=== PATIENT | male | born 1940 | race Caucasian/White ===

== ENCOUNTER 2016-06-24 17:11 | Emergency (ER) | payer MEDICARE ==
[~2016-06-24] VITALS: Ht 180.3 cm; Wt 80.0 kg
[~2016-06-24 17:11] MED LIST: ASPI325T PO; ATOR40TA16 PO; CALC0.25 PO; FERR325T PO; HYDR-755 PO; HYDR25TA35 PO; MIRTA15 PO; MULT1TAB41 PO; NEOM1OIN TOP; PLAV75TA29 PO; PROT40TA PO; QUES4POW2 PO; TAMS5CAP PO; TOPR100T PO; UMEC1AER INH; VITA100018 PO; VITATAB11 PO; [UNRECOGNIZED DRUG - CODE] TOPICAL
[2016-06-24 17:14] VITALS: BP 153/65; PULSE 81; RESP 15; TEMP 97.8; O2SAT 98
[2016-06-24] MEDS ORDERED: ASPI1TAB91 PO (19:00)
[2016-06-24] MEDS ORDERED: ALLE25TA PO (19:00)
[2016-06-24] MEDS ORDERED: CILO100T PO (19:00)
[2016-06-24] MEDS ORDERED: CUREL TOPICAL (19:01)
[2016-06-24 19:24] VITALS: BP 178/75; PULSE 70; RESP 15; O2SAT 100
--- NOTE | 2016-06-24 19:27 | PD ---
HPI Chief Complaint: Cardiac Complaint Time Seen by Provider: 19:03 Travel History International Travel<30 days: No Contact w/Intl Traveler<30days: No Traveled to known affect area: No History of Present Illness HPI This 76-year-old man with a history of advanced chronic kidney disease, peripheral arterial disease, CAD, diabetes, presents to the emergency department brought in by his for lower extremity edema. She reports that he's had chronically dizzy for sometime. He is a left upper extremity AV fistula that he's had for years 30s never had dialysis. Lorcet edema waxes and wanes but is been worse over the past week or so. She was worried She has not been able to get in to see a kidney doctor. She is worried the kidney function may be getting worse. He also some swelling in the left upper extremity. He had a skin cancer removed there just couple days ago. He otherwise states he tripped feeling well. No shortness of breath or chest pain. No nausea vomiting diarrhea. No change in urination. No other complaints. History Past Medical History Narrative Medical Stage IV chronic kidney disease, left upper extremity AV fistula Hyperlipidemia Perform arterial disease with stents 2 Coronary artery disease with previous DE and stenting Diabetes Hypertension Syncope BPH Skin cancer Degenerative joint disease Peripheral neuropathy History of heavy tobacco use, continue his ongoing use Prior alcohol use in the remote past Social History Alcohol Use: No (DENIES) Tobacco Use: Yes (1/2 PACK PER DAY) Allergies-Medications (Allergen,Severity, Reaction): Coded Allergies: Bactrim (Verified Allergy, Severe, Rash, 06/24/16) RASH OF FACE AND ORAL MUCUS MEMBRANES Sulfa (Verified Allergy, Severe, RASH, 06/24/16) *MDRO Multi-Drug Resistant Organism (Verified Allergy, Unknown, 06/24/16) MRSA Wound 2006, 02/2004 MRSA PCR Screen #1 negative 01/20/15. Reported Meds & Prescriptions Reported Meds & Active Scripts Active Mirtazapine 15 Mg Tab 15 Mg PO HS Atorvastatin (Atorvastatin Calcium) 40 Mg Tab 40 Mg PO HS Reported [Curel Lotion] 1 Applic TOPICAL DAILY PRN Cilostazol 100 Mg Tab 100 Mg PO DAILY Allergy Relief (Diphenhydramine HCl) 25 Mg Tab 25 Mg PO Q4-6H PRN Aspirin Adult Low Strength (Aspirin) 81 Mg Tabdr 81 Mg PO DAILY Hydroxyzine HCl 10 Mg Tab 10-20 Mg PO HS Hydralazine (Hydralazine HCl) 25 Mg Tab 25 Mg PO BID Take with a meal Toprol XL (Metoprolol Succinate) 100 Mg Tab 100 Mg PO DAILY Flomax (Tamsulosin HCl) 0.4 Mg Cap 0.4 Mg PO HS Protonix (Pantoprazole Sodium) 40 Mg Tab 40 Mg PO DAILY Anoro Ellipta Inh (Umeclidinium/Vilanterol) 62.5-25 Mcg/Act Aero 1 Puff INH DAILY Plavix (Clopidogrel Bisulfate) 75 Mg Tab 75 Mg PO DAILY Calcitriol 0.25 Mcg Cap 0.25 Mcg PO DAILY Review of Systems Except as stated in HPI: all other systems reviewed are Neg Physical Exam Narrative GENERAL: Well-appearing 76-year-old man, no acute distress. SKIN: Focused skin assessment warm/dry. HEAD: Atraumatic. Normocephalic. EYES: Pupils equal and round. No scleral icterus. No injection or drainage. ENT: No nasal bleeding or discharge. Mucous membranes pink and moist. NECK: Trachea midline. No JVD. CARDIOVASCULAR: Regular rate and rhythm. No murmur appreciated. RESPIRATORY: No accessory muscle use. Clear to auscultation. Breath sounds equal bilaterally. GASTROINTESTINAL: Abdomen soft, non-tender, nondistended. Hepatic and splenic margins not palpable. MUSCULOSKELETAL: No obvious deformities. Mild to moderate pitting edema both lower extremities. Good pulses easily palpable in the right lower extremity. A little bit more difficult to find in the left lower extremity however it's warm and well perfused. NEUROLOGICAL: Awake and alert. No obvious cranial nerve deficits. Motor grossly within normal limits. Normal speech. Data Data Last Documented VS Vital Signs Date Time Temp Pulse Resp B/P Pulse Ox O2 Delivery O2 Flow Rate FiO2 06/24/16 20:26 73 17 166/72 99 06/24/16 19:25 Room Air 06/24/16 17:14 97.8 Orders Chest, Single Ap (06/24/16 ) Complete Blood Count With Diff (06/24/16 19:19) Comprehensive Metabolic Panel (06/24/16 19:19) Us Arm Venous Doppler (06/24/16 ) Electrocardiogram (06/24/16 19:09) Labs Laboratory Tests Test 06/24/16 19:30 White Blood Count 7.4 TH/MM3 Red Blood Count 4.06 MIL/MM3 Hemoglobin 12.2 GM/DL Hematocrit 37.1 % Mean Corpuscular Volume 91.4 FL Mean Corpuscular Hemoglobin 30.0 PG Mean Corpuscular Hemoglobin 32.8 % Concent Red Cell Distribution Width 15.2 % Platelet Count 179 TH/MM3 Mean Platelet Volume 9.2 FL Neutrophils (%) (Auto) 63.7 % Lymphocytes (%) (Auto) 25.6 % Monocytes (%) (Auto) 5.9 % Eosinophils (%) (Auto) 3.7 % Basophils (%) (Auto) 1.1 % Neutrophils # (Auto) 4.7 TH/MM3 Lymphocytes # (Auto) 1.9 TH/MM3 Monocytes # (Auto) 0.4 TH/MM3 Eosinophils # (Auto) 0.3 TH/MM3 Basophils # (Auto) 0.1 TH/MM3 CBC Comment DIFF FINAL Differential Comment Sodium Level 141 MEQ/L Potassium Level 4.4 MEQ/L Chloride Level 105 MEQ/L Carbon Dioxide Level 30.0 MEQ/L Anion Gap 6 MEQ/L Blood Urea Nitrogen 26 MG/DL Creatinine 2.01 MG/DL Estimat Glomerular Filtration 32 ML/MIN Rate Random Glucose 92 MG/DL Calcium Level 9.5 MG/DL Total Bilirubin 0.4 MG/DL Aspartate Amino Transf 23 U/L (AST/SGOT) Alanine Aminotransferase 23 U/L (ALT/SGPT) Alkaline Phosphatase 110 U/L Total Protein 7.8 GM/DL Albumin 3.7 GM/DL [facility] Medical Decision Making Medical Screen Exam Complete: Yes Emergency Medical Condition: Yes Interpretation(s) LABS: CBC remarkable for mild anemia CMP remarkable for renal disease Chest x-ray: Negative Left upper quadrant ultrasound: No DVT. Differential Diagnosis Liver disease, dependent edema, kidney disease, other Narrative Course Medical decision-making the Is a well 68-year-old male presents with worsening lower extremity edema. He has history of peripheral arterial disease, as well as chronic kidney disease. Apparently the edema waxes and wanes. There is mild to moderate edema in the legs now. He looks otherwise well. No other significant symptoms. We'll check labs, likely outpatient follow-up with his primary physician. FINAL: Patient with some lower extremity edema, improved now, waxes and wanes at baseline. Likely related to his chronic kidney disease. He also some swelling and warmth in his left upper extremity. He had a skin cancer removal there. I don't see any evidence of infection. I think this may be related to the AV fistula he has there. This appears patent. At this point we'll recommend outpatient follow-up with his primary physician for ongoing management. I don't think he needs any other intervention at this time. Diagnosis Primary Impression: CKD (chronic kidney disease) stage 4, GFR 15-29 ml/min Additional Impression: Edema Additional Instructions: Continue current medications. Follow-up with your primary doctor in the next one to 2 weeks. Continue evaluation by asp net programmer at the first available appointment. Return to the emergency department for any new or worsening symptoms. Disposition: 01 DISCHARGE HOME Condition: Stable Alejandro Camacho MD Jun 24, 2016 19:27
[2016-06-24 19:50] LABS: AUTOMATED NEUTROPHIL # 4.7 TH/MM3 (1.8-7.7); BASOPHIL # 0.1 TH/MM3 (0-0.2); BASOPHIL % 1.1 % (0.0-2.0); EOSINOPHIL # 0.3 TH/MM3 (0-0.4); EOSINOPHIL % 3.7 % (0.0-4.0); HEMATOCRIT 37.1 % (39.0-51.0); HEMO FLAGS DIFF FINAL; LYMPH % 25.6 % (9.0-44.0); LYMPHOCYTE # 1.9 TH/MM3 (1.0-4.8); MEAN CELL VOLUME 91.4 FL (80.0-100.0); MEAN CORPUSCULAR HGB CONC 32.8 % (32.0-36.0); MONO % 5.9 % (0.0-8.0); NEUT % 63.7 % (16.0-70.0); PLATELET COUNT 179 TH/MM3 (150-450); RED BLOOD COUNT 4.06 MIL/MM3 (4.50-5.90); RED CELL DISTRIBUTION WIDTH 15.2 % (11.6-17.2); WHITE BLOOD COUNT 7.4 TH/MM3 (4.0-11.0)
--- NOTE | 2016-06-24 20:08 | RADRPT ---
EXAM DATE/TIME: 06/24/2016 19:29 [facility] COMPARISON: CHEST SINGLE AP, March 08, 2016, 11:26. INDICATIONS : Shortness of breath. Swelling in arms and legs. MEDICAL HISTORY : None. SURGICAL HISTORY : None. ENCOUNTER: Initial ACUITY: 1 day PAIN SCORE: 0/10 LOCATION: Bilateral chest FINDINGS: The lungs are clear without infiltrate, nodule, or mass. There is no appreciable pleural effusion fo r technique. Heart and mediastinum are unremarkable. CONCLUSION: No acute cardiopulmonary disease. Sorin Montero MD on June 24, 2016 at 20:06 Board Certified Radiologist. This report was verified electronically.
[2016-06-24 20:10] LABS: ANION GAP 6 MEQ/L (5-15); AST (GOT) 23 U/L (15-37); BLOOD UREA NITROGEN 26 MG/DL (7-18); CHLORIDE 105 MEQ/L (98-107); GLOMERULAR FILTRATION RATE 32 ML/MIN (>89); POTASSIUM 4.4 MEQ/L (3.5-5.1); SODIUM (NA) 141 MEQ/L (136-145)
[2016-06-24 20:13] LABS: ALKALINE PHOSPHATASE 110 U/L (45-117); ALT (GPT) 23 U/L (12-78); TOTAL BILIRUBIN ADULT 0.4 MG/DL (0.2-1.0)
[2016-06-24 20:26] VITALS: BP 166/72; PULSE 73; RESP 17; O2SAT 99
--- NOTE | 2016-06-24 22:01 | RADRPT ---
EXAM DATE/TIME: 06/24/2016 21:18 [facility] COMPARISON: No previous studies available for comparison. INDICATIONS : Left arm swelling. MEDICAL HISTORY : Chronic obstructive pulmonary disease. Hypercholesterolemia. Myocardial infarction. Cerebrovascular a ccident. Coronary artery disease. Peripheral vascular disease. Hearing loss. Syncope. Neuropathy. Cor onary artery disease. Anticoagulant therapy. Hypertension. Ulcer. Renal failure. Benign prostatic hyp ertrophy. Diabetes. Skin cancer. MRSA. SURGICAL HISTORY : Coronary artery stent. Gastrointestinal surgery to fix gastro bleed. Polyp removal. Skin cancer re moval. Right arm surgery. Vein stripping. ENCOUNTER: Initial ACUITY: 1 day PAIN SCORE: 5/10 LOCATION: Left arm. FINDINGS: There is spontaneous flow documented in the brachial, basilic, cephalic, axillary, and subclavian vei ns. The vessels are compressible and augmentation response is documented. No filling defects are se en. The flow is phasic with respiration. Direction of flow in the jugular vein is caudal. AV fistu la in the brachial vein appears patent. CONCLUSION: No DVT. KRobert Montero MD on June 24, 2016 at 21:59 Board Certified Radiologist. This report was verified electronically.
--- NOTE | 2016-06-25 13:46 | EKG ---
Date Performed: 06/24/2016 Time Performed: 19:09:09 PTAGE: 76 years EKG: Sinus rhythm WITH FIRST DEGREE AV BLOCK LEFT VENTRICULAR HYPERTROPHY AND ST-T CHANGE ABNORMAL ECG Compared to marko or tracing no significant change PREVIOUS TRACING : 03/08/2016 11.43 DOCTOR: David Guevara Interpretating Date/Time 06/25/2016 13:40:57
[2016-07-21] MEDS ORDERED: VENTAER INH (16:07)
[2016-07-21] MEDS ORDERED: FURO1TAB62 PO (16:07)
[2016-07-28] MEDS ORDERED: FURO20TA PO (14:15)
[2016-08-19] MEDS ORDERED: VENTAER INH (12:36)
[2016-09-03] MEDS ORDERED: VENTAER INH (06:24)
[2016-09-16] MEDS ORDERED: VENTAER INH (07:44)
== END 2016-06-24 23:33 | disposition home or self-care (01) ==
LOC: NEPC 17:11
DX: N18.4 Chronic kidney disease, stage 4 (severe) (principal); I12.9 Hypertensive chronic kidney disease with stage 1 through stage 4 chronic kidney disease, or unspecified chronic kidney disease; E78.5 Hyperlipidemia, unspecified; E11.9 Type 2 diabetes mellitus without complications; I25.2 Old myocardial infarction; I25.10 Atherosclerotic heart disease of native coronary artery without angina pectoris; G62.9 Polyneuropathy, unspecified; Z79.01 Long term (current) use of anticoagulants; F17.210 Nicotine dependence, cigarettes, uncomplicated; Z79.82 Long term (current) use of aspirin
CPT/HCPCS: 71010; 80053; 85025; 93005; 93971

== ENCOUNTER 2016-11-28 14:29 | Inpatient (IN) | payer MEDICARE ==
[~2016-11-28] VITALS: Ht 182.9 cm; Wt 73.0 kg
[2016-11-28] VITALS (16 sets, daily range): BP systolic 101–216; BP diastolic 50–98; PULSE 81–139; RESP 19–38; TEMP 97.9–99.2; O2SAT 89–100
[~2016-11-28 14:29] MED LIST changes: +ALLE25TA PO; +ASPI1TAB91 PO; -ASPI325T PO; +CILO100T PO; +CUREL TOPICAL; -FERR325T PO; +FURO1TAB62 PO; +FURO20TA PO; -HYDR25TA35 PO; -MULT1TAB41 PO; -NEOM1OIN TOP; -QUES4POW2 PO; +VENTAER INH; -VITA100018 PO; -VITATAB11 PO; -[UNRECOGNIZED DRUG - CODE] TOPICAL
[2016-11-28] MEDS ORDERED: DILTIAZEM HCL 25 MG/5 ML VIAL ONE (14:39)
[2016-11-28] MEDS ORDERED: NITROGLYCERIN-D5W 50 MG/250 ML 250 ML IV ONE (14:45)
[2016-11-28] MEDS ORDERED: DILTIAZEM HCL 25 MG/5 ML VIAL IV ONE (14:45)
[2016-11-28] MEDS ORDERED: SODIUM CHLORIDE 0.9% FLUSH 10 ML FLUSH IVF PRN (14:45)
[2016-11-28] MEDS ORDERED: DILTIAZEM INJ 125 MG in SODIUM CHLORIDE 0.9% INJ 100 ML IV PRN ×2 (14:45→16:45)
--- NOTE | 2016-11-28 14:56 | PD ---
HPI Chief Complaint: Respiratory Distress Time Seen by Provider: 14:45 Travel History International Travel<30 days: No Contact w/Intl Traveler<30days: No Traveled to known affect area: No History of Present Illness HPI Patient is a 76-year-old male presenting to emergency evaluation of shortness of breath. Per EMS shortness of breath has been increasing over the last 2 days. Patient has a history of COPD, chronic kidney disease stage IV, diabetes mellitus, BPH, GERD, hyperlipidemia, coronary artery disease, peripheral artery disease, myocardial infarction. History of present illness is limited as patient is in acute distress. PFSH Past Medical History Hx Anticoagulant Therapy: Yes (aspirin and Plavix) Cancer: Yes (SKIN) Cardiac Catheterization: Yes Cardiomyopathy: Yes High Cholesterol: Yes Chest Pain: Yes COPD: Yes Cerebrovascular Accident: Yes (TIA) Coronary Artery Disease: Yes Diabetes: Yes (diet controlled) Gastrointestinal Disorders: Yes (history of GI bleed) Hypertension: Yes Immune Disorder: No Kidney Stones: No Musculoskeletal: Yes Neurologic: No Psychiatric: No Reproductive: No Integumentary: Yes (SKIN MRSA) Immunizations Current: Yes Myocardial Infarction: Yes Renal Failure: Yes (stage IV chronic kidney disease) Sleep Apnea: Yes Ulcer: Yes Past Surgical History Abdominal Surgery: No AICD: No Arteriovenous Shunt: Yes (left arm) Coronary Stent: Yes Ear Surgery: No Endocrine Surgery: No Eye Surgery: No Genitourinary Surgery: Yes (colonospy polyp/endoscopy ) Gynecologic Surgery: No Joint Replacement: No Neurologic Surgery: No Oral Surgery: No Pacemaker: No Thoracic Surgery: No Other Surgery: Yes (STRIPPED VEINS IN LEGS, LAVF) Social History Alcohol Use: No (DENIES) Tobacco Use: Yes (1/2 PACK PER DAY) Substance Use: No Allergies-Medications (Allergen,Severity, Reaction): Coded Allergies: Sulfa (Sulfonamide Antibiotics) (Unverified Allergy, Severe, RASH, 11/02/16 ) sulfamethoxazole (Unverified Allergy, Severe, Rash, 11/02/16) RASH OF FACE AND ORAL MUCUS MEMBRANES trimethoprim (Unverified Allergy, Severe, Rash, 11/02/16) RASH OF FACE AND ORAL MUCUS MEMBRANES *MDRO Multi-Drug Resistant Organism (Verified Allergy, Unknown, 07/28/16) MRSA Wound 2006, 02/2004 MRSA PCR Screen #1 negative 01/20/15. Reported Meds & Prescriptions Reported Meds & Active Scripts Active Ventolin Hfa 18 GM Inh (Albuterol Sulfate) 90 Mcg/Act Aer 2 Puff INH Q4-6H PRN Mirtazapine 15 Mg Tab 15 Mg PO HS Atorvastatin (Atorvastatin Calcium) 40 Mg Tab 40 Mg PO HS Reported Furosemide 20 Mg Tab 20 Mg PO DAILY Lasix (Furosemide) 20 Mg Tab 20 Mg PO DAILY [Curel Lotion] 1 Applic TOPICAL DAILY PRN Cilostazol 100 Mg Tab 100 Mg PO DAILY Allergy Relief (Diphenhydramine HCl) 25 Mg Tab 25 Mg PO Q4-6H PRN Aspirin Adult Low Strength (Aspirin) 81 Mg Tabdr 81 Mg PO DAILY Hydroxyzine HCl 10 Mg Tab 10-20 Mg PO HS Toprol XL (Metoprolol Succinate) 100 Mg Tab 100 Mg PO DAILY Flomax (Tamsulosin HCl) 0.4 Mg Cap 0.4 Mg PO HS Protonix (Pantoprazole Sodium) 40 Mg Tab 40 Mg PO DAILY Anoro Ellipta Inh (Umeclidinium/Vilanterol) 62.5-25 Mcg/Act Aero 1 Puff INH DAILY Plavix (Clopidogrel Bisulfate) 75 Mg Tab 75 Mg PO DAILY Calcitriol 0.25 Mcg Cap 0.25 Mcg PO DAILY Review of Systems Except as stated in HPI: all other systems reviewed are Neg Cardiovascular: Positive: Chest Pain or Discomfort, Tachycardia, Dyspnea on exertion, Edema Respiratory: Positive: Shortness of Breath, Wheezing, Orthopnea Neurologic: Positive: Weakness Physical Exam Narrative GENERAL: Thin, well-developed, alert elderly male. Appears in acute distress. SKIN: Warm and dry. HEAD: Atraumatic. Normocephalic. EYES: Pupils equal and round. No scleral icterus. No injection or drainage. ENT: No nasal bleeding or discharge. Mucous membranes pink and moist. NECK: Trachea midline. No JVD. CARDIOVASCULAR: Regular rate and rhythm. RESPIRATORY: Tachypneic, diaphragmatic breathing, nasal flaring. Expiratory wheezing or coarse breath sounds noted throughout. GASTROINTESTINAL: Abdomen soft, non-tender, nondistended. Hepatic and splenic margins not palpable. Positive bowel sounds. MUSCULOSKELETAL: Extremities without clubbing, cyanosis. Trace peripheral edema. No obvious deformities. NEUROLOGICAL: Awake and alert. No obvious cranial nerve deficits. Motor grossly within normal limits. Five out of 5 muscle strength in the arms and legs. Normal speech. PSYCHIATRIC: Appropriate mood and affect; insight and judgment normal. Data Data Last Documented VS Vital Signs Date Time Temp Pulse Resp B/P (MAP) Pulse Ox O2 Delivery O2 Flow Rate FiO2 11/28/16 16:30 104 21 151/67 (95) 100 BiPAP 11/28/16 14:40 60 11/28/16 14:32 99.2 Orders Orders Complete Blood Count With Diff (11/28/16 14:33) Comprehensive Metabolic Panel (11/28/16 14:33) B-Type Natriuretic Peptide (11/28/16 14:33) Magnesium (Mg) (11/28/16 14:33) Arterial Blood Gas (Abg) (11/28/16 14:33) Iv Access Insert/Monitor (11/28/16:33) Electrocardiogram (11/28/16:33) Ecg Monitoring (11/28/16:33) Oximetry (11/28/16 14:33) Oxygen Administration (11/28/16 14:33) Chest, Single Ap (11/28/16 14:33) Sodium Chloride 0.9% Flush (Ns Flush) (11/28/16 14:45) Albuterol-Ipratropium Neb (Duoneb Neb) (11/28/16 14:45) Resp Bipap / Cpap Non Invas Vt (11/28/16 14:33) Diltiazem Inj (Cardizem Inj) (11/28/16 14:39) Diltiazem Inj (Cardizem Inj) (11/28/16 14:45) Nitroglycerin-D5w 50 Mg/250 Ml (Nitrogly (11/28/16 14:45) Vital Signs (Adult) Q15MX4,Q4H (11/28/16 14:41) Cardiac Rhythm OLIVIA.Q8H (11/28/16 14:41) Notify Dr: Other (11/28/16 14:41) Diltiazem Inj (Cardizem Inj) (11/28/16 14:45) Ckmb (Isoenzyme) Profile (11/28/16 14:45) Troponin I (11/28/16 14:45) Furosemide Inj (Lasix Inj) (11/28/16 15:15) CKMB (11/28/16 14:40) CKMB% (11/28/16 14:40) Admit Order (Ed Use Only) (11/28/16 16:34) Labs Laboratory Tests Test 11/28/16 14:40 White Blood Count 13.7 TH/MM3 Red Blood Count 3.76 MIL/MM3 Hemoglobin 9.1 GM/DL Hematocrit 30.9 % Mean Corpuscular Volume 82.1 FL Mean Corpuscular Hemoglobin 24.3 PG Mean Corpuscular Hemoglobin Concent 29.6 % Red Cell Distribution Width 22.3 % Platelet Count 198 TH/MM3 Mean Platelet Volume 8.6 FL Neutrophils (%) (Auto) 78.8 % Lymphocytes (%) (Auto) 17.6 % Monocytes (%) (Auto) 3.2 % Eosinophils (%) (Auto) 0.0 % Basophils (%) (Auto) 0.4 % Neutrophils # (Auto) 10.8 TH/MM3 Lymphocytes # (Auto) 2.4 TH/MM3 Monocytes # (Auto) 0.4 TH/MM3 Eosinophils # (Auto) 0.0 TH/MM3 Basophils # (Auto) 0.1 TH/MM3 CBC Comment DIFF FINAL Differential Comment Blood Urea Nitrogen 39 MG/DL Creatinine 2.66 MG/DL Random Glucose 241 MG/DL Total Protein 7.8 GM/DL Albumin 3.6 GM/DL Calcium Level 8.9 MG/DL Magnesium Level 2.6 MG/DL Alkaline Phosphatase 92 U/L Aspartate Amino Transf (AST/SGOT) 22 U/L Alanine Aminotransferase (ALT/SGPT) 20 U/L Total Bilirubin 1.1 MG/DL Sodium Level 142 MEQ/L Potassium Level 4.4 MEQ/L Chloride Level 104 MEQ/L Carbon Dioxide Level 25.2 MEQ/L Anion Gap 13 MEQ/L Estimat Glomerular Filtration Rate 23 ML/MIN Total Creatine Kinase 147 U/L Creatine Kinase MB 6.7 NG/ML Troponin I 1.40 NG/ML B-Type Natriuretic Peptide GREATER THAN 5000 PG/ML MDM Medical Decision Making Medical Screen Exam Complete: Yes Emergency Medical Condition: Yes Medical Record Reviewed: Yes Interpretation(s) Vital Signs Date Time Temp Pulse Resp B/P (MAP) Pulse Ox O2 Delivery O2 Flow Rate FiO2 11/28/16 14:38 98 BiPAP 11/28/16 14:38 99 BiPAP 60 11/28/16 14:38 139 38 98 BiPAP 11/28/16 14:32 99.2 139 38 216/98 (137) 89 Differential Diagnosis CHF vs COPD exac. vs less likely PE vs metabolic abnormality vs acute on chronic kidney disease Narrative Course Patient is 76-year-old male presenting to emergency evaluation of shortness of breath. Initial report was obtained by EMS. Patient was tachypneic, tachycardic, and appeared to be in acute distress on arrival. Patient was placed on BiPAP. Labs and imaging ordered and pending. IV access was established by EMS, patient was given IV Solu-Medrol 125 mg en route. is at bedside states the patient has been feeling short of breath. Several days, today it got increasingly worse. Patient had not been eating and was very fatigued. Patient was given nitroglycerin by his this morning because she felt that it could've been his heart. She reports that he has not of his Lasix for several days. Patient was started on Lasix last month after a two-week stay in the hospital in [place]. Initial EKG shows atrial flutter with a heart rate of 140, patient was also hypertensive on arrival. Cardizem 20 mg IV was followed by Cardizem drip was ordered. Chest x-ray shows interstitial vascular prominence characteristic of pulmonary edema. 4 mg of IV Lasix ordered and given. CBC with a white count 13.7 with left shift Chemistry with elevated BUN and creatinine at 39/2.66, this is increased since his prior of 16/05.. Patient was reassessed, he is resting comfortably, he does not appear to be in acute distress and reports feeling better. is at bedside at this time. Discussed with both of them that patient will be admitted, they are agreeable. BNP greater than 5000. Heart rate is 95 on the Cardizem drip. He continues to be on BiPAP. Troponin 1.40 likely secondary to demand ischemia. Tachy arrhythmia likely causing the CHF. Due to the respiratory distress, congestive heart failure, Cardizem drip, elevated troponin and need for BiPAP patient was placed in the ICU. Dr. Kimbrough will consult intensivists. Spoke with doctor العراقي, who according to the call center was on for Dr. Hollis, he stated his group does not cover for Dr. Hollis. He was informed about patients status, he stated he would discuss this with Dr. Kimbrough and be of assistance if needed. Sepsis Criteria SIRS Criteria (2 or more): Heart rate over 90, RR > 20 or PaCO2 < 32, WBC > 75470, < 4000 or > 10% bands Diagnosis Primary Impression: CHF (congestive heart failure) Qualified Codes: I50.9 - Heart failure, unspecified Additional Impressions: Atrial flutter with rapid ventricular response Elevated troponin Acute kidney injury superimposed on chronic kidney disease Respiratory distress Admitting Information Admitting Physician Requests: Admit Condition: Stable Maribel Grijalva MOLD TOOLING TECHNICIAN Nov 28, 2016 14:56
--- NOTE | 2016-11-28 15:09 | RADRPT ---
EXAM DATE/TIME: 11/28/2016 14:54 [facility] COMPARISON: CHEST SINGLE AP, June 24, 2016, 19:29. INDICATIONS : Short of breath for two days. MEDICAL HISTORY : Cardiovascular disease. Hypertension. Diabetes mellitus type 1. SURGICAL HISTORY : None. ENCOUNTER: Initial ACUITY: 2 days PAIN SCORE: 0/10 LOCATION: Bilateral chest FINDINGS: Generalized interstitial vascular prominence has developed throughout both lungs. Heart is at the upp er limits of normal in size. Patchy airspace disease is noted. CONCLUSION: Interstitial vascular prominence characteristic of pulmonary edema. Dallin Rowan MD on November 28, 2016 at 15:06 Board Certified Radiologist. This report was verified electronically.
[2016-11-28] MEDS ORDERED: FUROSEMIDE 40 MG/4 ML VIAL IV PUSH ONE (15:15)
[2016-11-28 15:19] LABS: AUTOMATED NEUTROPHIL # 10.8 TH/MM3 (1.8-7.7); BASOPHIL # 0.1 TH/MM3 (0-0.2); BASOPHIL % 0.4 % (0.0-2.0); HEMATOCRIT 30.9 % (39.0-51.0); HEMO FLAGS DIFF FINAL; LYMPH % 17.6 % (9.0-44.0); LYMPHOCYTE # 2.4 TH/MM3 (1.0-4.8); MEAN CELL VOLUME 82.1 FL (80.0-100.0); MEAN CORPUSCULAR HEMOGLOBIN 24.3 PG (27.0-34.0); MONO % 3.2 % (0.0-8.0); NEUT % 78.8 % (16.0-70.0); PLATELET COUNT 198 TH/MM3 (150-450); RED BLOOD COUNT 3.76 MIL/MM3 (4.50-5.90); RED CELL DISTRIBUTION WIDTH 22.3 % (11.6-17.2); WHITE BLOOD COUNT 13.7 TH/MM3 (4.0-11.0)
[2016-11-28] MEDS: RESP: ALBUTEROL 2.5 MG/IPRATROPIUM 0.5 MG NEB (SCH) INH (15:21)
[2016-11-28 15:22] LABS: MEAN CORPUSCULAR HGB CONC 29.6 % (32.0-36.0)
[2016-11-28 15:45] LABS: ALT (GPT) 20 U/L (12-78); ANION GAP 13 MEQ/L (5-15); AST (GOT) 22 U/L (15-37); BICARBONATE 25.2 MEQ/L (21.0-32.0); BLOOD UREA NITROGEN 39 MG/DL (7-18); CHLORIDE 104 MEQ/L (98-107); GLOMERULAR FILTRATION RATE 23 ML/MIN (>89); MAGNESIUM 2.6 MG/DL (1.5-2.5); POTASSIUM 4.4 MEQ/L (3.5-5.1); SODIUM (NA) 142 MEQ/L (136-145)
[2016-11-28 15:46] LABS: ALKALINE PHOSPHATASE 92 U/L (45-117); TOTAL BILIRUBIN ADULT 1.1 MG/DL (0.2-1.0)
[2016-11-28 16:16] LABS: CREATINE KINASE 147 U/L (39-308)
[2016-11-28] MEDS ORDERED: oxyCODONE/ACETAMINOPHEN 10 MG/325 MG TAB PO PRN (16:45)
[2016-11-28] MEDS ORDERED: SENNOSIDES 8.6 MG TAB PO PRN (16:45)
[2016-11-28] MEDS ORDERED: ALBUTEROL SULFATE 90 MCG/ACT HFA 8 GM INHALER INH PRN (16:45)
[2016-11-28] MEDS ORDERED: oxyCODONE/ACETAMINOPHEN 5 MG/325 MG TAB PO PRN (16:45)
[2016-11-28] MEDS ORDERED: PROCHLORPERAZINE 25 MG SUPP RECTAL PRN (16:45)
[2016-11-28] MEDS ORDERED: BISACODYL 10 MG SUPP RECTAL PRN (16:45)
[2016-11-28] MEDS ORDERED: NALOXONE HCL 0.4 MG/ML AMP IV PRN (16:45)
[2016-11-28] MEDS ORDERED: CUREL TOPICAL PRN (16:45)
[2016-11-28] MEDS ORDERED: MAGNESIUM HYDROXIDE SUSP 30 ML CUP PO PRN (16:45)
[2016-11-28] MEDS ORDERED: SODIUM CHLORIDE 0.9% FLUSH 10 ML FLUSH IV FLUSH PRN ×3 (16:45)
[2016-11-28] MEDS ORDERED: MORPHINE SULFATE 4 MG/ML INJ IV PRN ×2 (16:45)
[2016-11-28] MEDS ORDERED: ONDANSETRON HCL 4 MG/2 ML VIAL IVP PRN (16:45)
[2016-11-28] MEDS ORDERED: ACETAMINOPHEN 325 MG TAB PO PRN ×2 (16:45)
[2016-11-28] MEDS ORDERED: LACTULOSE SYRUP 20 GM/30 ML CUP PO PRN (16:45)
[2016-11-28 16:48] LABS: CKMB 6.7 NG/ML (0.5-3.6)
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
[2016-11-28 17:47] LABS: BLOOD GAS BASE EXCESS -1.4 mmol/L (-2-2); BLOOD GAS CARBOXYHEMOGLOBIN 2.6 % (0-4); BLOOD GAS HCO3 23 mmol/L (22-26); BLOOD GAS METHEMOGLOBIN 0.5 % (0-2); BLOOD GAS O2 HGB SATURATION 96 % (90-100); BLOOD GAS OXYGEN CONTENT 14.2 Vol % (12.0-20.0); BLOOD GAS PCO2 36 mmHg (38-42); BLOOD GAS PO2 141 mmHG (61-120); BLOOD GAS TOTAL HGB 10.3 G/DL (12.0-16.0); CRITICAL VALUE NO; DRAW SITE RT RADIAL; FIO2 60 %; NUMBER OF ARTERIAL PUNCTURES 1; OXYGEN DEVICE BIPAP; STAT YES; TEMP CORR TO 98.6; ULNAR PULSE PRESENT; VENT SETTINGS IPAP10 EPAP5
--- NOTE | 2016-11-28 18:08 | HHI.HP ---
[facility] Unknown Admission Diagnosis CHF, A FLUTTER, ELEVATED TROPONIN Diagnoses: (1) CHF (congestive heart failure) Diagnosis: Principal (2) COPD (chronic obstructive pulmonary disease) Diagnosis: Secondary (3) Atrial flutter with rapid ventricular response Diagnosis: Principal (4) CKD (chronic kidney disease) stage 4, GFR 15-29 ml/min Diagnosis: Secondary (5) Respiratory distress Diagnosis: Principal (6) DM2 (diabetes mellitus, type 2) Diagnosis: Secondary Chief Complaint: Shortness of breath and difficulty breathing Travel History International Travel<30 Days: No Contact w/Intl Traveler <30 Da: No Traveled to Known Affected Are: No History of Present Illness Mr. Matsers is a 76-year-old male patient with a known medical history of COPD, long standing tobacco use history, CKD stage IV, atrial fibrillation, CHF and hypertension who presented to the ED with worsening shortness of breath x 1 day. Patient seen and examined in ED, at bedside. Per , patient has been more fatigued and lethargic, sleeping a lot. She states that yesterday he was increasingly short of breath, unable to lie flat at night due to dyspnea and has been unable to walk across the room without becoming short of breath. states that patient's health has been declining for over a year now and recently hospitalized 2 weeks ago for similar symptoms and at that time started on Lasix with which the patient has been noncompliant. Denies any recent illness including fever, chills, headache, dizziness, abdominal pain, nausea, vomiting, diarrhea or dysuria. Does admit to a chronic nonproductive cough. Poor appetite for several days. Patient awake and alert, following commands, currently requiring BIPAP assistance, shallow breathing noted, with apparent dyspnea. Patient presented with A fib RVR, currently on Cardizem drip and well- controlled. O2 sats 100% on 40% FiO2. BP stable. We'll admit to the ICU for close monitoring Review of Systems Constitutional: COMPLAINS OF: Fatigue, DENIES: Diaphoretic episodes, Fever, Weight gain, Weight loss, Chills, Dizziness, Change in appetite Endocrine: DENIES: Heat/cold intolerance, Polydipsia, Polyuria Eyes: DENIES: Blurred vision, Diplopia, Eye inflammation Ears, nose, mouth, throat: DENIES: Tinnitus, Hearing loss, Vertigo, Nasal discharge, Odynophagia Respiratory: COMPLAINS OF: Cough, Wheezing, Sputum production, Shortness of breath, DENIES: Apneas, Snoring, Hemoptysis Cardiovascular: COMPLAINS OF: Chest pain, Palpitations, Dyspnea on Exertion, DENIES: Syncope, PND, Lower Extremity Edema, Orthopnea Gastrointestinal: DENIES: Abdominal pain, Black stools, Bloody stools, Constipation, Diarrhea, Nausea, Vomiting, Difficulty Swallowing Genitourinary: DENIES: Sexual dysfunction, Urinary frequency, Urinary incontinence Musculoskeletal: DENIES: Joint pain, Muscle aches, Stiffness Integumentary: DENIES: Abnormal pigmentation, Nail changes Hematologic/lymphatic: DENIES: Bruising, Lymphadenopathy Immunologic/allergic: DENIES: Eczema, Urticaria Neurologic: DENIES: Abnormal gait, Headache, Localized weakness, Paresthesias, Seizures Psychiatric: COMPLAINS OF: Anxiety, Depression, Agitation, DENIES: Confusion, Mood changes, Hallucinations Except as stated in HPI: all other systems reviewed are Neg Past Family Social History Past Medical History Hyperlipidemia Cardiomyopathy COPD History of TIA Type 2 diabetes mellitus History of GI bleed History of WI Stage IV chronic kidney disease Sleep apnea Tobacco abuse Past Surgical History Left AV fistula CAD with stents LAVF stripping in lower extremities Reported Medications Active Ventolin Hfa 18 GM Inh (Albuterol Sulfate) 90 Mcg/Act Aer 2 Puff INH Q4-6H PRN Mirtazapine 15 Mg Tab 15 Mg PO HS Atorvastatin (Atorvastatin Calcium) 40 Mg Tab 40 Mg PO HS Reported Furosemide 20 Mg Tab 20 Mg PO DAILY Lasix (Furosemide) 20 Mg Tab 20 Mg PO DAILY [Curel Lotion] 1 Applic TOPICAL DAILY PRN Cilostazol 100 Mg Tab 100 Mg PO DAILY Allergy Relief (Diphenhydramine HCl) 25 Mg Tab 25 Mg PO Q4-6H PRN Aspirin Adult Low Strength (Aspirin) 81 Mg Tabdr 81 Mg PO DAILY Hydroxyzine HCl 10 Mg Tab 10-20 Mg PO HS Toprol XL (Metoprolol Succinate) 100 Mg Tab 100 Mg PO DAILY Flomax (Tamsulosin HCl) 0.4 Mg Cap 0.4 Mg PO HS Protonix (Pantoprazole Sodium) 40 Mg Tab 40 Mg PO DAILY Anoro Ellipta Inh (Umeclidinium/Vilanterol) 62.5-25 Mcg/Act Aero 1 Puff INH DAILY Plavix (Clopidogrel Bisulfate) 75 Mg Tab 75 Mg PO DAILY Calcitriol 0.25 Mcg Cap 0.25 Mcg PO DAILY Allergies: Coded Allergies: Sulfa (Sulfonamide Antibiotics) (Unverified Allergy, Severe, RASH, 11/02/16 ) sulfamethoxazole (Unverified Allergy, Severe, Rash, 11/02/16) RASH OF FACE AND ORAL MUCUS MEMBRANES trimethoprim (Unverified Allergy, Severe, Rash, 11/02/16) RASH OF FACE AND ORAL MUCUS MEMBRANES *MDRO Multi-Drug Resistant Organism (Verified Allergy, Unknown, 07/28/16) MRSA Wound 2006, 02/2004 MRSA PCR Screen #1 negative 01/20/15. Active Ordered Medications Current Medications Medications (Trade) Dose Ordered Sig/Surendra Route Start Time Stop Time Status Last Admin (NS Flush) 2 ml UNSCH PRN IVF 11/28/16 14:45 Diltiazem HCl 125 mg/Sodium Chloride 125 ml @ 5 mls/hr TITRATE PRN IV 11/28/16 14:45 11/28/16 14:59 (Proair Hfa Inh) 2 puff Q6HR PRN INH 11/28/16 16:45 UNV (Ecotrin Ec) 81 mg DAILY PO 11/29/16 09:00 UNV (Lipitor) 40 mg HS PO 11/28/16 21:00 UNV (Rocaltrol) 0.25 mcg DAILY PO 11/29/16 09:00 UNV (Pletal) 100 mg DAILY PO 11/29/16 09:00 UNV (Plavix) 75 mg DAILY PO 11/29/16 09:00 UNV (Atarax) 10 mg HS PO 11/28/16 21:00 UNV (Toprol Xl) 100 mg DAILY PO 11/28/16 16:45 UNV (Remeron) 15 mg HS PO 11/28/16 21:00 UNV (Protonix) 40 mg DAILY PO 11/28/16 16:45 UNV (Flomax) 0.4 mg HS PO 11/28/16 21:00 UNV Non-Formulary Medication 25 mg Q4-6H PRN PO 11/28/16 16:45 UNV Non-Formulary Medication 1 applic DAILY PRN TOPICAL 11/28/16 16:45 UNV (NS Flush) 2 ml UNSCH PRN IV FLUSH 11/28/16 16:45 UNV (NS Flush) 2 ml BID IV FLUSH 11/28/16 21:00 UNV (Tylenol) 650 mg Q4H PRN PO 11/28/16 16:45 UNV (Zofran Inj) 4 mg Q6H PRN IVP 11/28/16 16:45 UNV (Compazine Supp) 25 mg Q12H PRN ND 11/28/16 16:45 UNV (Heparin Inj) 5,000 units Q12H SQ 11/28/16 16:45 UNV (Tylenol) 650 mg Q6H PRN PO 11/28/16 16:45 UNV (Percocet 5-325 Mg) 1 tab Q6H PRN PO 11/28/16 16:45 UNV (Percocet 10-325 Mg) 1 tab Q6H PRN PO 11/28/16 16:45 UNV (Morphine Inj) 2 mg Q3H PRN IV 11/28/16 16:45 UNV (Morphine Inj) 4 mg Q3H PRN IV 11/28/16 16:45 UNV (Narcan Inj) 0.4 mg UNSCH PRN IV 11/28/16 16:45 UNV (Jodie-Colace) 1 tab BID PO 11/28/16 21:00 UNV (Milk Of Magnesia Liq) 30 ml Q12H PRN PO 11/28/16 16:45 UNV (Senokot) 17.2 mg Q12H PRN PO 11/28/16 16:45 UNV (Dulcolax Supp) 10 mg DAILY PRN RECTAL 11/28/16 16:45 UNV (Lactulose Liq) 30 ml DAILY PRN PO 11/28/16 16:45 UNV (NS Flush) 2 ml UNSCH PRN IV FLUSH 11/28/16 16:45 UNV (NS Flush) 2 ml BID IV FLUSH 11/28/16 21:00 UNV (Lasix Inj) 40 mg BID@,18 IVP 11/28/16 18:00 UNV (KCl) 20 meq BID PO 11/28/16 21:00 UNV (NS Flush) 2 ml UNSCH PRN IV FLUSH 11/28/16 16:45 UNV (NS Flush) 2 ml BID IV FLUSH 11/28/16 21:00 UNV (Aspirin) 325 mg DAILY PO 11/29/16 09:00 UNV Diltiazem HCl 125 mg/Sodium Chloride 125 ml @ 5 mls/hr TITRATE PRN IV 11/28/16 16:45 UNV Family History Paternal medical history significant for WI in his 70's. Maternal medical history significant for stroke in her 70's. Both . Social History Patient is over 50 years. Does admit to smoking 1/2 ppd cigarettes since he was a child. Has stopped smoking two weeks ago after being hospitalized. Denies any alcohol use. Denies any illicit drug use. Physical Exam Vital Signs Vital Signs Date Time Temp Pulse Resp B/P (MAP) Pulse Ox O2 Delivery O2 Flow Rate FiO2 11/28/16 17:30 90 20 139/63 (88) 100 BiPAP 11/28/16 17:00 96 19 148/67 (94) 100 BiPAP 11/28/16 16:30 104 21 151/67 (95) 100 BiPAP 11/28/16 15:45 110 27 148/65 (92) 100 BiPAP 11/28/16 15:15 114 23 153/67 (95) 100 BiPAP 11/28/16 14:59 120 177/74 11/28/16 14:45 120 38 177/74 (108) 99 BiPAP 11/28/16 14:40 100 60 11/28/16 14:38 98 BiPAP 11/28/16 14:38 99 BiPAP 60 11/28/16 14:38 139 38 98 BiPAP 11/28/16 14:32 99.2 139 38 216/98 (137) 89 Physical Exam GENERAL: This is a thin, well-developed patient, elderly male patient, lying in bed in apparent distress on BIPAP. Shallow breathing. SKIN: Multiple areas of ecchymosis on upper extremities. Clammy and cool. HEAD: Atraumatic. Normocephalic. EYES: Pupils equal round and reactive. Extraocular motions intact. No scleral icterus. No injection or drainage. ENT: Nose without bleeding. Airway patent, on BIPAP machine. Tongue is midline NECK: Trachea midline. JVD present. Supple. CARDIOVASCULAR: Presently in sinus tachycardia. Aortic murmur present 2/6. S1 and S2 no S3 or S4 no heave or thrill or rub or gallop RESPIRATORY: Crackles noted in anterior and posterior lower lobes. Breath sounds equal bilaterally. GASTROINTESTINAL: Abdomen soft, non-tender, nondistended. No guarding. MUSCULOSKELETAL: Extremities without clubbing, cyanosis, or edema. No joint tenderness, effusion, or edema noted. NEUROLOGICAL: Lethargic. Cranial nerves II through XII intact. Motor and sensory grossly within normal limits. Five out of 5 muscle strength in all muscle groups. Normal speech. EXTREMITIES: Bilateral lower extremity edema 2+ pitting. Bilateral DP and pedal pulses present 1+. Left upper extremity fistula noted, bruit and thrill present. Insight and judgment is okay And behavior is somewhat appropriate Laboratory Laboratory Tests Test 11/28/16 14:40 11/28/16 15:30 White Blood Count 13.7 Red Blood Count 3.76 Hemoglobin 9.1 Hematocrit 30.9 Mean Corpuscular Volume 82.1 Mean Corpuscular Hemoglobin 24.3 Mean Corpuscular Hemoglobin Concent 29.6 Red Cell Distribution Width 22.3 Platelet Count 198 Mean Platelet Volume 8.6 Neutrophils (%) (Auto) 78.8 Lymphocytes (%) (Auto) 17.6 Monocytes (%) (Auto) 3.2 Eosinophils (%) (Auto) 0.0 Basophils (%) (Auto) 0.4 Neutrophils # (Auto) 10.8 Lymphocytes # (Auto) 2.4 Monocytes # (Auto) 0.4 Eosinophils # (Auto) 0.0 Basophils # (Auto) 0.1 CBC Comment DIFF FINAL Differential Comment Blood Urea Nitrogen 39 Creatinine 2.66 Random Glucose 241 Total Protein 7.8 Albumin 3.6 Calcium Level 8.9 Magnesium Level 2.6 Alkaline Phosphatase 92 Aspartate Amino Transf (AST/SGOT) 22 Alanine Aminotransferase (ALT/SGPT) 20 Total Bilirubin 1.1 Sodium Level 142 Potassium Level 4.4 Chloride Level 104 Carbon Dioxide Level 25.2 Anion Gap 13 Estimat Glomerular Filtration Rate 23 Total Creatine Kinase 147 Creatine Kinase MB 6.7 Troponin I 1.40 B-Type Natriuretic Peptide GREATER THAN 5000 Blood Gas Puncture Site RT RADIAL Blood Gas Patient Temperature 98.6 Blood Gas HCO3 23 Blood Gas Base Excess -1.4 Blood Gas Oxygen Saturation 96 Arterial Blood pH 7.41 Arterial Blood Partial Pressure CO2 36 Arterial Blood Partial Pressure O2 141 Arterial Blood Oxygen Content 14.2 Arterial Blood Carboxyhemoglobin 2.6 Arterial Blood Methemoglobin 0.5 Blood Gas Hemoglobin 10.3 Oxygen Delivery Device BIPAP Blood Gas Ventilator Setting IPAP10 [id number] Blood Gas Inspired Oxygen 60 Result Diagram: 11/28/16 1440 11/28/16 1440 Imaging Last Impressions Chest X-Ray 11/28/16 1433 Signed Impressions: Service Date/Time: Monday, November 28, 2016 14:54 - CONCLUSION: Interstitial vascular prominence characteristic of pulmonary edema. Dallin Rowan MD Septic Shock Reassessment Heart: Irregular Lungs: Crackles Peripheral Pulses: Weak Right Dorsalis Pedis Weak Left Dorsalis Pedis Bounding Right Radial Bounding Left Radial Capillary Refill: Brisk Caprini VTE Risk Assessment Caprini VTE Risk Assessment: Mod/High Risk (score >= 2) Caprini Risk Assessment Model Point Value = 1 Point Value = 2 Point Value = 3 Point Value = 5 Age 41-60 Minor surgery BMI > 25 kg/m2 Swollen legs Varicose veins or History of unexplained or recurrent spontaneous Oral contraceptives or hormone replacement Sepsis (< 1 month) Serious lung disease, including pneumonia (< 1 month) Abnormal pulmonary function Acute myocardial infarction Congestive heart failure (< 1 month) History of inflammatory bowel disease Medical patient at bed rest Age 61-74 Arthroscopic surgery Major open surgery (> 45 min) Laparoscopic surgery (> 45 min) Malignancy Confined to bed (> 72 hours) Immobilizing plaster cast Central venous access Age >= 75 History of VTE Family history of VTE Factor V Leiden Prothrombin [id number] Lupus anticoagulant Anticardiolipin antibodies Elevated serum homocysteine Heparin-induced thrombocytopenia Other congenital or acquired thrombophilia Stroke (< 1 month) Elective arthroplasty Hip, pelvis, or leg fracture Acute spinal cord injury (< 1 month) Prophylaxis Regimen Total Risk Factor Score Risk Level Prophylaxis Regimen 0-1 Low Early ambulation 2 Moderate Order ONE of the following: *Sequential Compression Device (SCD) *Heparin 5000 units SQ BID 3-4 Higher Order ONE of the following medications: *Heparin 5000 units SQ TID *Enoxaparin/Lovenox 40 mg SQ daily (WT < 150 kg, CrCl > 30 mL/min) *Enoxaparin/Lovenox 30 mg SQ daily (WT < 150 kg, CrCl > 10-29 mL/min) *Enoxaparin/Lovenox 30 mg SQ BID (WT < 150 kg, CrCl > 30 mL/min) AND/OR *Sequential Compression Device (SCD) 5 or more Highest Order ONE of the following medications: *Heparin 5000 units SQ TID (Preferred with Epidurals) *Enoxaparin/Lovenox 40 mg SQ daily (WT < 150 kg, CrCl > 30 mL/min) *Enoxaparin/Lovenox 30 mg SQ daily (WT < 150 kg, CrCl > 10-29 mL/min) *Enoxaparin/Lovenox 30 mg SQ BID (WT < 150 kg, CrCl > 30 mL/min) AND *Sequential Compression Device (SCD) Assessment and Plan Assessment and Plan Mr. Masters is a 76-year-old male patient with a known medical history of COPD, long standing tobacco use history, CKD stage IV, atrial fibrillation, CHF and hypertension who presented to the ED with worsening shortness of breath x 1 day. Patient awake and alert, following commands, currently requiring BIPAP assistance, shallow breathing noted, with apparent dyspnea. Patient presented with A fib RVR, currently on Cardizem drip and well-controlled. O2 sats 100% on 40% FiO2. BP stable. Acute on chronic congestive heart failure, exacerbation: Unknown type - CXR reviewed showing interstitial vascular prominence characteristic of pulmonary edema. - BNP greater than 5,000. Will repeat in am. Follow. - Lasix 40 mg IV given in ED x 1. Schedule Lasix 20 mg IV BID. - Place on supplemental potassium, follow BMP. - Strict I's and O's please. Fluid restriction <1500 ml 24 hours. - 2-D ECHO ordered, no prior study retrieved from medical record. Follow. Chronic obstructive pulmonary disease, not in exacerbation - Continue at home inhalers. - Supplemental O2 to keep sats >88%. Requiring BIPAP 12/6 at this time. RT to manage. - Continuous pulse oximetry. - Duonebs scheduled and available PRN wheezing. Type 2 diabetes mellitus - Per DM is diet controlled. Random glucose 241. Will obtain a hemoglobin a1C, likely uncontrolled. - ACCU checks ACHS. Place on sliding scale insulin, cover as needed. Chronic kidney disease stage IV - Creatinine 2.66, appears that baseline is around 2. Monitor I & O closely and BMP in am to follow trend. Leukocytosis with mild bandemia suspect secondary to stress response vs infectious source vs steroid induced - WBC 13.7. Afebrile. UA ordered and pending. - CXR negative for any signs of pneumonia. Atrial fibrillation RVR, acute on chronic - Cardizem bolus given in ED. Continue on Cardizem gtt per protocol. - Continuous telemetry. Monitor. - Follow repeat EKG. Currently converted on bedside monitor, controlled. Elevated troponin suspect secondary to renal vs stress vs ACS Elevated CKMB % - Troponin 1.6, CKMB % 6.7. Will monitor serial trends. - Consult placed to cardiology, appreciate input. - EKG reviewed showing showing A fib with RVR and chronic left ventricular hypertrophy. Will repeat EKG. Follow. Normocytic, hypochromic anemia suspect secondary to chronic anemia of disease/ CKD - Hemoglobin 9.1/Hematocrit 30.9. No signs or symptoms of bleeding. Will repeat CBC in am. Follow. CAD with history of stent placement: Continue aspirin, Pletal and Plavix. Hyperlipidemia, chronic: Continue atorvastatin. BPH: Continue home Tamsulosin. GI Prophylaxis/GERD: Protonix. DVT prophylaxis: SCDs/Heparin. Will admit to the ICU for close monitoring Consult cardiology Consider consult of renal in the future if renal functions don't improve Discussed with patient and RN nurse practitioner The exam, history, and the medical decision-making described in the above note were completed with the assistance of the mid-level provider. I reviewed and agree with the findings presented. I attest that I had a [id number] encounter with the patient on the same day, and personally performed and documented my assessment and findings in the medical record. Code Status Full code Discussed Condition With Have discussed with patient, and RN, his and ER physician. Physician Certification 2 Midnight Certification Type: Admission for Inpatient Services Order for Inpatient Services The services are ordered in accordance with Medicare regulations or non- Medicare payer requirements, as applicable. In the case of services not specified as inpatient-only, they are appropriately provided as inpatient services in accordance with the 2-midnight benchmark. Estimated LOS (days): 3 3 days is the estimated time the patient will need to remain in the hospital, assuming treatment plan goals are met and no additional complications. Post-Hospital Plan: Not yet determined Problem Qualifiers (1) CHF (congestive heart failure): Qualified Codes: I50.9 - Heart failure, unspecified Lulu Rodriguez Nov 28, 2016 18:08 Mekhi Kimbrough DO Nov 28, 2016 19:01
[2016-11-28] MEDS ORDERED: GLUCAGON 1 MG/ML VIAL OTHER PRN (18:30)
[2016-11-28] MEDS ORDERED: RESP: ALBUTEROL 2.5 MG/IPRATROPIUM 0.5 MG NEB (PRN) NEB (18:30)
[2016-11-28] MEDS: METOPROLOL SUCCINATE 50 MG EXTENDED RELEASE TAB PO SCH (20:00)
[2016-11-28] MEDS ORDERED: diphenhydrAMINE HCL 25 MG CAP PO PRN (20:15)
[2016-11-28] MEDS ORDERED: DEXTROSE 50% IN WATER 50 ML SYRINGE IV PRN (20:30)
[2016-11-28] MEDS: HEPARIN SODIUM - SQ 10,000 UNITS/ML VIAL SQ SCH (20:51)
[2016-11-28] MEDS: POTASSIUM CHLORIDE 20 MEQ CONTROLLED RELEASE TAB PO SCH (20:52)
[2016-11-28] MEDS: ATORVASTATIN 40 MG TAB PO SCH (20:52)
[2016-11-28] MEDS: DOCUSATE SODIUM 50 MG/SENNA 8.6 MG TAB PO SCH (20:52)
[2016-11-28] MEDS: MIRTAZAPINE 15 MG TAB PO SCH ×2 (20:53→21:00)
[2016-11-28] MEDS ORDERED: SODIUM CHLORIDE 0.9% FLUSH 10 ML FLUSH IV FLUSH SCH ×2 (21:00)
[2016-11-28] MEDS ORDERED: TAMSULOSIN HCL 0.4 MG CAP PO SCH (21:00)
[2016-11-28] MEDS ORDERED: UMECLIDINIUM 62.5 MCG/VILANTEROL 25 MCG INHALER INH SCH (21:00)
[2016-11-28] MEDS: FUROSEMIDE 40 MG/4 ML VIAL IVP SCH (21:11)
[2016-11-28] MEDS: PANTOPRAZOLE SOD 40 MG DELAYED RELEASE TAB PO SCH (21:11)
[2016-11-28] MEDS: SODIUM CHLORIDE 0.9% FLUSH 10 ML FLUSH IV FLUSH SCH (21:12)
[2016-11-28] MEDS: INSULIN ASPART SUPPLEMENTAL SCALE SQ SCH (21:14)
[2016-11-28] MEDS: RESP: ALBUTEROL 2.5 MG/IPRATROPIUM 0.5 MG NEB (SCH) NEB (21:26)
[2016-11-28] MEDS: hydrOXYzine HCL 10 MG TAB PO SCH (23:49)
[2016-11-29] VITALS (24 sets, daily range): BP systolic 90–168; BP diastolic 52–74; PULSE 64–97; RESP 13–24; TEMP 97.3–98.9; O2SAT 94–100
[2016-11-29 00:11] LABS: CKMB 10.4 NG/ML (0.5-3.6)
[2016-11-29] MEDS: RESP: ALBUTEROL 2.5 MG/IPRATROPIUM 0.5 MG NEB (SCH) NEB ×7 (01:21→23:45)
[2016-11-29 03:29] LABS: MAGNESIUM 2.4 MG/DL (1.5-2.5)
[2016-11-29 03:50] LABS: CKMB 15.2 NG/ML (0.5-3.6)
[2016-11-29] MEDS: INSULIN ASPART SUPPLEMENTAL SCALE SQ SCH ×4 (07:00→20:54)
[2016-11-29] MEDS: HEPARIN SODIUM - SQ 10,000 UNITS/ML VIAL SQ SCH (08:19)
[2016-11-29] MEDS: CALCITRIOL 0.25 MCG CAP PO SCH (08:19)
[2016-11-29] MEDS: PANTOPRAZOLE SOD 40 MG DELAYED RELEASE TAB PO SCH (08:19)
[2016-11-29] MEDS: ASPIRIN 325 MG TAB PO SCH (08:20)
[2016-11-29] MEDS: METOPROLOL SUCCINATE 50 MG EXTENDED RELEASE TAB PO SCH (08:20)
[2016-11-29] MEDS: CILOSTAZOL 100 MG TAB PO SCH (08:20)
[2016-11-29] MEDS: CLOPIDOGREL 75 MG TAB PO SCH (08:20)
[2016-11-29] MEDS: DOCUSATE SODIUM 50 MG/SENNA 8.6 MG TAB PO SCH ×2 (08:20→20:52)
[2016-11-29] MEDS: POTASSIUM CHLORIDE 20 MEQ CONTROLLED RELEASE TAB PO SCH ×2 (08:20→20:52)
[2016-11-29] MEDS: FUROSEMIDE 40 MG/4 ML VIAL IVP SCH ×2 (08:21→23:27)
[2016-11-29] MEDS: SODIUM CHLORIDE 0.9% FLUSH 10 ML FLUSH IV FLUSH SCH ×2 (08:21→20:53)
[2016-11-29 08:45] LABS: AUTOMATED NEUTROPHIL # 9.4 TH/MM3 (1.8-7.7); BASOPHIL % 0.1 % (0.0-2.0); HEMATOCRIT 22.8 % (39.0-51.0); HEMO FLAGS DIFF FINAL; LYMPH % 3.6 % (9.0-44.0); LYMPHOCYTE # 0.4 TH/MM3 (1.0-4.8); MEAN CELL VOLUME 80.7 FL (80.0-100.0); MEAN CORPUSCULAR HEMOGLOBIN 25.1 PG (27.0-34.0); MEAN CORPUSCULAR HGB CONC 31.1 % (32.0-36.0); MONO % 1.5 % (0.0-8.0); NEUT % 94.8 % (16.0-70.0); PLATELET COUNT 118 TH/MM3 (150-450); RED BLOOD COUNT 2.82 MIL/MM3 (4.50-5.90); RED CELL DISTRIBUTION WIDTH 21.8 % (11.6-17.2); WHITE BLOOD COUNT 9.9 TH/MM3 (4.0-11.0)
[2016-11-29 08:48] LABS: BACTERIA, URINE MOD /hpf; BLOOD, URINE NEG (NEG); COMMENT (UR) CULTURE INDICATED; CULTURE IF INDICATED CULTURE INDICATED; GLUCOSE,URINE TRACE mg/dL (NEG); KETONE, URINE NEG (NEG); NITRITE,URINE NEG (NEG); URINE COLOR YELLOW (YELLW/STRAW)
[2016-11-29] MEDS ORDERED: ASPIRIN EC 81 MG TABEC PO SCH (09:00)
[2016-11-29] MEDS ORDERED: FUROSEMIDE 20 MG/2 ML VIAL IV ONE (09:15)
[2016-11-29] MEDS ORDERED: ACETAMINOPHEN 325 MG TAB PO PRN (09:15)
[2016-11-29] MEDS ORDERED: diphenhydrAMINE HCL 25 MG CAP PO PRN (09:15)
[2016-11-29] MEDS ORDERED: SODIUM CHLOR 0.9% 250 ML INJ 250 ML IV ONE (09:15)
--- NOTE | 2016-11-29 09:19 | HHI.PR ---
Subjective Remarks Mr. Masters is a 76-year-old male patient with a known medical history of COPD, long standing tobacco use history, CKD stage IV, atrial fibrillation, CHF and hypertension who presented to the ED with worsening shortness of breath x 1 day. Patient seen and examined in ED, at bedside. Per , patient has been more fatigued and lethargic, sleeping a lot. She states that yesterday he was increasingly short of breath, unable to lie flat at night due to dyspnea and has been unable to walk across the room without becoming short of breath. states that patient's health has been declining for over a year now and recently hospitalized 2 weeks ago for similar symptoms and at that time started on Lasix with which the patient has been noncompliant. Denies any recent illness including fever, chills, headache, dizziness, abdominal pain, nausea, vomiting, diarrhea or dysuria. Does admit to a chronic nonproductive cough. Poor appetite for several days. Patient awake and alert, following commands, currently requiring BIPAP assistance, shallow breathing noted, with apparent dyspnea. Patient presented with A fib RVR, currently on Cardizem drip and well- controlled. O2 sats 100% on 40% FiO2. BP stable. We'll admit to the ICU for close monitoring 11-29 DW RN AND PATIENT AND MUCH MORE ALERT OFF BIPAP' HEART RATE BETTER CONTROLLED ON METOPROLOL IS ANEMIC WILL TRANSFUSE 2 UNITS PRBC CHECK STOOLS CONSULT GI Objective Vitals Vital Signs Date Time Temp Pulse Resp B/P (MAP) Pulse Ox O2 Delivery O2 Flow Rate FiO2 11/29/16 07:30 95 11/29/16 07:00 94 Room Air 11/29/16 06:00 87 11/29/16 06:00 96 Room Air 11/29/16 04:00 81 11/29/16 04:00 98.8 81 24 126/57 (80) 96 11/29/16 03:11 86 116/55 11/29/16 02:00 90 11/29/16 00:00 84 11/29/16 00:00 98.0 84 22 106/53 (70) 94 11/28/16 22:00 96 Nasal Cannula 3.00 11/28/16 22:00 88 11/28/16 20:30 83 107/53 11/28/16 20:00 81 11/28/16 20:00 81 101/50 11/28/16 20:00 93 Nasal Cannula 4.00 11/28/16 20:00 97.9 81 24 101/50 (67) 93 11/28/16 19:10 97 Nasal Cannula 3.00 11/28/16 18:35 98 40 11/28/16 18:00 90 22 118/59 (78) 99 BiPAP 11/28/16 17:30 90 20 139/63 (88) 100 BiPAP 11/28/16 17:00 96 19 148/67 (94) 100 BiPAP 11/28/16 16:30 104 21 151/67 (95) 100 BiPAP 11/28/16 15:45 110 27 148/65 (92) 100 BiPAP 11/28/16 15:30 98 60 11/28/16 15:15 114 23 153/67 (95) 100 BiPAP 11/28/16 14:59 120 177/74 11/28/16 14:45 120 38 177/74 (108) 99 BiPAP 11/28/16 14:40 100 60 11/28/16 14:38 98 BiPAP 11/28/16 14:38 99 BiPAP 60 11/28/16 14:38 139 38 98 BiPAP 11/28/16 14:32 99.2 139 38 216/98 (137) 89 I/O 11/28/16 11/28/16 11/28/16 11/29/16 11/29/16 11/29/16 07:00 15:00 23:00 07:00 15:00 23:00 Intake Total 347 ml Output Total 850 ml Balance -503 ml Intake Oral 240 ml IV Total 107 ml Output Urine Total 850 ml # Bowel Movements 0 Result Diagram: 11/29/16 0655 11/28/16 1440 Other Results Laboratory Tests Test 11/28/16 14:40 11/28/16 15:30 11/28/16 20:00 11/28/16 22:35 White Blood Count 13.7 TH/MM3 Red Blood Count 3.76 MIL/MM3 Hemoglobin 9.1 GM/DL Hematocrit 30.9 % Mean Corpuscular Volume 82.1 FL Mean Corpuscular Hemoglobin 24.3 PG Mean Corpuscular Hemoglobin Concent 29.6 % Red Cell Distribution Width 22.3 % Platelet Count 198 TH/MM3 Mean Platelet Volume 8.6 FL Neutrophils (%) (Auto) 78.8 % Lymphocytes (%) (Auto) 17.6 % Monocytes (%) (Auto) 3.2 % Eosinophils (%) (Auto) 0.0 % Basophils (%) (Auto) 0.4 % Neutrophils # (Auto) 10.8 TH/MM3 Lymphocytes # (Auto) 2.4 TH/MM3 Monocytes # (Auto) 0.4 TH/MM3 Eosinophils # (Auto) 0.0 TH/MM3 Basophils # (Auto) 0.1 TH/MM3 CBC Comment DIFF FINAL Differential Comment Blood Urea Nitrogen 39 MG/DL Creatinine 2.66 MG/DL Random Glucose 241 MG/DL Total Protein 7.8 GM/DL Albumin 3.6 GM/DL Calcium Level 8.9 MG/DL Magnesium Level 2.6 MG/DL 2.4 MG/DL Alkaline Phosphatase 92 U/L Aspartate Amino Transf (AST/SGOT) 22 U/L Alanine Aminotransferase (ALT/SGPT) 20 U/L Total Bilirubin 1.1 MG/DL Sodium Level 142 MEQ/L Potassium Level 4.4 MEQ/L Chloride Level 104 MEQ/L Carbon Dioxide Level 25.2 MEQ/L Anion Gap 13 MEQ/L Estimat Glomerular Filtration Rate 23 ML/MIN Total Creatine Kinase 147 U/L 326 U/L Creatine Kinase MB 6.7 NG/ML 10.4 NG/ML Troponin I 1.40 NG/ML 2.19 NG/ML B-Type Natriuretic Peptide GREATER THAN 5000 PG/ML Blood Gas Puncture Site RT RADIAL Blood Gas Patient Temperature 98.6 Blood Gas HCO3 23 mmol/L Blood Gas Base Excess -1.4 mmol/L Blood Gas Oxygen Saturation 96 % Arterial Blood pH 7.41 Arterial Blood Partial Pressure CO2 36 mmHg Arterial Blood Partial Pressure O2 141 mmHG Arterial Blood Oxygen Content 14.2 Vol % Arterial Blood Carboxyhemoglobin 2.6 % Arterial Blood Methemoglobin 0.5 % Blood Gas Hemoglobin 10.3 G/DL Oxygen Delivery Device BIPAP Blood Gas Ventilator Setting [id number] Blood Gas Inspired Oxygen 60 % Nasal Screen MRSA (PCR) MRSA NOT DETECTED Creatine Kinase MB % 3.2 % Test 11/29/16 03:02 11/29/16 05:30 11/29/16 06:55 Magnesium Level 2.4 MG/DL Total Creatine Kinase 538 U/L Creatine Kinase MB 15.2 NG/ML Creatine Kinase MB % 2.8 % Troponin I 2.03 NG/ML Urine Color YELLOW Urine Turbidity HAZY Urine pH 5.0 Urine Specific [place] 1.011 Urine Protein 30 mg/dL Urine Glucose (UA) TRACE mg/dL Urine Ketones NEG mg/dL Urine Occult Blood NEG Urine Nitrite NEG Urine Bilirubin NEG Urine Urobilinogen LESS THAN 2.0 MG/DL Urine Leukocyte Esterase NEG Urine RBC 1 /hpf Urine WBC 3 /hpf Urine Amorphous Sediment FEW Urine Bacteria MOD /hpf Microscopic Urinalysis Comment CULTURE INDICATED White Blood Count 9.9 TH/MM3 Red Blood Count 2.82 MIL/MM3 Hemoglobin 7.1 GM/DL Hematocrit 22.8 % Mean Corpuscular Volume 80.7 FL Mean Corpuscular Hemoglobin 25.1 PG Mean Corpuscular Hemoglobin Concent 31.1 % Red Cell Distribution Width 21.8 % Platelet Count 118 TH/MM3 Mean Platelet Volume 9.1 FL Neutrophils (%) (Auto) 94.8 % Lymphocytes (%) (Auto) 3.6 % Monocytes (%) (Auto) 1.5 % Eosinophils (%) (Auto) 0.0 % Basophils (%) (Auto) 0.1 % Neutrophils # (Auto) 9.4 TH/MM3 Lymphocytes # (Auto) 0.4 TH/MM3 Monocytes # (Auto) 0.2 TH/MM3 Eosinophils # (Auto) 0.0 TH/MM3 Basophils # (Auto) 0.0 TH/MM3 CBC Comment DIFF FINAL Differential Comment Imaging Last Impressions Chest X-Ray 11/28/16 1433 Signed Impressions: Service Date/Time: Monday, November 28, 2016 14:54 - CONCLUSION: Interstitial vascular prominence characteristic of pulmonary edema. Dallin Rowan MD Objective Remarks GENERAL: This is a thin, well-developed patient, elderly male patient, lying in bed in NO ACUTE DISTRESS SKIN: Multiple areas of ecchymosis on upper extremities. Clammy and cool. HEAD: Atraumatic. Normocephalic. EYES: Pupils equal round and reactive. Extraocular motions intact. No scleral icterus. No injection or drainage. ENT: Nose without bleeding. Airway patent, . Tongue is midline NECK: Trachea midline. JVD present. Supple. CARDIOVASCULAR: HEART RATE CONTROLLED NOW. Aortic murmur present 2/6. S1 and S2 no S3 or S4 no heave or thrill or rub or gallop RESPIRATORY: NO Crackles noted in anterior and posterior lower lobes. Breath sounds equal bilaterally. GASTROINTESTINAL: Abdomen soft, non-tender, nondistended. No guarding. MUSCULOSKELETAL: Extremities without clubbing, cyanosis, or edema. No joint tenderness, effusion, or edema noted. NEUROLOGICAL: Lethargic. Cranial nerves II through XII intact. Motor and sensory grossly within normal limits. Five out of 5 muscle strength in all muscle groups. Normal speech. EXTREMITIES: Bilateral lower extremity TRACE TO +1 EDEMA. Bilateral DP and pedal pulses present 1+. Left upper extremity fistula noted, GOOD bruit and thrill present. Insight and judgment is okay And behavior is somewhat appropriate Procedures NONE Medications and IVs Current Medications Sodium Chloride (NS Flush) 2 ml UNSCH PRN IVF FLUSH AFTER USING IV ACCESS; Start 11/28/16 at 14:45; Stop 11/28/16 at 20:27; Status DC Albuterol/ Ipratropium (Duoneb Neb) 1 ampule Q15M INH Last administered on 11/28 15:21; Start 11/28/16 at 14:45; Stop 11/28/16 at 15:01; Status DC Diltiazem HCl (Cardizem Inj) 25 mg STK-MED ONCE .ROUTE ; Start 11/28/16 at 14:39 ; Stop 11/28/16 at 14:40; Status DC Diltiazem HCl (Cardizem Inj) 20 mg ONCE ONCE IV Last administered on 14:45; Start 11/28/16 at 14:45; Stop 11/28/16 at 14:46; Status DC Nitroglycerin/ Dextrose 250 ml @ 0 mls/hr TITRATE ONCE IV ; Start 11/28/16 at 14:45; Stop 11/28/16 at 14:54; Status DC Diltiazem HCl 125 mg/Sodium Chloride 125 ml @ 5 mls/hr TITRATE PRN IV Tachycardia Last administered on 11/28/16 14:59; Start 11/28/16 at 14:45; Stop 11/28/16 at 20:38; Status DC Furosemide (Lasix Inj) 40 mg ONCE ONCE IV PUSH Last administered on 11/28/16 15:36; Start 11/28/16 at 15:15; Stop 11/28/16 at 15:16; Status DC Albuterol Sulfate (Proair Hfa Inh) 2 puff Q6HR PRN INH SHORTNESS OF BREATH; Start 11/28/16 at 16:45 Aspirin (Ecotrin Ec) 81 mg DAILY PO ; Start 11/29/16 at 09:00; Status UNV Atorvastatin Calcium (Lipitor) 40 mg HS PO Last administered on 11/28/16 20:52 ; Start 11/28/16 at 21:00 Calcitriol (Rocaltrol) 0.25 mcg DAILY PO Last administered on 11/29/16 08:19; Start 11/29/16 at 09:00 Cilostazol (Pletal) 100 mg DAILYAC PO Last administered on 11/29/16 08:20; Start 11/29/16 at 08:00 Clopidogrel Bisulfate (Plavix) 75 mg DAILY PO Last administered on 11/29/16 08 :20; Start 11/29/16 at 09:00 Hydroxyzine HCl (Atarax) 10 mg HS PO Last administered on 11/28/16 23:49; Start 11/28/16 at 21:00 Metoprolol Succinate (Toprol Xl) 100 mg DAILY PO Last administered on 08:20; Start 11/28/16 at 20:00 Mirtazapine (Remeron) 15 mg HS PO ; Start 11/28/16 at 21:00 Pantoprazole Sodium (Protonix) 40 mg DAILY PO Last administered on 11/29/16 08 :19; Start 11/28/16 at 20:00 Tamsulosin HCl (Flomax) 0.4 mg HS PO Last administered on 11/28/16 20:53; Start 11/28/16 at 21:00 Diphenhydramine HCl (Benadryl) 25 mg Q4H PRN PO ITCHING; Start 11/28/16 at 20: 15 Non-Formulary Medication 1 applic DAILY PRN TOPICAL ITCHING; Start 11/28/16 at 16:45; Status UNV Sodium Chloride (NS Flush) 2 ml UNSCH PRN IV FLUSH FLUSH AFTER USING IV ACCESS ; Start 11/28/16 at 16:45 Sodium Chloride (NS Flush) 2 ml BID IV FLUSH Last administered on 11/29/16 08: 21; Start 11/28/16 at 21:00 Acetaminophen (Tylenol) 650 mg Q4H PRN PO TEMP > 100.4; Start 11/28/16 at 16:45 Ondansetron HCl (Zofran Inj) 4 mg Q6H PRN IVP NAUSEA OR VOMITING; Start at 16:45 Prochlorperazine (Compazine Supp) 25 mg Q12H PRN RECTAL NAUSEA OR VOMITING; Start 11/28/16 at 16:45 Heparin Sodium (Porcine) (Heparin Inj) 5,000 units Q12H SQ Last administered on 11/29/16t 08:19; Start 11/28/16 at 20:00 Acetaminophen (Tylenol) 650 mg Q6H PRN PO PAIN SCALE 1 TO 2; Start 11/28/16 at 16:45 Oxycodone/ Acetaminophen (Percocet 5-325 Mg) 1 tab Q6H PRN PO PAIN SCALE 3 TO 5; Start 11/28/16 at 16:45 Oxycodone/ Acetaminophen (Percocet 10-325 Mg) 1 tab Q6H PRN PO PAIN SCALE 6 TO 10; Start 11/28/16 at 16:45 Morphine Sulfate (Morphine Inj) 2 mg Q3H PRN IV Pain 3-5; if unable to take PO ; Start 11/28/16 at 16:45 Morphine Sulfate (Morphine Inj) 4 mg Q3H PRN IV Pain 6-10;if unable to take PO ; Start 11/28/16 at 16:45 Naloxone HCl (Narcan Inj) 0.4 mg UNSCH PRN IV SEE LABEL COMMENTS; Start at 16:45 Senna/Docusate Sodium (Jodie-Colace) 1 tab BID PO Last administered on t 08:20; Start 11/28/16 at 21:00 Magnesium Hydroxide (Milk Of Magnesia Liq) 30 ml Q12H PRN PO MILD - MODERATE CONSTIPATION; Start 11/28/16 at 16:45 Sennosides (Senokot) 17.2 mg Q12H PRN PO MODERATE - SEVERE CONSTIPATION; Start 11/28/16 at 16:45 Bisacodyl (Dulcolax Supp) 10 mg DAILY PRN RECTAL SEVERE CONSITIPATION; Start at 16:45 Lactulose (Lactulose Liq) 30 ml DAILY PRN PO SEVERE CONSITIPATION; Start at 16:45 Sodium Chloride (NS Flush) 2 ml UNSCH PRN IV FLUSH FLUSH AFTER USING IV ACCESS ; Start 11/28/16 at 16:45; Status UNV Sodium Chloride (NS Flush) 2 ml BID IV FLUSH ; Start 11/28/16 at 21:00; Status UNV Furosemide (Lasix Inj) 40 mg BID@09,18 IVP Last administered on 11/29/16 08:21 ; Start 11/28/16 at 20:00 Potassium Chloride (KCl) 20 meq BID PO Last administered on 11/29/16 08:20; Start 11/28/16 at 21:00 Sodium Chloride (NS Flush) 2 ml UNSCH PRN IV FLUSH FLUSH AFTER USING IV ACCESS ; Start 11/28/16 at 16:45; Status UNV Sodium Chloride (NS Flush) 2 ml BID IV FLUSH ; Start 11/28/16 at 21:00; Status UNV Aspirin (Aspirin) 325 mg DAILY PO Last administered on 11/29/16 08:20; Start 11/29/16 at 09:00 Diltiazem HCl 125 mg/Sodium Chloride 125 ml @ 5 mls/hr TITRATE PRN IV Tachycardia; Start 11/28/16 at 16:45; Stop 11/29/16 at 02:59; Status DC Albuterol/ Ipratropium (Duoneb Neb) 1 ampule Q4HR NEB NEB Last administered on 11/29/16 07:29; Start 11/28/16 at 20:00 Albuterol/ Ipratropium (Duoneb Neb) 1 ampule Q4HR NEB PRN NEB wheezing Last administered on 11/28/16 19:10; Start 11/28/16 at 18:30 Dextrose (D50w (Syr) Inj) 50 ml UNSCH PRN IV HYPOGLYCEMIA-SEE COMMENTS; Start 11/28/16 at 20:30 Glucagon (Glucagon Inj) 1 mg UNSCH PRN OTHER HYPOGLYCEMIA-SEE COMMENTS; Start 11/28/16 at 18:30 Insulin Aspart (NovoLOG SUPPLEMENTAL SCALE) 1 ACHS SLIDING SCALE SQ Last administered on 11/29/16 07:00; Start 11/28/16 at 21:00 Urinary Catheter: Yes Assessment to: Continue A/P Problem List: (1) CHF (congestive heart failure) ICD Code: I50.9 - Heart failure, unspecified Status: Acute (2) COPD (chronic obstructive pulmonary disease) ICD Code: J44.9 - Chronic obstructive pulmonary disease, unspecified Status: Acute (3) Atrial flutter with rapid ventricular response ICD Code: I48.92 - Unspecified atrial flutter; N18.9 - Chronic kidney disease, unspecified Status: Acute (4) CKD (chronic kidney disease) stage 4, GFR 15-29 ml/min ICD Code: N18.4 - Chronic kidney disease, stage 4 (severe) Status: Acute (5) Respiratory distress ICD Code: R06.00 - Dyspnea, unspecified Status: Acute (6) DM2 (diabetes mellitus, type 2) ICD Code: E11.9 - Type 2 diabetes mellitus without complications Status: Acute Assessment and Plan Mr. Masters is a 76-year-old male patient with a known medical history of COPD, long standing tobacco use history, CKD stage IV, atrial fibrillation, CHF and hypertension who presented to the ED with worsening shortness of breath x 1 day. Patient awake and alert, following commands, NOW OFF BIPAP--NO SOB. Patient presented with A fib RVR, currently on Cardizem drip and well- controlled. O2 sats 100% on 40% FiO2. BP stable. OFF CARDIZEM ON PO BETA ANDRES OFF BIPAP ANEMIA WILL NEED TRANSFUSIONS 2 UNITS TODAY WILL GIVE TYLENOL AND BENADRYL PRIOR TO THIS CONSULT GI REGARDING ANEMIA HX OF POSSIBLE ULCERS Acute on chronic congestive heart failure, exacerbation: Unknown type - CXR reviewed showing interstitial vascular prominence characteristic of pulmonary edema.- IMPROVED - BNP greater than 5,000. Will repeat in am. Follow. AWAIT REPEAT LABS - Lasix 40 mg IV given in ED x 1. Schedule Lasix 20 mg IV BID. - Place on supplemental potassium, follow BMP. - Strict I's and O's please. Fluid restriction <1500 ml 24 hours. - 2-D ECHO ordered, no prior study retrieved from medical record. Follow. Chronic obstructive pulmonary disease, not in exacerbation - Continue at home inhalers. - Supplemental O2 to keep sats >88%. Requiring BIPAP 12/6 at this time. RT to manage. --NOW OFF BIPAP - Continuous pulse oximetry. - Duonebs scheduled and available PRN wheezing. Type 2 diabetes mellitus - Per DM is diet controlled. Random glucose 241. Will obtain a hemoglobin a1C, likely uncontrolled. - ACCU checks ACHS. Place on sliding scale insulin, cover as needed. NEEDS DM EDUCATION Chronic kidney disease stage IV - Creatinine 2.66, appears that baseline is around 2. Monitor I & O closely and BMP in am to follow trend. Leukocytosis with mild bandemia suspect secondary to stress response vs infectious source vs steroid induced - WBC 13.7. Afebrile. UA ordered and pending. - CXR negative for any signs of pneumonia. Atrial fibrillation RVR, acute on chronic - Cardizem bolus given in ED. Continue on Cardizem gtt per protocol. - OFF CARDIZEM DRIP - Continuous telemetry. Monitor. - Follow repeat EKG. Currently converted on bedside monitor, controlled. OFF CARDIZEM DRIP Elevated troponin suspect secondary to renal vs stress vs ACS Elevated CKMB % - Troponin 1.6, CKMB % 6.7. Will monitor serial trends. - Consult placed to cardiology, appreciate input. - EKG reviewed showing showing A fib with RVR and chronic left ventricular hypertrophy. Will repeat EKG. Follow. CARDIOLOGY CONSULT Normocytic, hypochromic anemia suspect secondary to chronic anemia of disease/ CKD - Hemoglobin 9.1/Hematocrit 30.9. No signs or symptoms of bleeding. Will repeat CBC in am. Follow. SEVERE ANEMIA 7.1 WILL TRANSFUSE 2 UNIT PRBC CAD with history of stent placement: Continue aspirin, Pletal and Plavix. Hyperlipidemia, chronic: Continue atorvastatin. BPH: Continue home Tamsulosin. GI Prophylaxis/GERD: Protonix. DVT prophylaxis: SCDs/HOLD HEPARIN DUE TO ANEMIA AM LABS, TRANSFUSE MOVE OUT OF ICU Consult cardiology Consider consult of renal in the future if renal functions don't improve Discharge Planning NEEDS GI AND CARDIO EVALUATIONS AM LABS Problem Qualifiers (1) CHF (congestive heart failure): Qualified Codes: I50.9 - Heart failure, unspecified Mekhi Kimbrough DO Nov 29, 2016 09:19
[2016-11-29 11:11] LABS: ALT (GPT) 17 U/L (12-78); ANION GAP 11 MEQ/L (5-15); AST (GOT) 31 U/L (15-37); BICARBONATE 25.3 MEQ/L (21.0-32.0); BLOOD UREA NITROGEN 49 MG/DL (7-18); CHLORIDE 102 MEQ/L (98-107); GLOMERULAR FILTRATION RATE 26 ML/MIN (>89); MAGNESIUM 2.6 MG/DL (1.5-2.5); POTASSIUM 3.5 MEQ/L (3.5-5.1); SODIUM (NA) 138 MEQ/L (136-145)
--- NOTE | 2016-11-29 11:21 | ECHRPT ---
Indication: A-fib CONCLUSIONS The left ventricular systolic function is moderately reduced with an estimated ejection fraction in the range of 40. Normal left ventricular size. Moderate concentric left ventricular hypertrophy. No regional wall motion abnormalities are present. The left atrial size is [id number] dilated. Mild mitral valve regurgitation. Aortic valve sclerosis is present. Mild aortic valve regurgitation. There is trace tricuspid valve regurgitation. The estimated pulmonary arterial pressure is 64 mmHg. The inferior vena cava is dilated. BP: 126 / 57 HR: 80 Rhythm: Sinus MEASUREMENTS (Male / Female) Normal Values Technical Quality:Excellent 2D ECHO LV Diastolic Diameter PLAX 5.8 cm 4.2 - 5.9 / 3.9 - 5.3 cm LV Systolic Diameter PLAX 4.5 cm IVS Diastolic Thickness 1.6 cm 0.6 - 1.0 / 0.6 - 0.9 cm LVPW Diastolic Thickness 1.6 cm 0.6 - 1.0 / 0.6 - 0.9 cm LV Relative Wall Thickness 0.6 RV Internal Dim ED PLAX 3.0 cm LVOT Diameter 2.1 cm LA Systolic Diameter LX 4.5 cm 3.0 - 4.0 / 2.7 - 3.8 cm LV Ejection Fraction MOD 4C 40.5 % LV Cardiac Index MOD 4C 2176.5 cm/minm LV Ejection Fraction 4C AL 41.5 % LV Cardiac Index 4C AL 2315.0 cm/minm M-MODE Aortic Root Diameter MM 3.3 cm LA Systolic Diameter MM 3.8 cm LA Ao Ratio MM 1.2 AV Cusp Separation MM 1.6 cm DOPPLER AV Peak Velocity 191.0 cm/s AV Peak Gradient 14.6 mmHg AI Peak Velocity 295.0 cm/s AI Peak Gradient 34.8 mmHg AI Pressure Half Time 529.0 ms LVOT Peak Velocity 99.2 cm/s LVOT Peak Gradient 3.9 mmHg AV Area Cont Eq pk 1.8 cm MV Area PHT 4.2 cm Mitral E Point Velocity 92.3 cm/s Mitral A Point Velocity 126.0 cm/s Mitral E to A Ratio 0.7 LV E' Lateral Velocity 8.3 cm/s Mitral E to LV E' Lateral Ratio 11.1 LV E' Septal Velocity 4.0 cm/s Mitral E to LV E' Septal Ratio 23.1 TR Peak Velocity 367.0 cm/s TR Peak Gradient 53.9 mmHg PV Peak Velocity 134.0 cm/s PV Peak Gradient 7.2 mmHg FINDINGS LEFT VENTRICLE The left ventricular systolic function is moderately reduced with an estimated ejection fraction in the range of 40% Normal left ventricular size. Moderate concentric left ventricular hypertrophy. No regional wall motion abnormalities are present. RIGHT VENTRICLE Normal right ventricular size and systolic function. LEFT ATRIUM The left atrial size is [id number] dilated. RIGHT ATRIUM The right atrial size is normal. ATRIAL SEPTUM Normal atrial septal thickness without atrial level shunting by limited color doppler interrogation. AORTA The aortic root and proximal ascending aorta are normal in size on limited imaging. MITRAL VALVE Structurally normal mitral valve. Mild mitral valve regurgitation. AORTIC VALVE Aortic valve sclerosis is present. Trileaflet aortic valve. Mild aortic valve regurgitation. TRICUSPID VALVE There is trace tricuspid valve regurgitation. The estimated pulmonary arterial pressure is 64 mmHg. PULMONARY VALVE The pulmonary valve is not well visualized. VESSELS The inferior vena cava is dilated. PERICARDIUM No pericardial effusion. Ronak Farris MD, FACC, FRCP (Electronically Signed) Final Date:29 November 2016 11:20
[2016-11-29 11:44] LABS: ALKALINE PHOSPHATASE 68 U/L (45-117); FREE T4 0.83 NG/DL (0.76-1.46); TOTAL BILIRUBIN ADULT 0.8 MG/DL (0.2-1.0)
[2016-11-29] MEDS: TAMSULOSIN HCL 0.4 MG CAP PO SCH ×2 (14:00→20:52)
--- NOTE | 2016-11-29 14:22 | EKG ---
Date Performed: 11/28/2016 Time Performed: 14:37:26 PTAGE: 76 years EKG: ECTOPIC ATRIAL TACHYCARDIA, POSSIBLE ATRIAL FLUTTER LEFT VENTRICULAR HYPERTROPHY AND ST-T C HANGE Compared to previous tracing there is now evidence of tachycardia, most likely atrial flutter w ith 2:1 heart block, cannot exclude atrial tachycardia Clinical correlation is recommended ABNORMAL E CG PREVIOUS TRACING : 06/24/2016 19.09 DOCTOR: Ronka Farris Interpretating Date/Time 11/29/2016 14:20:44
--- NOTE | 2016-11-29 14:23 | EKG ---
Date Performed: 11/28/2016 Time Performed: 22:03:56 PTAGE: 76 years EKG: Sinus rhythm WITH FIRST DEGREE AV BLOCK WITH OCCASIONAL VENTRICULAR PREMATURE COMPLEXES LEFT VENTRICULAR HYPERTRO PHY AND ST-T CHANGE ABNORMAL ECG Compared to PREVIOUS TRACING previously noted tachycardia is no longer present. Patient has converte d to sinus rhythm with occasional PVCs. PREVIOUS TRACIN11/28/2016 14.37 DOCTOR: Ronak Farris Interpretating Date/Time 11/29/2016 14:21:23
--- NOTE | 2016-11-29 19:04 | MB ---
cc: MADELINE EMERSON M.D. DATE OF CONSULTATION: 11/29/[address] Kimbrough REASON FOR CONSULTATION Anemia, ? GI bleed. HISTORY OF PRESENTING ILLNESS Mr. Masters is a 76-year-old gentleman with multiple medical problems, known to us from previous visits to the hospital and the office. Came to the emergency room with complaints of weakness and shortness of breath for one day. He was found to have anemia. Also there is a history of increased fatigue and lethargy, increased sleepiness. The patient was admitted for further evaluation and treatment. He does have a history of anemia. He had extensive workup in the past for similar issues. He had an endoscopy, colonoscopy, capsule endoscopy and enteroscopy. Capsule endoscopy showed AVM in the third portion of the duodenum. He had some active bleed going on at that time- enteroscopy recommended . He had an enteroscopy. I do not have the results of the enteroscopy available at this time but once the communication with the office records ,when reestablished, will review that. At this time he denies any nausea, vomiting, abdominal pain, constipation or diarrhea. PAST MEDICAL HISTORY He has: 1. COPD. 2. Chronic kidney disease. 3. Atrial fibrillation. 4. Congestive heart failure. 5. Anemia. 6. Duodenal AVM. 7. History of transient ischemic attack. 8. Diabetes. 9. History of myocardial infarction. 10. Sleep apnea. 11. Tobacco abuse. PAST SURGICAL HISTORY 1. Left AV fistula. 2. Coronary artery disease. 3. Left AVF stripping in lower extremity. MEDICATIONS 1. Ventolin. 2. Mirtazapine. 3. Lovastatin. 4. Lasix. 5. Cilostazol. 6. Aspirin. 7. Hydroxyzine. 8. Toprol. 9. Flomax. 10. Protonix. 11. Alimta. 12. Plavix. 13. Calcitrol. ALLERGIES SULFA. TRIMETHOPRIM. REVIEW OF SYSTEMS GENERAL: He denies any fever or chills. He does have increased weakness. EARS, NOSE, AND THROAT: No alteration in baseline hearing or visual acuity. PULMONARY: Denies any chest pain, shortness of breath. GASTROINTESTINAL: As above. GENITOURINARY: Denies dysuria or hematuria. HEMATOLOGICAL: He does have a history of anemia; no bleeding disorders. SKIN: No alteration in his baseline skin lesion. NEUROLOGICAL: No history of transient ischemic attack or cerebrovascular accident kind of symptoms. PHYSICAL EXAMINATION On clinical exam GENERAL: He is sitting comfortable in bed in no acute distress. SIGNS: His temperature is 98.8, pulse is __, respirations 13, blood pressure 18/70. HEAD, EYES, EARS, NOSE, AND THROAT: Pupils equal, round, reactive to light and accommodation. NECK: No JVD. No lymphadenopathy. CHEST: Clear to auscultation and palpation. CARDIOVASCULAR: S1, S2, no murmur. ABDOMEN: Soft, nontender. Bowel sounds are present. CENTRAL NERVOUS SYSTEM: Awake, alert, oriented x3. No focal signs identified. LABORATORY FINDINGS His hemoglobin is 9.8; dropped to 7.1, white count is 13.7, platelets 118 today. His chemistry suggestive of BUN 49, creatinine 2.46, glucose 210. He just had a chest x-ray which was essentially negative. The patient had small bowel the x-ray and a CT abdomen and pelvis back in 2012 that was suggestive of gallstones, otherwise negative. IMPRESSION Mr. Masters is a pleasant 76-year-old gentleman known to us from previous visit to the hospital and office, found to have recurrent anemia. The patient has a history of chronic anemia. Workup in the past suggestive of small AVM in the third portion of the duodenum. RECOMMENDATION Transfuse to keep hemoglobin more than one. Consider enteroscopy in the morning, once cleared by cardiology If active bleeding, consider endoscopy on emergency basis; clear liquid diet. Further recommendation will depend on the patient's clinical status and the above results. Thank you again, we will continue to follow the patient along with you. Madeline Emerson MD BSB/DT /12:27 PM /6:26 PM FRANCISCO
[2016-11-29] MEDS: hydrOXYzine HCL 10 MG TAB PO SCH (20:51)
[2016-11-29] MEDS: ATORVASTATIN 40 MG TAB PO SCH (20:52)
[2016-11-29] MEDS: MIRTAZAPINE 15 MG TAB PO SCH (20:52)
[2016-11-30] VITALS (31 sets, daily range): BP systolic 114–149; BP diastolic 58–77; PULSE 72–98; RESP 16–20; TEMP 97.5–98.5; O2SAT 92–99
[2016-11-30] MEDS: RESP: ALBUTEROL 2.5 MG/IPRATROPIUM 0.5 MG NEB (SCH) NEB ×5 (04:40→20:20)
[2016-11-30] MEDS: INSULIN ASPART SUPPLEMENTAL SCALE SQ SCH ×4 (06:44→21:00)
[2016-11-30 07:12] LABS: AUTOMATED NEUTROPHIL # 10.5 TH/MM3 (1.8-7.7); BASOPHIL # 0.1 TH/MM3 (0-0.2); BASOPHIL % 0.5 % (0.0-2.0); EOSINOPHIL % 0.1 % (0.0-4.0); HEMATOCRIT 27.9 % (39.0-51.0); HEMO FLAGS DIFF FINAL; LYMPH % 10.5 % (9.0-44.0); LYMPHOCYTE # 1.3 TH/MM3 (1.0-4.8); MEAN CELL VOLUME 79.4 FL (80.0-100.0); MEAN CORPUSCULAR HEMOGLOBIN 25.3 PG (27.0-34.0); MEAN CORPUSCULAR HGB CONC 31.9 % (32.0-36.0); MONO % 3.9 % (0.0-8.0); PLATELET COUNT 146 TH/MM3 (150-450); RED BLOOD COUNT 3.52 MIL/MM3 (4.50-5.90); RED CELL DISTRIBUTION WIDTH 20.8 % (11.6-17.2); WHITE BLOOD COUNT 12.4 TH/MM3 (4.0-11.0)
[2016-11-30 07:37] LABS: ANION GAP 8 MEQ/L (5-15); AST (GOT) 28 U/L (15-37); BICARBONATE 29.8 MEQ/L (21.0-32.0); BLOOD UREA NITROGEN 59 MG/DL (7-18); CHLORIDE 102 MEQ/L (98-107); GLOMERULAR FILTRATION RATE 26 ML/MIN (>89); MAGNESIUM 2.4 MG/DL (1.5-2.5); POTASSIUM 3.9 MEQ/L (3.5-5.1); SODIUM (NA) 140 MEQ/L (136-145)
[2016-11-30 07:38] LABS: ALT (GPT) 21 U/L (12-78)
[2016-11-30 07:41] LABS: ALKALINE PHOSPHATASE 72 U/L (45-117); TOTAL BILIRUBIN ADULT 1.3 MG/DL (0.2-1.0)
[2016-11-30] MEDS: CILOSTAZOL 100 MG TAB PO SCH (08:00)
[2016-11-30] MEDS: DOCUSATE SODIUM 50 MG/SENNA 8.6 MG TAB PO SCH ×2 (09:00→21:50)
[2016-11-30] MEDS: SODIUM CHLORIDE 0.9% FLUSH 10 ML FLUSH IV FLUSH SCH ×2 (09:00→21:49)
[2016-11-30] MEDS ORDERED: PROPOFOL 200 MG/20 ML AMP IV ONE (10:17)
--- NOTE | 2016-11-30 10:24 | MB ---
cc: MARTÍNEZ CHANCE MD DATE OF CONSULTATION: 11/29/2016 REASON FOR CONSULTATION 1. Urinary retention. 2. History of BPH. HISTORY OF PRESENT ILLNESS The patient is a 76-year-old male with history of BPH status post TURP with atrial fibrillation, stage IV chronic kidney disease with CHF who presented to the ED with worsening shortness of breath, fatigue times one day. On evaluation he was found to have difficulty emptying his bladder. A Rdz catheter was placed for ____ significant relief. Urology was consulted for urinary retension. The patient states he had a TURP about 4-5 years ago but he is not sure what urologist operated on him. He states he has a relatively decent stream but gets up two to three times a night. Denies history of hematuria, dysuria or difficulty completely emptying his bladder. However, upon admission the other day he did feel some lower abdominal discomfort and did not feel like his bladder was completely empty. He denies history of kidney stones or urinary tract infections. Denies family history of genitourinary malignancies including prostate cancer. He does take Plavix for his atrial fibrillation, is currently on a Cardizem drip for rate control. His hemoglobin this morning was found to be 7.1. He is getting 2 units of packed red blood cells. REVIEW OF SYSTEMS See HPI, otherwise all systems reviewed otherwise are negative. PAST HISTORY 1. Hyperlipidemia. 2. Cardiomyopathy. 3. COPD. 4. History of TIA on Plavix. 5. Type 2 diabetes. 6. History of GI bleed. 7. History of myocardial infarction. 8. Chronic kidney disease. 9. History BPH. 10. Sleep apnea. PAST SURGICAL HISTORY 1. History of coronary artery disease with coronary angioplasty. 2. He has a left AV fistula. 3. History of TURP. MEDICATIONS Home medications include: 1. Plavix 75 mg p.o. daily. 2. Protonix 40 mg p.o. daily. 3. Flomax 0.4 mg p.o. q.h.s. 4. Toprol 100 mg p.o. daily. 5. Aspirin 81 mg p.o. daily. 6. Lasix 20 mg p.o. daily. 7. Albuterol sulfate. 8. Atorvastatin 40 mg q.h.s. ALLERGIES SULFA. FAMILY HISTORY Denies urolithiasis or genitourinary malignancies. SOCIAL HISTORY The patient is for 50 years. He smoked half-pack of cigarettes per day since he was a child, stopped two weeks ago. Denies alcohol use or illicit drugs. PHYSICAL EXAMINATION VITAL SIGNS: Temperature 98.3, pulse 85, respiratory rate 16, BP 126/74, sating 96% on room air. GENERAL: He is alert and oriented x3, in no apparent distress, Pleasant, cooperative gentleman, appears his stated age. HEAD: Normocephalic, atraumatic. EYES: No scleral icterus. Extraocular muscles intact. SKIN: No ulcers or rashes. [place] and moist. LUNGS: Clear to auscultation. HEART: Irregularly, irregular. No murmurs, gallops or rubs. ABDOMEN: Soft, nontender, nondistended. Positive bowel sounds. GENITOURINARY: Penis is circumcised. Testes are descended bilaterally, normal size and consistency without mass. RECTAL: Not indicated at this time. EXTREMITIES: Nontender. No clubbing, cyanosis or edema. PSYCHE: Normal affect. NEUROLOGIC: Cranial nerves II-XII intact. Strength 5/5 in all four extremities. LABORATORY DATA Sodium 138, potassium 3.5, chloride 102, bicarb 25.3, BUN 49, creatinine 2.46, glucose 210. White count 9.9, hemoglobin 7.1, hematocrit 22.8, platelet count 118. IMAGING STUDIES None. MICROBIOLOGY Urine culture currently pending. ASSESSMENT The patient is a 76-year-old with history of BPH status post TURP Approximately 4-5 years ago, presented with shortness of breath and fatigue, found to be anemic with urinary retention. PLAN Will increase Tamsulosin to twice a day. Continue Rdz catheter for now. He can be void trial as an outpatient. Thank you for this consultation, call with any questions. Martínez Chance MD EMDaiana/NICHOLAS /1:00 PM /9:47 AM
--- NOTE | 2016-11-30 10:33 | GIPROC ---
[facility] [address] [facility]. [facility], [address] ENTEROSCOPY PROCEDURE REPORT EXAM DATE: 11/30/2016 PATIENT NAME: Peter Masters MR#: [id number] BIRTHDATE: 1940 ATTENDING: Madeline Bruce MD ORDER #: [id number] [place] APPLICATOR: Morales Luz and Saadia Aburto STATUS: inpatient INDICATIONS: The patient is a 76 yr old male here for an enteroscopy procedure due to anemia gi bleeding PROCEDURE PERFORMED: Small bowel enteroscopy with ablation therapy MEDICATIONS: None and Per Anesthesia. CONSENT: The patient understands the risks and benefits of the procedure and understands that these risks include, but are not limited to: sedation, allergic reaction, infection, perforation and/or bleeding. Alternative means of evaluation and treatment include, among others: physical exam, x-rays, and/or surgical intervention. The patient elects to proceed with this endoscopic procedure. medical equipment was checked for proper function. Hand hygiene and appropriate measures for infection prevention was taken. After the risks, benefits and alternatives of the procedure were thoroughly explained, Informed consent was verified, confirmed and timeout was successfully executed by the treatment team. The Pentax [id number] endoscope was introduced through the mouth and advanced to the proximal jejunum. The prep was good. The instrument was then slowly withdrawn while examining the mucosa circumferentially. The scope was then completely withdrawn from the patient and the procedure terminated. The pulse, BP, and O2 saturation were monitored and documented by the physician and the nursing staff throughout the entire procedure. The patient was cared for as planned according to standard protocol, then discharged to recovery in stable condition and with appropriate post procedure care. 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
[2016-11-30 10:50] LABS: HEMOGLOBIN A1a 1.2 %; HEMOGLOBIN A1b 2.1 %; HEMOGLOBIN LA1C 3.2 %
[2016-11-30 10:51] LABS: HEMOGLOBIN Ao 81.1 %; HEMOGLOBIN P3 6.7 %
[2016-11-30] MEDS ORDERED: DO NOT ADM ANY ANTICOAGULANT DRUGS PRN (11:00)
--- NOTE | 2016-11-30 11:11 | PD.CARD.PN ---
Subjective Subjective Remarks feeling better no complaints just came back from GI Objective Vital Signs / I&O Vital Signs Date Time Temp Pulse Resp B/P (MAP) Pulse Ox O2 Delivery O2 Flow Rate FiO2 11/30/16 10:45 92 20 135/60 (85) 100 Nasal Cannula 2 11/30/16 10:30 97.9 89 16 106/52 (70) 95 Nasal Cannula 2 11/30/16 07:28 92 11/30/16 06:08 95 11/30/16 05:20 94 11/30/16 04:25 92 11/30/16 03:20 96 11/30/16 03:20 98.3 96 16 114/72 (86) 95 11/30/16 02:45 92 11/30/16 01:20 95 11/30/16 00:10 93 11/29/16 23:06 98.0 94 18 119/73 (88) 96 11/29/16 23:00 92 11/29/16 22:35 93 11/29/16 21:00 90 11/29/16 20:08 97.8 92 20 128/73 11/29/16 19:50 100 11/29/16 19:20 98 Room Air 11/29/16 19:20 85 11/29/16 19:00 97.8 91 18 128/73 (91) 98 11/29/16 17:05 97.3 64 18 100/53 96 11/29/16 16:54 98.9 72 18 101/70 96 11/29/16 16:21 99 11/29/16 16:04 98.3 83 18 93/56 97 11/29/16 16:00 98.3 70 18 90/64 (73) 96 11/29/16 16:00 97 11/29/16 14:00 68 11/29/16 13:02 97.3 85 18 140/52 96 11/29/16 12:49 98.3 85 16 126/74 96 11/29/16 12:00 80 11/29/16 12:00 97.3 84 18 132/74 (93) 96 I/O 11/29/16 11/29/16 11/29/16 11/30/16 11/30/16 11/30/16 07:00 15:00 23:00 07:00 15:00 23:00 Intake Total 347 ml 1500 ml 240 ml 150 ml Output Total 850 ml 800 ml 2350 ml 150 ml Balance -503 ml 700 ml -2110 ml 0 ml Intake Oral 240 ml 650 ml 240 ml IV Total 107 ml Packed Cells 800 ml Blood Product IV Normal Saline Flush 50 ml Other 150 ml Output Urine Total 850 ml 800 ml 2350 ml 150 ml # Bowel Movements 0 Physical Exam heart s1s2 lung clear abdomen free ext no edema Laboratory Laboratory Tests Test 11/30/16 06:55 White Blood Count 12.4 TH/MM3 Red Blood Count 3.52 MIL/MM3 Hemoglobin 8.9 GM/DL Hematocrit 27.9 % Mean Corpuscular Volume 79.4 FL Mean Corpuscular Hemoglobin 25.3 PG Mean Corpuscular Hemoglobin Concent 31.9 % Red Cell Distribution Width 20.8 % Platelet Count 146 TH/MM3 Mean Platelet Volume 8.5 FL Neutrophils (%) (Auto) 85.0 % Lymphocytes (%) (Auto) 10.5 % Monocytes (%) (Auto) 3.9 % Eosinophils (%) (Auto) 0.1 % Basophils (%) (Auto) 0.5 % Neutrophils # (Auto) 10.5 TH/MM3 Lymphocytes # (Auto) 1.3 TH/MM3 Monocytes # (Auto) 0.5 TH/MM3 Eosinophils # (Auto) 0.0 TH/MM3 Basophils # (Auto) 0.1 TH/MM3 CBC Comment DIFF FINAL Differential Comment Blood Urea Nitrogen 59 MG/DL Creatinine 2.41 MG/DL Random Glucose 116 MG/DL Total Protein 6.8 GM/DL Albumin 3.2 GM/DL Calcium Level 9.2 MG/DL Phosphorus Level 2.7 MG/DL Magnesium Level 2.4 MG/DL Alkaline Phosphatase 72 U/L Aspartate Amino Transf (AST/SGOT) 28 U/L Alanine Aminotransferase (ALT/SGPT) 21 U/L Total Bilirubin 1.3 MG/DL Sodium Level 140 MEQ/L Potassium Level 3.9 MEQ/L Chloride Level 102 MEQ/L Carbon Dioxide Level 29.8 MEQ/L Anion Gap 8 MEQ/L Estimat Glomerular Filtration Rate 26 ML/MIN Assessment and Plan Problem List: (1) Respiratory distress ICD Codes: R06.00 - Dyspnea, unspecified Status: Acute Plan: meds now po if hgb stable could be discharged and follow up as outpatient full instructions for fluid intake and meds given to patient and his they verbalized understanding (2) CHF (congestive heart failure) ICD Codes: I50.9 - Heart failure, unspecified Status: Acute (3) Elevated troponin ICD Codes: R74.8 - Abnormal levels of other serum enzymes Status: Acute (4) Atrial flutter with rapid ventricular response ICD Codes: I48.92 - Unspecified atrial flutter; N18.9 - Chronic kidney disease , unspecified Status: Acute (5) Acute kidney injury superimposed on chronic kidney disease ICD Codes: N17.9 - Acute kidney failure, unspecified; N18.9 - Chronic kidney disease, unspecified Status: Acute (6) CAD (coronary artery disease) ICD Codes: I25.10 - Atherosclerotic heart disease of [place] coronary artery without angina pectoris Status: Acute Permanent Comment: Dr. Hollis - Atherosclerosis of [place] coronary artery. Last Edited By: José Miguel Black on May 29, 2015 16:02 (7) HTN (hypertension) ICD Codes: I10 - Essential (primary) hypertension Status: Acute (8) CKD (chronic kidney disease) stage 4, GFR 15-29 ml/min ICD Codes: N18.4 - Chronic kidney disease, stage 4 (severe) Status: Acute (9) Diabetes ICD Codes: E11.9 - Diabetes mellitus Status: Acute (10) GI bleed ICD Codes: K92.2 - Gastrointestinal hemorrhage, unspecified Status: Acute (11) Anemia ICD Codes: D64.9 - Anemia, unspecified Status: Acute (12) DJD (degenerative joint disease) ICD Codes: M19.90 - Unspecified osteoarthritis, unspecified site Status: Acute (13) PAD (peripheral artery disease) ICD Codes: I73.9 - Peripheral vascular disease, unspecified Status: Acute Permanent Comment: Dr. Hollis - status post stent placement, right iliac. DOCK COORDINATOR atherectomy and stent, left SFA planned. Last Edited By: Janice Mcneil on Jan 07, 2016 14:56 (14) Weakness ICD Codes: R53.1 - Weakness Status: Acute (15) Dyslipidemia ICD Codes: E78.5 - Hyperlipidemia, unspecified Status: Acute (16) Lumbar stenosis ICD Codes: M48.06 - Spinal stenosis, lumbar region Status: Acute (17) BPH (benign prostatic hyperplasia) ICD Codes: N40.0 - Enlarged prostate without lower urinary tract symptoms Status: Acute Problem Qualifiers (1) CHF (congestive heart failure): Qualified Codes: I50.9 - Heart failure, unspecified John Hollis MD Nov 30, 2016 11:11
[2016-11-30] MEDS: METOPROLOL SUCCINATE 50 MG EXTENDED RELEASE TAB PO SCH (11:50)
[2016-11-30] MEDS: PANTOPRAZOLE SOD 40 MG DELAYED RELEASE TAB PO SCH (11:50)
[2016-11-30] MEDS: POTASSIUM CHLORIDE 20 MEQ CONTROLLED RELEASE TAB PO SCH ×2 (11:50→21:48)
[2016-11-30] MEDS: CALCITRIOL 0.25 MCG CAP PO SCH (11:50)
[2016-11-30] MEDS: TAMSULOSIN HCL 0.4 MG CAP PO SCH ×2 (11:51→21:49)
[2016-11-30] MEDS: CLOPIDOGREL 75 MG TAB PO SCH (11:51)
[2016-11-30] MEDS: ASPIRIN 325 MG TAB PO SCH (11:54)
--- NOTE | 2016-11-30 11:54 | MB ---
cc: FRANNIE ORDONEZ M.D. DATE OF CONSULTATION: 11/29/2016 HISTORY OF PRESENT ILLNESS The patient is a 76-year-old male with complex past medical history including coronary artery disease, multiple stents in the past, cardiomyopathy, range of 35-45% ejection fraction, significant peripheral vascular disease, noncompliance, tobacco abuse, continues to smoke in spite off all instructions, noncompliance with medications, element of dementia, hypertension, hyperlipidemia, anemia, renal insufficiency, creatinine in the range between 2.5/to 3 is normal range. History of congestive heart failure, hyperlipidemia, had episodes of shortness of breath, marked, and element of chest pains but not as bad and could not breathe, called EMS and came to the hospital and found to be in atrial fibrillation and also in congestive heart failure. The hemoglobin was 7. Troponin was 2.0 range, creatinine 3.8 range also. No nausea, no vomiting. He had a very similar episode about a month ago in [place] and admitted there for a few days for treatment. Activity is limited. He lives with his . No alcohol, no drugs. PAST MEDICAL HISTORY As above. SOCIAL HISTORY As above. No alcohol or drugs. Tobacco abuse as mentioned before. FAMILY HISTORY Noncontributory. ALLERGIES See chart for details, including: SULFA, TRIMETHOPRIM. REVIEW OF SYSTEMS As above. MEDICATION See chart for details. PHYSICAL EXAMINATION GENERAL: Alert, oriented, at the time of examination, he feels much better after receiving IV Lasix and blood transfusion is running. Comfortable, sitting up in bed. Not in any acute distress. HEENT: JVP 4 cm <<2:40>> no carotid bruit. HEART: S1, S2. Slight murmur, grade 2/6. LUNGS: Dullness at the bases. Could not appreciate any crackles. ABDOMEN: No organomegaly, no masses. EXTREMITIES: Pulses very difficult to palpate in dorsalis pedis, posterior tibial. The leg is warm and no edema. He said before coming to the hospital he had some edema. LABORATORY DATA Lab work reviewed as mentioned before and most pertinent information. Echo noted with ejection fraction of 40% as mentioned. IMAGING STUDIES Chest x-ray noted. EKG EKG noted. ASSESSMENT Agree with the plan. He is already on Lasix and beta-lele. Not a good candidate for NEGAR inhibitor. Blood transfusion is running. Might not be a good candidate for any aggressive management at this time. Though the troponin is elevated, but could be related to multiple factors at the same time also. Thank you for the consultation. MD TERESO Hunt/NICHOLAS /2:45 PM /10:40 AM
--- NOTE | 2016-11-30 13:54 | HHI.PR ---
Subjective Remarks Mr. Masters is a 76-year-old male patient with a known medical history of COPD, long standing tobacco use history, CKD stage IV, atrial fibrillation, CHF and hypertension who presented to the ED with worsening shortness of breath x 1 day. Patient seen and examined in ED, at bedside. Per , patient has been more fatigued and lethargic, sleeping a lot. She states that yesterday he was increasingly short of breath, unable to lie flat at night due to dyspnea and has been unable to walk across the room without becoming short of breath. states that patient's health has been declining for over a year now and recently hospitalized 2 weeks ago for similar symptoms and at that time started on Lasix with which the patient has been noncompliant. Denies any recent illness including fever, chills, headache, dizziness, abdominal pain, nausea, vomiting, diarrhea or dysuria. Does admit to a chronic nonproductive cough. Poor appetite for several days. Patient awake and alert, following commands, currently requiring BIPAP assistance, shallow breathing noted, with apparent dyspnea. Patient presented with A fib RVR, currently on Cardizem drip and well- controlled. O2 sats 100% on 40% FiO2. BP stable. We'll admit to the ICU for close monitoring 11-29 DW RN AND PATIENT AND MUCH MORE ALERT OFF BIPAP' HEART RATE BETTER CONTROLLED ON METOPROLOL IS ANEMIC WILL TRANSFUSE 2 UNITS PRBC CHECK STOOLS CONSULT GI 11-30 seen by UROLOGY HAD LUZ PLACED AND FLOMAX INCREASED SEEN BY CARDIOLOGY RECOMMENDED FLUID RESTRICTION AND MEDS ADJUSTED SEEN BY GI- HAD EGD AND AVM ABLATION/CAUTERY AM LABS IF STABLE POSSIBLE DC TO HOME TOMORROW WILL NEED HHC AND RN FOR LUZ PT AND OT TO MOVE TODAY DW RN AND PT AND MANY QUESTIONS ANSWERED Objective Vitals Vital Signs Date Time Temp Pulse Resp B/P (MAP) Pulse Ox O2 Delivery O2 Flow Rate FiO2 11/30/16 11:47 97 Nasal Cannula 1.00 11/30/16 11:15 97.5 95 16 143/65 (91) 98 11/30/16 10:45 92 20 135/60 (85) 100 Nasal Cannula 2 11/30/16 10:30 97.9 89 16 106/52 (70) 95 Nasal Cannula 2 11/30/16 07:28 92 11/30/16 07:15 97 Room Air 11/30/16 07:00 98.5 98 16 119/77 (91) 97 11/30/16 06:08 95 11/30/16 05:20 94 11/30/16 04:25 92 11/30/16 03:20 96 11/30/16 03:20 98.3 96 16 114/72 (86) 95 11/30/16 02:45 92 11/30/16 01:20 95 11/30/16 00:10 93 11/29/16 23:06 98.0 94 18 119/73 (88) 96 11/29/16 23:00 92 11/29/16 22:35 93 11/29/16 21:00 90 11/29/16 20:08 97.8 92 20 128/73 11/29/16 19:50 100 11/29/16 19:20 98 Room Air 11/29/16 19:20 85 11/29/16 19:00 97.8 91 18 128/73 (91) 98 11/29/16 17:05 97.3 64 18 100/53 96 11/29/16 16:54 98.9 72 18 101/70 96 11/29/16 16:21 99 11/29/16 16:04 98.3 83 18 93/56 97 11/29/16 16:00 98.3 70 18 90/64 (73) 96 11/29/16 16:00 97 11/29/16 14:00 68 I/O 11/29/16 11/29/16 11/29/16 11/30/16 11/30/16 11/30/16 07:00 15:00 23:00 07:00 15:00 23:00 Intake Total 347 ml 1500 ml 240 ml 150 ml Output Total 850 ml 800 ml 2350 ml 150 ml Balance -503 ml 700 ml -2110 ml 0 ml Intake Oral 240 ml 650 ml 240 ml IV Total 107 ml 0 ml Packed Cells 800 ml Blood Product IV Normal Saline Flush 50 ml Other 150 ml Output Urine Total 850 ml 800 ml 2350 ml 150 ml # Bowel Movements 0 Result Diagram: 11/30/16 0655 11/30/16 0655 Other Results Laboratory Tests Test 11/28/16 14:40 11/28/16 15:30 11/28/16 20:00 11/28/16 22:35 White Blood Count 13.7 TH/MM3 Red Blood Count 3.76 MIL/MM3 Hemoglobin 9.1 GM/DL Hematocrit 30.9 % Mean Corpuscular Volume 82.1 FL Mean Corpuscular Hemoglobin 24.3 PG Mean Corpuscular Hemoglobin Concent 29.6 % Red Cell Distribution Width 22.3 % Platelet Count 198 TH/MM3 Mean Platelet Volume 8.6 FL Neutrophils (%) (Auto) 78.8 % Lymphocytes (%) (Auto) 17.6 % Monocytes (%) (Auto) 3.2 % Eosinophils (%) (Auto) 0.0 % Basophils (%) (Auto) 0.4 % Neutrophils # (Auto) 10.8 TH/MM3 Lymphocytes # (Auto) 2.4 TH/MM3 Monocytes # (Auto) 0.4 TH/MM3 Eosinophils # (Auto) 0.0 TH/MM3 Basophils # (Auto) 0.1 TH/MM3 CBC Comment DIFF FINAL Differential Comment Blood Urea Nitrogen 39 MG/DL Creatinine 2.66 MG/DL Random Glucose 241 MG/DL Total Protein 7.8 GM/DL Albumin 3.6 GM/DL Calcium Level 8.9 MG/DL Magnesium Level 2.6 MG/DL 2.4 MG/DL Alkaline Phosphatase 92 U/L Aspartate Amino Transf (AST/SGOT) 22 U/L Alanine Aminotransferase (ALT/SGPT) 20 U/L Total Bilirubin 1.1 MG/DL Sodium Level 142 MEQ/L Potassium Level 4.4 MEQ/L Chloride Level 104 MEQ/L Carbon Dioxide Level 25.2 MEQ/L Anion Gap 13 MEQ/L Estimat Glomerular Filtration Rate 23 ML/MIN Total Creatine Kinase 147 U/L 326 U/L Creatine Kinase MB 6.7 NG/ML 10.4 NG/ML Troponin I 1.40 NG/ML 2.19 NG/ML B-Type Natriuretic Peptide GREATER THAN 5000 PG/ML Blood Gas Puncture Site RT RADIAL Blood Gas Patient Temperature 98.6 Blood Gas HCO3 23 mmol/L Blood Gas Base Excess -1.4 mmol/L Blood Gas Oxygen Saturation 96 % Arterial Blood pH 7.41 Arterial Blood Partial Pressure CO2 36 mmHg Arterial Blood Partial Pressure O2 141 mmHG Arterial Blood Oxygen Content 14.2 Vol % Arterial Blood Carboxyhemoglobin 2.6 % Arterial Blood Methemoglobin 0.5 % Blood Gas Hemoglobin 10.3 G/DL Oxygen Delivery Device BIPAP Blood Gas Ventilator Setting [id number] Blood Gas Inspired Oxygen 60 % Nasal Screen MRSA (PCR) MRSA NOT DETECTED Creatine Kinase MB % 3.2 % Test 11/29/16 03:02 11/29/16 05:30 11/29/16 06:55 11/29/16 10:10 Magnesium Level 2.4 MG/DL 2.6 MG/DL Total Creatine Kinase 538 U/L Creatine Kinase MB 15.2 NG/ML Creatine Kinase MB % 2.8 % Troponin I 2.03 NG/ML Urine Color YELLOW Urine Turbidity HAZY Urine pH 5.0 Urine Specific [place] 1.011 Urine Protein 30 mg/dL Urine Glucose (UA) TRACE mg/dL Urine Ketones NEG mg/dL Urine Occult Blood NEG Urine Nitrite NEG Urine Bilirubin NEG Urine Urobilinogen LESS THAN 2.0 MG/DL Urine Leukocyte Esterase NEG Urine RBC 1 /hpf Urine WBC 3 /hpf Urine Amorphous Sediment FEW Urine Bacteria MOD /hpf Microscopic Urinalysis Comment CULTURE INDICATED White Blood Count 9.9 TH/MM3 Red Blood Count 2.82 MIL/MM3 Hemoglobin 7.1 GM/DL Hematocrit 22.8 % Mean Corpuscular Volume 80.7 FL Mean Corpuscular Hemoglobin 25.1 PG Mean Corpuscular Hemoglobin Concent 31.1 % Red Cell Distribution Width 21.8 % Platelet Count 118 TH/MM3 Mean Platelet Volume 9.1 FL Neutrophils (%) (Auto) 94.8 % Lymphocytes (%) (Auto) 3.6 % Monocytes (%) (Auto) 1.5 % Eosinophils (%) (Auto) 0.0 % Basophils (%) (Auto) 0.1 % Neutrophils # (Auto) 9.4 TH/MM3 Lymphocytes # (Auto) 0.4 TH/MM3 Monocytes # (Auto) 0.2 TH/MM3 Eosinophils # (Auto) 0.0 TH/MM3 Basophils # (Auto) 0.0 TH/MM3 CBC Comment DIFF FINAL Differential Comment B-Type Natriuretic Peptide GREATER THAN 5000 PG/ML Blood Urea Nitrogen 49 MG/DL Creatinine 2.46 MG/DL Random Glucose 210 MG/DL Total Protein 6.4 GM/DL Albumin 2.9 GM/DL Calcium Level 8.8 MG/DL Phosphorus Level 2.8 MG/DL Alkaline Phosphatase 68 U/L Aspartate Amino Transf (AST/SGOT) 31 U/L Alanine Aminotransferase (ALT/SGPT) 17 U/L Total Bilirubin 0.8 MG/DL Sodium Level 138 MEQ/L Potassium Level 3.5 MEQ/L Chloride Level 102 MEQ/L Carbon Dioxide Level 25.3 MEQ/L Anion Gap 11 MEQ/L Estimat Glomerular Filtration Rate 26 ML/MIN Hemoglobin A1c 6.5 % Free Thyroxine 0.83 NG/DL Thyroid Stimulating Hormone 3rd Gen 0.147 uIU/ML Test 11/30/16 06:55 White Blood Count 12.4 TH/MM3 Red Blood Count 3.52 MIL/MM3 Hemoglobin 8.9 GM/DL Hematocrit 27.9 % Mean Corpuscular Volume 79.4 FL Mean Corpuscular Hemoglobin 25.3 PG Mean Corpuscular Hemoglobin Concent 31.9 % Red Cell Distribution Width 20.8 % Platelet Count 146 TH/MM3 Mean Platelet Volume 8.5 FL Neutrophils (%) (Auto) 85.0 % Lymphocytes (%) (Auto) 10.5 % Monocytes (%) (Auto) 3.9 % Eosinophils (%) (Auto) 0.1 % Basophils (%) (Auto) 0.5 % Neutrophils # (Auto) 10.5 TH/MM3 Lymphocytes # (Auto) 1.3 TH/MM3 Monocytes # (Auto) 0.5 TH/MM3 Eosinophils # (Auto) 0.0 TH/MM3 Basophils # (Auto) 0.1 TH/MM3 CBC Comment DIFF FINAL Differential Comment Blood Urea Nitrogen 59 MG/DL Creatinine 2.41 MG/DL Random Glucose 116 MG/DL Total Protein 6.8 GM/DL Albumin 3.2 GM/DL Calcium Level 9.2 MG/DL Phosphorus Level 2.7 MG/DL Magnesium Level 2.4 MG/DL Alkaline Phosphatase 72 U/L Aspartate Amino Transf (AST/SGOT) 28 U/L Alanine Aminotransferase (ALT/SGPT) 21 U/L Total Bilirubin 1.3 MG/DL Sodium Level 140 MEQ/L Potassium Level 3.9 MEQ/L Chloride Level 102 MEQ/L Carbon Dioxide Level 29.8 MEQ/L Anion Gap 8 MEQ/L Estimat Glomerular Filtration Rate 26 ML/MIN Imaging Last Impressions Chest X-Ray 11/28/16 1433 Signed Impressions: Service Date/Time: Monday, November 28, 2016 14:54 - CONCLUSION: Interstitial vascular prominence characteristic of pulmonary edema. Dallin Rowan MD Objective Remarks GENERAL: This is a thin, well-developed patient, elderly male patient, lying in bed in NO ACUTE DISTRESS SKIN: Multiple areas of ecchymosis on upper extremities. Clammy and cool. HEAD: Atraumatic. Normocephalic. EYES: Pupils equal round and reactive. Extraocular motions intact. No scleral icterus. No injection or drainage. ENT: Nose without bleeding. Airway patent, . Tongue is midline NECK: Trachea midline. JVD present. Supple. CARDIOVASCULAR: HEART RATE CONTROLLED NOW. Aortic murmur present /. S1 and S2 no S3 or S4 no heave or thrill or rub or gallop RESPIRATORY: NO Crackles noted in anterior and posterior lower lobes. Breath sounds equal bilaterally. GASTROINTESTINAL: Abdomen soft, non-tender, nondistended. No guarding. MUSCULOSKELETAL: Extremities without clubbing, cyanosis, or edema. No joint tenderness, effusion, or edema noted. NEUROLOGICAL: Lethargic. Cranial nerves II through XII intact. Motor and sensory grossly within normal limits. Five out of 5 muscle strength in all muscle groups. Normal speech. EXTREMITIES: Bilateral lower extremity TRACE TO +1 EDEMA. Bilateral DP and pedal pulses present 1+. Left upper extremity fistula noted, GOOD bruit and thrill present. Insight and judgment is okay And behavior is somewhat appropriate Procedures EGD WITH ABLATION OF AVM 9-12 LUZ CATHETER PLACED Medications and IVs Current Medications Sodium Chloride (NS Flush) 2 ml UNSCH PRN IVF FLUSH AFTER USING IV ACCESS; Start 11/28/16 at 14:45; Stop 11/28/16 at 20:27; Status DC Albuterol/ Ipratropium (Duoneb Neb) 1 ampule Q15M INH Last administered on 11/28t 15:21; Start 11/28/16 at 14:45; Stop 11/28/16 at 15:01; Status DC Diltiazem HCl (Cardizem Inj) 25 mg STK-MED ONCE .ROUTE ; Start 11/28/16 at 14:39 ; Stop 11/28/16 at 14:40; Status DC Diltiazem HCl (Cardizem Inj) 20 mg ONCE ONCE IV Last administered on t 14:45; Start 11/28/16 at 14:45; Stop 11/28/16 at 14:46; Status DC Nitroglycerin/ Dextrose 250 ml @ 0 mls/hr TITRATE ONCE IV ; Start 11/28/16 at 14:45; Stop 11/28/16 at 14:54; Status DC Diltiazem HCl 125 mg/Sodium Chloride 125 ml @ 5 mls/hr TITRATE PRN IV Tachycardia Last administered on 11/28/16 14:59; Start 11/28/16 at 14:45; Stop 11/28/16 at 20:38; Status DC Furosemide (Lasix Inj) 40 mg ONCE ONCE IV PUSH Last administered on 11/28/16 15:36; Start 11/28/16 at 15:15; Stop 11/28/16 at 15:16; Status DC Albuterol Sulfate (Proair Hfa Inh) 2 puff Q6HR PRN INH SHORTNESS OF BREATH; Start 11/28/16 at 16:45 Aspirin (Ecotrin Ec) 81 mg DAILY PO ; Start 11/29/16 at 09:00; Status UNV Atorvastatin Calcium (Lipitor) 40 mg HS PO Last administered on 11/29/16 20:52 ; Start 11/28/16 at 21:00 Calcitriol (Rocaltrol) 0.25 mcg DAILY PO Last administered on 11/30/16 11:50; Start 11/29/16 at 09:00 Cilostazol (Pletal) 100 mg DAILYAC PO Last administered on 11/30/16 08:00; Start 11/29/16 at 08:00 Clopidogrel Bisulfate (Plavix) 75 mg DAILY PO Last administered on 11/30/16 11 :51; Start 11/29/16 at 09:00 Hydroxyzine HCl (Atarax) 10 mg HS PO Last administered on 11/29/16 20:51; Start 11/28/16 at 21:00 Metoprolol Succinate (Toprol Xl) 100 mg DAILY PO Last administered on 11:50; Start 11/28/16 at 20:00 Mirtazapine (Remeron) 15 mg HS PO Last administered on 11/29/16 20:52; Start 11/28/16 at 21:00 Pantoprazole Sodium (Protonix) 40 mg DAILY PO Last administered on 11/30/16 11 :50; Start 11/28/16 at 20:00 Tamsulosin HCl (Flomax) 0.4 mg HS PO Last administered on 11/28/16 20:53; Start 11/28/16 at 21:00; Stop 11/29/16 at 13:06; Status DC Diphenhydramine HCl (Benadryl) 25 mg Q4H PRN PO ITCHING; Start 11/28/16 at 20: 15 Non-Formulary Medication 1 applic DAILY PRN TOPICAL ITCHING; Start 11/28/16 at 16:45; Status UNV Sodium Chloride (NS Flush) 2 ml UNSCH PRN IV FLUSH FLUSH AFTER USING IV ACCESS ; Start 11/28/16 at 16:45 Sodium Chloride (NS Flush) 2 ml BID IV FLUSH Last administered on 11/30/16 09: 00; Start 11/28/16 at 21:00 Acetaminophen (Tylenol) 650 mg Q4H PRN PO TEMP > 100.4; Start 11/28/16 at 16:45 Ondansetron HCl (Zofran Inj) 4 mg Q6H PRN IVP NAUSEA OR VOMITING; Start at 16:45 Prochlorperazine (Compazine Supp) 25 mg Q12H PRN RECTAL NAUSEA OR VOMITING; Start 11/28/16 at 16:45 Heparin Sodium (Porcine) (Heparin Inj) 5,000 units Q12H SQ Last administered on 11/29/16 08:19; Start 11/28/16 at 20:00; Stop 11/29/16 at 09:19; Status DC Acetaminophen (Tylenol) 650 mg Q6H PRN PO PAIN SCALE 1 TO 2; Start 11/28/16 at 16:45 Oxycodone/ Acetaminophen (Percocet 5-325 Mg) 1 tab Q6H PRN PO PAIN SCALE 3 TO 5; Start 11/28/16 at 16:45 Oxycodone/ Acetaminophen (Percocet 10-325 Mg) 1 tab Q6H PRN PO PAIN SCALE 6 TO 10; Start 11/28/16 at 16:45 Morphine Sulfate (Morphine Inj) 2 mg Q3H PRN IV Pain 3-5; if unable to take PO ; Start 11/28/16 at 16:45 Morphine Sulfate (Morphine Inj) 4 mg Q3H PRN IV Pain 6-10;if unable to take PO ; Start 11/28/16 at 16:45 Naloxone HCl (Narcan Inj) 0.4 mg UNSCH PRN IV SEE LABEL COMMENTS; Start at 16:45 Senna/Docusate Sodium (Jodie-Colace) 1 tab BID PO Last administered on 20:52; Start 11/28/16 at 21:00 Magnesium Hydroxide (Milk Of Magnesia Liq) 30 ml Q12H PRN PO MILD - MODERATE CONSTIPATION; Start 11/28/16 at 16:45 Sennosides (Senokot) 17.2 mg Q12H PRN PO MODERATE - SEVERE CONSTIPATION; Start 11/28/16 at 16:45 Bisacodyl (Dulcolax Supp) 10 mg DAILY PRN RECTAL SEVERE CONSITIPATION; Start at 16:45 Lactulose (Lactulose Liq) 30 ml DAILY PRN PO SEVERE CONSITIPATION; Start at 16:45 Sodium Chloride (NS Flush) 2 ml UNSCH PRN IV FLUSH FLUSH AFTER USING IV ACCESS ; Start 11/28/16 at 16:45; Status UNV Sodium Chloride (NS Flush) 2 ml BID IV FLUSH ; Start 11/28/16 at 21:00; Status UNV Furosemide (Lasix Inj) 40 mg BID@09,18 IVP Last administered on 11/29/16 23:27 ; Start 11/28/16 at 20:00; Stop 11/30/16 at 08:00; Status DC Potassium Chloride (KCl) 20 meq BID PO Last administered on 11/30/16 11:50; Start 11/28/16 at 21:00 Sodium Chloride (NS Flush) 2 ml UNSCH PRN IV FLUSH FLUSH AFTER USING IV ACCESS ; Start 11/28/16 at 16:45; Status UNV Sodium Chloride (NS Flush) 2 ml BID IV FLUSH ; Start 11/28/16 at 21:00; Status UNV Aspirin (Aspirin) 325 mg DAILY PO Last administered on 11/30/16 11:54; Start 11/29/16 at 09:00 Diltiazem HCl 125 mg/Sodium Chloride 125 ml @ 5 mls/hr TITRATE PRN IV Tachycardia; Start 11/28/16 at 16:45; Stop 11/29/16 at 02:59; Status DC Albuterol/ Ipratropium (Duoneb Neb) 1 ampule Q4HR NEB NEB Last administered on 11/30/16 11:43; Start 11/28/16 at 20:00 Albuterol/ Ipratropium (Duoneb Neb) 1 ampule Q4HR NEB PRN NEB wheezing Last administered on 11/28/16 19:10; Start 11/28/16 at 18:30 Dextrose (D50w (Syr) Inj) 50 ml UNSCH PRN IV HYPOGLYCEMIA-SEE COMMENTS; Start 11/28/16 at 20:30 Glucagon (Glucagon Inj) 1 mg UNSCH PRN OTHER HYPOGLYCEMIA-SEE COMMENTS; Start 11/28/16 at 18:30 Insulin Aspart (NovoLOG SUPPLEMENTAL SCALE) 1 ACHS SLIDING SCALE SQ Last administered on 11/29/16 20:54; Start 11/28/16 at 21:00 Sodium Chloride 250 ml @ 15 mls/hr ONCE ONCE IV Last administered on 13:11; Start 11/29/16 at 09:15; Stop 11/30/16 at 01:54; Status DC Acetaminophen (Tylenol) 650 mg Q4H PRN PO SEE LABEL COMMENTS; Start 11/29/16 at 09:15 Diphenhydramine HCl (Benadryl) 25 mg Q4H PRN PO SEE LABEL COMMENTS; Start 11/29 at 09:15 Furosemide (Lasix Inj) 20 mg ONCE ONCE IV ; Start 11/29/16 at 09:15; Stop 11/29 at 09:37; Status DC Tamsulosin HCl (Flomax) 0.4 mg Q12HR PO Last administered on 11/30/16 11:51; Start 11/29/16 at 14:00 Furosemide (Lasix) 40 mg BID@09,18 PO ; Start 11/30/16 at 18:00 Miscellaneous Information ALL NURSING DEPARTME... UNSCH PRN .XX SEE LABEL COMMENTS; Start 11/30/16 at 11:00; Stop 12/01/16 at 10:59 Propofol (Diprivan 200 Mg/20 ml Inj) 200 mg STK-MED ONCE IV ; Start 11/30/16 at 10:17; Stop 11/30/16 at 10:59; Status DC Urinary Catheter: Yes Assessment to: Continue Luz insert reason: Obstruction/Retention Vascular Central Line Catheter: No A/P Problem List: (1) CHF (congestive heart failure) ICD Code: I50.9 - Heart failure, unspecified Status: Acute (2) COPD (chronic obstructive pulmonary disease) ICD Code: J44.9 - Chronic obstructive pulmonary disease, unspecified Status: Acute (3) Atrial flutter with rapid ventricular response ICD Code: I48.92 - Unspecified atrial flutter; N18.9 - Chronic kidney disease, unspecified Status: Acute (4) CKD (chronic kidney disease) stage 4, GFR 15-29 ml/min ICD Code: N18.4 - Chronic kidney disease, stage 4 (severe) Status: Acute (5) Respiratory distress ICD Code: R06.00 - Dyspnea, unspecified Status: Acute (6) DM2 (diabetes mellitus, type 2) ICD Code: E11.9 - Type 2 diabetes mellitus without complications Status: Acute Assessment and Plan Mr. Masters is a 76-year-old male patient with a known medical history of COPD, long standing tobacco use history, CKD stage IV, atrial fibrillation, CHF and hypertension who presented to the ED with worsening shortness of breath x 1 day. Patient awake and alert, following commands, NOW OFF BIPAP--NO SOB. Patient presented with A fib RVR, currently on Cardizem drip and well- controlled. O2 sats 100% on 40% FiO2. BP stable. OFF CARDIZEM ON PO BETA ANDRES OFF BIPAP ANEMIA WILL NEED TRANSFUSIONS 2 UNITS TODAY WILL GIVE TYLENOL AND BENADRYL PRIOR TO THIS CONSULT GI REGARDING ANEMIA HX OF POSSIBLE ULCERS Acute on chronic congestive heart failure, exacerbation: Unknown type - CXR reviewed showing interstitial vascular prominence characteristic of pulmonary edema.- IMPROVED - BNP greater than 5,000. Will repeat in am. Follow. AWAIT REPEAT LABS - Lasix 40 mg IV given in ED x 1. Schedule Lasix 20 mg IV BID. - Place on supplemental potassium, follow BMP. - Strict I's and O's please. Fluid restriction <1500 ml 24 hours. - 2-D ECHO ordered, no prior study retrieved from medical record. Follow. Chronic obstructive pulmonary disease, not in exacerbation - Continue at home inhalers. - Supplemental O2 to keep sats >88%. Requiring BIPAP 12/6 at this time. RT to manage. --NOW OFF BIPAP - Continuous pulse oximetry. - Duonebs scheduled and available PRN wheezing. Type 2 diabetes mellitus - Per DM is diet controlled. Random glucose 241. Will obtain a hemoglobin a1C, likely uncontrolled. - ACCU checks ACHS. Place on sliding scale insulin, cover as needed. NEEDS DM EDUCATION Chronic kidney disease stage IV - Creatinine 2.66, appears that baseline is around 2. Monitor I & O closely and BMP in am to follow trend. Leukocytosis with mild bandemia suspect secondary to stress response vs infectious source vs steroid induced - WBC 13.7. Afebrile. UA ordered and pending. - CXR negative for any signs of pneumonia. Atrial fibrillation RVR, acute on chronic - Cardizem bolus given in ED. Continue on Cardizem gtt per protocol. - OFF CARDIZEM DRIP - Continuous telemetry. Monitor. - Follow repeat EKG. Currently converted on bedside monitor, controlled. OFF CARDIZEM DRIP Elevated troponin suspect secondary to renal vs stress vs ACS Elevated CKMB % - Troponin 1.6, CKMB % 6.7. Will monitor serial trends. - Consult placed to cardiology, appreciate input. - EKG reviewed showing showing A fib with RVR and chronic left ventricular hypertrophy. Will repeat EKG. Follow. CARDIOLOGY CONSULT Normocytic, hypochromic anemia suspect secondary to chronic anemia of disease/ CKD - Hemoglobin 9.1/Hematocrit 30.9. No signs or symptoms of bleeding. Will repeat CBC in am. Follow. SEVERE ANEMIA 7.1 WILL TRANSFUSE 2 UNIT PRBC CAD with history of stent placement: Continue aspirin, Pletal and Plavix. Hyperlipidemia, chronic: Continue atorvastatin. BPH: Continue home Tamsulosin. GI Prophylaxis/GERD: Protonix. DVT prophylaxis: SCDs/HOLD HEPARIN DUE TO ANEMIA AM LABS, TRANSFUSE MOVE OUT OF ICU Consult cardiology Consider consult of renal in the future if renal functions don't improve HAD EGD AND ABLATION OF AVM BY DR EMERSON TODAY 9-[address] ORDONEZ SEEN BY UROLOGY DR CHANCE- LUZ PLACED WILL NEED HHC AT DC AND CONTINUE LUZ PT AND OT Discharge Planning NEEDS GI AND CARDIO EVALUATIONS AM LABS Problem Qualifiers (1) CHF (congestive heart failure): Qualified Codes: I50.9 - Heart failure, unspecified Mekhi Kimbrough DO Nov 30, 2016 13:54
[2016-11-30] MEDS: FUROSEMIDE 40 MG TAB PO SCH (17:00)
[2016-11-30] MEDS: ATORVASTATIN 40 MG TAB PO SCH (21:49)
[2016-11-30] MEDS: hydrOXYzine HCL 10 MG TAB PO SCH (21:49)
[2016-11-30] MEDS: MIRTAZAPINE 15 MG TAB PO SCH (21:49)
[2016-12-01] VITALS (21 sets, daily range): BP systolic 105–153; BP diastolic 58–74; PULSE 78–94; RESP 16–18; TEMP 97.6–98.1; O2SAT 91–98
[2016-12-01] MEDS: RESP: ALBUTEROL 2.5 MG/IPRATROPIUM 0.5 MG NEB (SCH) NEB ×5 (03:46→15:23)
[2016-12-01 07:11] LABS: AUTOMATED NEUTROPHIL # 6.2 TH/MM3 (1.8-7.7); BASOPHIL % 0.4 % (0.0-2.0); EOSINOPHIL # 0.1 TH/MM3 (0-0.4); EOSINOPHIL % 1.4 % (0.0-4.0); HEMATOCRIT 29.9 % (39.0-51.0); HEMO FLAGS DIFF FINAL; LYMPHOCYTE # 1.3 TH/MM3 (1.0-4.8); MEAN CELL VOLUME 79.5 FL (80.0-100.0); MEAN CORPUSCULAR HGB CONC 31.5 % (32.0-36.0); MONO % 4.5 % (0.0-8.0); NEUT % 77.7 % (16.0-70.0); PLATELET COUNT 171 TH/MM3 (150-450); RED BLOOD COUNT 3.77 MIL/MM3 (4.50-5.90); RED CELL DISTRIBUTION WIDTH 20.5 % (11.6-17.2); WHITE BLOOD COUNT 7.9 TH/MM3 (4.0-11.0)
[2016-12-01 07:44] LABS: ANION GAP 8 MEQ/L (5-15); AST (GOT) 24 U/L (15-37); BICARBONATE 29.5 MEQ/L (21.0-32.0); BLOOD UREA NITROGEN 54 MG/DL (7-18); CHLORIDE 102 MEQ/L (98-107); GLOMERULAR FILTRATION RATE 26 ML/MIN (>89); MAGNESIUM 2.4 MG/DL (1.5-2.5); POTASSIUM 3.8 MEQ/L (3.5-5.1); SODIUM (NA) 139 MEQ/L (136-145)
[2016-12-01 07:45] LABS: ALT (GPT) 20 U/L (12-78)
[2016-12-01 07:47] LABS: ALKALINE PHOSPHATASE 74 U/L (45-117); TOTAL BILIRUBIN ADULT 1.2 MG/DL (0.2-1.0)
[2016-12-01] MEDS: INSULIN ASPART SUPPLEMENTAL SCALE SQ SCH ×3 (08:00→17:00)
[2016-12-01] MEDS: CILOSTAZOL 100 MG TAB PO SCH (08:00)
[2016-12-01] MEDS: PANTOPRAZOLE SOD 40 MG DELAYED RELEASE TAB PO SCH (08:59)
[2016-12-01] MEDS: CALCITRIOL 0.25 MCG CAP PO SCH (08:59)
[2016-12-01] MEDS: ASPIRIN 325 MG TAB PO SCH (08:59)
[2016-12-01] MEDS: DOCUSATE SODIUM 50 MG/SENNA 8.6 MG TAB PO SCH (09:00)
[2016-12-01] MEDS: POTASSIUM CHLORIDE 20 MEQ CONTROLLED RELEASE TAB PO SCH (09:00)
[2016-12-01] MEDS: FUROSEMIDE 40 MG TAB PO SCH (09:00)
[2016-12-01] MEDS: METOPROLOL SUCCINATE 50 MG EXTENDED RELEASE TAB PO SCH (09:00)
[2016-12-01] MEDS: CLOPIDOGREL 75 MG TAB PO SCH (09:00)
[2016-12-01] MEDS: TAMSULOSIN HCL 0.4 MG CAP PO SCH (09:00)
[2016-12-01] MEDS: SODIUM CHLORIDE 0.9% FLUSH 10 ML FLUSH IV FLUSH SCH (09:03)
[2016-12-01] MEDS ORDERED: VENTAER INH (09:31)
--- NOTE | 2016-12-01 10:52 | HHI.PR ---
Subjective Remarks Written by Lulu Rodriguez, acting as scribe for Dr. Schneider on 12/01/16 at 10:51. Follow up CHF, COPD, DM and atrial fibrillation. Patient seen and examined. Lying in bed on room air comfortably. Denies any new acute complaints overnight. Tolerating PO intake well. Denies any recent fever, chills, cough, headache, dizziness, shortness of breath, ab pain, n/v/d, dysuria. Eager to get home. Objective Vitals Vital Signs Date Time Temp Pulse Resp B/P (MAP) Pulse Ox O2 Delivery O2 Flow Rate FiO2 12/01/16 10:00 88 12/01/16 09:00 88 12/01/16 08:30 Room Air 12/01/16 08:23 97.9 92 17 153/66 (95) 96 12/01/16 08:00 88 12/01/16 07:34 98 12/01/16 07:00 89 12/01/16 06:00 90 12/01/16 05:00 90 12/01/16 04:00 90 12/01/16 03:00 84 12/01/16 03:00 98.1 93 16 139/74 (95) 96 12/01/16 02:00 90 12/01/16 01:00 88 12/01/16 00:00 90 11/30/16 23:00 89 11/30/16 23:00 98.1 88 18 149/67 (94) 92 11/30/16 22:00 92 11/30/16 21:00 92 11/30/16 20:22 96 11/30/16 20:00 94 11/30/16 20:00 98.3 90 20 126/58 (80) 96 11/30/16 19:00 96 Room Air 11/30/16 19:00 90 11/30/16 18:00 90 11/30/16 17:00 93 11/30/16 16:00 72 11/30/16 15:51 98 11/30/16 15:32 99 11/30/16 15:30 97.7 91 16 126/58 (80) 96 11/30/16 15:00 91 11/30/16 14:00 90 11/30/16 13:00 92 11/30/16 12:00 96 11/30/16 11:47 97 Nasal Cannula 1.00 11/30/16 11:15 97.5 95 16 143/65 (91) 98 11/30/16 11:00 92 I/O 11/30/16 11/30/16 11/30/16 12/01/16 12/01/16 12/01/16 07:00 15:00 23:00 07:00 15:00 23:00 Intake Total 240 ml 150 ml 480 ml 240 ml Output Total 2350 ml 150 ml 700 ml 2050 ml Balance -2110 ml 0 ml -220 ml -1810 ml Intake Oral 240 ml 480 ml 240 ml IV Total 0 ml Other 150 ml Output Urine Total 2350 ml 150 ml 700 ml 2050 ml # Bowel Movements 1 Result Diagram: 12/01/16 0605 12/01/16 0605 Imaging Last Impressions Chest X-Ray 11/28/16 1433 Signed Impressions: Service Date/Time: Monday, November 28, 2016 14:54 - CONCLUSION: Interstitial vascular prominence characteristic of pulmonary edema. Dallin Rowan MD Objective Remarks GENERAL: This is a thin, well-developed patient, elderly male patient, lying in bed in nad SKIN: Multiple areas of ecchymosis on upper extremities. Warm and cool. HEAD: Atraumatic. Normocephalic. EYES: Pupils equal round and reactive. Extraocular motions intact. No scleral icterus. No injection or drainage. ENT: Nose without bleeding. Airway patent. Tongue is midline NECK: Trachea midline. JVD present. Supple. CARDIOVASCULAR: Controlled regular rate. Aortic murmur present 2/6. S1 and S2 no S3 or S4 no heave or thrill or rub or gallop RESPIRATORY: No Crackles noted in anterior and posterior lower lobes. Breath sounds equal bilaterally. GASTROINTESTINAL: Abdomen soft, non-tender, nondistended. No guarding. MUSCULOSKELETAL: Extremities without clubbing, cyanosis, or edema. No joint tenderness, effusion, or edema noted. NEUROLOGICAL: Lethargic. Cranial nerves II through XII intact. Motor and sensory grossly within normal limits. Five out of 5 muscle strength in all muscle groups. Normal speech. EXTREMITIES: Bilateral DP and pedal pulses present 1+. Left upper extremity fistula noted, good bruit and thrill present. Procedures EGD WITH ABLATION OF AVM 9-12 LUZ CATHETER PLACED A/P Problem List: (1) CHF (congestive heart failure) ICD Code: I50.9 - Heart failure, unspecified Status: Acute (2) COPD (chronic obstructive pulmonary disease) ICD Code: J44.9 - Chronic obstructive pulmonary disease, unspecified Status: Acute (3) Atrial flutter with rapid ventricular response ICD Code: I48.92 - Unspecified atrial flutter; N18.9 - Chronic kidney disease, unspecified Status: Acute (4) CKD (chronic kidney disease) stage 4, GFR 15-29 ml/min ICD Code: N18.4 - Chronic kidney disease, stage 4 (severe) Status: Acute (5) Respiratory distress ICD Code: R06.00 - Dyspnea, unspecified Status: Acute (6) DM2 (diabetes mellitus, type 2) ICD Code: E11.9 - Type 2 diabetes mellitus without complications Status: Acute Assessment and Plan Mr. Masters is a 76-year-old male patient with a known medical history of COPD, long standing tobacco use history, CKD stage IV, atrial fibrillation, CHF and hypertension who presented to the ED with worsening shortness of breath x 1 day. Patient awake and alert, following commands, NOW OFF BIPAP--NO SOB. Patient presented with A fib RVR, currently on Cardizem drip and well- controlled. O2 sats 100% on 40% FiO2. BP stable. 12/01: Patient seen and examined today. Status post 2 unit PRBC transfusion for severe anemia, hemoglobin 7.1. GI consulted and seen patient, status post small bowel enteroscopy with ablation therapy. Recommendations are to continue PPI, monitor HH, enteroscopy in one month if still anemic. Cardiology note, Dr. Lebron, reviewed with continuing Lasix and beta-lele. ECHO reviewed, EF 40% with left ventricular systolic function moderately reduced. Patient breathing has improved, on RA, off BIPAP. Patient seen by Dr. Cobb, urologist, with placement of FC for urinary retention, increased Tamsulosin and will be void trial as an outpatient. Plan for DC today. Creatinine at baseline. Clinically patient doing well. Encouraged to follow up with PCP, outpatient nephrology, and GI for enteroscopy in one month if anemia still present. Also to follow up with Dr. Cobb in the outpatient setting for void trials related to his urinary retention, continue FC on discharge. Continue Tamsulocin. Acute on chronic congestive heart failure, exacerbation: Systolic. Improved. - CXR reviewed showing interstitial vascular prominence characteristic of pulmonary edema. - BNP greater than 5,000--->2400. Trending down. - Lasix 40 mg IV given in ED x 1. Schedule Lasix 20 mg IV BID. - Place on supplemental potassium, stable. - Strict I's and O's please. Fluid restriction <1500 ml 24 hours. - 2-D ECHO ordered, no prior study retrieved from medical record. Follow. Chronic obstructive pulmonary disease, not in exacerbation - Continue at home inhalers. - Currently on RA, VSS. - Duonebs scheduled and available PRN wheezing. Urinary retention - Patient seen by Dr. Cobb, urologist, with placement of FC for urinary retention, increased Tamsulosin and will be void trial as an outpatient. Type 2 diabetes mellitus - Per DM is diet controlled. Random glucose 241. Hbg 6.5. - ACCU checks ACHS. Place on sliding scale insulin, cover as needed. Chronic kidney disease stage IV - Creatinine 2.66, appears that baseline is around 2. Monitor I & O closely. Leukocytosis with mild bandemia suspect secondary to stress response vs infectious source vs steroid induced - WBC 13.7-->7.9. Afebrile. - CXR negative for any signs of pneumonia. Atrial fibrillation RVR, acute on chronic, improved. - Cardizem bolus given in ED. Off Cardizem gtt. Elevated troponin suspect secondary to renal vs stress vs ACS Elevated CKMB % - Troponin 1.6-->2.19,2.03, CKMB % 6.7, 10.4, 15.2. - Cardiology followed patient. Input appreciated. - EKG reviewed showing showing A fib with RVR and chronic left ventricular hypertrophy. Second EKG reviewed showing SR with first degree AVB. Normocytic, hypochromic anemia suspect secondary to chronic anemia of disease/ CKD - Hemoglobin 9.1/Hematocrit 30.9. No signs or symptoms of bleeding. - Was severely anemia, hemoglobin 7.1, status post 2 unit PRBC transfusion. Hbg 9.4. Stable. CAD with history of stent placement: Continue aspirin, Pletal and Plavix. Hyperlipidemia, chronic: Continue atorvastatin. BPH: Continue home Tamsulosin. GI Prophylaxis/GERD: Protonix. DVT prophylaxis: SCDs Attending Statement This note was transcribed by ligia Tomas]. I, Dr. Bunny Schneider personally performed the history, physical exam, and medical decision making; and confirmed the accuracy of the information in the transcribed note. Authenticated by Dr. Bunny Schneider on 12/01/16 at 10:54. Problem Qualifiers (1) CHF (congestive heart failure): Qualified Codes: I50.9 - Heart failure, unspecified Lulu Rodriguez Dec 01, 2016 10:52 Bunny Schneider MD Dec 01, 2016 11:04
--- NOTE | 2016-12-01 12:25 | HHI.GIFU ---
Subjective Remarks Resting in bed. No n/v. No GI bleeding. No abdominal pain. Tolerating diet. (Alyssa Ramírez) Objective Vitals I&O Vital Signs Date Time Temp Pulse Resp B/P (MAP) Pulse Ox O2 Delivery O2 Flow Rate FiO2 12/01/16 10:00 88 12/01/16 09:00 88 12/01/16 08:30 Room Air 12/01/16 08:23 97.9 92 17 153/66 (95) 96 12/01/16 08:00 88 12/01/16 07:34 98 12/01/16 07:00 89 12/01/16 06:00 90 12/01/16 05:00 90 12/01/16 04:00 90 12/01/16 03:00 84 12/01/16 03:00 98.1 93 16 139/74 (95) 96 12/01/16 02:00 90 12/01/16 01:00 88 12/01/16 00:00 90 11/30/16 23:00 89 11/30/16 23:00 98.1 88 18 149/67 (94) 92 11/30/16 22:00 92 11/30/16 21:00 92 11/30/16 20:22 96 11/30/16 20:00 94 11/30/16 20:00 98.3 90 20 126/58 (80) 96 11/30/16 19:00 96 Room Air 11/30/16 19:00 90 11/30/16 18:00 90 11/30/16 17:00 93 11/30/16 16:00 72 11/30/16 15:51 98 11/30/16 15:32 99 11/30/16 15:30 97.7 91 16 126/58 (80) 96 11/30/16 15:00 91 11/30/16 14:00 90 11/30/16 13:00 92 I/O 11/30/16 11/30/16 11/30/16 12/01/16 12/01/16 12/01/16 07:00 15:00 23:00 07:00 15:00 23:00 Intake Total 240 ml 150 ml 480 ml 240 ml Output Total 2350 ml 150 ml 700 ml 2050 ml Balance -2110 ml 0 ml -220 ml -1810 ml Intake Oral 240 ml 480 ml 240 ml IV Total 0 ml Other 150 ml Output Urine Total 2350 ml 150 ml 700 ml 2050 ml # Bowel Movements 1 Laboratory Laboratory Tests Test 11/30/16 21:43 12/01/16 06:05 Nasal Screen MRSA (PCR) MRSA NOT DETECTED White Blood Count 7.9 Red Blood Count 3.77 Hemoglobin 9.4 Hematocrit 29.9 Mean Corpuscular Volume 79.5 Mean Corpuscular Hemoglobin 25.0 Mean Corpuscular Hemoglobin Concent 31.5 Red Cell Distribution Width 20.5 Platelet Count 171 Mean Platelet Volume 8.3 Neutrophils (%) (Auto) 77.7 Lymphocytes (%) (Auto) 16.0 Monocytes (%) (Auto) 4.5 Eosinophils (%) (Auto) 1.4 Basophils (%) (Auto) 0.4 Neutrophils # (Auto) 6.2 Lymphocytes # (Auto) 1.3 Monocytes # (Auto) 0.4 Eosinophils # (Auto) 0.1 Basophils # (Auto) 0.0 CBC Comment DIFF FINAL Differential Comment Blood Urea Nitrogen 54 Creatinine 2.41 Random Glucose 116 Total Protein 6.7 Albumin 3.2 Calcium Level 8.7 Phosphorus Level 3.1 Magnesium Level 2.4 Alkaline Phosphatase 74 Aspartate Amino Transf (AST/SGOT) 24 Alanine Aminotransferase (ALT/SGPT) 20 Total Bilirubin 1.2 Sodium Level 139 Potassium Level 3.8 Chloride Level 102 Carbon Dioxide Level 29.5 Anion Gap 8 Estimat Glomerular Filtration Rate 26 B-Type Natriuretic Peptide 2454 Date/Time Source Procedure Growth Status 11/29/16 05:30 Urine Clean Catch Urine Culture - Final NO GROWTH IN 48 HOURS. Complete Imaging Last Impressions Chest X-Ray 11/28/16 1433 Signed Impressions: Service Date/Time: Monday, November 28, 2016 14:54 - CONCLUSION: Interstitial vascular prominence characteristic of pulmonary edema. Dallin Rowan MD Physical Exam HEENT: Normocephalic; atraumatic; no jaundice. CHEST: CTA CARDIAC: Irregular ABDOMEN: Soft, nondistended, nontender; no hepatosplenomegaly; bowel sounds are present in all four quadrants. EXTREMITIES: No clubbing, cyanosis, or edema. SKIN: Normal; no rash; no jaundice. INFORMATION SYSTEMS DIRECTOR: No focal deficits; alert and oriented times three. (Alyssa Ramírez) Assessment and Plan Plan ASSESSMENT: - Anemia. 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 No active bleeding. HH 9.4/29.9. PPI - GAVE, s/p ablation, gastric avms, s/p ablation. Will need enteroscopy in one month if still anemic at that time. - CHF, COPD, Aflutter, CKD, DM per attending. PLAN: - JAMI - PPI - Monitor HH - Transfuse as necessary - Enteroscopy in one month if still anemic at that time - Supportive care - Further recommendations to follow based on results of above - Pt seen and examined by Dr. Bruce and myself and this note is written on her behalf (Alyssa Ramírez) Alyssa Ramírez Dec 01, 2016 12:25 Madeline Bruce MD Dec 02, 2016 05:39
--- NOTE | 2016-12-01 12:55 | HHI.FF ---
Face to Face Verification Diagnosis: (1) Urinary retention (2) Acute kidney injury superimposed on chronic kidney disease (3) CHF (congestive heart failure) (4) CAD (coronary artery disease) (5) HTN (hypertension) (6) Diabetes (7) Dyslipidemia (8) COPD (chronic obstructive pulmonary disease) Physical Therapy Order: Evaluate and Treat, Improve ambulation, Strength and gait training Occupational Therapy Order: Evaluate and Treat Home Health Nursing Order: Medical education Medication education-adverse effect Rdz catheter maintenance I have seen patient Peter Masters on 12/01/16. My clinical findings support the need for the requested home health care services because: Ltd mobility - disease progression Patient has SOB Limited ability to care for self I certify that my clinical findings support that this patient is homebound because: Poor cardiac reserve Lulu Rodriguez Dec 01, 2016 12:55 Bunny Schneider MD Dec 01, 2016 16:32
[2016-12-01] MEDS ORDERED: FURO40TA PO (12:57)
[2016-12-01] MEDS ORDERED: TAMS5CAP PO (12:57)
--- NOTE | 2016-12-01 13:07 | HHI.DS ---
Discharge Summary Admission Date Nov 28, 2016 at 16:36 Discharge Date: Dec 01, 2016 Admitting Diagnosis CHF, A FLUTTER, ELEVATED TROPONIN (1) CHF (congestive heart failure) ICD Code: I50.9 - Heart failure, unspecified Status: Acute (2) COPD (chronic obstructive pulmonary disease) ICD Code: J44.9 - Chronic obstructive pulmonary disease, unspecified Status: Acute (3) Atrial flutter with rapid ventricular response ICD Code: I48.92 - Unspecified atrial flutter; N18.9 - Chronic kidney disease, unspecified Status: Acute (4) CKD (chronic kidney disease) stage 4, GFR 15-29 ml/min ICD Code: N18.4 - Chronic kidney disease, stage 4 (severe) Status: Acute (5) Respiratory distress ICD Code: R06.00 - Dyspnea, unspecified Status: Acute (6) DM2 (diabetes mellitus, type 2) ICD Code: E11.9 - Type 2 diabetes mellitus without complications Status: Acute Procedures EGD WITH ABLATION OF AVM 9-12 LUZ CATHETER PLACED Brief History - From Admission Mr. Masters is a 76-year-old male patient with a known medical history of COPD, long standing tobacco use history, CKD stage IV, atrial fibrillation, CHF and hypertension who presented to the ED with worsening shortness of breath x 1 day. Patient seen and examined in ED, at bedside. Per , patient has been more fatigued and lethargic, sleeping a lot. She states that yesterday he was increasingly short of breath, unable to lie flat at night due to dyspnea and has been unable to walk across the room without becoming short of breath. states that patient's health has been declining for over a year now and recently hospitalized 2 weeks ago for similar symptoms and at that time started on Lasix with which the patient has been noncompliant. Denies any recent illness including fever, chills, headache, dizziness, abdominal pain, nausea, vomiting, diarrhea or dysuria. Does admit to a chronic nonproductive cough. Poor appetite for several days. Patient awake and alert, following commands, currently requiring BIPAP assistance, shallow breathing noted, with apparent dyspnea. Patient presented with A fib RVR, currently on Cardizem drip and well- controlled. O2 sats 100% on 40% FiO2. BP stable. We'll admit to the ICU for close monitoring CBC/BMP: 12/01/16 0605 12/01/16 0605 Significant Findings Laboratory Tests Test 11/28/16 14:40 11/28/16 15:30 11/28/16 20:00 11/28/16 22:35 White Blood Count 13.7 TH/MM3 (4.0-11.0) Red Blood Count 3.76 MIL/MM3 (4.50-5.90) Hemoglobin 9.1 GM/DL (13.0-17.0) Hematocrit 30.9 % (39.0-51.0) Mean Corpuscular Hemoglobin 24.3 PG (27.0-34.0) Mean Corpuscular Hemoglobin Concent 29.6 % (32.0-36.0) Red Cell Distribution Width 22.3 % (11.6-17.2) Neutrophils (%) (Auto) 78.8 % (16.0-70.0) Neutrophils # (Auto) 10.8 TH/MM3 (1.8-7.7) Blood Urea Nitrogen 39 MG/DL (7-18) Creatinine 2.66 MG/DL (0.60-1.30) Random Glucose 241 MG/DL (74-106) Magnesium Level 2.6 MG/DL (1.5-2.5) Total Bilirubin 1.1 MG/DL (0.2-1.0) Estimat Glomerular Filtration Rate 23 ML/MIN (>89) Creatine Kinase MB 6.7 NG/ML (0.5-3.6) 10.4 NG/ML (0.5-3.6) Troponin I 1.40 NG/ML (0.02-0.05) 2.19 NG/ML (0.02-0.05) B-Type Natriuretic Peptide GREATER THAN 5000 PG/ML Arterial Blood Partial Pressure CO2 36 mmHg (38-42) Arterial Blood Partial Pressure O2 141 mmHG (61-120) Blood Gas Hemoglobin 10.3 G/DL (12.0-16.0) Total Creatine Kinase 326 U/L (39-308) Test 11/29/16 03:02 11/29/16 05:30 11/29/16 06:55 11/29/16 10:10 Total Creatine Kinase 538 U/L (39-308) Creatine Kinase MB 15.2 NG/ML (0.5-3.6) Troponin I 2.03 NG/ML (0.02-0.05) Urine Turbidity HAZY (CLEAR) Urine Protein 30 mg/dL (NEG-TRACE) Urine Bacteria MOD /hpf (NONE) Red Blood Count 2.82 MIL/MM3 (4.50-5.90) Hemoglobin 7.1 GM/DL (13.0-17.0) Hematocrit 22.8 % (39.0-51.0) Mean Corpuscular Hemoglobin 25.1 PG (27.0-34.0) Mean Corpuscular Hemoglobin Concent 31.1 % (32.0-36.0) Red Cell Distribution Width 21.8 % (11.6-17.2) Platelet Count 118 TH/MM3 (150-450) Neutrophils (%) (Auto) 94.8 % (16.0-70.0) Lymphocytes (%) (Auto) 3.6 % (9.0-44.0) Neutrophils # (Auto) 9.4 TH/MM3 (1.8-7.7) Lymphocytes # (Auto) 0.4 TH/MM3 (1.0-4.8) B-Type Natriuretic Peptide GREATER THAN 5000 PG/ML Blood Urea Nitrogen 49 MG/DL (7-18) Creatinine 2.46 MG/DL (0.60-1.30) Random Glucose 210 MG/DL (74-106) Albumin 2.9 GM/DL (3.4-5.0) Magnesium Level 2.6 MG/DL (1.5-2.5) Estimat Glomerular Filtration Rate 26 ML/MIN (>89) Hemoglobin A1c 6.5 % (4.3-6.0) Thyroid Stimulating Hormone 3rd Gen 0.147 uIU/ML (0.358-3.740) Test 11/30/16 06:55 11/30/16 21:43 12/01/16 06:05 White Blood Count 12.4 TH/MM3 (4.0-11.0) Red Blood Count 3.52 MIL/MM3 (4.50-5.90) 3.77 MIL/MM3 (4.50-5.90) Hemoglobin 8.9 GM/DL (13.0-17.0) 9.4 GM/DL (13.0-17.0) Hematocrit 27.9 % (39.0-51.0) 29.9 % (39.0-51.0) Mean Corpuscular Volume 79.4 FL (80.0-100.0) 79.5 FL (80.0-100.0) Mean Corpuscular Hemoglobin 25.3 PG (27.0-34.0) 25.0 PG (27.0-34.0) Mean Corpuscular Hemoglobin Concent 31.9 % (32.0-36.0) 31.5 % (32.0-36.0) Red Cell Distribution Width 20.8 % (11.6-17.2) 20.5 % (11.6-17.2) Platelet Count 146 TH/MM3 (150-450) Neutrophils (%) (Auto) 85.0 % (16.0-70.0) 77.7 % (16.0-70.0) Neutrophils # (Auto) 10.5 TH/MM3 (1.8-7.7) Blood Urea Nitrogen 59 MG/DL (7-18) 54 MG/DL (7-18) Creatinine 2.41 MG/DL (0.60-1.30) 2.41 MG/DL (0.60-1.30) Random Glucose 116 MG/DL (74-106) 116 MG/DL (74-106) Albumin 3.2 GM/DL (3.4-5.0) 3.2 GM/DL (3.4-5.0) Total Bilirubin 1.3 MG/DL (0.2-1.0) 1.2 MG/DL (0.2-1.0) Estimat Glomerular Filtration Rate 26 ML/MIN (>89) 26 ML/MIN (>89) B-Type Natriuretic Peptide 2454 PG/ML (0-100) Imaging Last Impressions Chest X-Ray 11/28/16 1433 Signed Impressions: Service Date/Time: Monday, November 28, 2016 14:54 - CONCLUSION: Interstitial vascular prominence characteristic of pulmonary edema. Dallin Rowan MD PE at Discharge GENERAL: This is a thin, well-developed patient, elderly male patient, lying in bed in [facility] SKIN: Multiple areas of ecchymosis on upper extremities. Warm and cool. HEAD: Atraumatic. Normocephalic. EYES: Pupils equal round and reactive. Extraocular motions intact. No scleral icterus. No injection or drainage. ENT: Nose without bleeding. Airway patent. Tongue is midline NECK: Trachea midline. JVD present. Supple. CARDIOVASCULAR: Controlled regular rate. Aortic murmur present 04/26. S1 and S2 no S3 or S4 no heave or thrill or rub or gallop RESPIRATORY: No Crackles noted in anterior and posterior lower lobes. Breath sounds equal bilaterally. GASTROINTESTINAL: Abdomen soft, non-tender, nondistended. No guarding. MUSCULOSKELETAL: Extremities without clubbing, cyanosis, or edema. No joint tenderness, effusion, or edema noted. NEUROLOGICAL: Lethargic. Cranial nerves II through XII intact. Motor and sensory grossly within normal limits. Five out of 5 muscle strength in all muscle groups. Normal speech. EXTREMITIES: Bilateral DP and pedal pulses present 1+. Left upper extremity fistula noted, good bruit and thrill present. Pt update on day of discharge Follow up CHF, COPD, DM and atrial fibrillation. Patient seen and examined. Lying in bed on room air comfortably. Denies any new acute complaints overnight. Tolerating PO intake well. Denies any recent fever, chills, cough, headache, dizziness, shortness of breath, ab pain, n/v/d, dysuria. Eager to get home. 12/01: Patient seen and examined today. Status post 2 unit PRBC transfusion for severe anemia, hemoglobin 7.1. GI consulted and seen patient, status post small bowel enteroscopy with ablation therapy. Recommendations are to continue PPI, monitor HH, enteroscopy in one month if still anemic. Cardiology note, Dr. Lebron, reviewed with continuing Lasix and beta-lele. ECHO reviewed, EF 40% with left ventricular systolic function moderately reduced. Patient breathing has improved, on RA, off BIPAP. Patient seen by Dr. Cobb, urologist, with placement of FC for urinary retention, increased Tamsulosin and will be void trial as an outpatient. Plan for DC today. Creatinine at baseline. Clinically patient doing well. Encouraged to follow up with PCP, outpatient nephrology, and GI for enteroscopy in one month if anemia still present. Also to follow up with Dr. Cobb in the outpatient setting for void trials related to his urinary retention, continue FC on discharge. Continue Tamsulosin. Hospital Course Presented with acute on chronic systolic congestive heart failure in exacerbation. CXR reviewed showed interstitial vascular prominence characteristic of pulmonary edema. BNP greater than 5,000--->2400. Trending down at discharge. Lasix 40 mg IV was given in ED x 1. Lasix on discharge 40 mg PO BID. Hypokalemia present and replaced. Was placed on a fluid restriction < 1500 ml 24 hours. 2-D ECHO ordered and in EMR, showing EF 40%. Patient required BIPAP < 24 hours, on discharge now RA. Patient had urinary retention during stay , was seen by Dr. Cobb, urologist, with placement of FC for urinary retention, increased Tamsulosin and will be void trial as an outpatient. Was severely anemia, hemoglobin 7.1, status post 2 unit PRBC transfusion. Hbg 9.4. Stable at discharge. Mild leukocystsis during stay no infectious source noted, now WNL. Also went in to atrial fibrillation RVR, with elevated troponins and CKMB, was given Cardizem IV bolus along with Cardizem IV continuos. Patient converted and now controlled. Was seen by insurance account executive, Dr. Lebron. Patient's chronic conditions including COPD, DM, CKD stage IV, CAD hyperlipidemia and BPH were all managed and stable. Pt Condition on Discharge: Stable Discharge Disposition: Disch w/ Home Health Serv Discharge Time: > 30 minutes Discharge Instructions DIET: Follow Instructions for: Heart Healthy Diet, Diabetic Diet Activities you can perform: Regular-No Restrictions Follow up Referrals: Cardiology - 1 Week Gastroenterology - 1 Month PCP Follow-up - 1 Week Urology - 1 Week with Martínez Cobb MD New Medications: Furosemide (Furosemide) 40 Mg Tab 40 MG PO BID@09,18 for CHF for 30 Days, #60 TAB Tamsulosin (Flomax) 0.4 Mg Cap 0.4 MG PO Q12HR for retention for 30 Days, #60 CAP Continued Medications: Albuterol 18 GM Inh (Ventolin Hfa 18 GM Inh) 90 Mcg/Act Aer 2 PUFF INH Q4-6H PRN for SHORTNESS OF BREATH, #1 INHALER [address] (Aspirin Adult Low Strength) 81 Mg Tabdr 81 MG PO DAILY, TAB Atorvastatin (Atorvastatin) 40 Mg Tab 40 MG PO HS for Cholesterol Management, #30 TAB 3 Refills Calcitriol (Calcitriol) 0.25 Mcg Cap 0.25 MCG PO DAILY for Calcium Supplement, #30 CAP 0 Refills Cilostazol (Cilostazol) 100 Mg Tab 100 MG PO DAILY for INTERMITTENT CLAUDICATION, TAB 0 Refills Clopidogrel (Plavix) 75 Mg Tab 75 MG PO DAILY for Blood Clot Prevention, #30 TAB 0 Refills Hydroxyzine HCl (Hydroxyzine HCl) 10 Mg Tab 10-20 MG PO HS for Itching, TAB 0 Refills Metoprolol Succinate ER 24 HR (Toprol XL) 100 Mg Tab 100 MG PO DAILY, #30 TAB 0 Refills Mirtazapine (Mirtazapine) 15 Mg Tab 15 MG PO HS for Depression Control, #30 TAB 0 Refills Pantoprazole (Protonix) 40 Mg Tab 40 MG PO DAILY for Reflux, #30 TAB 0 Refills Umeclidinium-Vilanterol Inh (Anoro Ellipta Inh) 62.5-25 Mcg/Act Aero 1 PUFF INH DAILY for COPD, #1 INHALER 0 Refills [Curel Lotion] () 1 APPLIC TOPICAL DAILY PRN for ITCHING Discontinued Medications: Furosemide (Lasix) 20 Mg Tab 20 MG PO DAILY, #30 TAB 0 Refills Furosemide (Furosemide) 20 Mg Tab 20 MG PO DAILY, #30 TAB 0 Refills Tamsulosin (Flomax) 0.4 Mg Cap 0.4 MG PO HS for Manage Prostate Problems, #30 CAP 0 Refills Lulu Rodriguez Dec 01, 2016 13:06 Bunny Schneider MD Dec 02, 2016 08:26
--- NOTE | 2016-12-06 13:09 | PQ ---
Physician Query Response Document PATIENT: TANYA BE : 1940 ADMIT DATE: 11/28/2016 4:36 PM DISCH DATE: 12/01/2016 5:59 PM RESPONDING PROVIDER #: BLANCA QUERY TEXT: CHF Acuity and Type ACUTE ON CHRONIC CONGESTIVE HEART is documented in the Medical Record. Please document the ACUITY (in cludes probable or suspected) Such as: Type: -- Systolic -- Diastolic -- Combined -- Other, please specify PLEASE CALL CD[facility] @ EXT [id number] FOR ASSISTANCE The patient's Clinical Indicators include: PER H Acute on chronic congestive heart failure, exacerbation: Unknown type - BNP greater than 5,000. Will repeat in am. Follow. - Lasix 40 mg IV given in ED x 1. Schedule Lasix 20 mg IV BID. 11/29/16 ECHO: The left ventricular systolic function is moderately reduced with an estimated ejection fraction in the range of 40% Query created by: Urszula Renteria on 11/30/2016 1:44 PM RESPONSE TEXT: ACUTE ON CHRONIC CONGESTIVE HEART is documented in the Medical Record. Please document the ACUITY (in cludes probable or suspected) Such as: Type: -- Systolic -- Diastolic -- Combined -- Other, please specify PLEASE CALL CDI @ EXT [id number] FOR ASSISTANCE The patient's Clinical Indicators include: PER H Acute on chronic congestive heart failure, exacerbation: Unknown type - BNP greater than 5,000. Will repeat in am. Follow. - Lasix 40 mg IV given in ED x 1. Schedule Lasix 20 mg IV BID. 11/29/16 ECHO: The left ventricular systolic function is moderately reduced with an estimated ejection fraction in the range of 40% COMBINED AT THIS TIME Electronically signed by: Mekhi Kimbrough 12/06/2016 1:05 PM
== END 2016-12-01 17:59 | disposition home health service (06) | DRG 291 ==
LOC: NEPC 14:29 → NEDA 16:36 → HIME 19:35 → HCIS 11-29 11:32
PROVIDERS: ADMIT Hospitalist; ATTEND Hospitalist
PROC: 0D568ZZ Destruction of Stomach, Via Natural or Artificial Opening Endoscopic (ICD-10-PCS; principal; 2016-11-30 09:58)
DX: I13.0 Hypertensive heart and chronic kidney disease with heart failure and stage 1 through stage 4 chronic kidney disease, or unspecified chronic kidney disease (principal); I50.23 Acute on chronic systolic (congestive) heart failure; N18.4 Chronic kidney disease, stage 4 (severe); N17.9 Acute kidney failure, unspecified; E11.22 Type 2 diabetes mellitus with diabetic chronic kidney disease; I48.92 Unspecified atrial flutter; I42.9 Cardiomyopathy, unspecified; J44.9 Chronic obstructive pulmonary disease, unspecified; F03.90 Unspecified dementia, unspecified severity, without behavioral disturbance, psychotic disturbance, mood disturbance, and anxiety; E78.5 Hyperlipidemia, unspecified; Z86.73 Personal history of transient ischemic attack (TIA), and cerebral infarction without residual deficits; I25.2 Old myocardial infarction; G47.30 Sleep apnea, unspecified; I25.10 Atherosclerotic heart disease of native coronary artery without angina pectoris; Z95.5 Presence of coronary angioplasty implant and graft; Z87.891 Personal history of nicotine dependence; I48.91 Unspecified atrial fibrillation; E87.6 Hypokalemia; R33.9 Retention of urine, unspecified; D50.9 Iron deficiency anemia, unspecified; N40.1 Benign prostatic hyperplasia with lower urinary tract symptoms; I44.0 Atrioventricular block, first degree; I73.9 Peripheral vascular disease, unspecified; K21.9 Gastro-esophageal reflux disease without esophagitis; M19.90 Unspecified osteoarthritis, unspecified site; M48.06 Spinal stenosis, lumbar region; Z91.14 Patient's other noncompliance with medication regimen; Z91.19 Patient's noncompliance with other medical treatment and regimen; K31.819 Angiodysplasia of stomach and duodenum without bleeding
CPT/HCPCS: 36430; 36600; 71010; 80053; 81001; 82550; 82552; 82805; 82948; 83036; 83735; 83880; 84100; 84439; 84443; 84484; 85025; 86850; 86900; 86901; 86920; 87086; 87641; 93005; 93306; 94002; 94640; 94664; 96365; 96375; J1644; J1815; J1940; J7050; P9016; P9040

== ENCOUNTER 2016-12-02 13:48 | Emergency (ER) | payer MEDICARE ==
[~2016-12-02] VITALS: Ht 182.9 cm; Wt 73.0 kg
[~2016-12-02 13:48] MED LIST changes: -FURO1TAB62 PO; -FURO20TA PO; +FURO40TA PO
[2016-12-02 14:00] VITALS: BP 125/57; PULSE 78; RESP 25; TEMP 97.6; O2SAT 95
[2016-12-02 14:09] VITALS: BP 125/57; PULSE 96; RESP 21; O2SAT 100
[2016-12-02] MEDS ORDERED: SODIUM CHLORIDE 0.9% FLUSH 10 ML FLUSH IVF PRN (14:15)
[2016-12-02 14:36] LABS: AUTOMATED NEUTROPHIL # 5.4 TH/MM3 (1.8-7.7); BASOPHIL # 0.1 TH/MM3 (0-0.2); BASOPHIL % 0.7 % (0.0-2.0); EOSINOPHIL # 0.2 TH/MM3 (0-0.4); HEMATOCRIT 31.5 % (39.0-51.0); HEMO FLAGS DIFF FINAL; LYMPH % 16.9 % (9.0-44.0); LYMPHOCYTE # 1.3 TH/MM3 (1.0-4.8); MEAN CELL VOLUME 80.8 FL (80.0-100.0); MEAN CORPUSCULAR HEMOGLOBIN 25.5 PG (27.0-34.0); MEAN CORPUSCULAR HGB CONC 31.5 % (32.0-36.0); MONO % 6.1 % (0.0-8.0); NEUT % 73.3 % (16.0-70.0); PLATELET COUNT 169 TH/MM3 (150-450); RED CELL DISTRIBUTION WIDTH 20.3 % (11.6-17.2); WHITE BLOOD COUNT 7.4 TH/MM3 (4.0-11.0)
[2016-12-02 15:12] LABS: BICARBONATE 27.1 MEQ/L (21.0-32.0); POTASSIUM 4.5 MEQ/L (3.5-5.1)
--- NOTE | 2016-12-02 15:34 | PD ---
HPI Chief Complaint: Syncope/Near-Syncope Time Seen by Provider: 14:03 Travel History International Travel<30 days: No Contact w/Intl Traveler<30days: No Traveled to known affect area: No History of Present Illness HPI 76-year-old male arrives to the ER by EMS. He was seated at home and became dizzy. He nearly lost consciousness. No fall. No diaphoresis observed. His called EMS. EMS reports on scene his blood pressure was 90. The had just given nitroglycerin. Blood sugar was normal. Heart rate was about 80. In the ER the patient has no complaints. He states he feels better. He was recently admitted for a CHF exacerbation and for acute anemia. He was discharged last night. PFSH Past Medical History Hx Anticoagulant Therapy: Yes (aspirin and Plavix) Anemia: Yes Arthritis: No Asthma: No Atrial Fibrillation: Yes Anxiety: No Cancer: Yes (Skin cancer) Cardiac Catheterization: Yes Cardiomyopathy: Yes Cardiovascular Problems: Yes (A-FLUTTER W/ RVR ) High Cholesterol: Yes Chemotherapy: No Chest Pain: Yes Congestive Heart Failure: Yes COPD: Yes Cerebrovascular Accident: Yes (MULTIPLE TIA'S) Coronary Artery Disease: Yes Diabetes: Yes Patient Takes Glucophage: No Diminished Hearing: No Endocrine: Yes Gastrointestinal Disorders: Yes (history of GI bleed) GERD: No Genitourinary: Yes (BPH / URINARY RETENTION) Hypertension: Yes Immune Disorder: No Implanted Vascular Access Dvce: Yes Kidney Stones: No Medical other: Yes (CHRONIC KIDNEY DISEASE) Musculoskeletal: No Neurologic: No Psychiatric: No Reproductive: No Respiratory: Yes Integumentary: Yes (SKIN MRSA) Immunizations Current: Yes Myocardial Infarction: Yes Radiation Therapy: No Renal Failure: Yes (stage IV chronic kidney disease) Sleep Apnea: Yes Ulcer: Yes Influenza Vaccination: Yes Past Surgical History Abdominal Surgery: No AICD: No Arteriovenous Shunt: Yes (left arm) Body Medical Devices: stents in heart Cardiac Surgery: Yes (Stents) Coronary Stent: Yes Ear Surgery: No Endocrine Surgery: No Eye Surgery: No Genitourinary Surgery: No Gynecologic Surgery: No Joint Replacement: No Neurologic Surgery: No Oral Surgery: No Pacemaker: No Thoracic Surgery: No Other Surgery: Yes (STRIPPED VEINS IN LEGS, LAVF) Social History Alcohol Use: No (DENIES) Tobacco Use: Yes (1/2 PACK PER DAY) Substance Use: No Allergies-Medications (Allergen,Severity, Reaction): Coded Allergies: Sulfa (Sulfonamide Antibiotics) (Unverified Allergy, Severe, RASH, 12/02/16 ) sulfamethoxazole (Unverified Allergy, Severe, Rash, 12/02/16) RASH OF FACE AND ORAL MUCUS MEMBRANES trimethoprim (Unverified Allergy, Severe, Rash, 12/02/16) RASH OF FACE AND ORAL MUCUS MEMBRANES *MDRO Multi-Drug Resistant Organism (Verified Allergy, Unknown, 12/02/16) MRSA Wound 2006, 02/2004 MRSA PCR Screen #1 negative 01/20/15. Reported Meds & Prescriptions Reported Meds & Active Scripts Active Furosemide 40 Mg Tab 40 Mg PO BID@09,18 30 Days Flomax (Tamsulosin HCl) 0.4 Mg Cap 0.4 Mg PO Q12HR 30 Days Ventolin Hfa 18 GM Inh (Albuterol Sulfate) 90 Mcg/Act Aer 2 Puff INH Q4-6H PRN Atorvastatin (Atorvastatin Calcium) 40 Mg Tab 40 Mg PO HS Reported [Curel Lotion] 1 Applic TOPICAL DAILY PRN Cilostazol 100 Mg Tab 100 Mg PO DAILY Allergy Relief (Diphenhydramine HCl) 25 Mg Tab 25 Mg PO Q4-6H PRN Aspirin Adult Low Strength (Aspirin) 81 Mg Tabdr 81 Mg PO DAILY Hydroxyzine HCl 10 Mg Tab 10-20 Mg PO HS Toprol XL (Metoprolol Succinate) 100 Mg Tab 100 Mg PO DAILY Protonix (Pantoprazole Sodium) 40 Mg Tab 40 Mg PO DAILY Anoro Ellipta Inh (Umeclidinium/Vilanterol) 62.5-25 Mcg/Act Aero 1 Puff INH DAILY Plavix (Clopidogrel Bisulfate) 75 Mg Tab 75 Mg PO DAILY Calcitriol 0.25 Mcg Cap 0.25 Mcg PO DAILY Review of Systems Except as stated in HPI: all other systems reviewed are Neg Physical Exam Narrative GENERAL: Well-nourished well-developed 76-year-old male speaking full sentences SKIN: Warm and dry. HEAD: Atraumatic. Normocephalic. EYES: Pupils equal and round. No scleral icterus. No injection or drainage. ENT: No nasal bleeding or discharge. Mucous membranes pink and moist. NECK: Trachea midline. No JVD. CARDIOVASCULAR: Regular rate and rhythm. RESPIRATORY: No accessory muscle use. Clear to auscultation. Breath sounds equal bilaterally. GASTROINTESTINAL: Abdomen soft, non-tender, nondistended. Hepatic and splenic margins not palpable. MUSCULOSKELETAL: Extremities without clubbing, cyanosis, or edema. No obvious deformities. NEUROLOGICAL: Awake and alert 3. No focal cranial nerve deficit. Moving all extremities normally. Ambulatory without difficulty. PSYCHIATRIC: Appropriate mood and affect; insight and judgment normal. Data Data Last Documented VS Vital Signs Date Time Temp Pulse Resp B/P (MAP) Pulse Ox O2 Delivery O2 Flow Rate FiO2 12/02/16 14:09 96 21 125/57 (79) 100 Room Air 12/02/16 14:00 97.6 Orders Orders Electrocardiogram (12/02/16 14:03) Basic Metabolic Panel (Bmp) (12/02/16 14:03) Complete Blood Count With Diff (12/02/16 14:03) Ecg Monitoring (12/02/16 14:) Iv Access Insert/Monitor (12/02/16 14:03) Oximetry (12/02/16 14:03) Sodium Chloride 0.9% Flush (Ns Flush) (12/02/16 14:15) Labs Laboratory Tests Test 12/02/16:17 White Blood Count 7.4 TH/MM3 Red Blood Count 3.90 MIL/MM3 Hemoglobin 9.9 GM/DL Hematocrit 31.5 % Mean Corpuscular Volume 80.8 FL Mean Corpuscular Hemoglobin 25.5 PG Mean Corpuscular Hemoglobin Concent 31.5 % Red Cell Distribution Width 20.3 % Platelet Count 169 TH/MM3 Mean Platelet Volume 8.1 FL Neutrophils (%) (Auto) 73.3 % Lymphocytes (%) (Auto) 16.9 % Monocytes (%) (Auto) 6.1 % Eosinophils (%) (Auto) 3.0 % Basophils (%) (Auto) 0.7 % Neutrophils # (Auto) 5.4 TH/MM3 Lymphocytes # (Auto) 1.3 TH/MM3 Monocytes # (Auto) 0.5 TH/MM3 Eosinophils # (Auto) 0.2 TH/MM3 Basophils # (Auto) 0.1 TH/MM3 CBC Comment DIFF FINAL Differential Comment Blood Urea Nitrogen 68 MG/DL Creatinine 3.11 MG/DL Random Glucose 178 MG/DL Calcium Level 8.7 MG/DL Sodium Level 140 MEQ/L Potassium Level 4.5 MEQ/L Chloride Level 103 MEQ/L Carbon Dioxide Level 27.1 MEQ/L Anion Gap 10 MEQ/L Estimat Glomerular Filtration Rate 20 ML/MIN MDM Medical Decision Making Medical Screen Exam Complete: Yes Emergency Medical Condition: Yes Medical Record Reviewed: Yes Differential Diagnosis Arrhythmia, anemia, dehydration, electrolyte imbalance, hypertension, medication side effect, vasovagal episode Narrative Course EKG reveals a sinus rhythm at a rate of 76, ST changes in multiple leads are noted and appear stable in comparison to prior CBC & BMP Diagram 12/02/16 14:17 Calcium Level 8.7 Patient has acute on chronic renal insufficiency. He ambulated in the ER all the way around the pod without difficulty. His hemoglobin is stable. His EKG shows T-wave inversions in V5 and V6 which have been seen before. It's a sinus rhythm. Overall the patient appears well enough to go home and I doubt that admission here would confer much benefit and the patient and are in agreement. The patient has good outside follow-up with Dr. Guevara. Diagnosis Primary Impression: CKD (chronic kidney disease) stage 4, GFR 15-29 ml/min Additional Impression: Near syncope Referrals: Monisha Guevara MD 2 days Additional Instructions: You have a choice when it comes to health care, and we are glad that you chose [facility]. Hopefully, we have met your expectations on today's visit. You are welcome to return to [facility] at any time, as we are committed to meeting the health care needs of our community. Med/Other Pt SpecificInfo: No Change to Meds Disposition: 01 DISCHARGE HOME Condition: Stable Kev Davila MD Dec 02, 2016 15:34
--- NOTE | 2016-12-03 11:41 | EKG ---
Date Performed: 12/02/2016 Time Performed: 14:01:01 PTAGE: 76 years EKG: Sinus rhythm WITH FIRST DEGREE AV BLOCK POSSIBLE LEFT ATRIAL ENLARGEMENT LEFT VENTRICULAR HYPERTROPHY AND ST-T CH SALINAS ABNORMAL ECG Compared to prior tracing no significant change PREVIOUS TRACING : 11/28/2016 22.03 DOCTOR: Keshawn Figueredo Interpretating Date/Time 12/03/2016 11:39:29
== END 2016-12-02 16:36 | disposition home or self-care (01) ==
LOC: NEPC 13:48
DX: E11.22 Type 2 diabetes mellitus with diabetic chronic kidney disease (principal); I13.0 Hypertensive heart and chronic kidney disease with heart failure and stage 1 through stage 4 chronic kidney disease, or unspecified chronic kidney disease; N18.4 Chronic kidney disease, stage 4 (severe); I50.9 Heart failure, unspecified; I44.0 Atrioventricular block, first degree; D64.9 Anemia, unspecified; I48.91 Unspecified atrial fibrillation; I48.92 Unspecified atrial flutter; E78.00 Pure hypercholesterolemia, unspecified; J44.9 Chronic obstructive pulmonary disease, unspecified; I25.10 Atherosclerotic heart disease of native coronary artery without angina pectoris; Z79.01 Long term (current) use of anticoagulants; I25.2 Old myocardial infarction; F17.210 Nicotine dependence, cigarettes, uncomplicated; Z79.899 Other long term (current) drug therapy; Z86.73 Personal history of transient ischemic attack (TIA), and cerebral infarction without residual deficits
CPT/HCPCS: 80048; 85025; 93005; 99284

== ENCOUNTER 2016-12-05 04:19 | Inpatient (IN) | payer MEDICARE ==
[2016-12-05] VITALS (30 sets, daily range): BP systolic 126–178; BP diastolic 60–74; PULSE 63–109; RESP 12–24; TEMP 97.3–98.6; O2SAT 86–100
[~2016-12-05] VITALS: Ht 172.7 cm; Wt 73.8 kg
[2016-12-05] MEDS ORDERED: PANTOPRAZOLE INJ 80 MG in SODIUM CHLORIDE 0.9% INJ 35 ML IV ONE (04:40)
[2016-12-05] MEDS ORDERED: SODIUM CHLOR 0.9% 1000 ML INJ 1,000 ML IV SCH (04:40)
[2016-12-05] MEDS ORDERED: ONDANSETRON HCL 4 MG/2 ML VIAL IVP ONE (04:45)
[2016-12-05] MEDS ORDERED: SODIUM CHLORIDE 0.9% FLUSH 10 ML FLUSH IVF PRN (04:45)
--- NOTE | 2016-12-05 05:01 | PD ---
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 Bruce. Seen again in the emergency department with dizziness and near syncope. Labs are unremarkable. He was discharged home. reports that for the past 2 days he's had copious dark black stools and bloody stools. He is on aspirin and Plavix. He is brought into the emergency department today after he had a syncopal episode while on the commode. Patient denies any complaints at this time other than feeling weak. Denies any headache, neck pain, or other symptoms. History Past Medical History Narrative Medical Hyperlipidemia Cardiomyopathy, CHF CAD, history of stents COPD, history of tobacco use History of TIA Type 2 diabetes mellitus History of GI bleed History of [place] Stage IV chronic kidney disease, left AV fistula Sleep apnea Tobacco abuse A. fib Hypertension Social History Alcohol Use: No (DENIES) Tobacco Use: Yes (1/2 PACK PER DAY) Allergies-Medications (Allergen,Severity, Reaction): Coded Allergies: Sulfa (Sulfonamide Antibiotics) (Unverified Allergy, Severe, RASH, 12/05/16 ) sulfamethoxazole (Unverified Allergy, Severe, Rash, 12/05/16) RASH OF FACE AND ORAL MUCUS MEMBRANES trimethoprim (Unverified Allergy, Severe, Rash, 12/05/16) RASH OF FACE AND ORAL MUCUS MEMBRANES *MDRO Multi-Drug Resistant Organism (Verified Allergy, Unknown, 12/05/16) MRSA Wound 02/2004 MRSA PCR Screen #1 negative 01/20/15. Reported Meds & Prescriptions Reported Meds & Active Scripts Active Furosemide 40 Mg Tab 40 Mg PO BID@,18 30 Days Flomax (Tamsulosin HCl) 0.4 Mg Cap 0.4 Mg PO Q12HR 30 Days Ventolin Hfa 18 GM Inh (Albuterol Sulfate) 90 Mcg/Act Aer 2 Puff INH Q4-6H PRN Atorvastatin (Atorvastatin Calcium) 40 Mg Tab 40 Mg PO HS Reported [Curel Lotion] 1 Applic TOPICAL DAILY PRN Cilostazol 100 Mg Tab 100 Mg PO DAILY Allergy Relief (Diphenhydramine HCl) 25 Mg Tab 25 Mg PO Q4-6H PRN Aspirin Adult Low Strength (Aspirin) 81 Mg Tabdr 81 Mg PO DAILY Hydroxyzine HCl 10 Mg Tab 10-20 Mg PO HS Toprol XL (Metoprolol Succinate) 100 Mg Tab 100 Mg PO DAILY Protonix (Pantoprazole Sodium) 40 Mg Tab 40 Mg PO DAILY Anoro Ellipta Inh (Umeclidinium/Vilanterol) 62.5-25 Mcg/Act Aero 1 Puff INH DAILY Plavix (Clopidogrel Bisulfate) 75 Mg Tab 75 Mg PO DAILY Calcitriol 0.25 Mcg Cap 0.25 Mcg PO DAILY Review of Systems ROS Limitations: Clinical Condition Physical Exam Narrative GENERAL: This is an ill-appearing 76-year-old man with pallor and cyanosis. SKIN: Focused skin assessment warm/dry. HEAD: Normocephalic. Small abrasion to the right forehead. EYES: Pupils equal and round. No scleral icterus. No injection or drainage. ENT: No nasal bleeding or discharge. Mucous membranes pink and moist. NECK: Trachea midline. No step-offs or deformities. Full painless range of motion. CARDIOVASCULAR: Mottled and pale. Regular rate and rhythm. No murmurs. RESPIRATORY: No accessory muscle use. Clear to auscultation. Breath sounds equal bilaterally. GASTROINTESTINAL: Abdomen soft, non-tender, nondistended. Hepatic and splenic margins not palpable. MUSCULOSKELETAL: No obvious deformities. No edema. NEUROLOGICAL: Sluggishly alert. No obvious cranial nerve deficits. Motor grossly within normal limits. Normal speech. PSYCHIATRIC: Appropriate mood and affect; insight and judgment normal. Data Data Last Documented VS Vital Signs Date Time Temp Pulse Resp B/P (MAP) Pulse Ox O2 Delivery O2 Flow Rate FiO2 12/05/16 06:30 97.7 98 20 156/66 100 Orders Orders Complete Blood Count With Diff (12/05/16 04:40) Comprehensive Metabolic Panel (12/05/16 04:40) Prothrombin Time / Inr (Pt) (12/05/16 04:40) Act Partial Throm Time (Ptt) (12/05/16 04:40) Urinalysis - C+S If Indicated (12/05/16 04:40) Red Blood Cells (Rbc) (12/05/16 04:40) Ecg Monitoring (12/05/16 04:40) Iv Access Insert/Monitor (12/05/16 04:40) Ng Gastric Tube Insert/Monitor (12/05/16 04:40) Oximetry (12/05/16 04:40) Urinary Catheter Insert/Apply (12/05/16 04:40) Ondansetron Inj (Zofran Inj) (12/05/16 04:45) Sodium Chlor 0.9% 1000 Ml Inj (Ns 1000 M (12/05/16 04:40) Sodium Chloride 0.9% Flush (Ns Flush) (12/05/16 04:45) Sodium Chloride 0.9... W/Pantoprazole In (12/05/16 04:40) Sodium Chloride 0.9... W/Pantoprazole In (12/05/16 04:40) Type And Screen (12/05/16 04:41) Ct Brain W/O Iv Contrast(Rout) (12/05/16 ) Lactic Acid (12/05/16 05:00) Admit Order (Ed Use Only) (12/05/16 ) Labs Laboratory Tests Test 12/05/16 04:40 12/05/16 04:45 12/05/16 05:40 White Blood Count 11.7 TH/MM3 Red Blood Count 2.11 MIL/MM3 Hemoglobin 5.4 GM/DL Hematocrit 17.4 % Mean Corpuscular Volume 82.7 FL Mean Corpuscular Hemoglobin 25.6 PG Mean Corpuscular Hemoglobin Concent 31.0 % Red Cell Distribution Width 21.1 % Platelet Count 193 TH/MM3 Mean Platelet Volume 8.5 FL Neutrophils (%) (Auto) 65.2 % Lymphocytes (%) (Auto) 28.7 % Monocytes (%) (Auto) 5.3 % Eosinophils (%) (Auto) 0.2 % Basophils (%) (Auto) 0.6 % Neutrophils # (Auto) 7.6 TH/MM3 Lymphocytes # (Auto) 3.3 TH/MM3 Monocytes # (Auto) 0.6 TH/MM3 Eosinophils # (Auto) 0.0 TH/MM3 Basophils # (Auto) 0.1 TH/MM3 CBC Comment DIFF FINAL Differential Comment Prothrombin Time 12.0 SEC Prothromb Time International Ratio 1.1 RATIO Activated Partial Thromboplast Time 24.3 SEC Blood Urea Nitrogen 120 MG/DL Creatinine 3.27 MG/DL Random Glucose 245 MG/DL Total Protein 5.5 GM/DL Albumin 2.6 GM/DL Calcium Level 8.6 MG/DL Alkaline Phosphatase 56 U/L Aspartate Amino Transf (AST/SGOT) 8 U/L Alanine Aminotransferase (ALT/SGPT) 15 U/L Total Bilirubin 0.4 MG/DL Sodium Level 142 MEQ/L Potassium Level 5.0 MEQ/L Chloride Level 108 MEQ/L Carbon Dioxide Level 19.4 MEQ/L Anion Gap 15 MEQ/L Estimat Glomerular Filtration Rate 18 ML/MIN Lactic Acid Level 5.5 mmol/L Urine Color LIGHT-YELLOW Urine Turbidity CLEAR Urine pH 5.0 Urine Specific [place] 1.016 Urine Protein TRACE mg/dL Urine Glucose (UA) NEG mg/dL Urine Ketones NEG mg/dL Urine Occult Blood TRACE Urine Nitrite NEG Urine Bilirubin NEG Urine Urobilinogen LESS THAN 2.0 MG/DL Urine Leukocyte Esterase NEG Urine RBC 9 /hpf Urine WBC 2 /hpf Urine Bacteria RARE /hpf Urine Hyaline Casts 1 /lpf Urine Mucus FEW /lpf Microscopic Urinalysis Comment CULT NOT INDICATED MDM Medical Decision Making Medical Screen Exam Complete: Yes Emergency Medical Condition: Yes Interpretation(s) My review of EKG: Sinus tachycardia rate of 111, normal axis, lateral ST depressions with T-wave inversions. LABS: CBC with profound anemia, hemoglobin 5.4 CMP with creatinine, elevated from baseline, BUN 120, glucose 245 Lactate 5.5 coags unremarkable UA unremarkable. Differential Diagnosis Anemia, GI bleed, myocardial ischemia, coagulopathy, other Narrative Course Medical decision making Is a 76 year-old woman who presents emergency Department ill-appearing with syncope and evidence of severe anemia on exam. He has dark liquid guaiac positive stools. Appears to be profoundly anemic. We'll begin emergency release blood, type and cross, IV fluid resuscitation, will check CT head. FINAL: 76-year-old man with GI bleed anemia. Creatinine increased from baseline. Spoke with Dr. Pizano, will admit to the ICU. Phone call pending to GI. Critical Care Narrative Aggregate critical care time was 30 minutes. Time to perform other separately billable procedures was not included in the critical care time. My time did not include minutes spent treating any other patients simultaneously or on activities that did not directly contribute to the patient's treatment. The services I provided to this patient were to treat and/or prevent clinically significant deterioration that could result in: , disability, recommend she have bleeding, worsening shock. I provided critical care services requiring my management, as noted below: Chart data review, documentation time, medication orders and management, vital sign assessments/reviewing monitor data, ordering and reviewing lab tests, ordering and interpreting/reviewing x-rays and diagnostic studies, care of the patient and discussion of the patient with the admitting physicians. Diagnosis Primary Impression: GI bleed Additional Impression: Anemia Admitting Information Admitting Physician Requests: Alejandro Mullins MD Dec 05, 2016 05:01
[2016-12-05 05:10] LABS: AUTOMATED NEUTROPHIL # 7.6 TH/MM3 (1.8-7.7); BASOPHIL # 0.1 TH/MM3 (0-0.2); BASOPHIL % 0.6 % (0.0-2.0); EOSINOPHIL % 0.2 % (0.0-4.0); LYMPH % 28.7 % (9.0-44.0); LYMPHOCYTE # 3.3 TH/MM3 (1.0-4.8); MEAN CELL VOLUME 82.7 FL (80.0-100.0); MEAN CORPUSCULAR HEMOGLOBIN 25.6 PG (27.0-34.0); MONO % 5.3 % (0.0-8.0); NEUT % 65.2 % (16.0-70.0); PLATELET COUNT 193 TH/MM3 (150-450); RED BLOOD COUNT 2.11 MIL/MM3 (4.50-5.90); RED CELL DISTRIBUTION WIDTH 21.1 % (11.6-17.2); WHITE BLOOD COUNT 11.7 TH/MM3 (4.0-11.0)
[2016-12-05] MEDS: PANTOPRAZOLE INJ 80 MG in SODIUM CHLORIDE 0.9% INJ 100 ML IV SCH ×3 (05:18→23:49)
[2016-12-05 05:22] LABS: HEMO FLAGS DIFF FINAL
[2016-12-05 05:24] LABS: HEMATOCRIT 17.4 % (39.0-51.0)
[2016-12-05 05:35] LABS: APTT (PATIENT) 24.3 SEC (24.3-30.1); INTERNATIONAL NORMALIZED RATIO 1.1 RATIO
[2016-12-05 05:36] LABS: ALKALINE PHOSPHATASE 56 U/L (45-117); ALT (GPT) 15 U/L (12-78); ANION GAP 15 MEQ/L (5-15); AST (GOT) 8 U/L (15-37); BICARBONATE 19.4 MEQ/L (21.0-32.0); BLOOD UREA NITROGEN 120 MG/DL (7-18); CHLORIDE 108 MEQ/L (98-107); GLOMERULAR FILTRATION RATE 18 ML/MIN (>89); SODIUM (NA) 142 MEQ/L (136-145); TOTAL BILIRUBIN ADULT 0.4 MG/DL (0.2-1.0)
[2016-12-05 06:27] LABS: BACTERIA, URINE RARE /hpf; BLOOD, URINE TRACE (NEG); COMMENT (UR) CULT NOT INDICATED; CULTURE IF INDICATED CULT NOT INDICATED; GLUCOSE,URINE NEG (NEG); HYALINE CAST, URINE 1 /lpf (RARE); KETONE, URINE NEG (NEG); MUCUS URINE FEW /lpf (OCC); NITRITE,URINE NEG (NEG); URINE COLOR LIGHT-YELLOW (YELLW/STRAW)
--- NOTE | 2016-12-05 07:53 | RADRPT ---
EXAM DATE/TIME: 12/05/2016 07:27 [facility] COMPARISON: CT BRAIN W/O CONTRAST, March 08, 2016, 12:02. INDICATIONS : Syncopal episode. RADIATION DOSE: 35.08 CTDIvol (mGy) MEDICAL HISTORY : Cardiovascular disease. Chronic obstructive pulmonary disease. Myocardial infarction.Congestive heart failure. Coronary artery disease. Hypertension. Renal failure. Diabetes. Skin cancer. SURGICAL HISTORY : None. ENCOUNTER: Initial ACUITY: 1 day PAIN SCALE: 2/10 LOCATION: cranial TECHNIQUE: Multiple contiguous axial images were obtained of the head. Using automated exposure control and adj ustment of the mA and/or kV according to patient size, radiation dose was kept as low as reasonably a chievable to obtain optimal diagnostic quality images. DICOM format image data is available electro nically for review and comparison. FINDINGS: CEREBRUM: The ventricles and cortical sulci are widened. There some expansion of the extra-axial space over fro ntal regions. There is evidence of old infarct at the right caudate head and surrounding periventricu lar white matter in the right frontal lobe.. There is mild decreased density in the periventricular w chica matter overall. No evidence of midline shift, mass lesion, hemorrhage or acute infarction. No e xtra-axial hemorrhage is seen. POSTERIOR FOSSA: The cerebellum and brainstem are intact. The 4th ventricle is midline. The cerebellopontine angle i s unremarkable. EXTRACRANIAL: The visualized portion of the orbits is intact. SKULL: The calvaria is intact. No evidence of skull fracture. CONCLUSION: 1. No acute abnormality seen. 2. Atrophy. 3. 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 4. Suspected small vessel ischemic change in the periventricular white matter. Jn Carrillo MD on December 05, 2016 at 7:49 Board Certified Radiologist. This report was verified electronically.
[2016-12-05] MEDS ORDERED: GLUCAGON 1 MG/ML VIAL OTHER PRN (08:00)
[2016-12-05] MEDS ORDERED: CHLORHEXIDINE GLUCONATE 2 % 1 PACK (2 CLOTHS) TOP PRN (08:00)
[2016-12-05] MEDS: INSULIN NovoLIN REGULAR SUPPLEMENTAL SCALE SQ SCH ×5 (08:00→23:38)
[2016-12-05] MEDS ORDERED: MAGNESIUM HYDROXIDE SUSP 30 ML CUP PO PRN (08:00)
[2016-12-05] MEDS ORDERED: BISACODYL 10 MG SUPP RECTAL PRN (08:00)
[2016-12-05] MEDS ORDERED: LACTULOSE SYRUP 20 GM/30 ML CUP PO PRN (08:00)
[2016-12-05] MEDS ORDERED: RESP: IPRATROPIUM 0.5 MG/2.5 ML NEB INH PRN (08:00)
[2016-12-05] MEDS ORDERED: MISCELLANEOUS NURSING INFORMATION XX SCH (08:00)
[2016-12-05] MEDS ORDERED: DEXTROSE 50% IN WATER 50 ML VIAL(D50) IV PRN (08:00)
[2016-12-05] MEDS ORDERED: SENNOSIDES 8.6 MG TAB PO PRN (08:00)
--- NOTE | 2016-12-05 08:22 | RADRPT ---
EXAM DATE/TIME: 12/05/2016 07:59 [facility] COMPARISON: CHEST SINGLE AP, November 28, 2016, 14:54. INDICATIONS : Short of Breath MEDICAL HISTORY : Cardiovascular disease. Chronic obstructive pulmonary disease. Myocardial infarction.Congestive heart failure. Coronary artery disease. Hypertension. Renal failure.Diabetes. Skin cancer SURGICAL HISTORY : None. ENCOUNTER: Initial ACUITY: 1 day PAIN SCORE: 0/10 LOCATION: Bilateral chest FINDINGS: The heart size is upper limits of normal. There is increased density in the upper chest bilaterally l ikely related to the first costochondral junction regions. This appears fairly symmetric. Lungs appea r otherwise clear. The previously seen increased interstitial markings on the prior chest x-ray have resolved. No effusion is seen. CONCLUSION: 1. Resolution of previously seen edema. 2. Persistent increased density in the upper lungs bilaterally likely related to the first costochond ral junction regions. This could be further evaluated with an apical lordotic chest x-ray or noncontr ast CT examination. Jn Carrillo MD on December 05, 2016 at 8:18 Board Certified Radiologist. This report was verified electronically.
[2016-12-05] MEDS: DOCUSATE SODIUM 50 MG/SENNA 8.6 MG TAB PO SCH ×2 (08:37→20:44)
[2016-12-05] MEDS: SODIUM CHLOR 0.9% 1000 ML INJ 1,000 ML IV SCH ×2 (08:37→17:10)
--- NOTE | 2016-12-05 08:56 | PD.CONS ---
HPI History of Present Illness This is a 76 year old male who presented to the hospital with c/o dizziness and near syncope while using the toilet. Patient reports large amount of dark black stools and bright red bloody stools x 2 days. Had episode of nausea and vomiting today as well, but unsure if any blood was present in emesis. Decreased appetite. Denies abdominal pain. Reports increased weakness and fatigue. HH noted to be 5.4/17.4 on arrival. Patient recently seen in hospital and had EGD on 11/[address] Bruce due to anemia. 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 Recommendation was followup EGD in 1 month if patient was still anemic. (Marlene Crouch) PFSH Past Medical History Hyperlipidemia Cardiomyopathy, CHF CAD, history of stents COPD, history of tobacco use History of TIA Type 2 diabetes mellitus History of GI bleed History of [place] Stage IV chronic kidney disease, left AV fistula Sleep apnea Tobacco abuse A. fib Hypertension Past Surgical History Left AV fistula CAD with stents LAVF stripping LE (Marlene Crouch) Coded Allergies: Sulfa (Sulfonamide Antibiotics) (Unverified Allergy, Severe, RASH, 12/05/16 ) sulfamethoxazole (Unverified Allergy, Severe, Rash, 12/05/16) RASH OF FACE AND ORAL MUCUS MEMBRANES trimethoprim (Unverified Allergy, Severe, Rash, 12/05/16) RASH OF FACE AND ORAL MUCUS MEMBRANES *MDRO Multi-Drug Resistant Organism (Verified Allergy, Unknown, 12/05/16) MRSA Wound 2006, 02/2004 MRSA PCR Screen #1 negative 01/20/15. Medications Current Medications Medications (Trade) Dose Ordered Sig/Surendra Route PRN Reason Start Time Stop Time Status Last Admin Dose Admin Sodium Chloride (NS Flush) 2 ml UNSCH PRN IVF FLUSH AFTER USING IV ACCESS 12/05/16 04:45 Pantoprazole Sodium 80 mg/ Sodium Chloride 100 ml @ 10 mls/hr Q10H IV 12/05/16 04:40 12/05/16 05:18 Albuterol/ Ipratropium (Duoneb Neb) 1 ampule Q6HR NEB INH 12/05/16 10:00 Ipratropium [place] (Atrovent Neb) 0.5 mg Q2HR NEB PRN INH WHEEZING 12/05/16 08:00 Miscellaneous Information 1 Q361D XX 12/05/16 08:00 Chlorhexidine Gluconate (Chlorhexidine 2% Cloth) 3 pack Taper DAILY@04 TOP 12/06/16 04:00 12/02/17 03:59 Chlorhexidine Gluconate (Chlorhexidine 2% Cloth) 3 pack UNSCH PRN [facility] 12/05/16 08:00 Senna/Docusate Sodium (Jodie-Colace) 1 tab BID PO 12/05/16 09:00 Magnesium Hydroxide (Milk Of Magnesia Liq) 30 ml Q12H PRN PO MILD - MODERATE CONSTIPATION 12/05/16 08:00 Sennosides (Senokot) 17.2 mg Q12H PRN PO MODERATE - SEVERE CONSTIPATION 12/05/16 08:00 Bisacodyl (Dulcolax Supp) 10 mg DAILY PRN RECTAL SEVERE CONSITIPATION 12/05/16 08:00 Lactulose (Lactulose Liq) 30 ml DAILY PRN PO SEVERE CONSITIPATION 12/05/16 08:00 Sodium Chloride 1,000 ml @ 125 mls/hr Q8H IV 12/05/16 08:00 Dextrose (D50w (Vial) Inj) 50 ml UNSCH PRN IV HYPOGLYCEMIA-SEE COMMENTS 12/05/16 08:00 Glucagon (Glucagon Inj) 1 mg UNSCH PRN OTHER HYPOGLYCEMIA-SEE COMMENTS 12/05/16 08:00 Insulin Human Regular (NovoLIN R SUPPLEMENTAL SCALE) 1 Q4H SQ 12/05/16 08:00 Family History Father: [place] (70s) Mother: Stroke (70s) Social History ETOH: Denies Tobacco: 1/2 PPD Illicit Drugs: Denies (Marlene Crouch) Review of Systems Constitutional: COMPLAINS OF: Fatigue, DENIES: Diaphoretic episodes, Fever, Weight gain, Weight loss, Chills, Dizziness, Change in appetite, Night Sweats Endocrine: DENIES: Polydipsia, Polyuria Eyes: DENIES: Blurred vision, Photosensitivity, Double Vision Ears, nose, mouth, throat: DENIES: Hearing loss, Vertigo, Oral lesions, Throat pain, Hoarseness Respiratory: DENIES: Cough, Wheezing, Hemoptysis, Sputum production, Shortness of breath Cardiovascular: COMPLAINS OF: Syncope Gastrointestinal: COMPLAINS OF: Black stools, Bloody stools, Nausea, Vomiting, DENIES: Abdominal pain, Constipation, Diarrhea, Difficulty Swallowing, Anorexia , Odynophagia, Swelling of Abdomen, Heartburn, Hematemesis Genitourinary: DENIES: Urinary frequency, Urinary incontinence, Urgency, Hematuria, Dysuria, Nocturia Musculoskeletal: DENIES: Joint pain, Muscle aches, Stiffness, Joint Swelling, Back pain, Neck pain Integumentary: DENIES: Abnormal pigmentation, Nail changes, Pruritus, Rash, Jaundice Hematologic/lymphatic: DENIES: Bruising, Lymphadenopathy Immunologic/allergic: DENIES: Eczema, Urticaria Neurologic: DENIES: Abnormal gait, Headache, Localized weakness, Paresthesias Psychiatric: DENIES: Anxiety, Confusion, Mood changes, Depression, Agitation, Suicidal Ideation (Marlene Crouch) GI Exam Vitals I&O Vital Signs Date Time Temp Pulse Resp B/P (MAP) Pulse Ox O2 Delivery O2 Flow Rate FiO2 12/05/16 08:08 97.8 101 17 155/66 (95) 100 Room Air 12/05/16 07:50 97.9 102 20 168/70 100 12/05/16 07:15 102 20 169/70 (103) 100 Room Air 12/05/16 06:30 97.7 98 20 156/66 100 12/05/16 06:15 97.7 99 19 134/63 100 12/05/16 05:54 97.7 103 24 126/61 100 12/05/16 05:30 105 18 100 12/05/16 05:26 97.8 108 21 141/ 100 12/05/16 05:15 106 21 151/63 (92) 99 12/05/16 05:11 97.7 108 23 133/70 100 12/05/16 04:25 109 18 98 I/O 12/04/16 12/04/16 12/04/16 12/05/16 12/05/16 12/05/16 07:00 15:00 23:00 07:00 15:00 23:00 Intake Total 430 ml 404 ml Balance 430 ml 404 ml Intake Packed Cells 400 ml 400 ml Blood Product IV Normal Saline Flush 30 ml 4 ml Imaging Last Impressions Head CT 12/05/16 0000 Signed Impressions: Service Date/Time: Monday, December 05, 2016 07:27 - CONCLUSION: 1. No acute abnormality seen. 2. Atrophy. 3. 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 4. Suspected small vessel ischemic change in the periventricular white matter. Jn Carrillo MD Laboratory Test 12/05/16 04:40 12/05/16 04:45 12/05/16 05:40 White Blood Count 11.7 TH/MM3 Red Blood Count 2.11 MIL/MM3 Hemoglobin 5.4 GM/DL Hematocrit 17.4 % Mean Corpuscular Volume 82.7 FL Mean Corpuscular Hemoglobin 25.6 PG Mean Corpuscular Hemoglobin Concent 31.0 % Red Cell Distribution Width 21.1 % Platelet Count 193 TH/MM3 Mean Platelet Volume 8.5 FL Neutrophils (%) (Auto) 65.2 % Lymphocytes (%) (Auto) 28.7 % Monocytes (%) (Auto) 5.3 % Eosinophils (%) (Auto) 0.2 % Basophils (%) (Auto) 0.6 % Neutrophils # (Auto) 7.6 TH/MM3 Lymphocytes # (Auto) 3.3 TH/MM3 Monocytes # (Auto) 0.6 TH/MM3 Eosinophils # (Auto) 0.0 TH/MM3 Basophils # (Auto) 0.1 TH/MM3 CBC Comment DIFF FINAL Differential Comment Prothrombin Time 12.0 SEC Prothromb Time International Ratio 1.1 RATIO Activated Partial Thromboplast Time 24.3 SEC Blood Urea Nitrogen 120 MG/DL Creatinine 3.27 MG/DL Random Glucose 245 MG/DL Total Protein 5.5 GM/DL Albumin 2.6 GM/DL Calcium Level 8.6 MG/DL Alkaline Phosphatase 56 U/L Aspartate Amino Transf (AST/SGOT) 8 U/L Alanine Aminotransferase (ALT/SGPT) 15 U/L Total Bilirubin 0.4 MG/DL Sodium Level 142 MEQ/L Potassium Level 5.0 MEQ/L Chloride Level 108 MEQ/L Carbon Dioxide Level 19.4 MEQ/L Anion Gap 15 MEQ/L Estimat Glomerular Filtration Rate 18 ML/MIN Lactic Acid Level 5.5 mmol/L Urine Color LIGHT-YELLOW Urine Turbidity CLEAR Urine pH 5.0 Urine Specific [place] 1.016 Urine Protein TRACE mg/dL Urine Glucose (UA) NEG mg/dL Urine Ketones NEG mg/dL Urine Occult Blood TRACE Urine Nitrite NEG Urine Bilirubin NEG Urine Urobilinogen LESS THAN 2.0 MG/DL Urine Leukocyte Esterase NEG Urine RBC 9 /hpf Urine WBC 2 /hpf Urine Bacteria RARE /hpf Urine Hyaline Casts 1 /lpf Urine Mucus FEW /lpf Microscopic Urinalysis Comment CULT NOT INDICATED Physical Examination HEENT: PERRLA; normocephalic; no jaundice. Small abrasion at forehead. NECK: Neck is supple. CHEST: CTA CARDIAC: RRR, with no murmur gallop or rubs. ABDOMEN: Soft, nondistended, nontender; no hepatosplenomegaly; bowel sounds are present. EXTREMITIES: No clubbing, cyanosis, or edema. SKIN: Pale [employer] SYSTEM SPECIALIST: No focal deficits; alert and oriented x 3. (Marlene Crouch) Assessment and Plan Plan ASSESSMENT: Anemia, GIB. HH 5.4/17.4. + black tarry stools and red bloody stools. Currently getting blood transfusion. Patient had EGD on 11/[address] 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 Patient was discharged home with stable HH. Recommendation at that time was followup EGD in 1 month if patient was still anemic. PLAN: - EGD today - NPO - Obtain consents - Monitor HH and continue to transfuse as necessary - Further recommendations to follow based on results of above. Patient seen and examined by Dr. Sharp and myself and this note is written on his behalf. (Marlene Crouch) Physician Comments Seen and examined with RICHIE, egd planned today. If -ve colonoscopy tomorrow. Transfuse to keep hb> 8.0. IV protonix. Will follow. Thank you (Laura Sharp MD) Marlene Crouch Dec 05, 2016 08:56 Laura Sharp MD Dec 05, 2016 11:44
[2016-12-05] MEDS ORDERED: PANTOPRAZOLE SODIUM 40 MG VIAL IV PUSH SCH (09:00)
--- NOTE | 2016-12-05 09:43 | PD.CONS ---
[facility] Service Nephrology Consult Requested By Reason for Consult Acute on chronic kidney disease Primary Care Physician Janice Mcneil MD History of Present Illness Mr Masters is a 76 year old male with history of CKD stage IV, baseline GFR of about 25-26. He was recently admitted to the hospital with multiple medical issues. 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 Plan I believe called for capsule enteroscopy as an outpatient. Patient also developed atrial fibrillation with RVR for which he was treated with Cardizem. He has history of tobacco use, and COPD. He has been readmitted with history of syncope. Creatinine has increased to 3.2 from 2.4 on the when he was discharged. Patient's hemoglobin is 5.4, BUN is 120, potassium is 5. Review of Systems Constitutional: COMPLAINS OF: Fatigue, DENIES: Fever Ears, nose, mouth, throat: DENIES: Vertigo Cardiovascular: DENIES: Chest pain Gastrointestinal: COMPLAINS OF: Black stools, Bloody stools, DENIES: Abdominal pain Hematologic/lymphatic: DENIES: Bruising Immunologic/allergic: DENIES: Eczema Past Family Social History Allergies: Coded Allergies: Sulfa (Sulfonamide Antibiotics) (Unverified Allergy, Severe, RASH, 12/05/16 ) sulfamethoxazole (Unverified Allergy, Severe, Rash, 12/05/16) RASH OF FACE AND ORAL MUCUS MEMBRANES trimethoprim (Unverified Allergy, Severe, Rash, 12/05/16) RASH OF FACE AND ORAL MUCUS MEMBRANES *MDRO Multi-Drug Resistant Organism (Verified Allergy, Unknown, 12/05/16) MRSA Wound 02/2004 MRSA PCR Screen #1 negative 01/20/15. Past Medical History Hyperlipidemia Cardiomyopathy, CHF CAD, history of stents COPD, history of tobacco use History of TIA Type 2 diabetes mellitus History of GI bleed History of [place] Stage IV chronic kidney disease, left AV fistula Sleep apnea Tobacco abuse A. fib Hypertension Past Surgical History Left AV fistula CAD with stents LAVF stripping LE Reported Medications Furosemide 40 Mg Tab 40 Mg PO BID@09,18 30 Days Flomax (Tamsulosin HCl) 0.4 Mg Cap 0.4 Mg PO Q12HR 30 Days Ventolin Hfa 18 GM Inh (Albuterol Sulfate) 90 Mcg/Act Aer 2 Puff INH Q4-6H PRN Atorvastatin (Atorvastatin Calcium) 40 Mg Tab 40 Mg PO HS Reported [Curel Lotion] 1 Applic TOPICAL DAILY PRN Cilostazol 100 Mg Tab 100 Mg PO DAILY Allergy Relief (Diphenhydramine HCl) 25 Mg Tab 25 Mg PO Q4-6H PRN Aspirin Adult Low Strength (Aspirin) 81 Mg Tabdr 81 Mg PO DAILY Hydroxyzine HCl 10 Mg Tab 10-20 Mg PO HS Toprol XL (Metoprolol Succinate) 100 Mg Tab 100 Mg PO DAILY Protonix (Pantoprazole Sodium) 40 Mg Tab 40 Mg PO DAILY Anoro Ellipta Inh (Umeclidinium/Vilanterol) 62.5-25 Mcg/Act Aero 1 Puff INH DAILY Plavix (Clopidogrel Bisulfate) 75 Mg Tab 75 Mg PO DAILY Calcitriol 0.25 Mcg Cap 0.25 Mcg PO DAILY Active Ordered Medications Current Medications Medications (Trade) Dose Ordered Sig/Surendra Route Start Time Stop Time Status Last Admin (NS Flush) 2 ml UNSCH PRN IVF 12/05/16 04:45 Pantoprazole Sodium 80 mg/ Sodium Chloride 100 ml @ 10 mls/hr Q10H IV 12/05/16 04:40 12/05/16 05:18 (Duoneb Neb) 1 ampule Q6HR NEB INH 12/05/16 10:00 (Atrovent Neb) 0.5 mg Q2HR NEB PRN INH 12/05/16 08:00 Miscellaneous Information 1 Q361D XX 12/05/16 08:00 (Chlorhexidine 2% Cloth) 3 pack Taper DAILY@04 TOP 12/06/16 04:00 12/02/17 03:59 (Chlorhexidine 2% Cloth) 3 pack UNSCH PRN TOP 12/05/16 08:00 (Jodie-Colace) 1 tab BID PO 12/05/16 09:00 (Milk Of Magnesia Liq) 30 ml Q12H PRN PO 12/05/16 08:00 (Senokot) 17.2 mg Q12H PRN PO 12/05/16 08:00 (Dulcolax Supp) 10 mg DAILY PRN RECTAL 12/05/16 08:00 (Lactulose Liq) 30 ml DAILY PRN PO 12/05/16 08:00 Sodium Chloride 1,000 ml @ 125 mls/hr Q8H IV 12/05/16 08:00 12/05/16 08:37 (D50w (Vial) Inj) 50 ml UNSCH PRN IV 12/05/16 08:00 (Glucagon Inj) 1 mg UNSCH PRN OTHER 12/05/16 08:00 (NovoLIN R SUPPLEMENTAL SCALE) 1 Q4H SQ 12/05/16 08:00 Family History Father had heart disease Mother had CVA Social History Continues to smoke 1/2 ppd No ETOH Physical Exam Vital Signs Vital Signs Date Time Temp Pulse Resp B/P (MAP) Pulse Ox O2 Delivery O2 Flow Rate FiO2 12/05/16 08:08 97.8 101 17 155/66 (95) 100 Room Air 12/05/16 08:08 97.4 102 20 155/66 100 12/05/16 07:50 97.9 102 20 168/70 100 12/05/16 07:15 102 20 169/70 (103) 100 Room Air 12/05/16 06:30 97.7 98 20 156/66 100 12/05/16 06:15 97.7 99 19 134/63 100 12/05/16 05:54 97.7 103 24 126/61 100 12/05/16 05:30 105 18 100 12/05/16 05:26 97.8 108 21 141/ 100 12/05/16 05:15 106 21 151/63 (92) 99 12/05/16 05:11 97.7 108 23 133/70 100 12/05/16 04:25 109 18 98 Physical Exam GENERAL: patient is frail, elderly, he is awake, alert. SKIN: Warm and dry. HEAD: Normocephalic. EYES: No scleral icterus. No injection or drainage. NECK: Supple, trachea midline. No JVD or lymphadenopathy. CARDIOVASCULAR: Regular rate and rhythm without murmurs, gallops, or rubs. RESPIRATORY: Breath sounds equal bilaterally. No accessory muscle use. GASTROINTESTINAL: Abdomen soft, non-tender, nondistended. MUSCULOSKELETAL: No cyanosis, or edema. AVF in the left arm is patent. BACK: Nontender without obvious deformity. No CVA tenderness. Laboratory Laboratory Tests Test 12/05/16 04:40 12/05/16 04:45 12/05/16 05:40 White Blood Count 11.7 Red Blood Count 2.11 Hemoglobin 5.4 Hematocrit 17.4 Mean Corpuscular Volume 82.7 Mean Corpuscular Hemoglobin 25.6 Mean Corpuscular Hemoglobin Concent 31.0 Red Cell Distribution Width 21.1 Platelet Count 193 Mean Platelet Volume 8.5 Neutrophils (%) (Auto) 65.2 Lymphocytes (%) (Auto) 28.7 Monocytes (%) (Auto) 5.3 Eosinophils (%) (Auto) 0.2 Basophils (%) (Auto) 0.6 Neutrophils # (Auto) 7.6 Lymphocytes # (Auto) 3.3 Monocytes # (Auto) 0.6 Eosinophils # (Auto) 0.0 Basophils # (Auto) 0.1 CBC Comment DIFF FINAL Differential Comment Prothrombin Time 12.0 Prothromb Time International Ratio 1.1 Activated Partial Thromboplast Time 24.3 Blood Urea Nitrogen 120 Creatinine 3.27 Random Glucose 245 Total Protein 5.5 Albumin 2.6 Calcium Level 8.6 Alkaline Phosphatase 56 Aspartate Amino Transf (AST/SGOT) 8 Alanine Aminotransferase (ALT/SGPT) 15 Total Bilirubin 0.4 Sodium Level 142 Potassium Level 5.0 Chloride Level 108 Carbon Dioxide Level 19.4 Anion Gap 15 Estimat Glomerular Filtration Rate 18 Lactic Acid Level 5.5 Urine Color LIGHT-YELLOW Urine Turbidity CLEAR Urine pH 5.0 Urine Specific [place] 1.016 Urine Protein TRACE Urine Glucose (UA) NEG Urine Ketones NEG Urine Occult Blood TRACE Urine Nitrite NEG Urine Bilirubin NEG Urine Urobilinogen LESS THAN 2.0 Urine Leukocyte Esterase NEG Urine RBC 9 Urine WBC 2 Urine Bacteria RARE Urine Hyaline Casts 1 Urine Mucus FEW Microscopic Urinalysis Comment CULT NOT INDICATED Result Diagram: 12/05/1643912/05/16439 Assessment and Plan Problem List: (1) Acute renal failure superimposed on stage 4 chronic kidney disease ICD Codes: N17.9 - Acute kidney failure, unspecified; N18.4 - Chronic kidney disease, stage 4 (severe) Plan: UA did not reveal significant proteinuria, may have underlying CKD due to nephrosclerosis. LOS due to renal hypoperfusion due to blood loss, anemia, and possibly intravascular volume depletion. Monitor. Disproportionate increase in BUN suggests upper GI bleeding. No immediate need for dialysis, but will continue to monitor. (2) Anemia ICD Codes: D64.9 - Anemia, unspecified Status: Acute Plan: Blood loss anemia, GI has been consulted. On Protonix. Recent EGD had revealed AV malformation. Transfusion of PRBC ordered. (3) GI bleed ICD Codes: K92.2 - Gastrointestinal hemorrhage, unspecified Status: Acute Plan: See above. (4) Cardiomyopathy ICD Codes: I42.9 - Cardiomyopathy, unspecified Status: Acute Plan: Recent Echo revealed: The left ventricular systolic function is moderately reduced with an estimated ejection fraction in the range of 40. Normal left ventricular size. Moderate concentric left ventricular hypertrophy. No regional wall motion abnormalities are present. The left atrial size is [id number] dilated. Mild mitral valve regurgitation. Aortic valve sclerosis is present. Mild aortic valve regurgitation. There is trace tricuspid valve regurgitation. The estimated pulmonary arterial pressure is 64 mmHg. The inferior vena cava is dilated. Monitor fluid and electrolytes. Permanent Comment: Dr. Hollis - Atherosclerosis of [place] coronary artery. Last Edited By: José Miguel Black on May 29, 2015 16:04 (5) BPH (benign prostatic hyperplasia) ICD Codes: N40.0 - Enlarged prostate without lower urinary tract symptoms Status: Acute Plan: Continue Flomax. Has history of urinary retention, follows with urology. (6) DM2 (diabetes mellitus, type 2) ICD Codes: E11.9 - Type 2 diabetes mellitus without complications Status: Acute Plan: Continue insulin coverage, maintain blood glucose between 140 and 180. Assessment and Plan Thanks for the consult. Lamont Ramachandran MD Dec 05, 2016 09:43
[2016-12-05] MEDS: RESP: ALBUTEROL 2.5 MG/IPRATROPIUM 0.5 MG NEB (SCH) INH ×2 (10:00→20:35)
[2016-12-05] MEDS ORDERED: PHENYLEPH/NS 1000 MCG/10 ML SYR IV ONE (12:00)
--- NOTE | 2016-12-05 12:08 | MH ---
cc: LEONARD SHARMA M.D. DATE OF ADMISSION: 12/05/2016 HISTORY OF PRESENT ILLNESS: The patient is a 76-year-old male with a past medical history of previous GI bleed, hyperlipidemia, cardiomyopathy with an ejection fraction of 48%, congestive heart failure, coronary artery disease, COPD, diabetes mellitus, chronic kidney disease, hypertension and sleep apnea. He presented to the [facility] Emergency Department with complaints of dizziness and near syncope while using the toilet. He reports a large amount of melena and bright red blood for the past two days. He also felt nauseous and had one episode of emesis today. The patient denies any abdominal pain. He had a recent endoscopy on November [address] 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 On arrival to the emergency room, the patient was tachycardic as well. His laboratory data showed a hemoglobin of 5.4 with hematocrit of 17.4. His comprehensive metabolic panel showed lactic acidosis with lactic acid level of 5.5 and acute on chronic renal failure with a BUN of 120, creatinine of 3.27. In the emergency room, the patient was given a one liter bolus of normal saline and placed on a Protonix drip. He is currently receiving a third unit of packed red blood cells out of four units that have been ordered. The patient was seen by Dr. Sharp from the GI service who plans to proceed with upper endoscopy today. PAST MEDICAL HISTORY: Her past medical history is significant for: 1. Hyperlipidemia. 2. Cardiomyopathy / congestive heart failure. 3. Coronary artery disease. 4. COPD. 5. Diabetes mellitus. 6. History of TIA. 7. Hypertension. 8. History of GI bleed. 9. Stage IV chronic kidney disease. 10. Sleep apnea. 11. Tobacco use. 12. Atrial fibrillation. PAST SURGICAL HISTORY: 1. Previous left AV fistula. 2. Coronary artery disease with stent placements. REPORTED MEDICATIONS: 1. Aspirin. 2. Plavix. 3. Calciferol. 4. Protonix. 5. Toprol XL. 6. Flomax. 7. Lasix. 8. Ventolin. 9. Atorvastatin. SOCIAL HISTORY: The patient used to smoke cigars and he has a remote history of alcohol use. FAMILY HISTORY: Coronary artery disease runs in the family. ALLERGIES: 1. SULFA. 2. SULFAMETHOXAZOLE. 3. TRIMETHOPRIM. REVIEW OF SYSTEMS: The review of systems is as per the history of present illness, and the rest of the review of systems is unremarkable. PHYSICAL EXAMINATION: GENERAL: A 76-year-old male lying in bed in no acute respiratory distress. VITAL SIGNS: Temperature 97.4, pulse of 98 to 101, blood pressure 142/67, respiratory rate of 21, saturation 100% on room air. HEAD, EYES, EARS, NOSE, THROAT: Normocephalic and atraumatic. Pupils equal, round and reactive to light and accommodation. Extraocular muscles intact. Conjunctivae are pink. Nonicteric sclerae. Oral mucosa within normal limits. NECK: The neck is supple. No jugular venous distention, adenopathy or thyromegaly. Trachea in the midline. CARDIOVASCULAR: Tachycardic. Normal S1-S2. No murmurs, rubs or gallops noted. PULMONARY: Bilateral equal air entry. No rales or wheezing. ABDOMEN: The abdomen is soft, nontender and no distention. Positive bowel sounds. EXTREMITIES: No cyanosis, clubbing or edema. NEUROLOGICAL EXAMINATION: No focal sensory deficit. LABORATORY DATA: Sodium 142, potassium 5, chloride 108, carbon dioxide 19.4, BUN 120, creatinine 3.27, glucose 245, lactic acid 5.5, AST 8, ALT 15, total bilirubin 0.4. WBCs 11.7, hemoglobin 5.4, hematocrit 17.4, platelet count of 193,000. INR 1.1. PT 12. PTT 24. IMAGING STUDIES: Chest x-ray showed resolution of the previously seen edema. CT scan of the brain showed no acute abnormalities identified. IMPRESSION: 1. Upper GI bleed. 2. Severe anemia with hemoglobin of 5.4 secondary to acute blood loss. 3. Acute on Chronic kidney disease. 4. Lactic acidemia. 5. Cardiomyopathy with ejection fraction of 40%. 6. History of congestive heart failure. 7. History of COPD. 8. Diabetes mellitus. 9. Hyperlipidemia. 10. History of hypertension. 11. History of TIA. RECOMMENDATIONS: 1. Monitor neuro status and avoid any sedatives. CT scan of the brain in the emergency department was negative for acute intracranial process. 2. Oxygen PRN to maintain saturations above 92%. 3. Bronchodilators in the form of DuoNeb q. 6 plus q. 2 PRN for shortness of breath. 4. Monitor heart rate and blood pressure closely and maintain map greater than 65 mmHg. 5. Serial lactic acid monitoring. 6. Place on normal saline at 100 mL/hour. 7. Echocardiogram from November 29 showed an ejection fraction of 40%. 8. The patient received one liter bolus of normal saline in the emergency department. 9. Hold antihypertensive medications for now. 10. Monitor renal function, intakes and outputs and avoid nephrotoxins. The patient was seen by Dr. Ramachandran from the nephrology service. 11. Continue with IV fluids as stated above. 12. His acute kidney injury is likely secondary to blood loss, possible intravascular volume depletion and GI bleed. 13. Will check ultrasound of the kidneys to rule out hydronephrosis. 14. Keep NPO for now. The patient was seen by the GI service and they plan to proceed with upper endoscopy today. 15. The patient had EGD on November [address] 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 16. Continue with Protonix drip for now. 17. The patient is currently receiving a third unit of packed red blood cells out of four units that was ordered by the emergency department. Will check hemoglobin and hematocrit q. 6 hours. 18. Monitor for signs of infection, which include fevers and WBCs. A angel culture if spikes a fever. Chest x-ray showed no obvious infiltrates or effusions and the urinalysis is negative for leukocyte esterase and nitrites and only [address] on sliding scale insulin with Accu-Chek q. 4 hours for glycemic control. 20. GI prophylaxis on Protonix drip and DVT prophylaxis with SCDs. 21. Will hold off on chemical anticoagulation prophylaxis given the underlying GI bleed and severe anemia on arrival. Further recommendations will be based on the hospital course. The case was discussed with Dr. Sharp from the GI service and nursing staff. CRITICAL CARE TIME: Thirty-five (35) minutes excluding procedures. MD GLADYS Guzman/JOSE /11:03 AM /11:41 AM
--- NOTE | 2016-12-05 12:45 | EKG ---
Date Performed: 12/05/2016 Time Performed: 05:02:31 PTAGE: 76 years EKG: SINUS TACHYCARDIA WITH OCCASIONAL VENTRICULAR PREMATURE COMPLEXES LEFT VENTRICULAR HYPERTRO PHY AND ST-T CHANGE ABNORMAL ECG PREVIOUS TRACING : 12/02/2016 14.01 Compared to previous tracing, PVCs are now present. DOCTOR: Serjio Earl Interpretating Date/Time 12/05/2016 12:45:20
[2016-12-05] MEDS ORDERED: METOCLOPRAMIDE HCL 10 MG/2 ML VIAL IV PUSH ONE (15:15)
[2016-12-05] MEDS ORDERED: DO NOT ADM ANY ANTICOAGULANT DRUGS PRN (15:15)
--- NOTE | 2016-12-05 15:18 | GIPROC ---
[facility] [address] [facility]. [facility], [address] EGD PROCEDURE REPORT EXAM DATE: 12/05/2016 PATIENT NAME: Peter Masters MR #: [id number] BIRTHDATE: 1940 ATTENDING: Laura Sharp MD ORDER #: [id number] HOME HEALTH BILLING SPECIALIST: Deedee Ga and Saadia Aburto STATUS: inpatient INDICATIONS: The patient is a 76 yr old male here for an EGD due to acute post hemorrhagic anemia and melena PROCEDURE PERFORMED: EGD, diagnostic MEDICATIONS: None and Per Anesthesia. TOPICAL ANESTHETIC: CONSENT: The patient understands the risks and benefits of the procedure and understands that these risks include, but are not limited to: sedation, allergic reaction, infection, perforation and/or bleeding. Alternative means of evaluation and treatment include, among others: physical exam, x-rays, and/or surgical intervention. The patient elects to proceed with this endoscopic procedure. medical equipment was checked for proper function. Hand hygiene and appropriate measures for infection prevention was taken. After the risks, benefits and alternatives of the procedure were thoroughly explained, Informed consent was verified, confirmed and timeout was successfully executed by the treatment team. The patient was anesthetized with topical anesthesia and the Pentax [id number] endoscope was introduced through the mouth and advanced to the stomach antrum. Retroflexed views revealed no abnormalities The gastroscope was then slowly withdrawn and removed. ESOPHAGUS: The mucosa of the esophagus appeared normal. STOMACH: There was a moderate amount of residual food. Due to the residual food, complete mucosal examination could not be performed. ADVERSE EVENTS: There were no complications. IMPRESSIONS: 1. The esophagus appeared normal 2. Food residue 3. Retroflexed views revealed no abnormalities RECOMMENDATIONS: Anti-reflux regimen PATIENT CONDITION: stable DISPOSITION: Inpatient REPEAT EXAM: Return 1 day EGD Laura Sharp MD eSigned: Laura Sharp MD 12/05/2016 3:17 PM cc:
[2016-12-05] MEDS ORDERED: PROPOFOL 200 MG/20 ML AMP IV ONE (15:37)
[2016-12-05 17:56] LABS: HEMATOCRIT 29.9 % (39.0-51.0); REVIEW FLAG FINAL
--- NOTE | 2016-12-05 17:57 | RADRPT ---
EXAM DATE/TIME: 12/05/2016 16:10 [place] COMPARISON: No previous studies available for comparison. INDICATIONS : Acute renal failure. MEDICAL HISTORY : Chronic obstructive pulmonary disease. Hypercholesterolemia. Myocardial infarction. Cerebrovascular a ccident. Coronary artery disease. Peripheral vascular disease. Hearing loss. Syncope. Neuropathy. Cor onary artery disease. Anticoagulant therapy. Hypertension. Ulcer. Renal failure. Benign prostatic hyp ertrophy. Diabetes. Skin cancer. MRSA. SURGICAL HISTORY : Coronary artery stent. Gastrointestinal surgery to fix gastro bleed. Skin cancer removal. Right a rm surgery. Vein stripping. Polyp removal. ENCOUNTER: Initial ACUITY: 1 day PAIN SCORE: Nonresponsive. LOCATION: Bilateral flank MEASUREMENTS: RIGHT KIDNEY: 8.3 x 4.1 x 4.1 cm LEFT KIDNEY: 11.4 x 4.7 x 5.3 cm FINDINGS: Both kidneys are echogenic typical of chronic parenchymal disease. Lobulated contours are noted bilat erally. There is a suspected solid mass of the right upper pole measuring 15 x 14 x 17 mm. A 24 x 18 mm nonobstructing stone is seen of the left mid zone. There is no hydronephrosis on either side. Urinary bladder decompressed with a Rdz catheter. Spleen measures 14 cm craniocaudal. CONCLUSION: 1. Chronic parenchymal disease of the kidneys. 2. Suspected mass of the right upper pole. A abdomen MRI with and without contrast is recommended whe n clinically feasible. 3. No acute obstructive uropathy. There is a fairly large but nonobstructing stone of the left kidney . 4. Apparent splenomegaly, nonspecific. Jn Mock MD on December 05, 2016 at 17:52 Board Certified Radiologist. This report was verified electronically.
[2016-12-06] VITALS (16 sets, daily range): BP systolic 163–191; BP diastolic 68–79; PULSE 73–87; RESP 12–20; TEMP 97.7–98.4; O2SAT 97–100
[2016-12-06 00:10] LABS: HEMATOCRIT 29.2 % (39.0-51.0); REVIEW FLAG FINAL
[2016-12-06] MEDS: RESP: ALBUTEROL 2.5 MG/IPRATROPIUM 0.5 MG NEB (SCH) INH ×4 (02:54→20:06)
[2016-12-06] MEDS: CHLORHEXIDINE GLUCONATE 2 % 1 PACK (2 CLOTHS) TOP SCH (04:00)
[2016-12-06] MEDS: INSULIN NovoLIN REGULAR SUPPLEMENTAL SCALE SQ SCH ×5 (04:00→20:00)
[2016-12-06 04:17] LABS: BASOPHIL % 0.6 % (0.0-2.0); EOSINOPHIL # 0.1 TH/MM3 (0-0.4); EOSINOPHIL % 1.3 % (0.0-4.0); HEMATOCRIT 31.7 % (39.0-51.0); HEMO FLAGS DIFF FINAL; LYMPH % 14.9 % (9.0-44.0); MEAN CELL VOLUME 93.1 FL (80.0-100.0); MEAN CORPUSCULAR HEMOGLOBIN 28.1 PG (27.0-34.0); MEAN CORPUSCULAR HGB CONC 30.2 % (32.0-36.0); MONO % 7.8 % (0.0-8.0); NEUT % 75.4 % (16.0-70.0); PLATELET COUNT 119 TH/MM3 (150-450); RED CELL DISTRIBUTION WIDTH 18.4 % (11.6-17.2); WHITE BLOOD COUNT 6.6 TH/MM3 (4.0-11.0)
[2016-12-06] MEDS: SODIUM CHLOR 0.9% 1000 ML INJ 1,000 ML IV SCH (04:33)
[2016-12-06 04:42] LABS: ALKALINE PHOSPHATASE 46 U/L (45-117); ALT (GPT) 12 U/L (12-78); ANION GAP 10 MEQ/L (5-15); AST (GOT) 9 U/L (15-37); BICARBONATE 18.3 MEQ/L (21.0-32.0); BLOOD UREA NITROGEN 89 MG/DL (7-18); CHLORIDE 120 MEQ/L (98-107); GLOMERULAR FILTRATION RATE 25 ML/MIN (>89); POTASSIUM 4.1 MEQ/L (3.5-5.1); SODIUM (NA) 148 MEQ/L (136-145); TOTAL BILIRUBIN ADULT 0.7 MG/DL (0.2-1.0)
--- NOTE | 2016-12-06 07:57 | HHI.CCPN ---
Subjective Remarks/Hospital Course The patient is a 76-year-old male with a past medical history of previous GI bleed, hyperlipidemia, cardiomyopathy with an ejection fraction of 40%, congestive heart failure, coronary artery disease, COPD, diabetes mellitus, chronic kidney disease, hypertension and sleep apnea. He presented to the [facility] Emergency Department with complaints of dizziness and near syncope while using the toilet. He reports a large amount of melena and bright red blood for the past two days. He also felt nauseous and had one episode of emesis today. The patient denies any abdominal pain. He had a recent endoscopy on November [address] 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 On arrival to the emergency room, the patient was tachycardic as well. His laboratory data showed a hemoglobin of 5.4 with hematocrit of 17.4. His comprehensive metabolic panel showed lactic acidosis with lactic acid level of 5.5 and acute on chronic renal failure with a BUN of 120, creatinine of 3.27. In the emergency room, the patient was given a one liter bolus of normal saline and placed on a Protonix drip. He is currently receiving a third unit of packed red blood cells out of four units that have been ordered. 12/06 Patient s/p transfusion 4unirs PRBC yesterday Hgb 9.6 this morning. No signs of active bleeding overnight. s/p EGD showed normal esophagus, food residual in stomach for repeat EGD today. Remains on Protonix drip. Awake, alert on room air oxygen. Hypertensive. Objective Vital Signs Date Time Temp Pulse Resp B/P (MAP) Pulse Ox O2 Delivery O2 Flow Rate FiO2 12/06/16 06:00 77 12 175/76 (109) 99 12/06/16 04:00 98.4 12/05/16 20:35 21 12/05/16 15:45 Room Air 12/05/16 15:26 2 Intake and Output 12/06/16 12/06/16 12/07/16 08:00 16:00 00:00 Output Total 1200 ml Balance -1200 ml Result Diagram: 12/06/16 0337 12/06/16 0337 Other Results Laboratory Tests Test 12/05/16 11:08 12/05/16 11:27 12/05/16 17:19 12/05/16 23:15 Nasal Screen MRSA (PCR) MRSA NOT DETECTED Lactic Acid Level 1.0 mmol/L Hemoglobin 10.1 GM/DL 9.9 GM/DL Hematocrit 29.9 % 29.2 % Test 12/06/16 03:37 White Blood Count 6.6 TH/MM3 Red Blood Count 3.40 MIL/MM3 Hemoglobin 9.6 GM/DL Hematocrit 31.7 % Mean Corpuscular Volume 93.1 FL Mean Corpuscular Hemoglobin 28.1 PG Mean Corpuscular Hemoglobin Concent 30.2 % Red Cell Distribution Width 18.4 % Platelet Count 119 TH/MM3 Mean Platelet Volume 8.5 FL Neutrophils (%) (Auto) 75.4 % Lymphocytes (%) (Auto) 14.9 % Monocytes (%) (Auto) 7.8 % Eosinophils (%) (Auto) 1.3 % Basophils (%) (Auto) 0.6 % Neutrophils # (Auto) 5.0 TH/MM3 Lymphocytes # (Auto) 1.0 TH/MM3 Monocytes # (Auto) 0.5 TH/MM3 Eosinophils # (Auto) 0.1 TH/MM3 Basophils # (Auto) 0.0 TH/MM3 CBC Comment DIFF FINAL Differential Comment Blood Urea Nitrogen 89 MG/DL Creatinine 2.48 MG/DL Random Glucose 135 MG/DL Total Protein 5.1 GM/DL Albumin 2.1 GM/DL Calcium Level 7.5 MG/DL Alkaline Phosphatase 46 U/L Aspartate Amino Transf (AST/SGOT) 9 U/L Alanine Aminotransferase (ALT/SGPT) 12 U/L Total Bilirubin 0.7 MG/DL Sodium Level 148 MEQ/L Potassium Level 4.1 MEQ/L Chloride Level 120 MEQ/L Carbon Dioxide Level 18.3 MEQ/L Anion Gap 10 MEQ/L Estimat Glomerular Filtration Rate 25 ML/MIN Imaging Last Impressions Renal Ultrasound 12/05/16 0000 Signed Impressions: Service Date/Time: Monday, December 05, 2016 16:10 - CONCLUSION: 1. Chronic parenchymal disease of the kidneys. 2. Suspected mass of the right upper pole. A abdomen MRI with and without contrast is recommended when clinically feasible. 3. No acute obstructive uropathy. There is a fairly large but nonobstructing stone of the left kidney. 4. Apparent splenomegaly, nonspecific. Jn Mock MD Head CT 12/05/16 0000 Signed Impressions: Service Date/Time: Monday, December 05, 2016 07:27 - CONCLUSION: 1. No acute abnormality seen. 2. Atrophy. 3. 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 4. Suspected small vessel ischemic change in the periventricular white matter. Jn Carrillo MD Chest X-Ray 12/05/16 0000 Signed Impressions: Service Date/Time: Monday, December 05, 2016 07:59 - CONCLUSION: 1. Resolution of previously seen edema. 2. Persistent increased density in the upper lungs bilaterally likely related to the first costochondral junction regions. This could be further evaluated with an apical lordotic chest x-ray or noncontrast CT examination. Jn Carrillo MD Objective Remarks GENERAL: Patient is 76 yo lying in bed in NAD SKIN: Warm and dry. HEAD: Normocephalic. EYES: No scleral icterus. No injection or drainage. NECK: Supple, trachea midline. No JVD or lymphadenopathy. CARDIOVASCULAR: Regular rate and rhythm without murmurs, gallops, or rubs. RESPIRATORY: Breath sounds equal bilaterally. No accessory muscle use. GASTROINTESTINAL: Abdomen soft, non-tender, nondistended. MUSCULOSKELETAL: No cyanosis, or edema. Neuro: Awake and alert.. A/P Assessment and Plan 1. Upper GI bleed. 2.Anemia 3. Acute on Chronic kidney disease. 4. Lactic acidemia... resolved 5. Cardiomyopathy with ejection fraction of 40%. 6. History of congestive heart failure. 7. History of COPD. 8. Diabetes mellitus. 9. Hyperlipidemia. 10. Hypertension. 11. History of TIA. Plan neuro: Monitor neuro status and avoid any sedatives. CT brain: negative for acute intracranial process. Pulm: Oxygen PRN to maintain sats>92%. Bronchodilators CV: Start Lopressor 25mg Q12 for BP control- Monitor HR and BP and maintain MAP > 65 mmHg. Lactic acid cleared 1.0 Echo from 11/29 showed EF 40%. : Monitor renal function, intakes and outputs and avoid nephrotoxins Renal function is improving with Cr: 2.48 from 3.27 Renal is following- Dr. Ramachandran. Change IVF 1/2NS@50ml/hr Renal US: Chronic parenchymal disease of the kidneys. Suspected mass of the right upper pole. No acute obstructive uropathy. Nonobstructing stone of the left kidney. Will need MRI abdomen w contrast once renal function is better for further eval of ? right renal mass GI: On Protonix drip. EGD today: Esophagus unremarkable and within normal limits, several small superficial ulcerations in the antrum coinciding with areas of fulguration of AVMs in the past with 2 fairly large antral ulcers both were clean based with no visible vessel no blood or bleeding was noted in the stomach. Normal Duodenum. s/p EGD 12/05: Normal esophagus, food residual in stomach . s/p EGD 11/[address] 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 Heme: Monitor CBC. s/p transfusion 4units PRBC Hgb 9.6 this morning H/H stable. No signs of recurrent bleeding. ID: Monitor for signs of infections( fevers and WBC Endo: SSI with Accu-Chek q. 4 hours for glycemic control. GI prophylaxis on Protonix drip and DVT prophylaxis with SCDs. Not on chemical anticoagulation prophylaxis given the underlying GI bleed and severe anemia on arrival. Will sign off and transfer care to [facility] Level 3 Keith Pizano MD Dec 06, 2016 07:57
[2016-12-06] MEDS ORDERED: SODIUM CHLOR 0.45% 1000 ML INJ 1,000 ML IV SCH (08:00)
[2016-12-06] MEDS: METOPROLOL TARTRATE 25 MG TAB PO SCH ×2 (08:57→20:28)
[2016-12-06] MEDS: DOCUSATE SODIUM 50 MG/SENNA 8.6 MG TAB PO SCH ×2 (08:57→20:28)
[2016-12-06] MEDS: hydrALAZINE HCL 20 MG/ML VIAL IV PUSH PRN ×2 (09:42→14:50)
[2016-12-06] MEDS: PANTOPRAZOLE INJ 80 MG in SODIUM CHLORIDE 0.9% INJ 100 ML IV SCH ×2 (10:44→20:46)
--- NOTE | 2016-12-06 11:11 | HHI.NPPN ---
Subjective Interval History patient had EGD yesterday, to have it again today. Review of Systems General Constitutional: Fatigue Gastrointestinal Gastrointestinal: Blood/Tarry Stools Objective Data Data 12/06/16 12/07/16 19:00 07:00 Intake Total 600 ml Balance 600 ml Intake IV Total 600 ml Vital Signs Date Time Temp Pulse Resp B/P (MAP) Pulse Ox O2 Delivery O2 Flow Rate FiO2 12/06/16 08:41 98 12/06/16 08:00 77 12/06/16 08:00 97.9 77 13 179/74 (109) 98 12/06/16 07:00 97.9 77 12 179/74 (109) 97 12/06/16 06:00 77 12 175/76 (109) 99 12/06/16 06:00 78 12/06/16 05:00 75 14 169/73 (105) 98 12/06/16 04:00 79 12/06/16 04:00 98.4 79 14 163/71 (101) 97 12/06/16 03:00 80 16 166/68 (100) 98 12/06/16 02:00 79 18 170/72 (104) 98 12/06/16 02:00 79 12/06/16 01:00 87 14 169/73 (105) 98 12/06/16 00:00 86 12/06/16 00:00 98.4 86 16 168/70 (102) 98 12/05/16 23:00 98.5 86 12 157/70 (99) 90 12/05/16 22:00 87 12/05/16 22:00 87 12/05/16 22:00 87 18 155/65 (95) 98 12/05/16 21:00 86 18 162/69 (100) 96 12/05/16 20:35 98 21 12/05/16 20:00 96 12/05/16 20:00 96 12/05/16 20:00 98.1 96 20 178/74 (108) 96 12/05/16 19:00 98.1 88 14 131/64 (86) 89 12/05/16 18:00 69 12/05/16 18:00 98.0 89 16 142/68 (92) 97 12/05/16 18:00 95 12/05/16 17:00 98.6 89 16 142/68 (92) 97 12/05/16 16:43 98 12/05/16 16:28 98.6 91 16 140/63 98 12/05/16 16:00 92 12/05/16 16:00 69 12/05/16 16:00 98.0 89 16 142/68 (92) 97 12/05/16 16:00 98.0 89 16 158/72 (100) 97 12/05/16 15:45 91 20 108/53 (71) 100 Room Air 12/05/16 15:30 92 20 106/55 (72) 100 Room Air 12/05/16 15:26 97.8 93 20 101/47 (65) 99 Nasal Cannula 2 12/05/16 15:00 98 12/05/16 15:00 98.0 89 16 158/72 (100) 97 12/05/16 14:00 69 12/05/16 14:00 98.0 89 16 158/72 (100) 97 12/05/16 14:00 69 12/05/16 13:00 69 12/05/16 13:00 69 12/05/16 13:00 98.0 99 16 176/67 (103) 97 12/05/16 12:29 98.0 95 16 137/61 94 12/05/16 12:00 98 12/05/16 12:00 98.0 63 16 137/67 (90) 97 12/05/16 12:00 69 12/05/16 11:05 -: 12/06/16 0337 12/06/16 0337 Physical Exam General Appearance: Comfortable, Malnourished Neck Neck Exam: Neck Supple Pulmonary Resp Exam: Clear Bilaterally, Breath Sounds Equal Cardiology CV Exam: Regular, Normal Sinus Rhythm Gastrointestinal/Abdomen GI Exam: Soft Integumentary Skin Exam: Intact Extremeties Extremities Exam: No Edema Neurologic Neuro Exam: Alert, Moving All Extremities Assessment/Plan Problem List: (1) Acute renal failure superimposed on stage 4 chronic kidney disease ICD Codes: N17.9 - Acute kidney failure, unspecified; N18.4 - Chronic kidney disease, stage 4 (severe) Plan: UA did not reveal significant proteinuria, may have underlying CKD due to nephrosclerosis. LOS due to renal hypoperfusion due to blood loss, anemia, and possibly intravascular volume depletion. Renal function has improved, GFR at baseline. Disproportionate increase in BUN suggests upper GI bleeding. No immediate need for dialysis, but will continue to monitor. (2) Anemia ICD Codes: D64.9 - Anemia, unspecified Status: Acute Plan: Blood loss anemia, GI has been consulted. On Protonix. Recent EGD had revealed AV malformation. Anemia improved after blood transfusion. GI on the case. (3) GI bleed ICD Codes: K92.2 - Gastrointestinal hemorrhage, unspecified Status: Acute Plan: See above. (4) Cardiomyopathy ICD Codes: I42.9 - Cardiomyopathy, unspecified Status: Acute Plan: Recent Echo revealed: The left ventricular systolic function is moderately reduced with an estimated ejection fraction in the range of 40. Normal left ventricular size. Moderate concentric left ventricular hypertrophy. No regional wall motion abnormalities are present. The left atrial size is [id number] dilated. Mild mitral valve regurgitation. Aortic valve sclerosis is present. Mild aortic valve regurgitation. There is trace tricuspid valve regurgitation. The estimated pulmonary arterial pressure is 64 mmHg. The inferior vena cava is dilated. Monitor fluid and electrolytes. Permanent Comment: Dr. Hollis - Atherosclerosis of [place] coronary artery. Last Edited By: José Miguel Black on May 29, 2015 16:04 (5) BPH (benign prostatic hyperplasia) ICD Codes: N40.0 - Enlarged prostate without lower urinary tract symptoms Status: Acute Plan: Continue Flomax. Has history of urinary retention, follows with urology. (6) DM2 (diabetes mellitus, type 2) ICD Codes: E11.9 - Type 2 diabetes mellitus without complications Status: Acute Plan: Continue insulin coverage, maintain blood glucose between 140 and 180. Lamont Ramachandran MD Dec 06, 2016 11:10
[2016-12-06] MEDS ORDERED: PROPOFOL 200 MG/20 ML AMP IV ONE (12:55)
--- NOTE | 2016-12-06 13:11 | PD.PROCEDR ---
GI Procedure REFERRING PHYSICIAN Dr. vann PROCEDURE PERFORMED EGD INDICATION FOR PROCEDURE Anemia, GI bleed, history of AVMs PROCEDURE: The procedure, risks and benefits were discussed with Mr. Masters and informed consent was obtained. Anesthesia sedated him with Diprivan. He was placed in the left lateral decubitus position. EGD: The Pentax videoscope was introduced through the oropharynx and advanced to the second portion of the duodenum under direct visualization. Retroflexion was performed in the stomach. FINDINGS: Esophagus this appeared to be unremarkable and within normal limits Stomach there was a small hiatal hernia, there were several small superficial ulcerations in the antrum coinciding with areas of fulguration of AVMs in the past with 2 fairly large antral ulcers both were clean based with no visible vessel no blood or bleeding was noted in the stomach the rest of the stomach was also unremarkable Duodenum this appeared to be unremarkable with normal limits ESTIMATED BLOOD LOSS: None SPECIMENS REMOVED: None COMPLICATIONS: None IMPRESSION: Hiatal hernia Antral ulcers PLAN: Continue with current supportive care Continue PPI Monitor labs and avoid NSAIDs and aspirin Avoid anticoagulation at this point Advance diet as tolerated EGD in 2 months transfuse if needed Carlos Ng MD Dec 06, 2016 13:11
[2016-12-06] MEDS ORDERED: DO NOT ADM ANY ANTICOAGULANT DRUGS PRN (13:12)
[2016-12-06 15:12] LABS: HEMATOCRIT 30.3 % (39.0-51.0); REVIEW FLAG FINAL
[2016-12-06] MEDS ORDERED: METOPROLOL TARTRATE 5 MG/5 ML VIAL IV PUSH ONE (16:00)
[2016-12-06] MEDS: SODIUM CHLORIDE 23.4% INJ 38.5 MEQ in WATER STERILE FOR INJ 1,000 ML IV SCH (19:00)
[2016-12-06] MEDS: ACETAMINOPHEN 325 MG TAB PO PRN (23:34)
[2016-12-07] VITALS (13 sets, daily range): BP systolic 156–188; BP diastolic 68–75; PULSE 80–95; RESP 18–20; TEMP 97.5–98.5; O2SAT 97–98
[2016-12-07] MEDS: hydrALAZINE HCL 20 MG/ML VIAL IV PUSH PRN ×2 (00:09→06:09)
[2016-12-07] MEDS: INSULIN NovoLIN REGULAR SUPPLEMENTAL SCALE SQ SCH ×2 (00:11→04:16)
[2016-12-07] MEDS: CHLORHEXIDINE GLUCONATE 2 % 1 PACK (2 CLOTHS) TOP SCH (04:00)
[2016-12-07] MEDS: RESP: ALBUTEROL 2.5 MG/IPRATROPIUM 0.5 MG NEB (SCH) INH ×4 (04:05→21:11)
[2016-12-07 06:37] LABS: AUTOMATED NEUTROPHIL # 5.1 TH/MM3 (1.8-7.7); BASOPHIL % 0.3 % (0.0-2.0); EOSINOPHIL # 0.1 TH/MM3 (0-0.4); EOSINOPHIL % 1.7 % (0.0-4.0); HEMATOCRIT 30.6 % (39.0-51.0); HEMO FLAGS DIFF FINAL; LYMPH % 16.2 % (9.0-44.0); LYMPHOCYTE # 1.1 TH/MM3 (1.0-4.8); MEAN CELL VOLUME 87.5 FL (80.0-100.0); MEAN CORPUSCULAR HEMOGLOBIN 29.1 PG (27.0-34.0); MEAN CORPUSCULAR HGB CONC 33.3 % (32.0-36.0); NEUT % 75.8 % (16.0-70.0); PLATELET COUNT 127 TH/MM3 (150-450); RED CELL DISTRIBUTION WIDTH 17.9 % (11.6-17.2); WHITE BLOOD COUNT 6.8 TH/MM3 (4.0-11.0)
[2016-12-07 06:53] LABS: BICARBONATE 23.5 MEQ/L (21.0-32.0); POTASSIUM 3.2 MEQ/L (3.5-5.1)
[2016-12-07] MEDS ORDERED: LABETALOL HCL 100 MG/20 ML VIAL IV PUSH PRN (08:15)
[2016-12-07] MEDS: DOCUSATE SODIUM 50 MG/SENNA 8.6 MG TAB PO SCH ×2 (08:22→21:08)
[2016-12-07] MEDS ORDERED: GLUCAGON 1 MG/ML VIAL OTHER PRN (08:30)
[2016-12-07] MEDS ORDERED: DEXTROSE 50% IN WATER 50 ML VIAL(D50) IV PRN (08:30)
[2016-12-07] MEDS ORDERED: LABETALOL HCL 100 MG/20 ML VIAL IV PUSH ONE (08:45)
[2016-12-07] MEDS: PANTOPRAZOLE SOD 40 MG DELAYED RELEASE TAB PO SCH ×2 (08:53→21:08)
[2016-12-07] MEDS: NIFEdipine 60 MG SUSTAINED RELEASE TAB PO SCH (08:53)
--- NOTE | 2016-12-07 08:58 | HHI.PR ---
Subjective Remarks Follow-up for anemia likely due to GI blood loss, hypertension, acute kidney injury. Patient is resting in bed, denies any acute concerns. Denies any chest pain, shortness of breath, fever or chills. His blood pressure has been high this morning - with systolic in the 200 range. Objective Vitals Vital Signs Date Time Temp Pulse Resp B/P (MAP) Pulse Ox O2 Delivery O2 Flow Rate FiO2 12/07/16 06:00 87 12/07/16 04:00 81 12/07/16 04:00 98.1 81 18 188/73 (111) 97 12/07/16 02:00 83 12/07/16 00:34 18 12/07/16 00:00 98.5 80 18 175/75 (108) 98 12/07/16 00:00 80 12/06/16 22:00 83 12/06/16 20:06 100 21 12/06/16 20:00 80 12/06/16 20:00 98.1 80 20 167/74 (105) 99 12/06/16 18:00 80 12/06/16 16:00 97.7 82 20 191/79 (116) 100 12/06/16 16:00 81 12/06/16 13:45 97.7 79 14 154/70 (98) 98 Nasal Cannula 2 12/06/16 13:30 74 14 157/69 (98) 98 Nasal Cannula 2 12/06/16 13:15 71 14 145/64 (91) 98 Nasal Cannula 2 12/06/16 13:12 97.7 72 14 141/63 (89) 98 Nasal Cannula 2 12/06/16 10:00 73 I/O 12/06/16 12/06/16 12/06/16 12/07/16 12/07/16 12/07/16 07:00 15:00 23:00 07:00 15:00 23:00 Intake Total 800 ml 1060 ml 480 ml Output Total 1200 ml 1050 ml 500 ml Balance -1200 ml 800 ml 10 ml -20 ml Intake Oral 960 ml 480 ml IV Total 600 ml 100 ml Other 200 ml Output Urine Total 1200 ml 1050 ml 500 ml Stool Total 0 ml # Voids 1 2 # Bowel Movements 0 0 Result Diagram: 12/07/16 0536 12/07/16 0536 Imaging Last Impressions Renal Ultrasound 12/05/16 0000 Signed Impressions: Service Date/Time: Monday, December 05, 2016 16:10 - CONCLUSION: 1. Chronic parenchymal disease of the kidneys. 2. Suspected mass of the right upper pole. A abdomen MRI with and without contrast is recommended when clinically feasible. 3. No acute obstructive uropathy. There is a fairly large but nonobstructing stone of the left kidney. 4. Apparent splenomegaly, nonspecific. Jn Mock MD Head CT 12/05/16 0000 Signed Impressions: Service Date/Time: Monday, December 05, 2016 07:27 - CONCLUSION: 1. No acute abnormality seen. 2. Atrophy. 3. 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 4. Suspected small vessel ischemic change in the periventricular white matter. Jn Carrillo MD Chest X-Ray 12/05/16 0000 Signed Impressions: Service Date/Time: Monday, December 05, 2016 07:59 - CONCLUSION: 1. Resolution of previously seen edema. 2. Persistent increased density in the upper lungs bilaterally likely related to the first costochondral junction regions. This could be further evaluated with an apical lordotic chest x-ray or noncontrast CT examination. Jn Carrillo MD Objective Remarks GENERAL: Alert, NAD. SKIN: Warm and dry. HEAD: Normocephalic. EYES: No scleral icterus. No injection or drainage. NECK: Supple, trachea midline. No JVD or lymphadenopathy. CARDIOVASCULAR: Regular rate and rhythm without murmurs, gallops, or rubs. RESPIRATORY: Breath sounds equal bilaterally. No accessory muscle use. GASTROINTESTINAL: Abdomen soft, non-tender, nondistended. MUSCULOSKELETAL: No cyanosis, or edema. BACK: Nontender without obvious deformity. No CVA tenderness. Procedures EGD on 12/05/2016 and on 12/06/2016. A/P Problem List: (1) Accelerated hypertension ICD Code: I10 - Essential (primary) hypertension (2) Anemia due to GI blood loss ICD Code: D50.0 - Iron deficiency anemia secondary to blood loss (chronic) (3) CKD (chronic kidney disease) stage 4, GFR 15-29 ml/min ICD Code: N18.4 - Chronic kidney disease, stage 4 (severe) Status: Acute Assessment and Plan Mr. Masters is a 76-year-old male with a history of GI bleed, GI AVM, hyperlipidemia, COPD, diabetes mellitus who presented to the emergency department due to dizziness and near syncope while using toilet on 12/05/2016. He reported large amount of melena and bright red blood for 2 days prior to this admission. On arrival patient was tachycardiac with hemoglobin 5.4. He received 4 units of PRBCs. He underwent to EGD studies which did not indicate any active bleeding site. - Acute symptomatic anemia due to GI blood loss - History of gastrointestinal AVM - Discontinue Protonix drip and start Protonix 40 mg by mouth twice a day. - Hemoglobin 10.2, hematocrit 30.6 on 12/07/2016. - Accelerated hypertension - Discontinue hydralazine and metoprolol. - We'll provide labetalol 20 mg IV once and then labetalol 10 mg every 6 hours when necessary. - Start patient on nifedipine 60 mg daily. - Acute kidney injury - Chronic kidney disease stage III - Mild hypernatremia - Baseline creatinine is about 2.0. On admission patient's creatinine was 3.27 likely due to volume reduction. - Nephrology is following. Creatinine is 1.94 on 12/07/2016. - Patient is currently on 1/ normal saline at 42 cc per hour per nephrology. - Consider D5W to correct hypernatremia. - If blood pressure is improved, patient can be transferred to the med-surg floor. Full code. Venus. Catalino Carr DO Dec 07, 2016 8:58 am
--- NOTE | 2016-12-07 09:39 | HHI.GIFU ---
Subjective Remarks Resting in bed. Tolerating diet. No active bleeding. No n/v. No abdominal pain. (Alyssa Ramírez) Objective Vitals I&O Vital Signs Date Time Temp Pulse Resp B/P (MAP) Pulse Ox O2 Delivery O2 Flow Rate FiO2 12/07/16 06:00 87 12/07/16 04:00 81 12/07/16 04:00 98.1 81 18 188/73 (111) 97 12/07/16 02:00 83 12/07/16 00:34 18 12/07/16 00:00 98.5 80 18 175/75 (108) 98 12/07/16 00:00 80 12/06/16 22:00 83 12/06/16 20:06 100 21 12/06/16 20:00 80 12/06/16 20:00 98.1 80 20 167/74 (105) 99 12/06/16 18:00 80 12/06/16 16:00 97.7 82 20 191/79 (116) 100 12/06/16 16:00 81 12/06/16 13:45 97.7 79 14 154/70 (98) 98 Nasal Cannula 2 12/06/16 13:30 74 14 157/69 (98) 98 Nasal Cannula 2 12/06/16 13:15 71 14 145/64 (91) 98 Nasal Cannula 2 12/06/16 13:12 97.7 72 14 141/63 (89) 98 Nasal Cannula 2 12/06/16 10:00 73 I/O 12/06/16 12/06/16 12/06/16 12/07/16 12/07/16 12/07/16 07:00 15:00 23:00 07:00 15:00 23:00 Intake Total 800 ml 1060 ml 480 ml Output Total 1200 ml 1050 ml 500 ml Balance -1200 ml 800 ml 10 ml -20 ml Intake Oral 960 ml 480 ml IV Total 600 ml 100 ml Other 200 ml Output Urine Total 1200 ml 1050 ml 500 ml Stool Total 0 ml # Voids 1 2 # Bowel Movements 0 0 Laboratory Laboratory Tests Test 12/06/16 14:39 12/07/16 05:36 Hemoglobin 9.8 10.2 Hematocrit 30.3 30.6 White Blood Count 6.8 Red Blood Count 3.50 Mean Corpuscular Volume 87.5 Mean Corpuscular Hemoglobin 29.1 Mean Corpuscular Hemoglobin Concent 33.3 Red Cell Distribution Width 17.9 Platelet Count 127 Mean Platelet Volume 8.9 Neutrophils (%) (Auto) 75.8 Lymphocytes (%) (Auto) 16.2 Monocytes (%) (Auto) 6.0 Eosinophils (%) (Auto) 1.7 Basophils (%) (Auto) 0.3 Neutrophils # (Auto) 5.1 Lymphocytes # (Auto) 1.1 Monocytes # (Auto) 0.4 Eosinophils # (Auto) 0.1 Basophils # (Auto) 0.0 CBC Comment DIFF FINAL Differential Comment Blood Urea Nitrogen 52 Creatinine 1.94 Random Glucose 137 Calcium Level 7.9 Sodium Level 149 Potassium Level 3.2 Chloride Level 118 Carbon Dioxide Level 23.5 Anion Gap 8 Estimat Glomerular Filtration Rate 34 Imaging Last Impressions Renal Ultrasound 12/05/16 0000 Signed Impressions: Service Date/Time: Monday, December 05, 2016 16:10 - CONCLUSION: 1. Chronic parenchymal disease of the kidneys. 2. Suspected mass of the right upper pole. A abdomen MRI with and without contrast is recommended when clinically feasible. 3. No acute obstructive uropathy. There is a fairly large but nonobstructing stone of the left kidney. 4. Apparent splenomegaly, nonspecific. Jn Mock MD Head CT 12/05/16 0000 Signed Impressions: Service Date/Time: Monday, December 05, 2016 07:27 - CONCLUSION: 1. No acute abnormality seen. 2. Atrophy. 3. 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 4. Suspected small vessel ischemic change in the periventricular white matter. Jn Carrillo MD Chest X-Ray 12/05/16 0000 Signed Impressions: Service Date/Time: Monday, December 05, 2016 07:59 - CONCLUSION: 1. Resolution of previously seen edema. 2. Persistent increased density in the upper lungs bilaterally likely related to the first costochondral junction regions. This could be further evaluated with an apical lordotic chest x-ray or noncontrast CT examination. Jn Carrillo MD Physical Exam HEENT: Normocephalic; atraumatic; no jaundice. CHEST: Resp even/unlabored, bases diminished CARDIAC: RRR ABDOMEN: Soft, nondistended, nontender; no hepatosplenomegaly; bowel sounds are present in all four quadrants. EXTREMITIES: No clubbing, cyanosis, or edema. SKIN: Normal; no rash; no jaundice. TURRET LATHE OPERATOR: No focal deficits; alert and oriented times three. (Alyssa Ramírez) Assessment and Plan Plan ASSESSMENT: - Upper GIB with black tarry stool and red bloody stools. HH 5.4/17.4 on admission. EGD on (11/30) by Dr. 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 Patient was discharged home with stable HH and then returned with black tarry stools/bloody stools with severe anemia. EGD ( 12/05)---> The esophagus appeared normal, food residue, retroflexed views revealed no abnoramlities. Rpt. EGD (12/06/16)---> Hiatal hernia, Antral Ulcers. PPI. HH 10.2/30.6. No active bleeding at this time. - Antral ulcers. PPI - Recent hx of AVMs, s/p ablation. PPI - Anemia, acute blood loss. S/P 5 units PRBC. HH 10.2/30.6. - Acute on chronic kidney disease, HTN per attending. PLAN: - JAMI - Cont. PPI - Monitor HH - Transfuse as necessary - Supportive care - Avoid NSAIDS, ASA - Avoid Anticoagulation at this point - EGD in 2 months - Further recommendations to follow based on results of above. - Patient seen and examined by Dr. Ng and myself and this note is written on his behalf. (Alyssa Ramírez) Physician Comments Patient seen and examined Agree with above Continue with current supportive care Monitor labs Not much to add from a GI perspective We will sign off Patient follow-up with GI post discharge (Carlos Ng MD) Alyssa Ramírez Dec 07, 2016 09:39 Carlos Ng MD Dec 07, 2016 23:23
[2016-12-07] MEDS: INSULIN ASPART SUPPLEMENTAL SCALE SQ SCH ×3 (12:00→21:00)
[2016-12-07] MEDS ORDERED: CHLOROTHIAZIDE SOD 500 MG VIAL IV ONE (12:00)
[2016-12-07] MEDS: SODIUM CHLORIDE 23.4% INJ 38.5 MEQ in WATER STERILE FOR INJ 1,000 ML IV SCH (14:49)
--- NOTE | 2016-12-07 16:14 | HHI.NPPN ---
Subjective Interval History appears weak, no complaints. Renal function has improved. is at the bedside. Review of Systems General Constitutional: Fatigue Gastrointestinal Gastrointestinal: Blood/Tarry Stools Objective Data Data 12/07/16 12/08/16 19:00 07:00 Intake Total 1100 ml Balance 1100 ml IV Total 1100 ml Vital Signs Date Time Temp Pulse Resp B/P (MAP) Pulse Ox O2 Delivery O2 Flow Rate FiO2 12/07/16 08:00 97.5 12/07/16 06:00 87 12/07/16 04:00 81 12/07/16 04:00 98.1 81 18 188/73 (111) 97 12/07/16 02:00 83 12/07/16 00:34 18 12/07/16 00:00 98.5 80 18 175/75 (108) 98 12/07/16 00:00 80 12/06/16 22:00 83 12/06/16 20:06 100 21 12/06/16 20:00 80 12/06/16 20:00 98.1 80 20 167/74 (105) 99 12/06/16 18:00 80 -: 12/07/16 0536 12/07/16 0536 Physical Exam General Appearance: Comfortable, Malnourished Neck Neck Exam: Neck Supple Pulmonary Resp Exam: Clear Bilaterally, Breath Sounds Equal Cardiology CV Exam: Regular, Normal Sinus Rhythm Gastrointestinal/Abdomen GI Exam: Soft Integumentary Skin Exam: Intact Extremeties Extremities Exam: No Edema Neurologic Neuro Exam: Alert, Moving All Extremities Assessment/Plan Problem List: (1) Acute renal failure superimposed on stage 4 chronic kidney disease ICD Codes: N17.9 - Acute kidney failure, unspecified; N18.4 - Chronic kidney disease, stage 4 (severe) Plan: UA did not reveal significant proteinuria, may have underlying CKD due to nephrosclerosis. LOS due to renal hypoperfusion due to blood loss, anemia, and possibly intravascular volume depletion. Renal function has improved, GFR at baseline. . (2) Anemia ICD Codes: D64.9 - Anemia, unspecified Status: Acute Plan: Blood loss anemia, GI has been consulted. On Protonix. Recent EGD had revealed AV malformation. Anemia improved after blood transfusion. GI on the case. s/p repeat EGD, no active bleeding found. (3) GI bleed ICD Codes: K92.2 - Gastrointestinal hemorrhage, unspecified Status: Acute Plan: See above. (4) Cardiomyopathy ICD Codes: I42.9 - Cardiomyopathy, unspecified Status: Acute Plan: Recent Echo revealed: The left ventricular systolic function is moderately reduced with an estimated ejection fraction in the range of 40. Normal left ventricular size. Moderate concentric left ventricular hypertrophy. No regional wall motion abnormalities are present. The left atrial size is dhit-hf-swfcuqfgap dilated. Mild mitral valve regurgitation. Aortic valve sclerosis is present. Mild aortic valve regurgitation. There is trace tricuspid valve regurgitation. The estimated pulmonary arterial pressure is 64 mmHg. The inferior vena cava is dilated. Monitor fluid and electrolytes. Permanent Comment: Dr. Hollis - Atherosclerosis of [place] coronary artery. Last Edited By: José Miguel Black on May 29, 2015 16:04 (5) BPH (benign prostatic hyperplasia) ICD Codes: N40.0 - Enlarged prostate without lower urinary tract symptoms Status: Acute Plan: Continue Flomax. Has history of urinary retention, follows with urology. (6) DM2 (diabetes mellitus, type 2) ICD Codes: E11.9 - Type 2 diabetes mellitus without complications Status: Acute Plan: Continue insulin coverage, maintain blood glucose between 140 and 180. (7) Hypernatremia ICD Codes: E87.0 - Hyperosmolality and hypernatremia Plan: I have started 1/4NS. Patient was advised to drink plenty of water. One dose of Diuril today. Lamont Ramachandran MD Dec 07, 2016 16:14
[2016-12-08] VITALS (14 sets, daily range): BP systolic 125–186; BP diastolic 68–87; PULSE 83–93; RESP 16–18; TEMP 96.9–98.4; O2SAT 96–100
[2016-12-08] MEDS: CHLORHEXIDINE GLUCONATE 2 % 1 PACK (2 CLOTHS) TOP SCH (03:56)
[2016-12-08] MEDS: RESP: ALBUTEROL 2.5 MG/IPRATROPIUM 0.5 MG NEB (SCH) INH ×4 (04:00→21:00)
[2016-12-08 06:13] LABS: AUTOMATED NEUTROPHIL # 5.7 TH/MM3 (1.8-7.7); BASOPHIL % 0.2 % (0.0-2.0); EOSINOPHIL # 0.2 TH/MM3 (0-0.4); HEMATOCRIT 30.3 % (39.0-51.0); HEMO FLAGS DIFF FINAL; LYMPH % 17.9 % (9.0-44.0); LYMPHOCYTE # 1.4 TH/MM3 (1.0-4.8); MEAN CELL VOLUME 87.6 FL (80.0-100.0); MEAN CORPUSCULAR HEMOGLOBIN 29.2 PG (27.0-34.0); MEAN CORPUSCULAR HGB CONC 33.3 % (32.0-36.0); MONO % 4.8 % (0.0-8.0); NEUT % 75.1 % (16.0-70.0); PLATELET COUNT 146 TH/MM3 (150-450); RED BLOOD COUNT 3.46 MIL/MM3 (4.50-5.90); RED CELL DISTRIBUTION WIDTH 17.8 % (11.6-17.2); WHITE BLOOD COUNT 7.6 TH/MM3 (4.0-11.0)
[2016-12-08 06:34] LABS: BICARBONATE 25.4 MEQ/L (21.0-32.0); POTASSIUM 3.1 MEQ/L (3.5-5.1)
[2016-12-08] MEDS: DOCUSATE SODIUM 50 MG/SENNA 8.6 MG TAB PO SCH ×2 (07:54→21:51)
[2016-12-08] MEDS: INSULIN ASPART SUPPLEMENTAL SCALE SQ SCH ×4 (07:55→21:00)
[2016-12-08] MEDS: NIFEdipine 60 MG SUSTAINED RELEASE TAB PO SCH (07:55)
[2016-12-08] MEDS: PANTOPRAZOLE SOD 40 MG DELAYED RELEASE TAB PO SCH ×2 (07:55→21:51)
--- NOTE | 2016-12-08 08:44 | HHI.PR ---
Subjective Remarks Follow-up for anemia likely due to GI blood loss, hypertension, acute kidney injury. Patient is resting in bed, no chest pain, shortness of breath, fever, chills. Objective Vitals Vital Signs Date Time Temp Pulse Resp B/P (MAP) Pulse Ox O2 Delivery O2 Flow Rate FiO2 12/08/16 06:00 87 12/08/16 04:19 100 12/08/16 04:00 97.5 85 16 175/75 (108) 99 12/08/16 04:00 85 12/08/16 02:00 87 12/08/16 00:37 98 12/08/16 00:00 92 12/08/16 00:00 98.2 92 18 162/68 (99) 97 12/07/16 22:00 95 12/07/16 21:10 98 12/07/16 20:00 98.2 84 18 156/68 (97) 97 12/07/16 20:00 84 12/07/16 18:00 85 12/07/16 16:00 84 12/07/16 16:00 97.9 84 20 169/72 (104) 98 12/07/16 14:00 81 12/07/16 12:00 97.9 87 18 174/74 (107) 97 12/07/16 12:00 87 12/07/16 10:00 84 I/O 12/07/16 12/07/16 12/07/16 12/08/16 12/08/16 12/08/16 07:00 15:00 23:00 07:00 15:00 23:00 Intake Total 480 ml 1100 ml 1200 ml 720 ml Output Total 500 ml 1600 ml 775 ml Balance -20 ml 1100 ml -400 ml -55 ml Intake Oral 480 ml 1200 ml 720 ml IV Total 1100 ml Output Urine Total 500 ml 1600 ml 775 ml # Voids 2 # Bowel Movements 0 0 Result Diagram: 12/08/16 0500 12/08/16 0500 Imaging Last Impressions Renal Ultrasound 12/05/16 0000 Signed Impressions: Service Date/Time: Monday, December 05, 2016 16:10 - CONCLUSION: 1. Chronic parenchymal disease of the kidneys. 2. Suspected mass of the right upper pole. A abdomen MRI with and without contrast is recommended when clinically feasible. 3. No acute obstructive uropathy. There is a fairly large but nonobstructing stone of the left kidney. 4. Apparent splenomegaly, nonspecific. Jn Mock MD Head CT 12/05/16 0000 Signed Impressions: Service Date/Time: Monday, December 05, 2016 07:27 - CONCLUSION: 1. No acute abnormality seen. 2. Atrophy. 3. 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 4. Suspected small vessel ischemic change in the periventricular white matter. Jn Carrillo MD Chest X-Ray 12/05/16 0000 Signed Impressions: Service Date/Time: Monday, December 05, 2016 07:59 - CONCLUSION: 1. Resolution of previously seen edema. 2. Persistent increased density in the upper lungs bilaterally likely related to the first costochondral junction regions. This could be further evaluated with an apical lordotic chest x-ray or noncontrast CT examination. Jn Carrillo MD Objective Remarks GENERAL: Alert, NAD. SKIN: Warm and dry. HEAD: Normocephalic. EYES: No scleral icterus. No injection or drainage. NECK: Supple, trachea midline. No JVD or lymphadenopathy. CARDIOVASCULAR: Regular rate and rhythm without murmurs, gallops, or rubs. RESPIRATORY: Breath sounds equal bilaterally. No accessory muscle use. GASTROINTESTINAL: Abdomen soft, non-tender, nondistended. MUSCULOSKELETAL: No cyanosis, or edema. BACK: Nontender without obvious deformity. No CVA tenderness. Procedures EGD on 12/05/2016 and on 12/06/2016. A/P Problem List: (1) Accelerated hypertension ICD Code: I10 - Essential (primary) hypertension (2) Anemia due to GI blood loss ICD Code: D50.0 - Iron deficiency anemia secondary to blood loss (chronic) (3) CKD (chronic kidney disease) stage 4, GFR 15-29 ml/min ICD Code: N18.4 - Chronic kidney disease, stage 4 (severe) Status: Acute Assessment and Plan Mr. Masters is a 76-year-old male with a history of GI bleed, GI AVM, hyperlipidemia, COPD, diabetes mellitus who presented to the emergency department due to dizziness and near syncope while using toilet on 12/05/2016. He reported large amount of melena and bright red blood for 2 days prior to this admission. On arrival patient was tachycardiac with hemoglobin 5.4. He received 4 units of PRBCs. He underwent to EGD studies which did not indicate any active bleeding site. - Acute symptomatic anemia due to GI blood loss - History of gastrointestinal AVM - Discontinue Protonix drip and start Protonix 40 mg by mouth twice a day. - Hemoglobin 10.1, hematocrit 30.3 on 12/08/2016. - Accelerated hypertension - Continue nifedipine 60 mg daily, Labetalol IV PRN. - Acute kidney injury - Probable right renal mass - Chronic kidney disease stage III - Mild hypernatremia - Improved. Na 149 --> 145. - Mild hypokalemia - K+ 3.1. Mg was 2.2. Will replace potassium. - On admission patient's creatinine was 3.27 likely due to volume reduction. - Nephrology is following. Creatinine is 1.70 on 12/08/2016. - Nephrology recommends outpatient follow up with Dr. Mcmullen with regards to renal mass. - Patient can be transferred to the med-surg floor. - Will obtain a PT consult. Full code. Venus. Catalino Carr DO Dec 08, 2016 8:44 am
[2016-12-08] MEDS: POTASSIUM CHLOR 20 MEQ PREMIX 100 ML IV SCH ×2 (08:48→15:13)
--- NOTE | 2016-12-08 10:40 | HHI.NPPN ---
Subjective Renal Failure: Acute Interval History Renal function improving. He is reporting some itching. at bedside. (Sridevi Moss) Review of Systems General Constitutional: Fatigue (Sridevi Moss) Eyes Eyes: Itching (Sridevi Moss) Gastrointestinal Gastrointestinal: Blood/Tarry Stools (Sridevi Moss) Objective Data Data Vital Signs Date Time Temp Pulse Resp B/P (MAP) Pulse Ox O2 Delivery O2 Flow Rate FiO2 12/08/16 10:04 97 12/08/16 08:00 96.9 88 17 186/77 (113) 98 12/08/16 08:00 88 12/08/16 06:00 87 12/08/16 04:19 100 12/08/16 04:00 97.5 85 16 175/75 (108) 99 12/08/16 04:00 85 12/08/16 02:00 87 12/08/16 00:37 98 12/08/16 00:00 92 12/08/16 00:00 98.2 92 18 162/68 (99) 97 12/07/16 22:00 95 12/07/16 21:10 98 12/07/16 20:00 98.2 84 18 156/68 (97) 97 12/07/16 20:00 84 12/07/16 18:00 85 12/07/16 16:00 84 12/07/16 16:00 97.9 84 20 169/72 (104) 98 12/07/16 14:00 81 12/07/16 12:00 97.9 87 18 174/74 (107) 97 12/07/16 12:00 87 (Sridevi Moss) -: 12/08/16 0500 12/08/16 0500 Imaging Last Impressions Renal Ultrasound 12/05/16 0000 Signed Impressions: Service Date/Time: Monday, December 05, 2016 16:10 - CONCLUSION: 1. Chronic parenchymal disease of the kidneys. 2. Suspected mass of the right upper pole. A abdomen MRI with and without contrast is recommended when clinically feasible. 3. No acute obstructive uropathy. There is a fairly large but nonobstructing stone of the left kidney. 4. Apparent splenomegaly, nonspecific. Jn Mock MD Head CT 12/05/16 0000 Signed Impressions: Service Date/Time: Monday, December 05, 2016 07:27 - CONCLUSION: 1. No acute abnormality seen. 2. Atrophy. 3. 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 4. Suspected small vessel ischemic change in the periventricular white matter. Jn Carrillo MD Chest X-Ray 12/05/16 0000 Signed Impressions: Service Date/Time: Monday, December 05, 2016 07:59 - CONCLUSION: 1. Resolution of previously seen edema. 2. Persistent increased density in the upper lungs bilaterally likely related to the first costochondral junction regions. This could be further evaluated with an apical lordotic chest x-ray or noncontrast CT examination. Jn Carrillo MD (Sridevi Moss B. WAREHOUSE TECHNICIAN) Physical Exam General Appearance: Well Developed, No Acute Distress, Comfortable, Malnourished (Sridevi Moss B. WAREHOUSE TECHNICIAN) Neck Neck Exam: Neck Supple (Sridevi Moss B. WAREHOUSE TECHNICIAN) Pulmonary Resp Exam: Clear Bilaterally, Breath Sounds Equal (Sridevi Moss B. WAREHOUSE TECHNICIAN) Cardiology CV Exam: Regular, Normal Sinus Rhythm, Good Perfusion (Sridevi Moss B. WAREHOUSE TECHNICIAN) Gastrointestinal/Abdomen GI Exam: Soft, Non-Tender, Bowel Sounds Present (Sridevi Moss B. WAREHOUSE TECHNICIAN) Musculoskeletal MS Exam: Normal Tone, Good Strength (Sridevi Moss B. WAREHOUSE TECHNICIAN) Integumentary Skin Exam: Clear, Warm, Dry, Intact (Sridevi Moss B. WAREHOUSE TECHNICIAN) Extremeties Extremities Exam: No Edema, Pedal Pulses Palpable (Sridevi Moss B. WAREHOUSE TECHNICIAN) Neurologic Neuro Exam: Alert, Awake, Oriented, Speech Clear, Moving All Extremities (Sridevi Moss B. WAREHOUSE TECHNICIAN) Psychiatric Psych Exam: Appropriate Responses (Sridevi Moss BRobert BUCHANANP) Assessment/Plan Discussed Condition With: Patient, Spouse Electrolyte Assessment: Hypernatremia Problem List: (1) Acute renal failure superimposed on stage 4 chronic kidney disease ICD Codes: N17.9 - Acute kidney failure, unspecified; N18.4 - Chronic kidney disease, stage 4 (severe) Plan: Renal function improved. He likely has underlying CKD due to nephrosclerosis. Follows with Dr. Mcmullen outpatient. LOS due to renal hypoperfusion due to blood loss, anemia, and possibly intravascular volume depletion. Renal function has improved, GFR is at baseline. Stop IVF Renal US revealed a stone on the left and a mass on the right. The is concerned about the mass in his kidney. He may need MRI with and without contrast to evaluate. Advised to discuss with Dr. Mcmullen after discharge due to risk of LOS with contrast administration. (2) Hypernatremia ICD Codes: E87.0 - Hyperosmolality and hypernatremia Plan: Improved, he is able to drink water Stop 1/4 NS. Monitor (3) Anemia ICD Codes: D64.9 - Anemia, unspecified Status: Acute Plan: Blood loss anemia, Anemia improved after blood transfusion. GI has evaluated. 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 s/p repeat EGD, no active bleeding found. On Protonix. (4) GI bleed ICD Codes: K92.2 - Gastrointestinal hemorrhage, unspecified Status: Acute Plan: See above. (5) Cardiomyopathy ICD Codes: I42.9 - Cardiomyopathy, unspecified Status: Acute Plan: Recent Echo revealed: The left ventricular systolic function is moderately reduced with an estimated ejection fraction in the range of 40. Normal left ventricular size. Moderate concentric left ventricular hypertrophy. No regional wall motion abnormalities are present. The left atrial size is zomo-ha-ghrewypoks dilated. Mild mitral valve regurgitation. Aortic valve sclerosis is present. Mild aortic valve regurgitation. There is trace tricuspid valve regurgitation. The estimated pulmonary arterial pressure is 64 mmHg. The inferior vena cava is dilated. Monitor fluid volume status He was given a dose of Diuril yesterday. Permanent Comment: Dr. Hollis - Atherosclerosis of [place] coronary artery. Last Edited By: José Miguel Black on May 29, 2015 16:04 (6) BPH (benign prostatic hyperplasia) ICD Codes: N40.0 - Enlarged prostate without lower urinary tract symptoms Status: Acute Plan: Continue Flomax. Has history of urinary retention, follows with urology. (7) DM2 (diabetes mellitus, type 2) ICD Codes: E11.9 - Type 2 diabetes mellitus without complications Status: Acute Plan: Continue insulin coverage, maintain blood glucose between 140 and 180. (Sridevi Moss) Problem List: (1) Acute renal failure superimposed on stage 4 chronic kidney disease ICD Codes: N17.9 - Acute kidney failure, unspecified; N18.4 - Chronic kidney disease, stage 4 (severe) Plan: Renal function improved. He likely has underlying CKD due to nephrosclerosis. Follows with Dr. Mcmullen outpatient. LOS due to renal hypoperfusion due to blood loss, anemia, and possibly intravascular volume depletion. Renal function has improved, GFR is at baseline. Stop IVF Renal US revealed a stone on the left and a mass on the right. The is concerned about the mass in his kidney. He may need MRI with and without contrast to evaluate. Advised to discuss with Dr. Mcmullen after discharge due to risk of LOS with contrast administration. (2) Hypernatremia ICD Codes: E87.0 - Hyperosmolality and hypernatremia Plan: Improved, he is able to drink water Stop 1/4 NS. Monitor (3) Anemia ICD Codes: D64.9 - Anemia, unspecified Status: Acute Plan: Blood loss anemia, Anemia improved after blood transfusion. GI has evaluated. 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 s/p repeat EGD, no active bleeding found. On Protonix. (4) GI bleed ICD Codes: K92.2 - Gastrointestinal hemorrhage, unspecified Status: Acute Plan: See above. (5) Cardiomyopathy ICD Codes: I42.9 - Cardiomyopathy, unspecified Status: Acute Plan: Recent Echo revealed: The left ventricular systolic function is moderately reduced with an estimated ejection fraction in the range of 40. Normal left ventricular size. Moderate concentric left ventricular hypertrophy. No regional wall motion abnormalities are present. The left atrial size is slah-oz-hypfgcuyzq dilated. Mild mitral valve regurgitation. Aortic valve sclerosis is present. Mild aortic valve regurgitation. There is trace tricuspid valve regurgitation. The estimated pulmonary arterial pressure is 64 mmHg. The inferior vena cava is dilated. Monitor fluid volume status He was given a dose of Diuril yesterday. Permanent Comment: Dr. Hollis - Atherosclerosis of [place] coronary artery. Last Edited By: José Miguel Black on May 29, 2015 16:04 (6) BPH (benign prostatic hyperplasia) ICD Codes: N40.0 - Enlarged prostate without lower urinary tract symptoms Status: Acute Plan: Continue Flomax. Has history of urinary retention, follows with urology. (7) DM2 (diabetes mellitus, type 2) ICD Codes: E11.9 - Type 2 diabetes mellitus without complications Status: Acute Plan: Continue insulin coverage, maintain blood glucose between 140 and 180. Plan patient was seen and examined. Renal function has improved. is concerned about the right renal mass. MRI with contrast is recommended. Gadolinium does not cause LOS. It is contraindicated if GFR is less than 30 because of possibility of NSF. Consider Urology evaluation. Patient has been advised to followup with his PCP and business intelligence reporting analyst after discharge for additional evaluation. He verbalized his understanding. Patient's was present during the conversation and she verbalized her understanding as well. (Lamont Ramachandran MD) Sridevi Moss [facility] Dec 08, 2016 10:40 Lamont Ramachandran MD Dec 09, 2016 08:41
[2016-12-08] MEDS: POTASSIUM CHLORIDE 10 MEQ CONTROLLED RELEASE TAB PO SCH ×2 (14:26→21:50)
[2016-12-08] MEDS: ACETAMINOPHEN 325 MG TAB PO PRN (18:14)
--- NOTE | 2016-12-08 18:27 | RADRPT ---
EXAM DATE/TIME: 12/08/2016 17:26 [facility] COMPARISON: No previous studies available for comparison. INDICATIONS : Neck pain. RADIATION DOSE: 26.46 CTDIvol (mGy) MEDICAL HISTORY : Cardiovascular disease. Hypertension. Renal insufficiency. SURGICAL HISTORY : None. ENCOUNTER: Initial ACUITY: 1 day PAIN SCORE: 10/10 LOCATION: neck TECHNIQUE: Volumetric scanning of the neck was performed. Using automated exposure control and adjustment of th e mA and/or kV according to patient size, radiation dose was kept as low as reasonably achievable to obtain optimal diagnostic quality images. DICOM format image data is available electronically for re view and comparison. FINDINGS: NASOPHARYNX: The nasopharyngeal airway has a normal configuration. No mucosal thickening or mass is seen. OROPHARYNX: The intrinsic muscles of the tongue are symmetric. The tonsillar pillars are intact. The prevertebr al soft tissues are not thickened. LARYNX: The supraglottic, glottic, and infraglottic structures are intact. PARAPHARYNGEAL: The parapharyngeal space is intact. SALIVARY GLANDS: The parotid and submandibular glands are intact. LYMPH NODES: No enlarged or necrotic-appearing nodes. THYROID: Homogeneous enhancement without evidence of nodule. BONES: Extensive cervical spondylosis is again noted. Multilevel severe foraminal narrowing is also again no lali. Grade I anterolisthesis of C7 in relation to T1 is noted. CONCLUSION: 1. No soft tissue abnormality within the neck. 2. Chronic cervical spondylosis and multilevel foraminal narrowing as well as grade I anterolisthesis of C7 in relation to T1. 3. Mild chronic right sphenoid sinusitis. Eh Valderrama MD on December 08, 2016 at 18:23 Board Certified Radiologist. This report was verified electronically.
[2016-12-09] VITALS (7 sets, daily range): BP systolic 127–168; BP diastolic 62–80; PULSE 85–94; RESP 16–21; TEMP 98.1–98.6; O2SAT 94–98
[2016-12-09] MEDS ORDERED: cloNIDine HCL 0.1 MG TAB PO ONE (00:15)
[2016-12-09] MEDS: RESP: ALBUTEROL 2.5 MG/IPRATROPIUM 0.5 MG NEB (SCH) INH (02:56)
[2016-12-09] MEDS: CHLORHEXIDINE GLUCONATE 2 % 1 PACK (2 CLOTHS) TOP SCH (04:00)
[2016-12-09] MEDS: POTASSIUM CHLORIDE 10 MEQ CONTROLLED RELEASE TAB PO SCH ×3 (05:20→22:09)
[2016-12-09] MEDS: INSULIN ASPART SUPPLEMENTAL SCALE SQ SCH ×4 (08:00→20:18)
[2016-12-09] MEDS: DOCUSATE SODIUM 50 MG/SENNA 8.6 MG TAB PO SCH ×2 (08:09→20:07)
[2016-12-09] MEDS: NIFEdipine 90 MG SUSTAINED RELEASE TAB PO SCH (08:09)
[2016-12-09] MEDS: PANTOPRAZOLE SOD 40 MG DELAYED RELEASE TAB PO SCH ×2 (08:09→20:07)
--- NOTE | 2016-12-09 13:59 | HHI.PR ---
Subjective Remarks Follow-up for anemia likely due to GI blood loss, hypertension, acute kidney injury. Patient is currently doing well. However is concerned about his neck. He is not able to move his neck much. No chest pain, shortness of breath , fever or chills. Objective Vitals Vital Signs Date Time Temp Pulse Resp B/P (MAP) Pulse Ox O2 Delivery O2 Flow Rate FiO2 12/09/16 12:00 98.1 86 18 145/64 (91) 98 12/09/16 08:00 85 12/09/16 08:00 98.5 93 16 127/80 (96) 98 Automatic Cuff 12/09/16 04:00 98.2 88 21 162/70 (100) 94 12/09/16 02:59 95 12/09/16 00:00 98.6 94 17 168/70 (102) 96 12/08/16 21:00 98 21 12/08/16 20:00 90 12/08/16 20:00 98.0 90 18 125/87 (100) 96 12/08/16 17:18 98.1 92 18 176/73 (107) 98 12/08/16 14:00 93 I/O 12/08/16 12/08/16 12/08/16 12/09/16 12/09/16 12/09/16 07:00 15:00 23:00 07:00 15:00 23:00 Intake Total 720 ml 500 ml 200 ml 120 ml Output Total 775 ml 350 ml 550 ml Balance -55 ml 500 ml -150 ml -430 ml Intake Oral 720 ml 120 ml IV Total 500 ml 200 ml Output Urine Total 775 ml 350 ml 550 ml # Bowel Movements 0 0 Result Diagram: 12/08/16 0500 12/08/16 0500 Imaging Last Impressions Neck CT 12/08/16 0000 Signed Impressions: Service Date/Time: Thursday, December 08, 2016 17:26 - CONCLUSION: 1. No soft tissue abnormality within the neck. 2. Chronic cervical spondylosis and multilevel foraminal narrowing as well as grade I anterolisthesis of C7 in relation to T1. 3. Mild chronic right sphenoid sinusitis. Eh Valderrama MD Renal Ultrasound 12/05/16 0000 Signed Impressions: Service Date/Time: Monday, December 05, 2016 16:10 - CONCLUSION: 1. Chronic parenchymal disease of the kidneys. 2. Suspected mass of the right upper pole. A abdomen MRI with and without contrast is recommended when clinically feasible. 3. No acute obstructive uropathy. There is a fairly large but nonobstructing stone of the left kidney. 4. Apparent splenomegaly, nonspecific. Jn Mock MD Head CT 12/05/16 0000 Signed Impressions: Service Date/Time: Monday, December 05, 2016 07:27 - CONCLUSION: 1. No acute abnormality seen. 2. Atrophy. 3. 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 4. Suspected small vessel ischemic change in the periventricular white matter. Jn Carrillo MD Chest X-Ray 12/05/16 0000 Signed Impressions: Service Date/Time: Monday, December 05, 2016 07:59 - CONCLUSION: 1. Resolution of previously seen edema. 2. Persistent increased density in the upper lungs bilaterally likely related to the first costochondral junction regions. This could be further evaluated with an apical lordotic chest x-ray or noncontrast CT examination. Jn Carrillo MD Objective Remarks GENERAL: Alert, NAD. SKIN: Warm and dry. HEAD: Normocephalic. EYES: No scleral icterus. No injection or drainage. NECK: Supple, trachea midline. No JVD or lymphadenopathy. CARDIOVASCULAR: Regular rate and rhythm without murmurs, gallops, or rubs. RESPIRATORY: Breath sounds equal bilaterally. No accessory muscle use. GASTROINTESTINAL: Abdomen soft, non-tender, nondistended. MUSCULOSKELETAL: No cyanosis, or edema. BACK: Nontender without obvious deformity. No CVA tenderness. Procedures EGD on 12/05/2016 and on 12/06/2016. A/P Problem List: (1) Accelerated hypertension ICD Code: I10 - Essential (primary) hypertension (2) Anemia due to GI blood loss ICD Code: D50.0 - Iron deficiency anemia secondary to blood loss (chronic) (3) CKD (chronic kidney disease) stage 4, GFR 15-29 ml/min ICD Code: N18.4 - Chronic kidney disease, stage 4 (severe) Status: Acute Assessment and Plan Mr. Masters is a 76-year-old male with a history of GI bleed, GI AVM, hyperlipidemia, COPD, diabetes mellitus who presented to the emergency department due to dizziness and near syncope while using toilet on 12/05/2016. He reported large amount of melena and bright red blood for 2 days prior to this admission. On arrival patient was tachycardiac with hemoglobin 5.4. He received 4 units of PRBCs. He underwent to EGD studies which did not indicate any active bleeding site. - Acute symptomatic anemia due to GI blood loss - History of gastrointestinal AVM - Discontinue Protonix drip and start Protonix 40 mg by mouth twice a day. - Hemoglobin 10.1, hematocrit 30.3 on 12/08/2016. - Neck pain - CT neck shows significant foraminal narrowing. - Will consult Neurosurgery for an input. If non-surgical management is recommended, we will consider muscle relaxers. - Accelerated hypertension - Continue nifedipine 60 mg daily - Acute kidney injury - Probable right renal mass - Chronic kidney disease stage III - Mild hypernatremia - Improved. Na 149 --> 145. - Mild hypokalemia - K+ 3.1. Mg was 2.2. Will replace potassium. - On admission patient's creatinine was 3.27 likely due to volume reduction. - Nephrology is following. Creatinine is 1.70 on 12/08/2016. - Nephrology recommends outpatient follow up with Dr. Mcmullen with regards to renal mass. - PT consulted - recommended SNF vs. home with home health PT. Full code. Venus. Catalino Carr DO Dec 09, 2016 1:59 pm
--- NOTE | 2016-12-09 14:02 | HHI.NPPN ---
Subjective Renal Failure: Acute Interval History Sleeping, at bedside. Labs from today are not available. Review of Systems General Constitutional: Fatigue Eyes Eyes: Itching Gastrointestinal Gastrointestinal: Blood/Tarry Stools Objective Data Data Vital Signs Date Time Temp Pulse Resp B/P (MAP) Pulse Ox O2 Delivery O2 Flow Rate FiO2 12/09/16 12:00 98.1 86 18 145/64 (91) 98 12/09/16 08:00 85 12/09/16 08:00 98.5 93 16 127/80 (96) 98 Automatic Cuff 12/09/16 04:00 98.2 88 21 162/70 (100) 94 12/09/16 02:59 95 12/09/16 00:00 98.6 94 17 168/70 (102) 96 12/08/16 21:00 98 21 12/08/16 20:00 90 12/08/16 20:00 98.0 90 18 125/87 (100) 96 12/08/16 17:18 98.1 92 18 176/73 (107) 98 12/08/16 14:00 93 -: 12/08/16 0500 12/08/16 0500 Physical Exam General Appearance: Well Developed, No Acute Distress, Comfortable, Sleeping, Malnourished Neck Neck Exam: Neck Supple Pulmonary Resp Exam: Clear Bilaterally, Breath Sounds Equal Cardiology CV Exam: Regular, Normal Sinus Rhythm, Good Perfusion Gastrointestinal/Abdomen GI Exam: Soft, Non-Tender, Bowel Sounds Present Musculoskeletal MS Exam: Normal Tone, Good Strength Integumentary Skin Exam: Clear, Warm, Dry, Intact Extremeties Extremities Exam: No Edema, Pedal Pulses Palpable Neurologic Neuro Exam: Alert, Awake, Oriented, Speech Clear, Moving All Extremities Psychiatric Psych Exam: Appropriate Responses Assessment/Plan Discussed Condition With: Patient, Spouse Electrolyte Assessment: Hypernatremia Problem List: (1) Acute renal failure superimposed on stage 4 chronic kidney disease ICD Codes: N17.9 - Acute kidney failure, unspecified; N18.4 - Chronic kidney disease, stage 4 (severe) Plan: Today's labs are not available. He likely has underlying CKD due to nephrosclerosis. Follows with Dr. Mcmullen outpatient. LOS due to renal hypoperfusion due to blood loss, anemia, and possibly intravascular volume depletion. Renal function was at baseline. Repeat labs Avoid nephrotoxins. Renal US revealed a stone on the left and a mass on the right. The is concerned about the mass in his kidney. MRI with contrast is recommended. Gadolinium does not cause LOS. It is contraindicated if GFR is less than 30 because of possibility of NSF. Advised to discuss with Dr. Mcmullen after discharge. (2) Hypernatremia ICD Codes: E87.0 - Hyperosmolality and hypernatremia Plan: Improved, he is able to drink water Off IVF Repeat labs. (3) Anemia ICD Codes: D64.9 - Anemia, unspecified Status: Acute Plan: Blood loss anemia, Anemia improved after blood transfusion. GI has evaluated. 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 s/p repeat EGD, no active bleeding found. On Protonix. (4) GI bleed ICD Codes: K92.2 - Gastrointestinal hemorrhage, unspecified Status: Acute Plan: See above. (5) Cardiomyopathy ICD Codes: I42.9 - Cardiomyopathy, unspecified Status: Acute Plan: Recent Echo revealed: The left ventricular systolic function is moderately reduced with an estimated ejection fraction in the range of 40. Normal left ventricular size. Moderate concentric left ventricular hypertrophy. No regional wall motion abnormalities are present. The left atrial size is [id number] dilated. Mild mitral valve regurgitation. Aortic valve sclerosis is present. Mild aortic valve regurgitation. There is trace tricuspid valve regurgitation. The estimated pulmonary arterial pressure is 64 mmHg. The inferior vena cava is dilated. Monitor fluid volume status He was given a dose of Diuril yesterday. Permanent Comment: Dr. Hollis - Atherosclerosis of [place] coronary artery. Last Edited By: José Miguel Black on May 29, 2015 16:04 (6) BPH (benign prostatic hyperplasia) ICD Codes: N40.0 - Enlarged prostate without lower urinary tract symptoms Status: Acute Plan: Continue Flomax. Has history of urinary retention, follows with urology. (7) DM2 (diabetes mellitus, type 2) ICD Codes: E11.9 - Type 2 diabetes mellitus without complications Status: Acute Plan: Continue insulin coverage, maintain blood glucose between 140 and 180. Sridevi Moss Dec 09, 2016 14:02
[2016-12-09] MEDS: ACETAMINOPHEN 325 MG TAB PO PRN (16:32)
--- NOTE | 2016-12-09 20:29 | PD.CONS ---
History of Present Illness Service Neurosurgery Consult Requested By Medicine service Reason for Consult Neck pain Primary Care Physician Janice Mcneil MD Diagnoses: History of Present Illness This 76-year-old male presented to the emergency room 12/05/16 with initial primary complaint of dizziness with a near syncopal episode while in the bathroom. Patient has a history of GI bleed. He has been evaluated by gastroenterology with a recent endoscopy. During his hospitalization he has complained of rather severe neck pain. The patient states that the pain started with his recent fall at home. He states that he did not have any significant neck pain prior to that incident, although he does have a history of moderate chronic low back pain. No complain of significant pain, weakness or numbness in the upper extremities, except for some chronic numbness in the left hand. No lower extremity symptoms reported. He states that he was ambulating relatively well until he started having problems with GI bleeding and has been somewhat dizzy and weak as a result. No difficulty with upper extremity coordination. Review of Systems Constitutional: COMPLAINS OF: Fatigue, Dizziness Eyes: DENIES: Blurred vision, Diplopia Ears, nose, mouth, throat: DENIES: Vertigo Respiratory: DENIES: Sputum production, Shortness of breath Cardiovascular: COMPLAINS OF: Syncope, DENIES: Chest pain, Palpitations Gastrointestinal: COMPLAINS OF: Abdominal pain, Bloody stools Musculoskeletal: COMPLAINS OF: Joint pain, Back pain, Neck pain Hematologic/lymphatic: COMPLAINS OF: Bruising Neurologic: COMPLAINS OF: Abnormal gait, Poor Balance, DENIES: Headache Psychiatric: DENIES: Anxiety, Confusion Past Family Social History Allergies: Coded Allergies: Sulfa (Sulfonamide Antibiotics) (Unverified Allergy, Severe, RASH, 12/05/16 ) sulfamethoxazole (Unverified Allergy, Severe, Rash, 12/05/16) RASH OF FACE AND ORAL MUCUS MEMBRANES trimethoprim (Unverified Allergy, Severe, Rash, 12/05/16) RASH OF FACE AND ORAL MUCUS MEMBRANES Past Medical History History of CHF Coronary artery disease Cardiomyopathy Hypertension Atrial fibrillation Hyperlipidemia COPD Chronic kidney disease Previous TIA Past Surgical History Endoscopy with ablation gastric AVM . Recent upper endoscopy Coronary stent placement Reported Medications Reported Meds & Active Scripts Active Furosemide 40 Mg Tab 40 Mg PO BID@09,18 30 Days Flomax (Tamsulosin HCl) 0.4 Mg Cap 0.4 Mg PO Q12HR 30 Days Ventolin Hfa 18 GM Inh (Albuterol Sulfate) 90 Mcg/Act Aer 2 Puff INH Q4-6H PRN Atorvastatin (Atorvastatin Calcium) 40 Mg Tab 40 Mg PO HS Reported [Curel Lotion] 1 Applic TOPICAL DAILY PRN Cilostazol 100 Mg Tab 100 Mg PO DAILY Allergy Relief (Diphenhydramine HCl) 25 Mg Tab 25 Mg PO Q4-6H PRN Aspirin Adult Low Strength (Aspirin) 81 Mg Tabdr 81 Mg PO DAILY Hydroxyzine HCl 10 Mg Tab 10-20 Mg PO HS Toprol XL (Metoprolol Succinate) 100 Mg Tab 100 Mg PO DAILY Protonix (Pantoprazole Sodium) 40 Mg Tab 40 Mg PO DAILY Anoro Ellipta Inh (Umeclidinium/Vilanterol) 62.5-25 Mcg/Act Aero 1 Puff INH DAILY Plavix (Clopidogrel Bisulfate) 75 Mg Tab 75 Mg PO DAILY Calcitriol 0.25 Mcg Cap 0.25 Mcg PO DAILY Social History Previous cigarette and alcohol use. None recently. Physical Exam Vital Signs Vital Signs Date Time Temp Pulse Resp B/P (MAP) Pulse Ox O2 Delivery O2 Flow Rate FiO2 12/09/16 16:00 98.6 91 18 164/62 (96) 98 12/09/16 12:00 98.1 86 18 145/64 (91) 98 12/09/16 08:00 85 12/09/16 08:00 98.5 93 16 127/80 (96) 98 Automatic Cuff 12/09/16 04:00 98.2 88 21 162/70 (100) 94 12/09/16 02:59 95 12/09/16 00:00 98.6 94 17 168/70 (102) 96 12/08/16 21:00 98 21 Physical Exam GENERAL: This is a well-nourished, well-developed patient, no apparent distress. SKIN: No abrasions, contusion, rash noted. Skin warm and dry. HEAD: Atraumatic. Normocephalic. No temporal or scalp tenderness. EYES: Sclerae are clear and nonicteric ENT: No facial edema or ecchymosis. No periorbital edema. No CSF otorrhea or rhinorrhea. No palpable facial fracture or deformity. NECK: Cervical range of motion is approximately 30-45 right, 60 left. He complains of discomfort along the right cervical paraspinous musculature with right rotation. Positive tenderness right lateral neck musculature. CARDIOVASCULAR: Regular rate and rhythm with 2/6 systolic murmur. No carotid bruit. RESPIRATORY: Clear to auscultation. Breath sounds equal bilaterally. No wheezes , rales, or rhonchi. GASTROINTESTINAL: Abdomen soft, non-tender, nondistended. No hepato-splenomegaly , or palpable masses. No guarding. MUSCULOSKELETAL: Extremities without cyanosis, or edema. No joint tenderness, or edema noted. No calf tenderness. Dorsalis pedis pulses 2+ bilateral NEUROLOGICAL: Awake and alert Oriented X 3 Speech is mildly dysarthric, questionable normal baseline for the patient. Conversant and appropriate Follow simple commands well Answers questions appropriately Reasonable judgment and insight Recent and remote memory are intact No evidence of anxiety or depression Pupils are equal and reactive to accommodation. Extra-ocular movements, visual tovar to confrontation, facial sensorimotor, tongue, palate, sternocleidomastoid testing, hearing to finger rub testing, and bilateral shoulder shrug are all intact. Sensation is intact to light touch in all extremities except for complaint of chronic numbness and paresthesias in the left hand. Strength normal major flexion and extension groups all extremities Ros's absent bilaterally No ankle clonus Plantar responses absent bilateral Fine motor movements intact upper extremities Result Diagram: 12/08/16 0500 12/08/16 0500 Imaging 12/08/2016 CT scan neck images are reviewed. A coronal and sagittal reconstruction was requested by the undersigned after the study was completed, and these images have also been reviewed. The study reveals loss of the cervical lordosis. There is severe chronic appearing C5 6 degenerative disc disease with some endplate construction, suggestive of previous osteomyelitis-discitis. Relatively mild posterior osseous disc complex at the C5 6 and C6 7 levels which is before meals anterior thecal sac without definite significant cord compression. There is significant multilevel foraminal stenosis most severe at the right C3 4 , C4 5, C6 7 levels and the left C3 4 C5 6 and C7-T1 greater than C45 and C6 7 levels. On coronal view, there is a convex left curvature which seems to be centered primarily at the C23 and C3 4 levels. No significant facet subluxation or vertebral body subluxation noted at this level. Neck CT 12/08/16 0000 Signed Impressions: Service Date/Time: Thursday, December 08, 2016 17:26 - CONCLUSION: 1. No soft tissue abnormality within the neck. 2. Chronic cervical spondylosis and multilevel foraminal narrowing as well as grade I anterolisthesis of C7 in relation to T1. 3. Mild chronic right sphenoid sinusitis. Eh Valderrama MD Renal Ultrasound 12/05/16 0000 Signed Impressions: Service Date/Time: Monday, December 05, 2016 16:10 - CONCLUSION: 1. Chronic parenchymal disease of the kidneys. 2. Suspected mass of the right upper pole. A abdomen MRI with and without contrast is recommended when clinically feasible. 3. No acute obstructive uropathy. There is a fairly large but nonobstructing stone of the left kidney. 4. Apparent splenomegaly, nonspecific. Jn Mock MD Head CT 12/05/16 0000 Signed Impressions: Service Date/Time: Monday, December 05, 2016 07:27 - CONCLUSION: 1. No acute abnormality seen. 2. Atrophy. 3. 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 4. Suspected small vessel ischemic change in the periventricular white matter. Jn Carrillo MD Chest X-Ray 12/05/16 0000 Signed Impressions: Service Date/Time: Monday, December 05, 2016 07:59 - CONCLUSION: 1. Resolution of previously seen edema. 2. Persistent increased density in the upper lungs bilaterally likely related to the first costochondral junction regions. This could be further evaluated with an apical lordotic chest x-ray or noncontrast CT examination. Jn Carrillo MD Assessment and Plan Assessment and Plan Impression: 1. Cervical degenerative disc disease and spondylosis. 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 No significant spinal canal compromise. Multilevel foraminal stenosis without definite focal radicular symptoms or deficit. No definite evidence of cervical myelopathy. 2. Right cervical myofascial strain related to recent fall. Plan: No surgical intervention recommended at this time. Patient will need to continue conservative treatment options including physical therapy, medications including muscle relaxants, pain medications, possible mild intermittent narcotic medications.. If pain persists despite more conservative measures, consider management consultation as an outpatient to be considered with possible cervical epidural steroid injections and/or facet injections. Physical therapy requested to assist with ambulation and cervical range of motion and upper extremity exercises. Moses Mckeon MD Dec 09, 2016 20:29
[2016-12-09] MEDS: METHOCARBAMOL 500 MG TAB PO SCH (22:10)
[2016-12-10] VITALS (8 sets, daily range): BP systolic 127–160; BP diastolic 58–70; PULSE 88–98; RESP 18–20; TEMP 97.6–98.8; O2SAT 96–100
[2016-12-10] MEDS: CHLORHEXIDINE GLUCONATE 2 % 1 PACK (2 CLOTHS) TOP SCH (03:18)
[2016-12-10] MEDS: METHOCARBAMOL 500 MG TAB PO SCH ×3 (05:20→22:46)
[2016-12-10] MEDS: POTASSIUM CHLORIDE 10 MEQ CONTROLLED RELEASE TAB PO SCH (05:20)
[2016-12-10] MEDS: INSULIN ASPART SUPPLEMENTAL SCALE SQ SCH ×4 (08:00→21:00)
[2016-12-10 08:20] LABS: BICARBONATE 21.1 MEQ/L (21.0-32.0); POTASSIUM 4.6 MEQ/L (3.5-5.1)
[2016-12-10] MEDS: NIFEdipine 90 MG SUSTAINED RELEASE TAB PO SCH (08:25)
[2016-12-10] MEDS: DOCUSATE SODIUM 50 MG/SENNA 8.6 MG TAB PO SCH ×2 (08:25→21:00)
[2016-12-10] MEDS: PANTOPRAZOLE SOD 40 MG DELAYED RELEASE TAB PO SCH ×2 (08:25→22:46)
--- NOTE | 2016-12-10 11:25 | HHI.PR ---
Subjective Remarks Follow-up for anemia likely due to GI blood loss, hypertension, acute kidney injury. Patient is sitting in his chair, able to move his neck little bit better today. However he complains of right knee pain and swelling. No fever or chills. Objective Vitals Vital Signs Date Time Temp Pulse Resp B/P (MAP) Pulse Ox O2 Delivery O2 Flow Rate FiO2 12/10/16 08:00 98.5 93 18 153/65 (94) 97 12/10/16 04:00 98.8 89 20 127/58 (81) 96 12/10/16 00:00 98.3 93 20 147/63 (91) 97 12/09/16 20:00 90 12/09/16 20:00 98.5 92 20 140/65 (90) 94 12/09/16 16:00 98.6 91 18 164/62 (96) 98 12/09/16 12:00 98.1 86 18 145/64 (91) 98 I/O 12/09/16 12/09/16 12/09/16 12/10/16 12/10/16 12/10/16 07:00 15:00 23:00 07:00 15:00 23:00 Intake Total 120 ml 740 ml 480 ml Output Total 550 ml 775 ml 350 ml Balance -430 ml -35 ml 130 ml Intake Oral 120 ml 740 ml 480 ml Output Urine Total 550 ml 775 ml 350 ml # Bowel Movements 0 0 Result Diagram: 12/08/16 0500 12/10/16 0720 Imaging Last Impressions Neck CT 12/08/16 0000 Signed Impressions: Service Date/Time: Thursday, December 08, 2016 17:26 - CONCLUSION: 1. No soft tissue abnormality within the neck. 2. Chronic cervical spondylosis and multilevel foraminal narrowing as well as grade I anterolisthesis of C7 in relation to T1. 3. Mild chronic right sphenoid sinusitis. Eh Valderrama MD Renal Ultrasound 12/05/16 0000 Signed Impressions: Service Date/Time: Monday, December 05, 2016 16:10 - CONCLUSION: 1. Chronic parenchymal disease of the kidneys. 2. Suspected mass of the right upper pole. A abdomen MRI with and without contrast is recommended when clinically feasible. 3. No acute obstructive uropathy. There is a fairly large but nonobstructing stone of the left kidney. 4. Apparent splenomegaly, nonspecific. Jn Mock MD Head CT 12/05/16 0000 Signed Impressions: Service Date/Time: Monday, December 05, 2016 07:27 - CONCLUSION: 1. No acute abnormality seen. 2. Atrophy. 3. 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 4. Suspected small vessel ischemic change in the periventricular white matter. Jn Carrillo MD Chest X-Ray 12/05/16 0000 Signed Impressions: Service Date/Time: Monday, December 05, 2016 07:59 - CONCLUSION: 1. Resolution of previously seen edema. 2. Persistent increased density in the upper lungs bilaterally likely related to the first costochondral junction regions. This could be further evaluated with an apical lordotic chest x-ray or noncontrast CT examination. Jn Carrillo MD Objective Remarks GENERAL: Alert, NAD. SKIN: Warm and dry. HEAD: Normocephalic. EYES: No scleral icterus. No injection or drainage. NECK: Supple, trachea midline. No JVD or lymphadenopathy. CARDIOVASCULAR: Regular rate and rhythm without murmurs, gallops, or rubs. RESPIRATORY: Breath sounds equal bilaterally. No accessory muscle use. GASTROINTESTINAL: Abdomen soft, non-tender, nondistended. MUSCULOSKELETAL: No cyanosis, or edema. Right knee feels warmer than left, there is fluid around the knee as well. Pain on active and passive range of motion. BACK: Nontender without obvious deformity. No CVA tenderness. Procedures EGD on 12/05/2016 and on 12/06/2016. A/P Problem List: (1) Accelerated hypertension ICD Code: I10 - Essential (primary) hypertension (2) Anemia due to GI blood loss ICD Code: D50.0 - Iron deficiency anemia secondary to blood loss (chronic) (3) CKD (chronic kidney disease) stage 4, GFR 15-29 ml/min ICD Code: N18.4 - Chronic kidney disease, stage 4 (severe) Status: Acute Assessment and Plan Mr. Masters is a 76-year-old male with a history of GI bleed, GI AVM, hyperlipidemia, COPD, diabetes mellitus who presented to the emergency department due to dizziness and near syncope while using toilet on 12/05/2016. He reported large amount of melena and bright red blood for 2 days prior to this admission. On arrival patient was tachycardiac with hemoglobin 5.4. He received 4 units of PRBCs. He underwent to EGD studies which did not indicate any active bleeding site. - Acute symptomatic anemia due to GI blood loss - History of gastrointestinal AVM - Continue Protonix 40 mg by mouth twice a day. - Hemoglobin 10.1, hematocrit 30.3 on 12/08/2016. - Neck pain - CT neck shows significant foraminal narrowing. - Neurosurgery consulted, recommended conservative management. No surgical need. - Will continue patient on Muscle relaxers and narcotics PRN. - Right knee pain - Concerning for gout. - Will start cold compression and request an arthrocentesis by IR today. Also , We checked Uric acid level which is elevated 8.6. - Cannot use NSAIDs due to GI bleed. - After arthrocentesis, we will start patient on IV solu-medrol about 20mg Q12hrs. - Accelerated hypertension - Continue nifedipine 60 mg daily - Acute kidney injury - Probable right renal mass - Chronic kidney disease stage III - Mild hypernatremia - Improved. Na 149 --> 145. - Mild hypokalemia - K+ 3.1. Mg was 2.2. Potassium replaced. K+ 4.6 on 12/10/2016 - On admission patient's creatinine was 3.27 likely due to volume reduction. - Nephrology is following. Creatinine is 1.74 on 12/10/2016. - Nephrology recommends outpatient follow up with Dr. Mcmullen with regards to renal mass. - PT consulted - recommended SNF vs. home with home health PT. Patient/ prefer to go home with home health. Full code. SCDs. Discharge plan delayed due to onset of right knee gout. Probable discharge in 1- 2 days. Catalino Carr DO Dec 10, 2016 11:25 am
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
[2016-12-10] MEDS ORDERED: POTASSIUM PHOSPHATE MONOBASIC 500 MG TAB PO ONE (13:30)
--- NOTE | 2016-12-10 15:47 | HHI.NPPN ---
Subjective Renal Failure: Acute Interval History Renal function is stable. D/W patient and . (Sridevi Moss) Review of Systems General Constitutional: Fatigue (Sridevi Moss) Eyes Eyes: Itching (Sridevi Moss) Gastrointestinal Gastrointestinal: Blood/Tarry Stools (Sridevi Moss) Objective Data Data Vital Signs Date Time Temp Pulse Resp B/P (MAP) Pulse Ox O2 Delivery O2 Flow Rate FiO2 12/10/16 12:00 97.6 89 18 136/63 (87) 97 12/10/16 08:00 98.5 93 18 153/65 (94) 97 12/10/16 04:00 98.8 89 20 127/58 (81) 96 12/10/16 00:00 98.3 93 20 147/63 (91) 97 12/09/16 20:00 90 12/09/16 20:00 98.5 92 20 140/65 (90) 94 12/09/16 16:00 98.6 91 18 164/62 (96) 98 (Sridevi Moss) -: 12/08/16 0500 12/10/16 0720 Physical Exam General Appearance: Well Developed, No Acute Distress, Comfortable, Sleeping, Malnourished (Sridevi Moss) Neck Neck Exam: Neck Supple (Sridvei Moss) Pulmonary Resp Exam: Clear Bilaterally, Breath Sounds Equal (Sridevi Moss) Cardiology CV Exam: Regular, Normal Sinus Rhythm, Good Perfusion (Sridevi Moss) Gastrointestinal/Abdomen GI Exam: Soft, Non-Tender, Bowel Sounds Present (Sridevi Moss) Musculoskeletal MS Exam: Normal Tone, Good Strength (Sridevi Moss) Integumentary Skin Exam: Clear, Warm, Dry, Intact (Sridevi Moss) Extremeties Extremities Exam: No Edema, Pedal Pulses Palpable (Sridevi Moss) Neurologic Neuro Exam: Alert, Awake, Oriented, Speech Clear, Moving All Extremities (Sridevi Moss) Psychiatric Psych Exam: Appropriate Responses (Sridevi Moss) Assessment/Plan Discussed Condition With: Patient, Spouse Electrolyte Assessment: Hypernatremia Problem List: (1) Acute renal failure superimposed on stage 4 chronic kidney disease ICD Codes: N17.9 - Acute kidney failure, unspecified; N18.4 - Chronic kidney disease, stage 4 (severe) Plan: Renal function is stable.. He likely has underlying CKD due to nephrosclerosis. Follows with Dr. Mcmullen outpatient. LOS due to renal hypoperfusion due to blood loss, anemia, and possibly intravascular volume depletion. Avoid nephrotoxins. Renal US revealed a stone on the left and a mass on the right. The is concerned about the mass in his kidney. MRI with contrast is recommended. Gadolinium does not cause LOS. It is contraindicated if GFR is less than 30 because of possibility of NSF. Advised to discuss with Dr. Mcmullen after discharge. (2) Hypernatremia ICD Codes: E87.0 - Hyperosmolality and hypernatremia Plan: Improved, he is able to drink water Off IVF (3) Anemia ICD Codes: D64.9 - Anemia, unspecified Status: Acute Plan: Blood loss anemia, Anemia improved after blood transfusion. GI has evaluated. 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 s/p repeat EGD, no active bleeding found. On Protonix. (4) GI bleed ICD Codes: K92.2 - Gastrointestinal hemorrhage, unspecified Status: Acute Plan: See above. (5) Cardiomyopathy ICD Codes: I42.9 - Cardiomyopathy, unspecified Status: Acute Plan: Recent Echo revealed: The left ventricular systolic function is moderately reduced with an estimated ejection fraction in the range of 40. Normal left ventricular size. Moderate concentric left ventricular hypertrophy. No regional wall motion abnormalities are present. The left atrial size is atsu-go-iskrcocosf dilated. Mild mitral valve regurgitation. Aortic valve sclerosis is present. Mild aortic valve regurgitation. There is trace tricuspid valve regurgitation. The estimated pulmonary arterial pressure is 64 mmHg. The inferior vena cava is dilated. Monitor fluid volume status He was given a dose of Diuril yesterday. Permanent Comment: Dr. Hollis - Atherosclerosis of ewiiaapaayp coronary artery. Last Edited By: José Miguel Black on May 29, 2015 16:04 (6) BPH (benign prostatic hyperplasia) ICD Codes: N40.0 - Enlarged prostate without lower urinary tract symptoms Status: Acute Plan: Continue Flomax. Has history of urinary retention, follows with urology. (7) DM2 (diabetes mellitus, type 2) ICD Codes: E11.9 - Type 2 diabetes mellitus without complications Status: Acute Plan: Continue insulin coverage, maintain blood glucose between 140 and 180. (Sridevi Moss) Plan patient was seen and examined. Agree with above assessment and plan. (Lamont Ramachandran MD) Sridevi Moss Dec 10, 2016 15:47 Lamont Ramachandran MD Dec 12, 2016 15:34
--- NOTE | 2016-12-10 16:50 | PD.RAD ---
Post Procedure Progress Note Pre Procedure Diagnosis: (1) Fluid in right knee joint Post Procedure Diagnosis: (1) Fluid in right knee joint Procedure Date: Dec 10, 2016 Supervising Radiologist: Xiang Nathan Proceduralist/Assist: Ruma Fisher RT(R), RT Isadora(R)() Anesthesia: Local Plan of Activity Patient to Unit: Nursing Unit Patient Condition: Good See PACS Report for procedural detail/treatment Drainage Procedure Procedure 1 Imaging Guidance: Ultrasound Procedure Type: Aspiration (anterior right knee) Fluid Removal (CCs): 40 Fluid Description: Mega Ruvalcaba Scott D. MD Dec 10, 2016 16:50
--- NOTE | 2016-12-10 17:24 | RADRPT ---
EXAM DATE/TIME: 12/10/2016 16:23 [facility] COMPARISON: No previous studies available for comparison. INDICATIONS : Patient with right knee effusion in need of aspiration. MEDICAL HISTORY : 1. Hyperlipidemia. 2. Cardiomyopathy / congestive heart failure. 3. Coronary artery disease. 4. COPD. 5. Diabetes mellitus. 6. History of TIA. 7. Hypertension. 8. History of GI bleed. 9. Stage IV chronic kidney disease. 10. Sleep apnea. 11. Tobacco use. 12. Atrial fibrillation. SURGICAL HISTORY : 1. Previous left AV fistula. 2. Coronary artery disease with stent placements ENCOUNTER: Initial ACUITY: 4 - 6 days PAIN SCORE: 0/10 FLUORO TIME: IMAGE SERIES: DEVICE(S): 21 gauge needle was placed into the right knee joint. FLUID: Total volume of 40 cc of cloudy yellow fluid was removed. PROCEDURE : 1. ultrasound guided right knee aspiration. The risks, benefits and alternatives to the procedure were explained and verbal and written consent w as obtained. The site was prepped in sterile fashion. Full sterile technique was used, including ca p, mask, sterile gloves and gown and a large sterile sheet. Hand hygiene and 2% chlorhexidine and/or betadine/alcohol prep was utilized per protocol for cutaneous antisepsis. The skin and subcutaneous tissues were infiltrated with local anesthetic solution. Ultrasound evaluation demonstrated suprapatellar effusion. 21 gauge micropuncture needle was advanced into the collection. 018 wire was advanced and the needle over which the flexible 34 dilator was lupillo anahy. Aspiration through the outer 4 [place]er dilator of 40 cc of semi-transplant yellow fluid. Sample w as sent to laboratory for analysis. The patient tolerated the procedure well and there were no complications. CONCLUSION: Uncomplicated aspiration as above. Xiang Nathan MD on December 10, 2016 at 17:20 Board Certified Radiologist. This report was verified electronically.
[2016-12-10 18:09] LABS: WBC, SYNOVIAL FLUID 20000 /MM3 (0-200)
[2016-12-11] VITALS (8 sets, daily range): BP systolic 132–153; BP diastolic 64–81; PULSE 83–105; RESP 20; TEMP 97.2–99.4; O2SAT 93–100
--- NOTE | 2016-12-11 02:51 | HHI.PR ---
Addendum to Inpatient Note Addendum Reason: Additional Documentation Additional Information Patient with 8 beat run of vtach. His oxygen saturation was around 90 and only increased to 93% once placed on nasal cannula at 3 liters of supplemental oxygen. The patient was otherwise asymptomatic, no cp or sob and vitals were otherwise unremarkable. Will check chest x-ray, CBC, BMP, Mag level, troponin I , and will follow results. Dary Hardwick Dec 11, 2016 02:51
--- NOTE | 2016-12-11 03:12 | RADRPT ---
EXAM DATE/TIME: 12/11/2016 02:49 [facility] COMPARISON: CHEST SINGLE AP, December 05, 2016, 7:59. INDICATIONS : Shortness of breath MEDICAL HISTORY : Cardiovascular disease. Hypertension Renal insufficiency. SURGICAL HISTORY : None. ENCOUNTER: Subsequent ACUITY: 4 - 6 days PAIN SCORE: 7/10 LOCATION: Bilateral chest FINDINGS: There are bilateral patchy airspace infiltrates without consolidation located in the central lungs bi laterally sparing the peripheral one 3rd of both lungs. There is also some partial consolidation in the left lower lung causing loss of delineation of portions of the left hemidiaphragm. The heart is upper limits normal size for AP technique. CONCLUSION: Bilateral central partial airspace opacities without consolidation, and partial consolidative infiltr ates in the left lower lung. Rogerio Garber MD on December 11, 2016 at 3:09 Board Certified Radiologist. This report was verified electronically.
[2016-12-11] MEDS: CHLORHEXIDINE GLUCONATE 2 % 1 PACK (2 CLOTHS) TOP SCH (04:00)
[2016-12-11 04:05] LABS: AUTOMATED NEUTROPHIL # 6.8 TH/MM3 (1.8-7.7); BASOPHIL % 0.5 % (0.0-2.0); EOSINOPHIL # 0.1 TH/MM3 (0-0.4); EOSINOPHIL % 1.5 % (0.0-4.0); HEMATOCRIT 28.3 % (39.0-51.0); HEMO FLAGS DIFF FINAL; LYMPH % 13.7 % (9.0-44.0); LYMPHOCYTE # 1.2 TH/MM3 (1.0-4.8); MEAN CELL VOLUME 88.6 FL (80.0-100.0); MEAN CORPUSCULAR HEMOGLOBIN 29.1 PG (27.0-34.0); MEAN CORPUSCULAR HGB CONC 32.9 % (32.0-36.0); MONO % 6.7 % (0.0-8.0); NEUT % 77.6 % (16.0-70.0); PLATELET COUNT 145 TH/MM3 (150-450); RED CELL DISTRIBUTION WIDTH 17.7 % (11.6-17.2); WHITE BLOOD COUNT 8.7 TH/MM3 (4.0-11.0)
[2016-12-11 04:24] LABS: BICARBONATE 22.3 MEQ/L (21.0-32.0); MAGNESIUM 2.4 MG/DL (1.5-2.5); POTASSIUM 4.1 MEQ/L (3.5-5.1)
[2016-12-11] MEDS ORDERED: FUROSEMIDE 40 MG/4 ML VIAL IV PUSH ONE (04:45)
[2016-12-11] MEDS ORDERED: CEFEPIME INJ 2,000 MG in SODIUM CHLORIDE 0.9% INJ 100 ML IV SCH (05:00)
[2016-12-11] MEDS: METHOCARBAMOL 500 MG TAB PO SCH ×3 (05:31→20:42)
[2016-12-11] MEDS: INSULIN ASPART SUPPLEMENTAL SCALE SQ SCH ×4 (08:00→20:41)
[2016-12-11] MEDS: NIFEdipine 90 MG SUSTAINED RELEASE TAB PO SCH (08:29)
[2016-12-11] MEDS: PANTOPRAZOLE SOD 40 MG DELAYED RELEASE TAB PO SCH ×2 (08:29→20:41)
[2016-12-11] MEDS: DOCUSATE SODIUM 50 MG/SENNA 8.6 MG TAB PO SCH ×2 (08:29→20:42)
--- NOTE | 2016-12-11 11:20 | HHI.PR ---
Subjective Remarks Follow-up for anemia likely due to GI blood loss, hypertension, acute kidney injury and right knee swelling, pain. Patient is doing well. He reports much improvement of his right knee pain and swelling. He was able to transfer from bed to chair. No fever, chills. Objective Vitals Vital Signs Date Time Temp Pulse Resp B/P (MAP) Pulse Ox O2 Delivery O2 Flow Rate FiO2 12/11/16 09:32 Nasal Cannula 3.00 12/11/16 08:00 97.6 92 20 149/68 (95) 98 12/11/16 05:00 93 Nasal Cannula 3.00 12/11/16 04:00 97.9 105 20 153/65 (94) 95 12/11/16 00:00 99.4 98 20 141/64 (89) 93 12/10/16 22:00 98 12/10/16 20:00 98.5 94 20 160/70 (100) 100 12/10/16 16:00 97.9 88 18 141/65 (90) 98 12/10/16 12:00 97.6 89 18 136/63 (87) 97 I/O 12/10/16 12/10/16 12/10/16 12/11/16 12/11/16 12/11/16 07:00 15:00 23:00 07:00 15:00 23:00 Intake Total 480 ml 1180 ml 460 ml Output Total 350 ml 600 ml 600 ml Balance 130 ml 580 ml -140 ml Intake Oral 480 ml 1180 ml 360 ml IV Total 100 ml Output Urine Total 350 ml 600 ml 600 ml # Bowel Movements 1 Result Diagram: 12/11/16 0352 12/11/16 0352 Imaging Last Impressions Chest X-Ray 12/11/16 0000 Signed Impressions: Service Date/Time: Sunday, December 11, 2016 02:49 - CONCLUSION: Bilateral central partial airspace opacities without consolidation, and partial consolidative infiltrates in the left lower lung. Rogerio Garber MD Aspiration 12/10/16 0000 Signed Impressions: Service Date/Time: Saturday, December 10, 2016 16:23 - CONCLUSION: Uncomplicated aspiration as above. Xiang Nathan MD Neck CT 12/08/16 0000 Signed Impressions: Service Date/Time: Thursday, December 08, 2016 17:26 - CONCLUSION: 1. No soft tissue abnormality within the neck. 2. Chronic cervical spondylosis and multilevel foraminal narrowing as well as grade I anterolisthesis of C7 in relation to T1. 3. Mild chronic right sphenoid sinusitis. Eh Valderrama MD Renal Ultrasound 12/05/16 0000 Signed Impressions: Service Date/Time: Monday, December 05, 2016 16:10 - CONCLUSION: 1. Chronic parenchymal disease of the kidneys. 2. Suspected mass of the right upper pole. A abdomen MRI with and without contrast is recommended when clinically feasible. 3. No acute obstructive uropathy. There is a fairly large but nonobstructing stone of the left kidney. 4. Apparent splenomegaly, nonspecific. Jn Mock MD Head CT 12/05/16 0000 Signed Impressions: Service Date/Time: Monday, December 05, 2016 07:27 - CONCLUSION: 1. No acute abnormality seen. 2. Atrophy. 3. 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 4. Suspected small vessel ischemic change in the periventricular white matter. Jn Carrillo MD Objective Remarks GENERAL: Alert, NAD. SKIN: Warm and dry. HEAD: Normocephalic. EYES: No scleral icterus. No injection or drainage. NECK: Supple, trachea midline. No JVD or lymphadenopathy. CARDIOVASCULAR: Regular rate and rhythm without murmurs, gallops, or rubs. RESPIRATORY: Breath sounds equal bilaterally. No accessory muscle use. GASTROINTESTINAL: Abdomen soft, non-tender, nondistended. MUSCULOSKELETAL: No cyanosis, or edema. right knee swelling is down, not as tender as it was yesterday. BACK: Nontender without obvious deformity. No CVA tenderness. Procedures EGD on 12/05/2016 and on 12/06/2016. A/P Problem List: (1) Accelerated hypertension ICD Code: I10 - Essential (primary) hypertension (2) Anemia due to GI blood loss ICD Code: D50.0 - Iron deficiency anemia secondary to blood loss (chronic) (3) CKD (chronic kidney disease) stage 4, GFR 15-29 ml/min ICD Code: N18.4 - Chronic kidney disease, stage 4 (severe) Status: Acute Assessment and Plan Mr. Masters is a 76-year-old male with a history of GI bleed, GI AVM, hyperlipidemia, COPD, diabetes mellitus who presented to the emergency department due to dizziness and near syncope while using toilet on 12/05/2016. He reported large amount of melena and bright red blood for 2 days prior to this admission. On arrival patient was tachycardiac with hemoglobin 5.4. He received 4 units of PRBCs. He underwent to EGD studies which did not indicate any active bleeding site. - Acute symptomatic anemia due to GI blood loss - History of gastrointestinal AVM - Continue Protonix 40 mg by mouth twice a day. - Hemoglobin 10.1, hematocrit 30.3 on 12/08/2016. - Neck pain - CT neck shows significant foraminal narrowing. - Neurosurgery consulted, recommended conservative management. No surgical need. - Will continue patient on Muscle relaxers and narcotics PRN. - Right knee pain - Uric acid was 8.6. No crystal on synovial fluid analysis. - Continue cold compression. - WBC count 14828. However, gram stain so far unremarkable. - Will start patient on IV solu-medrol about 20mg Q12hrs with a one time dose of 40mg IV now. - Acute systolic congestive heart failure - EF around 40% with pulmonary arterial pressure around 64 mmHg. - BNP is elevated to 2748. - Lasix 40mg IV Q12hrs. - Accelerated hypertension - Continue nifedipine 60 mg daily - Acute kidney injury - Probable right renal mass - Chronic kidney disease stage III - Mild hypernatremia - Improved. Na 149 --> 145. - Mild hypokalemia - K+ 3.1. Mg was 2.2. Potassium replaced. K+ 4.6 on 12/10/2016 - On admission patient's creatinine was 3.27 likely due to volume reduction. - Nephrology is following. Creatinine is 1.74 on 12/10/2016. - Nephrology recommends outpatient follow up with Dr. Mcmullen with regards to renal mass. - PT consulted - recommended SNF vs. home with home health PT. Patient/ agrees to consider SNF. Full code. Venus. Catalino Carr DO Dec 11, 2016 11:20 am
[2016-12-11] MEDS ORDERED: methylPREDNISolone SOD SUCC 40 MG/1 ML VIAL IV PUSH ONE (11:30)
[2016-12-11] MEDS: ACETAMINOPHEN 325 MG TAB PO PRN (15:15)
--- NOTE | 2016-12-11 16:37 | HHI.NPPN ---
Subjective Renal Failure: Acute Additional Remarks Patient is alert, started eating, no SOB, not in distress. Review of Systems General Constitutional: Fatigue Eyes Eyes: Itching Gastrointestinal Gastrointestinal: Blood/Tarry Stools Objective Data Data Vital Signs Date Time Temp Pulse Resp B/P (MAP) Pulse Ox O2 Delivery O2 Flow Rate FiO2 12/11/16 12:00 97.3 93 20 132/81 (98) 100 12/11/16 09:32 Nasal Cannula 3.00 12/11/16 08:00 97.6 92 20 149/68 (95) 98 12/11/16 05:00 93 Nasal Cannula 3.00 12/11/16 04:00 97.9 105 20 153/65 (94) 95 12/11/16 00:00 99.4 98 20 141/64 (89) 93 12/10/16 22:00 98 12/10/16 20:00 98.5 94 20 160/70 (100) 100 -: 12/11/16 0352 12/11/16 0352 Microbiology 12/10/16 Fungal Smear - Final, Resulted NO FUNGAL ELEMENTS SEEN. 12/10/16 Fungal Culture, Resulted Pending 12/10/16 Acid Fast Stain, Received Pending 12/10/16 Mycobacterial Culture, Received Pending 12/10/16 Gram Stain - Final, Resulted 12/10/16 Body Fluid Culture - Preliminary, Resulted NO GROWTH IN 24 HOURS. Physical Exam General Appearance: No Acute Distress, Comfortable, Malnourished Neck Neck Exam: Neck Supple Pulmonary Resp Exam: Clear Bilaterally, Breath Sounds Equal Cardiology CV Exam: Regular, Normal Sinus Rhythm, Good Perfusion Gastrointestinal/Abdomen GI Exam: Soft, Non-Tender, Bowel Sounds Present Musculoskeletal MS Exam: Normal Tone, Good Strength Extremeties Extremities Exam: Trace Edema Neurologic Neuro Exam: Alert, Awake, Oriented Psychiatric Psych Exam: Appropriate Responses Assessment/Plan Discussed Condition With: Patient, Spouse Electrolyte Assessment: Hypernatremia Problem List: (1) Acute renal failure superimposed on stage 4 chronic kidney disease ICD Codes: N17.9 - Acute kidney failure, unspecified; N18.4 - Chronic kidney disease, stage 4 (severe) Plan: Renal function is stable.. He likely has underlying CKD due to nephrosclerosis. Follows with Dr. Mcmullen outpatient. LOS due to renal hypoperfusion due to blood loss, anemia, and possibly intravascular volume depletion. Avoid nephrotoxins. Renal US revealed a stone on the left and a mass on the right. The is concerned about the mass in his kidney. MRI with contrast is recommended. Gadolinium does not cause LOS. It is contraindicated if GFR is less than 30 because of possibility of NSF. Creatinine is 1.9 and has been non oliguric. On Lasix 40 mg IV BID. If Creatinine continue to increase, will consider decreasing Lasix. (2) Hypernatremia ICD Codes: E87.0 - Hyperosmolality and hypernatremia Plan: Improved, he is able to drink water Off IVF (3) Anemia ICD Codes: D64.9 - Anemia, unspecified Status: Acute Plan: Blood loss anemia, Anemia improved after blood transfusion. GI has evaluated. 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 s/p repeat EGD, no active bleeding found. On Protonix. (4) GI bleed ICD Codes: K92.2 - Gastrointestinal hemorrhage, unspecified Status: Acute Plan: See above. (5) Cardiomyopathy ICD Codes: I42.9 - Cardiomyopathy, unspecified Status: Acute Plan: Recent Echo revealed: The left ventricular systolic function is moderately reduced with an estimated ejection fraction in the range of 40. Normal left ventricular size. Moderate concentric left ventricular hypertrophy. No regional wall motion abnormalities are present. The left atrial size is xhxk-sb-boaybsacow dilated. Mild mitral valve regurgitation. Aortic valve sclerosis is present. Mild aortic valve regurgitation. There is trace tricuspid valve regurgitation. The estimated pulmonary arterial pressure is 64 mmHg. The inferior vena cava is dilated. Monitor fluid volume status He was given a dose of Diuril yesterday. Permanent Comment: Dr. Hollis - Atherosclerosis of [place] coronary artery. Last Edited By: José Miguel Black on May 29, 2015 16:04 (6) BPH (benign prostatic hyperplasia) ICD Codes: N40.0 - Enlarged prostate without lower urinary tract symptoms Status: Acute Plan: Continue Flomax. Has history of urinary retention, follows with urology. (7) DM2 (diabetes mellitus, type 2) ICD Codes: E11.9 - Type 2 diabetes mellitus without complications Status: Acute Plan: Continue insulin coverage, maintain blood glucose between 140 and 180. Stacie Chun MD Dec 11, 2016 16:37
[2016-12-11] MEDS: FUROSEMIDE 40 MG/4 ML VIAL IV PUSH SCH (16:56)
[2016-12-11] MEDS: methylPREDNISolone SOD SUCC 40 MG/1 ML VIAL IV PUSH SCH (20:42)
[2016-12-12] VITALS: BP 161/70; PULSE 89; RESP 20; TEMP 97.2; O2SAT 97
[2016-12-12] MEDS: CHLORHEXIDINE GLUCONATE 2 % 1 PACK (2 CLOTHS) TOP SCH (03:48)
[2016-12-12 04:00] VITALS: BP 165/97; PULSE 86; RESP 20; TEMP 97.6; O2SAT 97
[2016-12-12] MEDS: METHOCARBAMOL 500 MG TAB PO SCH (06:02)
[2016-12-12 08:00] VITALS: BP 153/67; PULSE 76; RESP 20; TEMP 97.3; O2SAT 97
[2016-12-12] MEDS: FUROSEMIDE 40 MG/4 ML VIAL IV PUSH SCH (09:46)
[2016-12-12] MEDS: DOCUSATE SODIUM 50 MG/SENNA 8.6 MG TAB PO SCH (09:46)
[2016-12-12] MEDS: methylPREDNISolone SOD SUCC 40 MG/1 ML VIAL IV PUSH SCH (09:46)
[2016-12-12] MEDS: PANTOPRAZOLE SOD 40 MG DELAYED RELEASE TAB PO SCH (09:46)
[2016-12-12] MEDS: NIFEdipine 90 MG SUSTAINED RELEASE TAB PO SCH (09:46)
[2016-12-12] MEDS ORDERED: METH500T3 PO (10:18)
[2016-12-12] MEDS ORDERED: TORS10TA2 PO (10:18)
[2016-12-12] MEDS ORDERED: NIFE90TA2 PO (10:18)
[2016-12-12] MEDS ORDERED: TRAM50TA PO (10:18)
[2016-12-12] MEDS ORDERED: COMMODE 3-IN-11 MIS (10:30)
[2016-12-12] MEDS ORDERED: WALKER WHEELS/F1 MIS (10:30)
--- NOTE | 2016-12-12 10:30 | HHI.DS ---
Discharge Summary Admission Date Dec 05, 2016 at 6:32 am Discharge Date: Dec 12, 2016 Admitting Diagnosis GI bleed, anemia, syncope (1) Accelerated hypertension ICD Code: I10 - Essential (primary) hypertension (2) Anemia due to GI blood loss ICD Code: D50.0 - Iron deficiency anemia secondary to blood loss (chronic) (3) CKD (chronic kidney disease) stage 4, GFR 15-29 ml/min ICD Code: N18.4 - Chronic kidney disease, stage 4 (severe) Status: Acute Procedures EGD on 12/05/2016 and on 12/06/2016. Brief History - From Admission The patient is a 76-year-old male with a past medical history of previous GI bleed, hyperlipidemia, cardiomyopathy with an ejection fraction of 48%, congestive heart failure, coronary artery disease, COPD, diabetes mellitus, chronic kidney disease, hypertension and sleep apnea. He presented to the [facility] Emergency Department with complaints of dizziness and near syncope while using the toilet. He reports a large amount of melena and bright red blood for the past two days. He also felt nauseous and had one episode of emesis today. The patient denies any abdominal pain. He had a recent endoscopy on November [address] 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 On arrival to the emergency room, the patient was tachycardic as well. His laboratory data showed a hemoglobin of 5.4 with hematocrit of 17.4. His comprehensive metabolic panel showed lactic acidosis with lactic acid level of 5.5 and acute on chronic renal failure with a BUN of 120, creatinine of 3.27. In the emergency room, the patient was given a one liter bolus of normal saline and placed on a Protonix drip. He is currently receiving a third unit of packed red blood cells out of four units that have been ordered. The patient was seen by Dr. Sharp from the GI service who plans to proceed with upper endoscopy today. CBC/BMP: 12/11/16 0352 12/11/16 0352 Significant Findings Laboratory Tests Test 12/10/16 07:20 12/10/16 16:40 12/11/16 03:52 Blood Urea Nitrogen 28 MG/DL (7-18) 32 MG/DL (7-18) Creatinine 1.74 MG/DL (0.60-1.30) 1.92 MG/DL (0.60-1.30) Random Glucose 112 MG/DL (74-106) 117 MG/DL (74-106) Albumin 2.4 GM/DL (3.4-5.0) Calcium Level 8.1 MG/DL (8.5-10.1) 8.1 MG/DL (8.5-10.1) Phosphorus Level 2.2 MG/DL (2.5-4.9) Chloride Level 111 MEQ/L (98-107) 110 MEQ/L (98-107) Estimat Glomerular Filtration Rate 38 ML/MIN (>89) 34 ML/MIN (>89) Uric Acid 8.6 MG/DL (2.6-7.2) Synovial Fluid Appearance SLIGHT (CLEAR) Synovial Fluid WBC 23564 /MM3 (0-200) Synovial Fluid Neutrophils 83 % (0-25) Red Blood Count 3.20 MIL/MM3 (4.50-5.90) Hemoglobin 9.3 GM/DL (13.0-17.0) Hematocrit 28.3 % (39.0-51.0) Red Cell Distribution Width 17.7 % (11.6-17.2) Platelet Count 145 TH/MM3 (150-450) Neutrophils (%) (Auto) 77.6 % (16.0-70.0) B-Type Natriuretic Peptide 2748 PG/ML (0-100) Imaging Last Impressions Chest X-Ray 12/11/16 0000 Signed Impressions: Service Date/Time: Sunday, December 11, 2016 02:49 - CONCLUSION: Bilateral central partial airspace opacities without consolidation, and partial consolidative infiltrates in the left lower lung. Rogerio Garber MD Aspiration 12/10/16 0000 Signed Impressions: Service Date/Time: Saturday, December 10, 2016 16:23 - CONCLUSION: Uncomplicated aspiration as above. Xiang Nathan MD Neck CT 12/08/16 0000 Signed Impressions: Service Date/Time: Thursday, December 08, 2016 17:26 - CONCLUSION: 1. No soft tissue abnormality within the neck. 2. Chronic cervical spondylosis and multilevel foraminal narrowing as well as grade I anterolisthesis of C7 in relation to T1. 3. Mild chronic right sphenoid sinusitis. Eh Valderrama MD Renal Ultrasound 12/05/16 0000 Signed Impressions: Service Date/Time: Monday, December 05, 2016 16:10 - CONCLUSION: 1. Chronic parenchymal disease of the kidneys. 2. Suspected mass of the right upper pole. A abdomen MRI with and without contrast is recommended when clinically feasible. 3. No acute obstructive uropathy. There is a fairly large but nonobstructing stone of the left kidney. 4. Apparent splenomegaly, nonspecific. Jn Mock MD Head CT 12/05/16 0000 Signed Impressions: Service Date/Time: Monday, December 05, 2016 07:27 - CONCLUSION: 1. No acute abnormality seen. 2. Atrophy. 3. 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 4. Suspected small vessel ischemic change in the periventricular white matter. Jn Carrillo MD PE at Discharge GENERAL: Alert, NAD. SKIN: Warm and dry. HEAD: Normocephalic. EYES: No scleral icterus. No injection or drainage. NECK: Supple, trachea midline. No JVD or lymphadenopathy. CARDIOVASCULAR: Regular rate and rhythm without murmurs, gallops, or rubs. RESPIRATORY: Breath sounds equal bilaterally. No accessory muscle use. GASTROINTESTINAL: Abdomen soft, non-tender, nondistended. MUSCULOSKELETAL: No cyanosis, or edema. right knee swelling is down, not as tender as it was yesterday. BACK: Nontender without obvious deformity. No CVA tenderness. Pt update on day of discharge Patient is doing well. Able to ambulate with walker. is at bedside. Both of them want to go home. Hospital Course Mr. Masters is a 76-year-old male with a history of GI bleed, GI AVM, hyperlipidemia, COPD, diabetes mellitus who presented to the emergency department due to dizziness and near syncope while using toilet on 12/05/2016. He reported large amount of melena and bright red blood for 2 days prior to this admission. On arrival patient was tachycardiac with hemoglobin 5.4. He received 4 units of PRBCs. He underwent to EGD studies which did not indicate any active bleeding site. - Acute symptomatic anemia due to GI blood loss - History of gastrointestinal AVM - Continue Protonix 40 mg by mouth twice a day. - Hemoglobin 10.1, hematocrit 30.3 on 12/08/2016. - Neck pain - CT neck shows significant foraminal narrowing. - Neurosurgery consulted, recommended conservative management. No surgical need. - Will continue patient on Muscle relaxers and narcotics PRN. - Right knee pain - Uric acid was 8.6. No crystal on synovial fluid analysis. - Continue cold compression. - WBC count 70527. However, gram stain so far unremarkable. Right knee pain is likely inflammatory. - Much improved after arthrocentesis. - Patient received IV solu-medrol then we switched to PO on discharge. - Acute systolic congestive heart failure - EF around 40% with pulmonary arterial pressure around 64 mmHg. - BNP is elevated to 2748. - Lasix 40mg IV Q12hrs. - Accelerated hypertension - Continue nifedipine 60 mg daily - Acute kidney injury - Probable right renal mass - Chronic kidney disease stage III - Mild hypernatremia - Improved. Na 149 --> 145. - Mild hypokalemia - K+ 3.1. Mg was 2.2. Potassium replaced. K+ 4.6 on 12/10/2016 - On admission patient's creatinine was 3.27 likely due to volume reduction. - Nephrology is following. Creatinine is 1.74 on 12/10/2016. - Nephrology recommends outpatient follow up with Dr. Mcmullen with regards to renal mass. - PT consulted - recommended SNF vs. home with home health PT. Patient/ wants to go home. Pt Condition on Discharge: Good Discharge Disposition: Disch w/ Home Health Serv Discharge Time: > 30 minutes Discharge Instructions DIET: Follow Instructions for: As Tolerated, No Restrictions Activities you can perform: Regular-No Restrictions Follow up Referrals: PCP Follow-up - 1 Week SNF/[facility]/ with [facility]: [phone] New Orders: BASIC METABOLIC PROF - 1 Week New Medications: Commode 3-in-1 (Commode 3-in-1) 1 Mis Mis EA .ROUTE DIRECTED, #1 0 Refills Metoprolol Succinate ER 24 HR (Metoprolol Succinate ER 24 HR) 25 Mg Tab 25 MG PO DAILY for Heart, #30 TAB 0 Refills Prednisone (Prednisone) 10 Mg Tab 10 MG PO BID for Inflammation, #10 TAB 0 Refills Torsemide (Torsemide) 10 Mg Tab 10 MG PO DAILY for Heart, #30 TAB 0 Refills Tramadol (Tramadol) 50 Mg Tab 50 MG PO Q8H PRN for PAIN, #30 TAB 0 Refills Walker with Front Wheels (Walker with Front Wheels) 1 Mis Mis EA .ROUTE DIRECTED, #1 0 Refills Methocarbamol (Methocarbamol) 500 Mg Tab 500 MG PO Q8HR PRN for SPASM, #30 TAB Nifedipine (Nifedipine ER) 90 Mg Tab 90 MG PO DAILY for Blood Pressure Management, #30 TAB 3 Refills Continued Medications: Albuterol 18 GM Inh (Ventolin Hfa 18 GM Inh) 90 Mcg/Act Aer 2 PUFF INH Q4-6H PRN for SHORTNESS OF BREATH, #1 INHALER 0 Refills Atorvastatin (Atorvastatin) 40 Mg Tab 40 MG PO HS for Cholesterol Management, #30 TAB 3 Refills Calcitriol (Calcitriol) 0.25 Mcg Cap 0.25 MCG PO DAILY for Calcium Supplement, #30 CAP 0 Refills Cilostazol (Cilostazol) 100 Mg Tab 100 MG PO DAILY for INTERMITTENT CLAUDICATION, TAB 0 Refills Clopidogrel (Plavix) 75 Mg Tab 75 MG PO DAILY for Blood Clot Prevention, #30 TAB 0 Refills Diphenhydramine HCl (Allergy Relief) 25 Mg Tab 25 MG PO Q4-6H PRN for ITCHING Pantoprazole (Protonix) 40 Mg Tab 40 MG PO DAILY for Reflux, #30 TAB 0 Refills Tamsulosin (Flomax) 0.4 Mg Cap 0.4 MG PO Q12HR for retention for 30 Days, #60 CAP Umeclidinium-Vilanterol Inh (Anoro Ellipta Inh) 62.5-25 Mcg/Act Aero 1 PUFF INH DAILY for COPD, #1 INHALER 0 Refills [Curel Lotion] () 1 APPLIC TOPICAL DAILY PRN for ITCHING Discontinued Medications: Aspirin DR (Aspirin Adult Low Strength) 81 Mg Tabdr 81 MG PO DAILY, TAB Furosemide (Furosemide) 40 Mg Tab 40 MG PO BID@,18 for CHF for 30 Days, #60 TAB Hydroxyzine HCl (Hydroxyzine HCl) 10 Mg Tab 10-20 MG PO HS for Itching, TAB 0 Refills Metoprolol Succinate ER 24 HR (Toprol XL) 100 Mg Tab 100 MG PO DAILY, #30 TAB 0 Refills Catalino Carr DO Dec 12, 2016 10:30
--- NOTE | 2016-12-12 10:32 | HHI.FF ---
Face to Face Verification Diagnosis: (1) CAD (coronary artery disease) (2) HTN (hypertension) (3) Anemia due to GI blood loss (4) Fluid in right knee joint (5) COPD (chronic obstructive pulmonary disease) Physical Therapy Order: Evaluate and Treat, Improve ambulation, Strength and gait training Home Health Nursing Order: Medical education Signs/symptoms of disease process Nursing assessment with vital signs I have seen patient Peter Masters on 12/12/16. My clinical findings support the need for the requested home health care services because: Ltd mobility - disease progression Deconditioned w/ increased weakness Limited ability to care for self Need for psychosocial assistance Impaired cognition/judgement High risk of falls Infection w/ risk of complications I certify that my clinical findings support that this patient is homebound because: Impaired cognitive ability/safety Unsteady gait/balance Unsafe to leave home unassisted Need for psychosocial assistance Unable to use public transportation Catalino Carr DO Dec 12, 2016 10:32 am
[2016-12-12] MEDS ORDERED: METO25TA6 PO (10:33)
[2016-12-12] MEDS: INSULIN ASPART SUPPLEMENTAL SCALE SQ SCH ×2 (11:55→12:00)
[2016-12-12 12:00] VITALS: PULSE 80
[2016-12-12] MEDS ORDERED: PRED10 PO (13:03)
--- NOTE | 2016-12-12 13:40 | HHI.NPPN ---
Subjective Renal Failure: Acute Additional Remarks Patient is alert, sitting on chair, seen an hr. ago, ready to go home. Review of Systems General Constitutional: Fatigue Eyes Eyes: Itching Gastrointestinal Gastrointestinal: Blood/Tarry Stools Objective Data Data Vital Signs Date Time Temp Pulse Resp B/P (MAP) Pulse Ox O2 Delivery O2 Flow Rate FiO2 12/12/16 12:00 80 12/12/16 08:00 97.3 76 20 153/67 (95) 97 12/12/16 04:00 97.6 86 20 165/97 (119) 97 12/12/16 00:00 Nasal Cannula 3.00 12/12/16 00:00 97.2 89 20 161/70 (100) 97 12/11/16 20:00 Nasal Cannula 3.00 12/11/16 20:00 97.8 86 20 149/67 (94) 97 12/11/16 19:59 88 12/11/16 16:00 97.2 83 20 147/65 (92) 94 -: 12/11/16 0352 12/11/16 0352 Physical Exam General Appearance: No Acute Distress, Comfortable, Malnourished Neck Neck Exam: Neck Supple Pulmonary Resp Exam: Clear Bilaterally, Breath Sounds Equal Cardiology CV Exam: Regular, Normal Sinus Rhythm, Good Perfusion Gastrointestinal/Abdomen GI Exam: Soft, Non-Tender, Bowel Sounds Present Musculoskeletal MS Exam: Normal Tone, Good Strength Extremeties Extremities Exam: Trace Edema Neurologic Neuro Exam: Alert, Awake, Oriented Psychiatric Psych Exam: Appropriate Responses Assessment/Plan Discussed Condition With: Patient, Spouse Electrolyte Assessment: Hypernatremia Problem List: (1) Acute renal failure superimposed on stage 4 chronic kidney disease ICD Codes: N17.9 - Acute kidney failure, unspecified; N18.4 - Chronic kidney disease, stage 4 (severe) Plan: Renal function is stable.. He likely has underlying CKD due to nephrosclerosis. Follows with Dr. Mcmullen outpatient. LOS due to renal hypoperfusion due to blood loss, anemia, and possibly intravascular volume depletion. Avoid nephrotoxins. Renal US revealed a stone on the left and a mass on the right. The is concerned about the mass in his kidney. MRI with contrast is recommended. Gadolinium does not cause LOS. It is contraindicated if GFR is less than 30 because of possibility of NSF. On Lasix, now new BMP. Now for D/C, to follow with his [employer], dr. Mcmullen. (2) Hypernatremia ICD Codes: E87.0 - Hyperosmolality and hypernatremia Plan: Improved, he is able to drink water Off IVF (3) Anemia ICD Codes: D64.9 - Anemia, unspecified Status: Acute Plan: Blood loss anemia, Anemia improved after blood transfusion. GI has evaluated. 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 s/p repeat EGD, no active bleeding found. On Protonix. (4) GI bleed ICD Codes: K92.2 - Gastrointestinal hemorrhage, unspecified Status: Acute Plan: See above. (5) Cardiomyopathy ICD Codes: I42.9 - Cardiomyopathy, unspecified Status: Acute Plan: Recent Echo revealed: The left ventricular systolic function is moderately reduced with an estimated ejection fraction in the range of 40. Normal left ventricular size. Moderate concentric left ventricular hypertrophy. No regional wall motion abnormalities are present. The left atrial size is qdvf-ar-zmbtqxfnys dilated. Mild mitral valve regurgitation. Aortic valve sclerosis is present. Mild aortic valve regurgitation. There is trace tricuspid valve regurgitation. The estimated pulmonary arterial pressure is 64 mmHg. The inferior vena cava is dilated. Monitor fluid volume status He was given a dose of Diuril yesterday. Permanent Comment: Dr. Hollis - Atherosclerosis of [place] coronary artery. Last Edited By: José Miguel Black on May 29, 2015 16:04 (6) BPH (benign prostatic hyperplasia) ICD Codes: N40.0 - Enlarged prostate without lower urinary tract symptoms Status: Acute Plan: Continue Flomax. Has history of urinary retention, follows with urology. (7) DM2 (diabetes mellitus, type 2) ICD Codes: E11.9 - Type 2 diabetes mellitus without complications Status: Acute Plan: Continue insulin coverage, maintain blood glucose between 140 and 180. Stacie Chun MD Dec 12, 2016 13:40
[2016-12-15 23:54] LABS: TOTAL PROTEIN, SYNOVIAL FLUID 2.4 g/dL (1.0-3.0)
== END 2016-12-12 13:20 | disposition home health service (06) | DRG 377 ==
LOC: NEPE 04:19 → NEDA 06:32 → HIME 10:48 → N04A 12-08 16:45
PROVIDERS: ADMIT Hospitalist; ATTEND Hospitalist
PROC: 30233N1 Transfusion of Nonautologous Red Blood Cells into Peripheral Vein, Percutaneous Approach (ICD-10-PCS; principal; 2016-12-05 15:00)
PROC: 0DJ08ZZ Inspection of Upper Intestinal Tract, Via Natural or Artificial Opening Endoscopic (ICD-10-PCS; 2016-12-06)
PROC: 0S9C3ZZ Drainage of Right Knee Joint, Percutaneous Approach (ICD-10-PCS; 2016-12-10)
DX: K92.2 Gastrointestinal hemorrhage, unspecified (principal); I50.21 Acute systolic (congestive) heart failure; I47.2 Ventricular tachycardia; N18.4 Chronic kidney disease, stage 4 (severe); E87.0 Hyperosmolality and hypernatremia; N17.9 Acute kidney failure, unspecified; I42.9 Cardiomyopathy, unspecified; E87.2 Acidosis; I13.0 Hypertensive heart and chronic kidney disease with heart failure and stage 1 through stage 4 chronic kidney disease, or unspecified chronic kidney disease; D62 Acute posthemorrhagic anemia; I48.92 Unspecified atrial flutter; E11.22 Type 2 diabetes mellitus with diabetic chronic kidney disease; I48.91 Unspecified atrial fibrillation; R55 Syncope and collapse; K25.7 Chronic gastric ulcer without hemorrhage or perforation; I08.3 Combined rheumatic disorders of mitral, aortic and tricuspid valves; J44.9 Chronic obstructive pulmonary disease, unspecified; E78.5 Hyperlipidemia, unspecified; I25.2 Old myocardial infarction; I25.10 Atherosclerotic heart disease of native coronary artery without angina pectoris; G47.30 Sleep apnea, unspecified; Z86.73 Personal history of transient ischemic attack (TIA), and cerebral infarction without residual deficits; F17.210 Nicotine dependence, cigarettes, uncomplicated; Z79.82 Long term (current) use of aspirin; Z79.02 Long term (current) use of antithrombotics/antiplatelets; Z95.5 Presence of coronary angioplasty implant and graft; Z86.14 Personal history of Methicillin resistant Staphylococcus aureus infection; Z82.3 Family history of stroke; Z82.49 Family history of ischemic heart disease and other diseases of the circulatory system; N40.0 Benign prostatic hyperplasia without lower urinary tract symptoms; G89.29 Other chronic pain; M50.30 Other cervical disc degeneration, unspecified cervical region; M48.02 Spinal stenosis, cervical region; M47.892 Other spondylosis, cervical region; S16.1XXA Strain of muscle, fascia and tendon at neck level, initial encounter; W19.XXXA Unspecified fall, initial encounter; Y93.9 Activity, unspecified; Y92.9 Unspecified place or not applicable; K44.9 Diaphragmatic hernia without obstruction or gangrene; M10.9 Gout, unspecified; N20.0 Calculus of kidney; E87.6 Hypokalemia; Z85.828 Personal history of other malignant neoplasm of skin; M25.461 Effusion, right knee; I44.0 Atrioventricular block, first degree
CPT/HCPCS: 36430; 70450; 70490; 71010; 76775; 76937; 80048; 80053; 80069; 81001; 82945; 82948; 83605; 83735; 83880; 84157; 84484; 84550; 85014; 85018; 85025; 85610; 85730; 86850; 86900; 86901; 86920; 87015; 87070; 87102; 87116; 87205; 87206; 87641; 89051; 89060; 93005; 94640; 94664; 96365; 96368; 96375; 99284; C1769; C9113; J0360; J0692; J1205; J1815; J1940; J2370; J2405; J2765; J2920; J3480; J7030; P9016

== ENCOUNTER 2017-01-27 12:38 | Inpatient (IN) | payer MEDICARE ==
[~2017-01-27] VITALS: Ht 180.3 cm; Wt 74.0 kg
[2017-01-27] VITALS (7 sets, daily range): BP systolic 141–175; BP diastolic 65–74; PULSE 69–85; RESP 12–44; TEMP 97.4–98.7; O2SAT 95–98
[~2017-01-27 12:38] MED LIST changes: -ASPI1TAB91 PO; +COMMODE 3-IN-11 MIS; -FURO40TA PO; -HYDR-755 PO; +METH500T3 PO; +METO1TAB42 PO; -MIRTA15 PO; +NIFE90TA2 PO; +PRED10 PO; -TOPR100T PO; +TORS10TA2 PO; +TRAM50TA PO; +WALKER WHEELS/F1 MIS
[2017-01-27] MEDS ORDERED: SODIUM CHLORIDE 0.9% FLUSH 10 ML FLUSH IVF PRN (13:00)
[2017-01-27 13:38] LABS: AUTOMATED NEUTROPHIL # 4.2 TH/MM3 (1.8-7.7); BASOPHIL % 0.9 % (0.0-2.0); EOSINOPHIL # 0.1 TH/MM3 (0-0.4); HEMATOCRIT 30.6 % (39.0-51.0); HEMO FLAGS DIFF FINAL; LYMPH % 17.6 % (9.0-44.0); LYMPHOCYTE # 0.9 TH/MM3 (1.0-4.8); MEAN CELL VOLUME 84.8 FL (80.0-100.0); MEAN CORPUSCULAR HEMOGLOBIN 27.3 PG (27.0-34.0); MEAN CORPUSCULAR HGB CONC 32.2 % (32.0-36.0); MONO % 2.7 % (0.0-8.0); NEUT % 77.8 % (16.0-70.0); PLATELET COUNT 211 TH/MM3 (150-450); RED BLOOD COUNT 3.61 MIL/MM3 (4.50-5.90); RED CELL DISTRIBUTION WIDTH 18.2 % (11.6-17.2); WHITE BLOOD COUNT 5.4 TH/MM3 (4.0-11.0)
--- NOTE | 2017-01-27 13:40 | RADRPT ---
EXAM DATE/TIME: 01/27/2017 13:01 [place] COMPARISON: CHEST SINGLE AP, December 11, 2016, 2:49. INDICATIONS : Short of breath, chest pain MEDICAL HISTORY : Cardiovascular disease. SURGICAL HISTORY : None. ENCOUNTER: Initial ACUITY: 1 day PAIN SCORE: 4/10 LOCATION: Bilateral chest FINDINGS: Portable AP view of the chest demonstrates a normal-sized cardiac silhouette. Multiple leads and shilpa everardo overlie the chest. No effusion, consolidation, or pneumothorax identified. There is mild intersti tial prominence in the lower lung zones. Bones and soft tissues demonstrate no acute finding. CONCLUSION: Lungs are partially obscured secondary to overlying structures. There are mild increased interstitial opacities in the lower lung zones bilaterally which could represent interstitial pulmonary edema in the appropriate clinical setting. Jn Ellison MD on January 27, 2017 at 13:37 Board Certified Radiologist. This report was verified electronically.
[2017-01-27 13:46] LABS: APTT (PATIENT) 29.9 SEC (24.3-30.1); PROTHROMBIN TIME - PATIENT 11.5 SEC (9.8-11.6)
[2017-01-27 13:58] LABS: ANION GAP 10 MEQ/L (5-15); AST (GOT) 22 U/L (15-37); BICARBONATE 26.6 MEQ/L (21.0-32.0); BLOOD UREA NITROGEN 47 MG/DL (7-18); CHLORIDE 100 MEQ/L (98-107); GLOMERULAR FILTRATION RATE 30 ML/MIN (>89); POTASSIUM 4.3 MEQ/L (3.5-5.1); SODIUM (NA) 137 MEQ/L (136-145)
[2017-01-27 14:03] LABS: ALKALINE PHOSPHATASE 118 U/L (45-117); ALT (GPT) 43 U/L (12-78); TOTAL BILIRUBIN ADULT 0.8 MG/DL (0.2-1.0)
[2017-01-27 14:05] LABS: CREATINE KINASE 38 U/L (39-308)
[2017-01-27] MEDS ORDERED: NITROGLYCERIN 2% OINT 1 GM PACKET TOPICAL ONE (14:30)
--- NOTE | 2017-01-27 14:35 | PD ---
HPI Chief Complaint: Chest Pain Time Seen by Provider: 12:56 Travel History International Travel<30 days: No Contact w/Intl Traveler<30days: No Traveled to known affect area: No History of Present Illness HPI 76-year-old male patient with history of multiple medical issues, vascular path , currently has a life vest, being evaluated for further cardiac catheterization according to his by Dr. Hollis, here because he has been having 2 days of chest discomfort, dyspnea on exertion, worse with walking from room to room. He denies any current chest pains, but states it worsens with exertion. He denies any fevers, nausea, vomiting, or other symptoms. Modifying Factors: Worse with exertion Associated Signs & Symptoms: Chest discomfort, dyspnea on exertion Risk Factors: Cardiac history, CHF PFSH Past Medical History Hx Anticoagulant Therapy: Yes (aspirin and Plavix) Anemia: Yes Arthritis: No Asthma: No Atrial Fibrillation: Yes Anxiety: No Depression: No Cancer: Yes (Skin cancer) Cardiac Catheterization: Yes Cardiomyopathy: Yes Cardiovascular Problems: Yes (A-FLUTTER W/ RVR ) High Cholesterol: Yes Chemotherapy: No Chest Pain: Yes Congestive Heart Failure: Yes COPD: Yes Cerebrovascular Accident: Yes (MULTIPLE TIA'S) Coronary Artery Disease: Yes Diabetes: Yes Patient Takes Glucophage: No Diminished Hearing: No Endocrine: Yes Gastrointestinal Disorders: Yes (history of GI bleed) GERD: No Genitourinary: Yes (BPH / URINARY RETENTION) Hypertension: Yes Immune Disorder: No Implanted Vascular Access Dvce: Yes Kidney Stones: No Musculoskeletal: No Neurologic: No Psychiatric: No Reproductive: No Respiratory: Yes Integumentary: Yes (SKIN MRSA) Immunizations Current: Yes Myocardial Infarction: Yes Radiation Therapy: No Renal Failure: Yes (stage IV chronic kidney disease) Sleep Apnea: Yes Ulcer: Yes Past Surgical History Abdominal Surgery: No AICD: No Arteriovenous Shunt: Yes (left arm) Body Medical Devices: stents in heart Cardiac Surgery: Yes (Stents) Coronary Stent: Yes Ear Surgery: No Endocrine Surgery: No Eye Surgery: No Genitourinary Surgery: No Gynecologic Surgery: No Joint Replacement: No Neurologic Surgery: No Oral Surgery: No Pacemaker: No Thoracic Surgery: No Other Surgery: Yes (STRIPPED VEINS IN LEGS, LAVF) Social History Alcohol Use: No (DENIES) Tobacco Use: Yes (1/2 PACK PER DAY) Substance Use: No Allergies-Medications (Allergen,Severity, Reaction): Coded Allergies: Sulfa (Sulfonamide Antibiotics) (Unverified Allergy, Severe, RASH, 01/27/17 ) sulfamethoxazole (Unverified Allergy, Severe, Rash, 01/27/17) RASH OF FACE AND ORAL MUCUS MEMBRANES trimethoprim (Unverified Allergy, Severe, Rash, 01/27/17) RASH OF FACE AND ORAL MUCUS MEMBRANES Reported Meds & Prescriptions Reported Meds & Active Scripts Active Prednisone 10 Mg Tab 10 Mg PO BID Metoprolol Succinate ER 24 HR (Metoprolol Succinate) 25 Mg Tab 25 Mg PO DAILY Walker with Front Wheels (Device) 1 Mis Mis Ea .ROUTE DIRECTED Commode 3-in-1 (Device) 1 Mis Mis Ea .ROUTE DIRECTED Tramadol (Tramadol HCl) 50 Mg Tab 50 Mg PO Q8H PRN Torsemide 10 Mg Tab 10 Mg PO DAILY Nifedipine ER (Nifedipine) 90 Mg Tab 90 Mg PO DAILY Methocarbamol 500 Mg Tab 500 Mg PO Q8HR PRN Flomax (Tamsulosin HCl) 0.4 Mg Cap 0.4 Mg PO Q12HR 30 Days Atorvastatin (Atorvastatin Calcium) 40 Mg Tab 40 Mg PO HS Reported [Curel Lotion] 1 Applic TOPICAL DAILY PRN Cilostazol 100 Mg Tab 100 Mg PO DAILY Allergy Relief (Diphenhydramine HCl) 25 Mg Tab 25 Mg PO Q4-6H PRN Protonix (Pantoprazole Sodium) 40 Mg Tab 40 Mg PO DAILY Plavix (Clopidogrel Bisulfate) 75 Mg Tab 75 Mg PO DAILY Calcitriol 0.25 Mcg Cap 0.25 Mcg PO DAILY Review of Systems Except as stated in HPI: all other systems reviewed are Neg Physical Exam Narrative GENERAL: Well-developed elderly white male patient currently in moderate distress. Awake and oriented 3. SKIN: Focused skin assessment warm/dry. HEAD: Atraumatic. Normocephalic. EYES: Pupils equal and round. No scleral icterus. No injection or drainage. ENT: No nasal bleeding or discharge. Mucous membranes pink and moist. NECK: Trachea midline. No JVD. CARDIOVASCULAR: Regular rate and rhythm. No murmur appreciated. Pulses are equal bilaterally. RESPIRATORY: Mild accessory muscle use. Decreased breath sounds at the bases bilaterally. Breath sounds equal bilaterally. GASTROINTESTINAL: Abdomen soft, non-tender, nondistended. Hepatic and splenic margins not palpable. MUSCULOSKELETAL: No obvious deformities. No clubbing. No cyanosis. No edema. NEUROLOGICAL: Awake and alert. No obvious cranial nerve deficits. Motor grossly within normal limits. Normal speech. PSYCHIATRIC: Appropriate mood and affect; insight and judgment normal. Data Data Last Documented VS Vital Signs Date Time Temp Pulse Resp B/P (MAP) Pulse Ox O2 Delivery O2 Flow Rate FiO2 01/27/17 14:36 71 22 165/71 (102) 97 Nasal Cannula 2.00 01/27/17 12:43 98.7 Orders Orders Complete Blood Count With Diff (01/27/17 12:58) Comprehensive Metabolic Panel (01/27/17 12:58) B-Type Natriuretic Peptide (01/27/17 12:58) Act Partial Throm Time (Ptt) (01/27/17 12:58) Prothrombin Time / Inr (Pt) (01/27/17 12:58) Ckmb (Isoenzyme) Profile (01/27/17 12:58) Troponin I (01/27/17 12:58) Iv Access Insert/Monitor (01/27/17 12:58) Electrocardiogram (01/27/17 12:58) Ecg Monitoring (01/27/17 12:58) Oximetry (01/27/17 12:58) Oxygen Administration (01/27/17 12:58) Chest, Single Ap (01/27/17 12:58) Sodium Chloride 0.9% Flush (Ns Flush) (01/27/17 13:00) Type And Screen (01/27/17 12:58) Nitroglycerin 2% Oint (Nitroglycerin 2% (01/27/17 14:30) Furosemide Inj (Lasix Inj) (01/27/17 14:45) Admit Order (Ed Use Only) (01/27/17 15:15) Labs Laboratory Tests Test 01/27/17 13:05 White Blood Count 5.4 TH/MM3 Red Blood Count 3.61 MIL/MM3 Hemoglobin 9.9 GM/DL Hematocrit 30.6 % Mean Corpuscular Volume 84.8 FL Mean Corpuscular Hemoglobin 27.3 PG Mean Corpuscular Hemoglobin Concent 32.2 % Red Cell Distribution Width 18.2 % Platelet Count 211 TH/MM3 Mean Platelet Volume 8.9 FL Neutrophils (%) (Auto) 77.8 % Lymphocytes (%) (Auto) 17.6 % Monocytes (%) (Auto) 2.7 % Eosinophils (%) (Auto) 1.0 % Basophils (%) (Auto) 0.9 % Neutrophils # (Auto) 4.2 TH/MM3 Lymphocytes # (Auto) 0.9 TH/MM3 Monocytes # (Auto) 0.1 TH/MM3 Eosinophils # (Auto) 0.1 TH/MM3 Basophils # (Auto) 0.0 TH/MM3 CBC Comment DIFF FINAL Differential Comment Prothrombin Time 11.5 SEC Prothromb Time International Ratio 1.0 RATIO Activated Partial Thromboplast Time 29.9 SEC Blood Urea Nitrogen 47 MG/DL Creatinine 2.13 MG/DL Random Glucose 156 MG/DL Total Protein 7.2 GM/DL Albumin 3.0 GM/DL Calcium Level 9.3 MG/DL Alkaline Phosphatase 118 U/L Aspartate Amino Transf (AST/SGOT) 22 U/L Alanine Aminotransferase (ALT/SGPT) 43 U/L Total Bilirubin 0.8 MG/DL Sodium Level 137 MEQ/L Potassium Level 4.3 MEQ/L Chloride Level 100 MEQ/L Carbon Dioxide Level 26.6 MEQ/L Anion Gap 10 MEQ/L Estimat Glomerular Filtration Rate 30 ML/MIN Total Creatine Kinase 38 U/L Troponin I 0.07 NG/ML B-Type Natriuretic Peptide GREATER THAN 5000 PG/ML MDM Medical Decision Making Medical Screen Exam Complete: Yes Emergency Medical Condition: Yes Medical Record Reviewed: Yes Interpretation(s) EKG shows normal sinus rhythm with LVH, rate 73 bpm. Laboratory Tests Test 01/27/17 13:05 Red Blood Count 3.61 MIL/MM3 (4.50-5.90) Hemoglobin 9.9 GM/DL (13.0-17.0) Hematocrit 30.6 % (39.0-51.0) Red Cell Distribution Width 18.2 % (11.6-17.2) Neutrophils (%) (Auto) 77.8 % (16.0-70.0) Lymphocytes # (Auto) 0.9 TH/MM3 (1.0-4.8) Blood Urea Nitrogen 47 MG/DL (7-18) Creatinine 2.13 MG/DL (0.60-1.30) Random Glucose 156 MG/DL (74-106) Albumin 3.0 GM/DL (3.4-5.0) Alkaline Phosphatase 118 U/L (45-117) Estimat Glomerular Filtration Rate 30 ML/MIN (>89) Total Creatine Kinase 38 U/L (39-308) Troponin I 0.07 NG/ML (0.02-0.05) Last 24 hours Impressions Chest X-Ray 01/27/17 1258 Signed Impressions: Service Date/Time: , January 27, 2017 13:01 - CONCLUSION: Lungs are partially obscured secondary to overlying structures. There are mild increased interstitial opacities in the lower lung zones bilaterally which could represent interstitial pulmonary edema in the appropriate clinical setting. Jn Ellison MD Differential Diagnosis ACS versus dysrhythmias versus CHF versus pneumonia versus dehydration versus metabolic issues versus sepsis Narrative Course Chest x-ray is indicative of underlying pulmonary edema and along with chest discomfort, patient was given nitroglycerin. His urine endocrine is quite elevated, he has baseline poor renal functions, he will need careful diuresis. At this point, plan would be to admit him for further treatment. Case is discussed with Dr. Lopez for admission. Diagnosis Primary Impression: Chest pain Additional Impression: CHF (congestive heart failure) Admitting Information Admitting Physician Requests: Admit Josh Walker MD Jan 27, 2017 14:35
[2017-01-27] MEDS ORDERED: FUROSEMIDE 40 MG/4 ML VIAL IV PUSH ONE (14:45)
--- NOTE | 2017-01-27 15:24 | HHI.HP ---
[facility]ician Allan Reeder MD Admission Diagnosis CHF exacerbation Diagnoses: Chief Complaint: Atypical Chest pain. Travel History International Travel<30 Days: No Contact w/Intl Traveler <30 Da: No Traveled to Known Affected Are: No History of Present Illness This is a pleasant 76 y/o male with PAD, currently using a LifeVest, being evaluated for further cardiac catheterization, he came to ER after two days of chest discomfort, dyspnea on exertion, worse with walking from room to room. He denies any current chest pains, but states it worsens with exertion. He denies any fevers, nausea, vomiting, or other symptoms. Recently discharged from this facility The patient recent GI bleed, he has Hyperlipidemia, CAD, EF 48%, CHF, COPD, DM II, CKD IV, Hypertension and Sleep Apnea, seen in Emergency room and discussed with him and his Mrs. Janay Masters the patient was at [place] visiting his children and developed Shortness of breath and had to get IV diuretics, one week ago he had Live-Vest placed by Doctor Bunny Lopez and is scheduled for Cardiac Catheterization in this facility for 01/31/17, at this time complaint of shortness of breath, no signs of Volume overload at this time or Congestive heart but his Chest x ray is positive also BNP is over 5000, started On Lasix IV 40 mg in ER I will continue dosages every 8 hours and will need to be titrated by internet database specialist and Hospitalist depend of Hospital course. Review of Systems Constitutional: DENIES: Fever, Chills, Change in appetite Endocrine: DENIES: Heat/cold intolerance Eyes: DENIES: Blurred vision, Eye pain Except as stated in HPI: all other systems reviewed are Neg Past Family Social History Past Medical History Anemia Atrial Fibrillation Skin Cancer CAD status post PCI Hyperlipidemia CHF Multiple TIAs COPD DM II GI bleed history BPH with Urinary Retention Hypertension CKD IV AURELIA Past Surgical History AV Shunt left arm PCI with stents placement Vascular surgery on bilateral legs. Reported Medications Reported Meds & Active Scripts Active Prednisone 10 Mg Tab 10 Mg PO BID Metoprolol Succinate ER 24 HR (Metoprolol Succinate) 25 Mg Tab 25 Mg PO DAILY Walker with Front Wheels (Device) 1 Mis Mis Ea .ROUTE DIRECTED Commode 3-in-1 (Device) 1 Mis Mis Ea .ROUTE DIRECTED Tramadol (Tramadol HCl) 50 Mg Tab 50 Mg PO Q8H PRN Torsemide 10 Mg Tab 10 Mg PO DAILY Nifedipine ER (Nifedipine) 90 Mg Tab 90 Mg PO DAILY Methocarbamol 500 Mg Tab 500 Mg PO Q8HR PRN Flomax (Tamsulosin HCl) 0.4 Mg Cap 0.4 Mg PO Q12HR 30 Days Atorvastatin (Atorvastatin Calcium) 40 Mg Tab 40 Mg PO HS Reported [Curel Lotion] 1 Applic TOPICAL DAILY PRN Cilostazol 100 Mg Tab 100 Mg PO DAILY Allergy Relief (Diphenhydramine HCl) 25 Mg Tab 25 Mg PO Q4-6H PRN Protonix (Pantoprazole Sodium) 40 Mg Tab 40 Mg PO DAILY Plavix (Clopidogrel Bisulfate) 75 Mg Tab 75 Mg PO DAILY Calcitriol 0.25 Mcg Cap 0.25 Mcg PO DAILY Allergies: Coded Allergies: Sulfa (Sulfonamide Antibiotics) (Unverified Allergy, Severe, RASH, 01/27/17 ) sulfamethoxazole (Unverified Allergy, Severe, Rash, 01/27/17) RASH OF FACE AND ORAL MUCUS MEMBRANES trimethoprim (Unverified Allergy, Severe, Rash, 01/27/17) RASH OF FACE AND ORAL MUCUS MEMBRANES Active Ordered Medications Current Medications Medications (Trade) Dose Ordered Sig/Surendra Route Start Time Stop Time Status Last Admin (Lipitor) 40 mg HS PO 01/27/17 21:00 (Rocaltrol) 0.25 mcg DAILY PO 01/28/17 09:00 (Pletal) 100 mg DAILY PO 01/28/17 09:00 (Plavix) 75 mg DAILY PO 01/28/17 09:00 (Toprol Xl) 25 mg DAILY PO 01/28/17 09:00 (Procardia Xl) 90 mg DAILY PO 01/28/17 09:00 (Protonix) 40 mg DAILY PO 01/28/17 09:00 (Flomax) 0.4 mg Q12HR PO 01/27/17 21:00 (Ultram) 50 mg Q8H PRN PO 01/27/17 15:30 (NS Flush) 2 ml UNSCH PRN IV FLUSH 01/27/17 15:30 (NS Flush) 2 ml BID IV FLUSH 01/27/17 21:00 (Tylenol) 650 mg Q4H PRN PO 01/27/17 15:30 (Zofran Inj) 4 mg Q6H PRN IVP 01/27/17 15:30 (Narcan Inj) 0.4 mg UNSCH PRN IV PUSH 01/27/17 15:30 (Jodie-Colace) 1 tab BID PO 01/27/17 21:00 (Milk Of Magnesia Liq) 30 ml Q12H PRN PO 01/27/17 15:30 (Senokot) 17.2 mg Q12H PRN PO 01/27/17 15:30 (Dulcolax Supp) 10 mg DAILY PRN RECTAL 01/27/17 15:30 (Lactulose Liq) 30 ml DAILY PRN PO 01/27/17 15:30 Family History Asked and denied. Social History half pack of cigarettes daily Physical Exam Vital Signs Vital Signs Date Time Temp Pulse Resp B/P (MAP) Pulse Ox O2 Delivery O2 Flow Rate FiO2 01/27/17 14:36 71 22 165/71 (102) 97 Nasal Cannula 2.00 01/27/17 13:00 98 Nasal Cannula 2.00 01/27/17 12:54 98 Room Air 01/27/17 12:52 72 44 98 01/27/17 12:43 98.7 85 12 175/70 (105) 96 Physical Exam GENERAL: Well-developed elderly white male patient currently in moderate distress. Awake and oriented 3. SKIN: Focused skin assessment warm/dry. HEAD: Atraumatic. Normocephalic. EYES: Pupils equal and round. No scleral icterus. No injection or drainage. ENT: No nasal bleeding or discharge. Mucous membranes pink and moist. NECK: Trachea midline. No JVD. CARDIOVASCULAR: Regular rate and rhythm. No murmur appreciated. Pulses are equal bilaterally. RESPIRATORY: Mild accessory muscle use. Decreased breath sounds at the bases bilaterally. Breath sounds equal bilaterally. GASTROINTESTINAL: Abdomen soft, non-tender, nondistended. Hepatic and splenic margins not palpable. MUSCULOSKELETAL: No obvious deformities. No clubbing. No cyanosis. No edema. NEUROLOGICAL: Awake and alert. No obvious cranial nerve deficits. Motor grossly within normal limits. Normal speech. PSYCHIATRIC: Appropriate mood and affect; insight and judgment normal. Laboratory Laboratory Tests Test 01/27/17 13:05 White Blood Count 5.4 Red Blood Count 3.61 Hemoglobin 9.9 Hematocrit 30.6 Mean Corpuscular Volume 84.8 Mean Corpuscular Hemoglobin 27.3 Mean Corpuscular Hemoglobin Concent 32.2 Red Cell Distribution Width 18.2 Platelet Count 211 Mean Platelet Volume 8.9 Neutrophils (%) (Auto) 77.8 Lymphocytes (%) (Auto) 17.6 Monocytes (%) (Auto) 2.7 Eosinophils (%) (Auto) 1.0 Basophils (%) (Auto) 0.9 Neutrophils # (Auto) 4.2 Lymphocytes # (Auto) 0.9 Monocytes # (Auto) 0.1 Eosinophils # (Auto) 0.1 Basophils # (Auto) 0.0 CBC Comment DIFF FINAL Differential Comment Prothrombin Time 11.5 Prothromb Time International Ratio 1.0 Activated Partial Thromboplast Time 29.9 Blood Urea Nitrogen 47 Creatinine 2.13 Random Glucose 156 Total Protein 7.2 Albumin 3.0 Calcium Level 9.3 Alkaline Phosphatase 118 Aspartate Amino Transf (AST/SGOT) 22 Alanine Aminotransferase (ALT/SGPT) 43 Total Bilirubin 0.8 Sodium Level 137 Potassium Level 4.3 Chloride Level 100 Carbon Dioxide Level 26.6 Anion Gap 10 Estimat Glomerular Filtration Rate 30 Total Creatine Kinase 38 Troponin I 0.07 B-Type Natriuretic Peptide GREATER THAN 5000 Result Diagram: 01/27/17 1305 01/27/17 1305 Imaging Last Impressions Chest X-Ray 01/27/17 1258 Signed Impressions: Service Date/Time: January 13:01 - CONCLUSION: Lungs are partially obscured secondary to overlying structures. There are mild increased interstitial opacities in the lower lung zones bilaterally which could represent interstitial pulmonary edema in the appropriate clinical setting. Jn Ellison MD Caprini VTE Risk Assessment Caprini VTE Risk Assessment: Mod/High Risk (score >= 2) Caprini Risk Assessment Model Point Value = 1 Point Value = 2 Point Value = 3 Point Value = 5 Age 41-60 Minor surgery BMI > 25 kg/m2 Swollen legs Varicose veins or History of unexplained or recurrent spontaneous Oral contraceptives or hormone replacement Sepsis (< 1 month) Serious lung disease, including pneumonia (< 1 month) Abnormal pulmonary function Acute myocardial infarction Congestive heart failure (< 1 month) History of inflammatory bowel disease Medical patient at bed rest Age 61-74 Arthroscopic surgery Major open surgery (> 45 min) Laparoscopic surgery (> 45 min) Malignancy Confined to bed (> 72 hours) Immobilizing plaster cast Central venous access Age >= 75 History of VTE Family history of VTE Factor V Leiden Prothrombin [id number] Lupus anticoagulant Anticardiolipin antibodies Elevated serum homocysteine Heparin-induced thrombocytopenia Other congenital or acquired thrombophilia Stroke (< 1 month) Elective arthroplasty Hip, pelvis, or leg fracture Acute spinal cord injury (< 1 month) Prophylaxis Regimen Total Risk Factor Score Risk Level Prophylaxis Regimen 0-1 Low Early ambulation 2 Moderate Order ONE of the following: *Sequential Compression Device (SCD) *Heparin 5000 units SQ BID 3-4 Higher Order ONE of the following medications: *Heparin 5000 units SQ TID *Enoxaparin/Lovenox 40 mg SQ daily (WT < 150 kg, CrCl > 30 mL/min) *Enoxaparin/Lovenox 30 mg SQ daily (WT < 150 kg, CrCl > 10-29 mL/min) *Enoxaparin/Lovenox 30 mg SQ BID (WT < 150 kg, CrCl > 30 mL/min) AND/OR *Sequential Compression Device (SCD) 5 or more Highest Order ONE of the following medications: *Heparin 5000 units SQ TID (Preferred with Epidurals) *Enoxaparin/Lovenox 40 mg SQ daily (WT < 150 kg, CrCl > 30 mL/min) *Enoxaparin/Lovenox 30 mg SQ daily (WT < 150 kg, CrCl > 10-29 mL/min) *Enoxaparin/Lovenox 30 mg SQ BID (WT < 150 kg, CrCl > 30 mL/min) AND *Sequential Compression Device (SCD) Assessment and Plan Assessment and Plan 1. CHF exacerbation in a patient with known CAD and status post PCI and stent placement, status post Life-Vest by his Primary internet database specialist Doctor Bunny Lopez, consulted, continue Hospitalized , heart Healthy diet, ADA 1800 Lasix IV 40 mg every\ 8 Hours. EF 40%, Pulmonary Hypertension. 2. Anemia on chronic disease will try to keep Hemoglobin over 10 in a patient with CAD 3. CHF exacerbation 4. Hypertension to continue Home medicines 5. CKD IV stable continue present Care. 6. Hyperlipidemia to continue Statins 7. DM II continue with ADA diet and sliding scale 8. COPD on Bronchodilator, Mucolytic and incentive spirometry. 9. Sleep Apnea at this time on oxygen through nasal Cannula may need CPAP 10. Tobacco dependence as Severe but he states he stopped one month ago, strongly recommended to stop smoking. DVT prophylaxis with heparin following specialist recommendations. Discussed Condition With Josh Walker MD Patient and his Mrs. Janay Masters. Physician Certification 2 Midnight Certification Type: Admission for Inpatient Services Order for Inpatient Services The services are ordered in accordance with Medicare regulations or non- Medicare payer requirements, as applicable. In the case of services not specified as inpatient-only, they are appropriately provided as inpatient services in accordance with the 2-midnight benchmark. Estimated LOS (days): 3 days is the estimated time the patient will need to remain in the hospital, assuming treatment plan goals are met and no additional complications. Post-Hospital Plan: Home Berry Calles MD Jan 27, 2017 15:24
[2017-01-27] MEDS ORDERED: LACTULOSE SYRUP 20 GM/30 ML CUP PO PRN (15:30)
[2017-01-27] MEDS ORDERED: ACETAMINOPHEN 325 MG TAB PO PRN (15:30)
[2017-01-27] MEDS ORDERED: BISACODYL 10 MG SUPP RECTAL PRN (15:30)
[2017-01-27] MEDS ORDERED: traMADol HCL 50 MG TAB PO PRN (15:30)
[2017-01-27] MEDS ORDERED: ONDANSETRON HCL 4 MG/2 ML VIAL IVP PRN (15:30)
[2017-01-27] MEDS ORDERED: MAGNESIUM HYDROXIDE SUSP 30 ML CUP PO PRN (15:30)
[2017-01-27] MEDS ORDERED: SODIUM CHLORIDE 0.9% FLUSH 10 ML FLUSH IV FLUSH PRN (15:30)
[2017-01-27] MEDS ORDERED: NALOXONE HCL 0.4 MG/ML AMP IV PUSH PRN (15:30)
[2017-01-27] MEDS ORDERED: SENNOSIDES 8.6 MG TAB PO PRN (15:30)
[2017-01-27] MEDS ORDERED: hydrALAZINE HCL 20 MG/ML VIAL IV PUSH PRN (16:30)
[2017-01-27] MEDS: INSULIN ASPART SUPPLEMENTAL SCALE SQ SCH ×2 (17:00→20:58)
[2017-01-27] MEDS: SODIUM CHLORIDE 0.9% FLUSH 10 ML FLUSH IV FLUSH SCH (20:56)
[2017-01-27] MEDS: guaiFENesin E.R. 600 MG TAB PO SCH (20:56)
[2017-01-27] MEDS: TAMSULOSIN HCL 0.4 MG CAP PO SCH (20:56)
[2017-01-27] MEDS: ATORVASTATIN 40 MG TAB PO SCH (20:56)
[2017-01-27] MEDS: DOCUSATE SODIUM 50 MG/SENNA 8.6 MG TAB PO SCH (20:57)
[2017-01-27] MEDS: HEPARIN SODIUM - SQ 10,000 UNITS/ML VIAL SQ SCH (20:57)
[2017-01-27] MEDS: FUROSEMIDE 40 MG/4 ML VIAL IV PUSH SCH (20:58)
[2017-01-27] MEDS: RESP: ALBUTEROL 2.5 MG/IPRATROPIUM 0.5 MG NEB (SCH) NEB (23:39)
[2017-01-28] VITALS (9 sets, daily range): BP systolic 130–169; BP diastolic 58–71; PULSE 55–108; RESP 16–20; TEMP 97.2–97.9; O2SAT 92–98
[2017-01-28] MEDS: RESP: ALBUTEROL 2.5 MG/IPRATROPIUM 0.5 MG NEB (SCH) NEB ×5 (04:09→20:01)
[2017-01-28] MEDS: FUROSEMIDE 40 MG/4 ML VIAL IV PUSH SCH ×2 (06:08→18:20)
[2017-01-28 08:40] LABS: AUTOMATED NEUTROPHIL # 4.3 TH/MM3 (1.8-7.7); BASOPHIL % 0.5 % (0.0-2.0); EOSINOPHIL % 0.8 % (0.0-4.0); HEMATOCRIT 28.6 % (39.0-51.0); HEMO FLAGS DIFF FINAL; LYMPH % 17.4 % (9.0-44.0); MEAN CELL VOLUME 83.9 FL (80.0-100.0); MEAN CORPUSCULAR HEMOGLOBIN 27.4 PG (27.0-34.0); MEAN CORPUSCULAR HGB CONC 32.7 % (32.0-36.0); NEUT % 77.3 % (16.0-70.0); PLATELET COUNT 194 TH/MM3 (150-450); RED BLOOD COUNT 3.41 MIL/MM3 (4.50-5.90); RED CELL DISTRIBUTION WIDTH 18.2 % (11.6-17.2); WHITE BLOOD COUNT 5.5 TH/MM3 (4.0-11.0)
[2017-01-28 08:42] LABS: INTERNATIONAL NORMALIZED RATIO 1.1 RATIO
[2017-01-28] MEDS: INSULIN ASPART SUPPLEMENTAL SCALE SQ SCH ×4 (09:49→21:13)
[2017-01-28] MEDS: METOPROLOL SUCCINATE 25 MG EXTENDED RELEASE TAB PO SCH (09:52)
[2017-01-28] MEDS: guaiFENesin E.R. 600 MG TAB PO SCH ×2 (09:52→21:13)
[2017-01-28] MEDS: CILOSTAZOL 100 MG TAB PO SCH (09:52)
[2017-01-28] MEDS: CALCITRIOL 0.25 MCG CAP PO SCH (09:52)
[2017-01-28] MEDS: TAMSULOSIN HCL 0.4 MG CAP PO SCH ×2 (09:52→21:12)
[2017-01-28] MEDS: PANTOPRAZOLE SOD 40 MG DELAYED RELEASE TAB PO SCH (09:53)
[2017-01-28] MEDS: DOCUSATE SODIUM 50 MG/SENNA 8.6 MG TAB PO SCH ×2 (09:53→21:00)
[2017-01-28] MEDS: CLOPIDOGREL 75 MG TAB PO SCH (09:53)
[2017-01-28] MEDS: HEPARIN SODIUM - SQ 10,000 UNITS/ML VIAL SQ SCH ×2 (09:55→21:13)
[2017-01-28] MEDS: NIFEdipine 90 MG SUSTAINED RELEASE TAB PO SCH (09:58)
[2017-01-28] MEDS: SODIUM CHLORIDE 0.9% FLUSH 10 ML FLUSH IV FLUSH SCH ×2 (09:59→21:12)
[2017-01-28 10:00] LABS: POTASSIUM 3.4 MEQ/L (3.5-5.1)
[2017-01-28] MEDS ORDERED: POTASSIUM CHLORIDE 20 MEQ CONTROLLED RELEASE TAB PO ONE (11:00)
--- NOTE | 2017-01-28 11:03 | HHI.PR ---
Subjective Remarks feeling better voiding well + BM- black stools- History of GI bleed- in the past Objective Vitals Vital Signs Date Time Temp Pulse Resp B/P (MAP) Pulse Ox O2 Delivery O2 Flow Rate FiO2 01/28/17 08:01 96 Nasal Cannula 2.00 01/28/17 08:00 97.2 104 18 161/69 (99) 98 01/28/17 04:00 97.5 79 20 155/70 (98) 95 01/28/17 00:00 97.9 70 20 161/70 (100) 95 01/27/17 23:42 Nasal Cannula 2.00 01/27/17 20:17 98.0 69 20 141/65 (90) 95 01/27/17 20:00 69 01/27/17 20:00 Nasal Cannula 2.00 01/27/17 17:34 97.4 69 20 165/72 (103) 98 01/27/17 17:24 01/27/17 16:15 70 20 168/74 (105) 95 Nasal Cannula 2.00 01/27/17 14:36 71 22 165/71 (102) 97 Nasal Cannula 2.00 01/27/17 13:00 98 Nasal Cannula 2.00 01/27/17 12:54 98 Room Air 01/27/17 12:52 72 44 98 01/27/17 12:43 98.7 85 12 175/70 (105) 96 I/O 01/27/17 01/27/17 01/27/17 01/28/17 01/28/17 01/28/17 07:00 15:00 23:00 07:00 15:00 23:00 Intake Total 720 ml Output Total 900 ml 700 ml Balance -900 ml 20 ml Intake Oral 720 ml Output Urine Total 900 ml 700 ml # Voids 1 # Bowel Movements 0 Result Diagram: 01/28/17 0635 01/28/17 0635 Imaging Last Impressions Chest X-Ray 01/27/17 1258 Signed Impressions: Service Date/Time: January 13:01 - CONCLUSION: Lungs are partially obscured secondary to overlying structures. There are mild increased interstitial opacities in the lower lung zones bilaterally which could represent interstitial pulmonary edema in the appropriate clinical setting. Jn Ellison MD Objective Remarks awake and alert, on good sats anicteric lungs- decreased breath sounds regularr hyhtm abdomen soft, nontender extremities trace pretibial edema LUE- + AV fistula A/P Assessment and Plan 76 years osld male Acute CHF exacerbation in a patient with known CAD and status post PCI and stent placement, status post Life-Vest history of long standing hypertesnion Consult order entry specialist Doctor Bunny Lopez, get Echo continue meds on Lsix 40 mg q 12 Chronic kidney disease stage IV consult nephrology- will need clearance for this- OP Nephrology is Dr. Mcmullen in [place] lasix to 40 mg q 12- monitor BMP Anemia on chronic disease will try to keep Hemoglobin over 10 in a patient with CAD History of GIB in the past - has AVM- cauterized, history of bleeding ulcers in the past. continue on PPI and Iron supplements Hyperlipidemia to continue Statins DM II continue with ADA diet and sliding scale COPD on Bronchodilator, Mucolytic and incentive spirometry. Sleep Apnea at this time on oxygen through nasal Cannula may need CPAP Previous Tobacco dependence as Severe but he states he stopped one month ago, Vicki Guerrero MD Jan 28, 2017 11:03
--- NOTE | 2017-01-28 14:25 | HHI.FF ---
Face to Face Verification Diagnosis: (1) CHF exacerbation (2) HTN (hypertension) Physical Therapy Order: Improve ambulation, Strength and gait training Home Health Nursing Order: Medical education Signs/symptoms of disease process Medication education-adverse effect Nursing assessment with vital signs Home Health Aide Order: To Assist In: Bathing and personal care I have seen patient Peter Masters on 01/28/17. My clinical findings support the need for the requested home health care services because: Ltd mobility - disease progression Deconditioned w/ increased weakness Limited ability to care for self High risk of falls I certify that my clinical findings support that this patient is homebound because: Unsteady gait/balance Rivka Fletcher Jan 28, 2017 2:25 pm
--- NOTE | 2017-01-28 14:28 | PD.CONS ---
HPI Service Nephrology Consult Requested By Hx CKD, needs catheterization Primary Care Physician Allan Reeder MD History of Present Illness This is a 76 y/o male with a complicated medical hsitory that includes CHF, HTN , CVA, recent GI bleed with hx of AVM, DM II, and CKD. He follows with Dr. Mcmullen for management of his renal disease. His baseline appears to be CKD 3-4, creatinine of 1.7, GFR 30s. He came in for chest pain x 2 days needing cath. He has been at multiple hospitals over the past few months. Most recently was discharged from [facility] where he was admitted for shortness of breath and GI bleeding. He did have an endoscopy done, unsure of the findings. Prior to that he was admitted in [place] for 2 weeks for CHF exacerbation requiring IV diuresis. He has seen his stone product fabricator who placed a life vest and planned for a cardiac cath on Tuesday. His creatinine is 2.28 today (was 2.13 on arrival). We were consulted to assist with management. He is non oliguric. (Sridevi Moss) Review of Systems Constitutional: COMPLAINS OF: Fatigue Respiratory: COMPLAINS OF: Shortness of breath Cardiovascular: COMPLAINS OF: Lower Extremity Edema, DENIES: Chest pain ( Sridevi Moss) Past Family Social History Allergies: Coded Allergies: Sulfa (Sulfonamide Antibiotics) (Unverified Allergy, Severe, RASH, 01/27/17 ) sulfamethoxazole (Unverified Allergy, Severe, Rash, 01/27/17) RASH OF FACE AND ORAL MUCUS MEMBRANES trimethoprim (Unverified Allergy, Severe, Rash, 01/27/17) RASH OF FACE AND ORAL MUCUS MEMBRANES Past Medical History Hyperlipidemia Cardiomyopathy, CHF CAD, history of stents COPD, history of tobacco use History of TIA Type 2 diabetes mellitus History of GI bleed History of CA Stage IV chronic kidney disease, left AV fistula Sleep apnea Tobacco abuse A. fib Hypertension Past Surgical History Left AV fistula CAD with stents LAVF stripping LE Reported Medications Prednisone 10 Mg Tab 10 Mg PO BID Metoprolol Succinate ER 24 HR (Metoprolol Succinate) 25 Mg Tab 25 Mg PO DAILY Walker with Front Wheels (Device) 1 Mis Mis Ea .ROUTE DIRECTED Commode 3-in-1 (Device) 1 Mis Mis Ea .ROUTE DIRECTED Tramadol (Tramadol HCl) 50 Mg Tab 50 Mg PO Q8H PRN Torsemide 10 Mg Tab 10 Mg PO DAILY Nifedipine ER (Nifedipine) 90 Mg Tab 90 Mg PO DAILY Methocarbamol 500 Mg Tab 500 Mg PO Q8HR PRN Flomax (Tamsulosin HCl) 0.4 Mg Cap 0.4 Mg PO Q12HR 30 Days Atorvastatin (Atorvastatin Calcium) 40 Mg Tab 40 Mg PO HS [Curel Lotion] 1 Applic TOPICAL DAILY PRN Cilostazol 100 Mg Tab 100 Mg PO DAILY Allergy Relief (Diphenhydramine HCl) 25 Mg Tab 25 Mg PO Q4-6H PRN Protonix (Pantoprazole Sodium) 40 Mg Tab 40 Mg PO DAILY Plavix (Clopidogrel Bisulfate) 75 Mg Tab 75 Mg PO DAILY Calcitriol 0.25 Mcg Cap 0.25 Mcg PO DAILY Active Ordered Medications Current Medications Medications (Trade) Dose Ordered Sig/Surendra Route Start Time Stop Time Status Last Admin (Lipitor) 40 mg HS PO 01/27/17 21:00 01/27/17 20:56 (Rocaltrol) 0.25 mcg DAILY PO 01/28/17 09:00 01/28/17 09:52 (Pletal) 100 mg DAILY PO 01/28/17 09:00 01/28/17 09:52 (Plavix) 75 mg DAILY PO 01/28/17 09:00 01/28/17 09:53 (Toprol Xl) 25 mg DAILY PO 01/28/17 09:00 01/28/17 09:52 (Procardia Xl) 90 mg DAILY PO 01/28/17 09:00 01/28/17 09:58 (Protonix) 40 mg DAILY PO 01/28/17 09:00 01/28/17 09:53 (Flomax) 0.4 mg Q12HR PO 01/27/17 21:00 01/28/17 09:52 (Ultram) 50 mg Q8H PRN PO 01/27/17 15:30 (NS Flush) 2 ml UNSCH PRN IV FLUSH 01/27/17 15:30 (NS Flush) 2 ml BID IV FLUSH 01/27/17 21:00 01/28/17 09:59 (Tylenol) 650 mg Q4H PRN PO 01/27/17 15:30 (Zofran Inj) 4 mg Q6H PRN IVP 01/27/17 15:30 (Narcan Inj) 0.4 mg UNSCH PRN IV PUSH 01/27/17 15:30 (Jodie-Colace) 1 tab BID PO 01/27/17 21:00 01/28/17 09:53 (Milk Of Magnesia Liq) 30 ml Q12H PRN PO 01/27/17 15:30 (Senokot) 17.2 mg Q12H PRN PO 01/27/17 15:30 (Dulcolax Supp) 10 mg DAILY PRN RECTAL 01/27/17 15:30 (Lactulose Liq) 30 ml DAILY PRN PO 01/27/17 15:30 (Heparin Inj) 5,000 units Q12HR SQ 01/27/17 21:00 01/28/17 09:55 (Apresoline Inj) 10 mg Q4HR PRN IV PUSH 01/27/17 16:30 (Duoneb Neb) 1 ampule Q4HR NEB NEB 01/27/17 20:00 01/28/17 11:26 (Mucinex Er) 600 mg BID PO 01/27/17 21:00 01/28/17 09:52 (NovoLOG SUPPLEMENTAL SCALE) 1 ACHS SLIDING SCALE SQ 01/27/17 17:00 01/28/17 12:58 (Lasix Inj) 40 mg BID@,18 IV PUSH 01/28/17 18:00 Family History Father had heart disease Mother had CVA Social History Former smoker He is Lives in [facility] but has been staying with children in [facility] 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 (Sridevi Moss) Physical Exam Vital Signs Vital Signs Date Time Temp Pulse Resp B/P (MAP) Pulse Ox O2 Delivery O2 Flow Rate FiO2 01/28/17 08:01 96 Nasal Cannula 2.00 01/28/17 08:00 97.2 104 18 161/69 (99) 98 01/28/17 04:00 97.5 79 20 155/70 (98) 95 01/28/17 00:00 97.9 70 20 161/70 (100) 95 01/27/17 23:42 Nasal Cannula 2.00 01/27/17 20:17 98.0 69 20 141/65 (90) 95 01/27/17 20:00 69 01/27/17 20:00 Nasal Cannula 2.00 11/9/17 17:34 97.4 69 20 165/72 (103) 98 01/27/17 17:24 01/27/17 16:15 70 20 168/74 (105) 95 Nasal Cannula 2.00 01/27/17 14:36 71 22 165/71 (102) 97 Nasal Cannula 2.00 Physical Exam GENERAL: Well-developed elderly white male patient currently in moderate distress. Awake and oriented 3. SKIN: Focused skin assessment warm/dry. HEAD: Atraumatic. Normocephalic. EYES: Pupils equal and round. No scleral icterus. No injection or drainage. ENT: No nasal bleeding or discharge. Mucous membranes pink and moist. NECK: Trachea midline. No JVD. CARDIOVASCULAR: A fib, rate controlled No murmur appreciated. Pulses are equal bilaterally. No edema. RESPIRATORY: NO accessory muscle use. Decreased breath sounds at the bases bilaterally. No rales. Life vest in place GASTROINTESTINAL: Abdomen soft, non-tender, nondistended. Hepatic and splenic margins not palpable. MUSCULOSKELETAL: No obvious deformities. No clubbing. No cyanosis. No edema. NEUROLOGICAL: A&Ox3, No obvious cranial nerve deficits. Motor grossly within normal limits. Normal speech. PSYCHIATRIC: Appropriate mood and affect; insight and judgment normal. Laboratory Laboratory Tests Test 01/27/17 16:20 01/27/17 21:10 01/28/17 06:35 Troponin I 0.06 0.06 White Blood Count 5.5 Red Blood Count 3.41 Hemoglobin 9.3 Hematocrit 28.6 Mean Corpuscular Volume 83.9 Mean Corpuscular Hemoglobin 27.4 Mean Corpuscular Hemoglobin Concent 32.7 Red Cell Distribution Width 18.2 Platelet Count 194 Mean Platelet Volume 8.7 Neutrophils (%) (Auto) 77.3 Lymphocytes (%) (Auto) 17.4 Monocytes (%) (Auto) 4.0 Eosinophils (%) (Auto) 0.8 Basophils (%) (Auto) 0.5 Neutrophils # (Auto) 4.3 Lymphocytes # (Auto) 1.0 Monocytes # (Auto) 0.2 Eosinophils # (Auto) 0.0 Basophils # (Auto) 0.0 CBC Comment DIFF FINAL Differential Comment Prothrombin Time 12.0 Prothromb Time International Ratio 1.1 Blood Urea Nitrogen 46 Creatinine 2.28 Random Glucose 122 Calcium Level 8.9 Sodium Level 140 Potassium Level 3.4 Chloride Level 99 Carbon Dioxide Level 28.0 Anion Gap 13 Estimat Glomerular Filtration Rate 28 (Sridevi Moss) Result Diagram: 01/28/17 0635 01/28/17 0635 Imaging Last 72 hours Impressions Chest X-Ray 01/27/17 1258 Signed Impressions: Service Date/Time: , January 27, 2017 13:01 - CONCLUSION: Lungs are partially obscured secondary to overlying structures. There are mild increased interstitial opacities in the lower lung zones bilaterally which could represent interstitial pulmonary edema in the appropriate clinical setting. Jn Ellison MD (Sridevi Moss) Assessment and Plan Problem List: (1) CKD (chronic kidney disease) ICD Codes: N18.9 - Chronic kidney disease, unspecified Plan: His baseline is around 1.7, GFR 30s. Fluctuates between stage 3-4. Suspected underlying nephrosclerosis He is non oliguric LOS may be due to CHF exacerbation and decreased renal perfusion At this time a cardiac catheterization is planned for next week. there is a risk of iodinated contrast induced renal injury requiring dialysis. The pt and understand the risks. Cautious IVF prior to procedure In the meantime continue diuresis, Lasix BID, 40 mg Repeat renal panel daily Avoid nephrotoxins (2) DM2 (diabetes mellitus, type 2) ICD Codes: E11.9 - Type 2 diabetes mellitus without complications Status: Acute Plan: Insulin as needed, maintain glucose 140-180 mg/dL while hospitalized. (3) Cardiomyopathy ICD Codes: I42.9 - Cardiomyopathy, unspecified Status: Acute Plan: Echo has been ordered He has a life vest in place Cardiology following Permanent Comment: Dr. Hollis - Atherosclerosis of [place] coronary artery. Last Edited By: José Miguel Black on May 29, 2015 16:04 (4) CAD (coronary artery disease) ICD Codes: I25.10 - Atherosclerotic heart disease of [place] coronary artery without angina pectoris Status: Acute Plan: Pending cardiac cath He has had stents in the past Permanent Comment: Dr. Hollis - Atherosclerosis of [place] coronary artery. Last Edited By: José Miguel Black on May 29, 2015 16:02 (5) HTN (hypertension) ICD Codes: I10 - Essential (primary) hypertension Status: Acute Plan: Resume home medications as ordered (6) Anemia ICD Codes: D64.9 - Anemia, unspecified Status: Acute Plan: Hx GIB, reportedly his stool is black Also likely has anemia of chronic disease Monitor H/H, transfuse if needed (Sridevi Moss) Assessment and Plan patient was seen and examined. Agree with above assessment and plan. Discussed with patient and his . Risk for contrast nephropathy if 100 ml of contrast is used will be about 57%. Risk for dialysis will be about 12%. (Lamont Ramachandran MD) Sridevi Moss Jan 28, 2017 14:28 Lamont Ramachandran MD Jan 28, 2017 17:49
--- NOTE | 2017-01-28 14:47 | PD.CONS ---
HPI Service cardiology Consult Requested By hospital Reason for Consult chf Primary Care Physician Allan Reeder MD History of Present Illness admitted with sob and mild edema complex past history cardiomyopathy pvd chf cad copd frail non compliance tobacco abuse stopped very recently element of dementia denied cp no syncope no palpitations no nausea or vomiting Review of Systems Respiratory: COMPLAINS OF: Shortness of breath Past Family Social History Allergies: Coded Allergies: Sulfa (Sulfonamide Antibiotics) (Unverified Allergy, Severe, RASH, 01/27/17 ) sulfamethoxazole (Unverified Allergy, Severe, Rash, 01/27/17) RASH OF FACE AND ORAL MUCUS MEMBRANES trimethoprim (Unverified Allergy, Severe, Rash, 01/27/17) RASH OF FACE AND ORAL MUCUS MEMBRANES Past Medical History see note Past Surgical History non contributing Reported Medications Reported Meds & Active Scripts Active Prednisone 10 Mg Tab 10 Mg PO BID Metoprolol Succinate ER 24 HR (Metoprolol Succinate) 25 Mg Tab 25 Mg PO DAILY Walker with Front Wheels (Device) 1 Mis Mis Ea .ROUTE DIRECTED Commode 3-in-1 (Device) 1 Mis Mis Ea .ROUTE DIRECTED Tramadol (Tramadol HCl) 50 Mg Tab 50 Mg PO Q8H PRN Torsemide 10 Mg Tab 10 Mg PO DAILY Nifedipine ER (Nifedipine) 90 Mg Tab 90 Mg PO DAILY Methocarbamol 500 Mg Tab 500 Mg PO Q8HR PRN Flomax (Tamsulosin HCl) 0.4 Mg Cap 0.4 Mg PO Q12HR 30 Days Atorvastatin (Atorvastatin Calcium) 40 Mg Tab 40 Mg PO HS Reported [Curel Lotion] 1 Applic TOPICAL DAILY PRN Cilostazol 100 Mg Tab 100 Mg PO DAILY Allergy Relief (Diphenhydramine HCl) 25 Mg Tab 25 Mg PO Q4-6H PRN Protonix (Pantoprazole Sodium) 40 Mg Tab 40 Mg PO DAILY Plavix (Clopidogrel Bisulfate) 75 Mg Tab 75 Mg PO DAILY Calcitriol 0.25 Mcg Cap 0.25 Mcg PO DAILY Active Ordered Medications Current Medications Medications (Trade) Dose Ordered Sig/Surendra Route Start Time Stop Time Status Last Admin (Lipitor) 40 mg HS PO 01/27/17 21:00 01/27/17 20:56 (Rocaltrol) 0.25 mcg DAILY PO 01/28/17 09:00 01/28/17 09:52 (Pletal) 100 mg DAILY PO 01/28/17 09:00 01/28/17 09:52 (Plavix) 75 mg DAILY PO 01/28/17 09:00 01/28/17 09:53 (Toprol Xl) 25 mg DAILY PO 01/28/17 09:00 01/28/17 09:52 (Procardia Xl) 90 mg DAILY PO 01/28/17 09:00 01/28/17 09:58 (Protonix) 40 mg DAILY PO 01/28/17 09:00 01/28/17 09:53 (Flomax) 0.4 mg Q12HR PO 01/27/17 21:00 01/28/17 09:52 (Ultram) 50 mg Q8H PRN PO 01/27/17 15:30 (NS Flush) 2 ml UNSCH PRN IV FLUSH 01/27/17 15:30 (NS Flush) 2 ml BID IV FLUSH 01/27/17 21:00 01/28/17 09:59 (Tylenol) 650 mg Q4H PRN PO 01/27/17 15:30 (Zofran Inj) 4 mg Q6H PRN IVP 01/27/17 15:30 (Narcan Inj) 0.4 mg UNSCH PRN IV PUSH 01/27/17 15:30 (Jodie-Colace) 1 tab BID PO 01/27/17 21:00 01/28/17 09:53 (Milk Of Magnesia Liq) 30 ml Q12H PRN PO 01/27/17 15:30 (Senokot) 17.2 mg Q12H PRN PO 01/27/17 15:30 (Dulcolax Supp) 10 mg DAILY PRN RECTAL 01/27/17 15:30 (Lactulose Liq) 30 ml DAILY PRN PO 01/27/17 15:30 (Heparin Inj) 5,000 units Q12HR SQ 01/27/17 21:00 01/28/17 09:55 (Apresoline Inj) 10 mg Q4HR PRN IV PUSH 01/27/17 16:30 (Duoneb Neb) 1 ampule Q4HR NEB NEB 01/27/17 20:00 01/28/17 11:26 (Mucinex Er) 600 mg BID PO 01/27/17 21:00 01/28/17 09:52 (NovoLOG SUPPLEMENTAL SCALE) 1 ACHS SLIDING SCALE SQ 01/27/17 17:00 01/28/17 12:58 (Lasix Inj) 40 mg BID@,18 IV PUSH 01/28/17 18:00 Family History non contributing Social History no tobacco currently no alcohol no drugs Physical Exam Vital Signs Vital Signs Date Time Temp Pulse Resp B/P (MAP) Pulse Ox O2 Delivery O2 Flow Rate FiO2 01/28/17 08:01 96 Nasal Cannula 2.00 01/28/17 08:00 97.2 104 18 161/69 (99) 98 01/28/17 04:00 97.5 79 20 155/70 (98) 95 01/28/17 00:00 97.9 70 20 161/70 (100) 95 01/27/17 23:42 Nasal Cannula 2.00 01/27/17 20:17 98.0 69 20 141/65 (90) 95 01/27/17 20:00 69 01/27/17 20:00 Nasal Cannula 2.00 01/27/17 17:34 97.4 69 20 165/72 (103) 98 01/27/17 17:24 01/27/17 16:15 70 20 168/74 (105) 95 Nasal Cannula 2.00 Physical Exam heent unremarkable heart s1s2 sm 3/6 lung clear abdomen free ext pulses difficult to palpate trace edema warm Laboratory Laboratory Tests Test 01/27/17 16:20 01/27/17 21:10 01/28/17 06:35 Troponin I 0.06 0.06 White Blood Count 5.5 Red Blood Count 3.41 Hemoglobin 9.3 Hematocrit 28.6 Mean Corpuscular Volume 83.9 Mean Corpuscular Hemoglobin 27.4 Mean Corpuscular Hemoglobin Concent 32.7 Red Cell Distribution Width 18.2 Platelet Count 194 Mean Platelet Volume 8.7 Neutrophils (%) (Auto) 77.3 Lymphocytes (%) (Auto) 17.4 Monocytes (%) (Auto) 4.0 Eosinophils (%) (Auto) 0.8 Basophils (%) (Auto) 0.5 Neutrophils # (Auto) 4.3 Lymphocytes # (Auto) 1.0 Monocytes # (Auto) 0.2 Eosinophils # (Auto) 0.0 Basophils # (Auto) 0.0 CBC Comment DIFF FINAL Differential Comment Prothrombin Time 12.0 Prothromb Time International Ratio 1.1 Blood Urea Nitrogen 46 Creatinine 2.28 Random Glucose 122 Calcium Level 8.9 Sodium Level 140 Potassium Level 3.4 Chloride Level 99 Carbon Dioxide Level 28.0 Anion Gap 13 Estimat Glomerular Filtration Rate 28 Result Diagram: 01/28/17 0635 01/28/1735 Assessment and Plan Assessment and Plan agree with management heart cath scheduled Tuesday appreciate nephrology efforts Discussed Condition With with patient and John Hollis MD Jan 28, 2017 14:47
--- NOTE | 2017-01-28 18:24 | EKG ---
Date Performed: 01/27/2017 Time Performed: 12:53:19 PTAGE: 76 years EKG: Sinus rhythm WITH FIRST DEGREE AV BLOCK POSSIBLE LEFT ATRIAL ENLARGEMENT LEFT VENTRICULAR HYPERTROPHY AND ST-T CH SALINAS ABNORMAL ECG PREVIOUS TRACING : 12/05/2016 05.02 DOCTOR: Fabiano Beltran Interpretating Date/Time 01/28/2017 18:17:40
[2017-01-28] MEDS: ATORVASTATIN 40 MG TAB PO SCH (21:12)
[2017-01-29] VITALS (8 sets, daily range): BP systolic 112–165; BP diastolic 52–69; PULSE 58–118; RESP 16–58; TEMP 97.2–97.7; O2SAT 93–97
[2017-01-29] MEDS: RESP: ALBUTEROL 2.5 MG/IPRATROPIUM 0.5 MG NEB (SCH) NEB ×6 (00:28→21:06)
[2017-01-29] MEDS: SODIUM CHLORIDE 0.9% FLUSH 10 ML FLUSH IV FLUSH SCH ×2 (07:29→21:20)
[2017-01-29] MEDS: PANTOPRAZOLE SOD 40 MG DELAYED RELEASE TAB PO SCH (09:41)
[2017-01-29] MEDS: CILOSTAZOL 100 MG TAB PO SCH (09:41)
[2017-01-29] MEDS: FUROSEMIDE 40 MG/4 ML VIAL IV PUSH SCH ×2 (09:41→18:01)
[2017-01-29] MEDS: CALCITRIOL 0.25 MCG CAP PO SCH (09:41)
[2017-01-29] MEDS: guaiFENesin E.R. 600 MG TAB PO SCH ×2 (09:41→21:20)
[2017-01-29] MEDS: CLOPIDOGREL 75 MG TAB PO SCH (09:41)
[2017-01-29] MEDS: DOCUSATE SODIUM 50 MG/SENNA 8.6 MG TAB PO SCH ×2 (09:41→21:20)
[2017-01-29] MEDS: INSULIN ASPART SUPPLEMENTAL SCALE SQ SCH ×4 (09:42→21:21)
[2017-01-29] MEDS: HEPARIN SODIUM - SQ 10,000 UNITS/ML VIAL SQ SCH ×2 (09:42→21:21)
[2017-01-29] MEDS: TAMSULOSIN HCL 0.4 MG CAP PO SCH ×2 (09:42→21:20)
[2017-01-29] MEDS: NIFEdipine 90 MG SUSTAINED RELEASE TAB PO SCH (09:43)
[2017-01-29] MEDS: METOPROLOL SUCCINATE 25 MG EXTENDED RELEASE TAB PO SCH (09:43)
--- NOTE | 2017-01-29 12:16 | HHI.NPPN ---
Subjective History of Present Illness 76 Year old male with CHF/ ARF/CKD Review of Systems Respiratory Lungs: SOB Objective Data Data Vital Signs Date Time Temp Pulse Resp B/P (MAP) Pulse Ox O2 Delivery O2 Flow Rate FiO2 01/29/17 08:34 94 21 01/29/17 08:00 97.6 118 20 165/69 (101) 95 01/29/17 04:00 97.6 108 16 112/52 (72) 93 01/29/17 00:00 97.2 58 58 136/65 (88) 94 01/28/17 20:01 96 Nasal Cannula 2.00 01/28/17 20:00 108 01/28/17 20:00 Nasal Cannula 2.00 01/28/17 20:00 97.6 55 16 130/58 (82) 94 01/28/17 16:00 97.4 83 18 145/58 (87) 92 -: 01/28/17 0635 01/28/17 0635 Physical Exam General Appearance: Well Developed Neck Neck Exam: Neck Supple Pulmonary Resp Exam: Decreased Bases Cardiology CV Exam: Regular, Murmur Gastrointestinal/Abdomen GI Exam: Soft, Non-Tender, Bowel Sounds Present Assessment/Plan Problem List: (1) CKD (chronic kidney disease) ICD Codes: N18.9 - Chronic kidney disease, unspecified Plan: His baseline is around 1.7, GFR 30s. Fluctuates between stage 3-4. Suspected underlying nephrosclerosis He is non oliguric LOS may be due to CHF exacerbation and decreased renal perfusion At this time a cardiac catheterization is planned for next week. there is a risk of iodinated contrast induced renal injury requiring dialysis. The pt and understand the risks. Cr higher with diuresis Lasix 40 mg iv q 12 Cr 2.28 has Echo pending follow BMP (2) DM2 (diabetes mellitus, type 2) ICD Codes: E11.9 - Type 2 diabetes mellitus without complications Status: Acute Plan: Insulin as needed, maintain glucose 140-180 mg/dL while hospitalized. (3) Cardiomyopathy ICD Codes: I42.9 - Cardiomyopathy, unspecified Status: Acute Plan: Echo has been ordered He has a life vest in place Cardiology following Permanent Comment: Dr. Hollis - Atherosclerosis of [place] coronary artery. Last Edited By: José Miguel Black on May 29, 2015 16:04 (4) CAD (coronary artery disease) ICD Codes: I25.10 - Atherosclerotic heart disease of [place] coronary artery without angina pectoris Status: Acute Plan: Pending cardiac cath He has had stents in the past Permanent Comment: Dr. Hollis - Atherosclerosis of [place] coronary artery. Last Edited By: José Miguel Black on May 29, 2015 16:02 (5) HTN (hypertension) ICD Codes: I10 - Essential (primary) hypertension Status: Acute Plan: Resume home medications as ordered (6) Anemia ICD Codes: D64.9 - Anemia, unspecified Status: Acute Plan: Hx GIB, reportedly his stool is black Also likely has anemia of chronic disease Monitor H/H, transfuse if needed Shamar Leon MD Jan 29, 2017 12:16
--- NOTE | 2017-01-29 12:30 | HHI.PR ---
Subjective Remarks feeling better no chest pains up in chair Objective Vitals Vital Signs Date Time Temp Pulse Resp B/P (MAP) Pulse Ox O2 Delivery O2 Flow Rate FiO2 01/29/17 08:34 94 21 01/29/17 08:00 97.6 118 20 165/69 (101) 95 01/29/17 04:00 97.6 108 16 112/52 (72) 93 01/29/17 00:00 97.2 58 58 136/65 (88) 94 01/28/17 20:01 96 Nasal Cannula 2.00 01/28/17 20:00 108 01/28/17 20:00 Nasal Cannula 2.00 01/28/17 20:00 97.6 55 16 130/58 (82) 94 01/28/17 16:00 97.4 83 18 145/58 (87) 92 I/O 01/28/17 01/28/17 01/28/17 01/29/17 01/29/17 01/29/17 07:00 15:00 23:00 07:00 15:00 23:00 Intake Total 720 ml 360 ml Output Total 700 ml 350 ml Balance 20 ml 360 ml -350 ml Intake Oral 720 ml 360 ml Output Urine Total 700 ml 350 ml # Voids 2 4 # Bowel Movements 0 1 1 Result Diagram: 01/28/17 0635 01/28/17 0635 Imaging Last Impressions Chest X-Ray 01/27/17 1258 Signed Impressions: Service Date/Time: January 13:01 - CONCLUSION: Lungs are partially obscured secondary to overlying structures. There are mild increased interstitial opacities in the lower lung zones bilaterally which could represent interstitial pulmonary edema in the appropriate clinical setting. Jn Ellison MD Objective Remarks awake and alert, on good sats anicteric lungs- decreased breath sounds regular rhythm abdomen soft, nontender extremities - no edema LUE- + AV fistula A/P Assessment and Plan 76 years osld male Acute CHF exacerbation in a patient with known CAD and status post PCI and stent placement, status post Life-Vest history of long standing hypertension Cardiology ff- for cath Tuesday continue meds on Lasix 40 mg q 12 Chronic kidney disease stage IV HYpokalemia BMP today Nephrology ff lasix to 40 mg q 12- monitor BMP Anemia on chronic disease . H and H stable History of GIB in the past - has AVM- cauterized, history of bleeding ulcers in the past. continue on PPI and Iron supplements Hyperlipidemia to continue Statins DM II continue with ADA diet and sliding scale COPD on Bronchodilator, Mucolytic and incentive spirometry. Sleep Apnea at this time on oxygen through nasal Cannula may need CPAP Previous Tobacco dependence as Severe but he states he stopped one month ago, Heparin SQ bid Vicki Guerrero MD Jan 29, 2017 12:30
[2017-01-29 13:31] LABS: HEMATOCRIT 29.7 % (39.0-51.0); MEAN CELL VOLUME 84.1 FL (80.0-100.0); MEAN CORPUSCULAR HEMOGLOBIN 27.2 PG (27.0-34.0); MEAN CORPUSCULAR HGB CONC 32.3 % (32.0-36.0); PLATELET COUNT 211 TH/MM3 (150-450); RED BLOOD COUNT 3.53 MIL/MM3 (4.50-5.90); RED CELL DISTRIBUTION WIDTH 18.3 % (11.6-17.2); REVIEW FLAG FINAL
[2017-01-29 13:49] LABS: BICARBONATE 30.3 MEQ/L (21.0-32.0); POTASSIUM 3.6 MEQ/L (3.5-5.1)
[2017-01-29] MEDS: POTASSIUM CHLORIDE 10 MEQ CAP PO SCH (21:20)
[2017-01-29] MEDS: ATORVASTATIN 40 MG TAB PO SCH (21:20)
[2017-01-30] VITALS (8 sets, daily range): BP systolic 100–163; BP diastolic 54–84; PULSE 63–108; RESP 16–20; TEMP 97.6–97.9; O2SAT 94–99
[2017-01-30] MEDS: RESP: ALBUTEROL 2.5 MG/IPRATROPIUM 0.5 MG NEB (SCH) NEB ×7 (00:49→23:10)
[2017-01-30] MEDS: INSULIN ASPART SUPPLEMENTAL SCALE SQ SCH ×4 (08:00→21:48)
[2017-01-30 08:37] LABS: BICARBONATE 30.9 MEQ/L (21.0-32.0); POTASSIUM 3.4 MEQ/L (3.5-5.1)
[2017-01-30] MEDS: FUROSEMIDE 40 MG/4 ML VIAL IV PUSH SCH (09:26)
[2017-01-30] MEDS: CILOSTAZOL 100 MG TAB PO SCH (09:26)
[2017-01-30] MEDS: CALCITRIOL 0.25 MCG CAP PO SCH (09:26)
[2017-01-30] MEDS: HEPARIN SODIUM - SQ 10,000 UNITS/ML VIAL SQ SCH ×2 (09:26→21:48)
[2017-01-30] MEDS: guaiFENesin E.R. 600 MG TAB PO SCH ×2 (09:27→21:46)
[2017-01-30] MEDS: POTASSIUM CHLORIDE 10 MEQ CAP PO SCH ×2 (09:27→21:46)
[2017-01-30] MEDS: SODIUM CHLORIDE 0.9% FLUSH 10 ML FLUSH IV FLUSH SCH ×2 (09:27→21:47)
[2017-01-30] MEDS: DOCUSATE SODIUM 50 MG/SENNA 8.6 MG TAB PO SCH ×2 (09:27→21:00)
[2017-01-30] MEDS: TAMSULOSIN HCL 0.4 MG CAP PO SCH ×2 (09:27→21:46)
[2017-01-30] MEDS: CLOPIDOGREL 75 MG TAB PO SCH (09:27)
[2017-01-30] MEDS: METOPROLOL SUCCINATE 25 MG EXTENDED RELEASE TAB PO SCH (09:27)
[2017-01-30] MEDS: NIFEdipine 90 MG SUSTAINED RELEASE TAB PO SCH (09:27)
[2017-01-30] MEDS: PANTOPRAZOLE SOD 40 MG DELAYED RELEASE TAB PO SCH (09:27)
--- NOTE | 2017-01-30 09:43 | HHI.PR ---
Subjective Remarks had a good night no complains of chest discomfort Objective Vitals Vital Signs Date Time Temp Pulse Resp B/P (MAP) Pulse Ox O2 Delivery O2 Flow Rate FiO2 01/30/17 08:00 97.8 90 18 139/63 (88) 95 01/30/17 04:00 97.7 96 16 100/54 (69) 94 01/30/17 00:00 97.6 105 16 163/69 (100) 94 01/29/17 21:09 93 21 01/29/17 20:00 116 01/29/17 20:00 Nasal Cannula 2.00 01/29/17 20:00 97.7 106 16 142/54 (83) 97 01/29/17 16:00 97.6 110 20 134/63 (86) 93 01/29/17 12:00 97.6 105 20 134/60 (84) 95 I/O 01/29/17 01/29/17 01/29/17 01/30/17 01/30/17 01/30/17 07:00 15:00 23:00 07:00 15:00 23:00 Intake Total 480 ml Output Total 350 ml 500 ml Balance -350 ml 480 ml -500 ml Intake Oral 480 ml Output Urine Total 350 ml 500 ml # Voids 3 3 # Bowel Movements 1 1 1 Result Diagram: 01/29/17 1300 01/30/17 0709 Imaging Last Impressions Chest X-Ray 01/27/17 1258 Signed Impressions: Service Date/Time: January 13:01 - CONCLUSION: Lungs are partially obscured secondary to overlying structures. There are mild increased interstitial opacities in the lower lung zones bilaterally which could represent interstitial pulmonary edema in the appropriate clinical setting. Jn Ellison MD Objective Remarks awake and alert, on good sats anicteric lungs- decreased breath sounds regular rhythm abdomen soft, nontender extremities - no edema LUE- + AV fistula A/P Assessment and Plan 76 years osld male Acute CHF exacerbation in a patient with known CAD and status post PCI and stent placement, status post [id number] better history of long standing hypertension Cardiology ff- for cath Tuesday continue meds on Lasix 40 mg q 12 Chronic kidney disease stage IV HYpokalemia increae KCL to 20 meq po bid Nephrology ff lasix to 40 mg q 12- monitor BMP Anemia on chronic disease . H and H stable History of GIB in the past - has AVM- cauterized, history of bleeding ulcers in the past. continue on PPI and Iron supplements Hyperlipidemia to continue Statins DM II continue with ADA diet and sliding scale COPD on Bronchodilator, Mucolytic and incentive spirometry. Sleep Apnea at this time on oxygen through nasal Cannula may need CPAP Previous Tobacco dependence as Severe but he states he stopped one month ago, Heparin SQ bid Vicki Guerrero MD Jan 30, 2017 09:43
--- NOTE | 2017-01-30 12:00 | HHI.NPPN ---
Subjective History of Present Illness 76 Year old male with CHF/ ARF/CKD Review of Systems Respiratory Lungs: SOB Objective Data Data Vital Signs Date Time Temp Pulse Resp B/P (MAP) Pulse Ox O2 Delivery O2 Flow Rate FiO2 01/30/17 08:00 97.8 90 18 139/63 (88) 95 01/30/17 08:00 Room Air 01/30/17 04:00 97.7 96 16 100/54 (69) 94 01/30/17 00:00 97.6 105 16 163/69 (100) 94 01/29/17 21:09 93 21 01/29/17 20:00 116 01/29/17 20:00 Nasal Cannula 2.00 01/29/17 20:00 97.7 106 16 142/54 (83) 97 01/29/17 16:00 97.6 110 20 134/63 (86) 93 01/29/17 12:00 97.6 105 20 134/60 (84) 95 -: 01/29/17 1300 01/30/17 0709 Physical Exam General Appearance: Well Developed Neck Neck Exam: Neck Supple Pulmonary Resp Exam: Decreased Bases Cardiology CV Exam: Regular, Murmur Gastrointestinal/Abdomen GI Exam: Soft, Non-Tender, Bowel Sounds Present Assessment/Plan Problem List: (1) CKD (chronic kidney disease) ICD Codes: N18.9 - Chronic kidney disease, unspecified Plan: His baseline is around 1.7, GFR 30s. Fluctuates between stage 3-4. Suspected underlying nephrosclerosis He is non oliguric LOS may be due to CHF exacerbation and decreased renal perfusion At this time a cardiac catheterization is planned for next week. there is a risk of iodinated contrast induced renal injury requiring dialysis. The pt and understand the risks. Cr higher with diuresis Lasix 40 mg iv q 12 I will decrease the Lasix to once a day as creatinine is rising Cr 2.69 k low replace has Echo pending follow BMP (2) DM2 (diabetes mellitus, type 2) ICD Codes: E11.9 - Type 2 diabetes mellitus without complications Status: Acute Plan: Insulin as needed, maintain glucose 140-180 mg/dL while hospitalized. (3) Cardiomyopathy ICD Codes: I42.9 - Cardiomyopathy, unspecified Status: Acute Plan: Echo has been ordered He has a life vest in place Cardiology following Permanent Comment: Dr. Hollis - Atherosclerosis of [place] coronary artery. Last Edited By: José Miguel Black on May 29, 2015 16:04 (4) CAD (coronary artery disease) ICD Codes: I25.10 - Atherosclerotic heart disease of [place] coronary artery without angina pectoris Status: Acute Plan: Pending cardiac cath He has had stents in the past Permanent Comment: Dr. Hollis - Atherosclerosis of [place] coronary artery. Last Edited By: José Miguel Black on May 29, 2015 16:02 (5) HTN (hypertension) ICD Codes: I10 - Essential (primary) hypertension Status: Acute Plan: Resume home medications as ordered (6) Anemia ICD Codes: D64.9 - Anemia, unspecified Status: Acute Plan: Hx GIB, reportedly his stool is black Also likely has anemia of chronic disease Monitor H/H, transfuse if needed Shamar Leon MD Jan 30, 2017 12:00
[2017-01-30] MEDS: ATORVASTATIN 40 MG TAB PO SCH (21:46)
[2017-01-31] VITALS (9 sets, daily range): BP systolic 153–186; BP diastolic 65–79; PULSE 90–113; RESP 18–20; TEMP 97–99; O2SAT 93–97
[2017-01-31] MEDS: RESP: ALBUTEROL 2.5 MG/IPRATROPIUM 0.5 MG NEB (SCH) NEB ×5 (03:01→19:57)
[2017-01-31] MEDS: INSULIN ASPART SUPPLEMENTAL SCALE SQ SCH ×4 (07:35→20:57)
--- NOTE | 2017-01-31 07:36 | HHI.PR ---
Subjective Remarks patient up in chair no complains of chest pain or shortness of breath voiding well Objective Vitals Vital Signs Date Time Temp Pulse Resp B/P (MAP) Pulse Ox O2 Delivery O2 Flow Rate FiO2 01/31/17 04:00 99.0 90 20 153/67 (95) 94 01/31/17 00:00 98.0 90 20 155/65 (95) 94 01/30/17 20:00 106 01/30/17 20:00 Room Air 01/30/17 20:00 97.9 108 20 160/84 (109) 94 01/30/17 19:44 95 21 01/30/17 16:00 97.8 63 20 124/78 (93) 95 01/30/17 12:10 99 Nasal Cannula 3.00 01/30/17 12:00 97.7 98 18 158/67 (97) 94 01/30/17 08:00 97.8 90 18 139/63 (88) 95 01/30/17 08:00 Room Air I/O 01/30/17 01/30/17 01/30/17 01/31/17 01/31/17 01/31/17 07:00 15:00 23:00 07:00 15:00 23:00 Intake Total 720 ml 220 ml Output Total 500 ml 1000 ml 350 ml Balance -500 ml -280 ml -130 ml Intake Oral 720 ml 220 ml Output Urine Total 500 ml 1000 ml 350 ml # Bowel Movements 1 2 2 Result Diagram: 01/29/17 1300 01/30/17 0709 Imaging Last Impressions Chest X-Ray 01/27/17 1258 Signed Impressions: Service Date/Time: January 13:01 - CONCLUSION: Lungs are partially obscured secondary to overlying structures. There are mild increased interstitial opacities in the lower lung zones bilaterally which could represent interstitial pulmonary edema in the appropriate clinical setting. Jn Ellison MD Objective Remarks awake and alert, on good sats at room air anicteric lungs- decreased breath sounds, no rales, no edema regular rhythm abdomen soft, nontender extremities - no edema LUE- + AV fistula A/P Assessment and Plan 76 years osld male Acute CHF exacerbation in a patient with known CAD and status post PCI and stent placement, status post [id number] better- Improved history of long standing hypertension- SBPs in the 150s HR 90s- low 100s Cardiology ff- for cath today continue meds- on Procardia 90 mg XL Increase Toprol to 50 mg XL daily Echo pending on Lasix 40 mg decrease to q daily Chronic kidney disease stage IV HYpokalemia increase KCL to 20 meq po bid Nephrology ff lasix to 40 mg q 12- Ff renal functions post cath Anemia on chronic disease . H and H stable History of GIB in the past - has AVM- cauterized, history of bleeding ulcers in the past. continue on PPI and Iron supplements Hyperlipidemia to continue Statins DM II continue with ADA diet and sliding scale COPD on Bronchodilator, Mucolytic and incentive spirometry. Sleep Apnea at this time on oxygen through nasal Cannula Previous Tobacco dependence as Severe but he states he stopped one month ago, Heparin SQ bid Fo cardia cath today Vicki Guerrero MD Jan 31, 2017 07:36
[2017-01-31 08:31] LABS: BICARBONATE 28.4 MEQ/L (21.0-32.0); POTASSIUM 3.8 MEQ/L (3.5-5.1)
[2017-01-31] MEDS: NIFEdipine 90 MG SUSTAINED RELEASE TAB PO SCH (09:00)
[2017-01-31] MEDS: guaiFENesin E.R. 600 MG TAB PO SCH ×2 (09:00→20:59)
[2017-01-31] MEDS: TAMSULOSIN HCL 0.4 MG CAP PO SCH ×2 (09:00→20:59)
[2017-01-31] MEDS: CALCITRIOL 0.25 MCG CAP PO SCH (09:00)
[2017-01-31] MEDS: FUROSEMIDE 40 MG/4 ML VIAL IV PUSH SCH (09:00)
[2017-01-31] MEDS: SODIUM CHLORIDE 0.9% FLUSH 10 ML FLUSH IV FLUSH SCH ×2 (09:00→21:00)
[2017-01-31] MEDS: METOPROLOL SUCCINATE 25 MG EXTENDED RELEASE TAB PO SCH (09:00)
[2017-01-31] MEDS: PANTOPRAZOLE SOD 40 MG DELAYED RELEASE TAB PO SCH (09:00)
[2017-01-31] MEDS: POTASSIUM CHLORIDE 10 MEQ CAP PO SCH ×2 (09:00→20:58)
[2017-01-31] MEDS: HEPARIN SODIUM - SQ 10,000 UNITS/ML VIAL SQ SCH ×2 (09:00→21:00)
[2017-01-31] MEDS: DOCUSATE SODIUM 50 MG/SENNA 8.6 MG TAB PO SCH ×2 (09:00→20:59)
[2017-01-31] MEDS: CLOPIDOGREL 75 MG TAB PO SCH (09:00)
[2017-01-31] MEDS: CILOSTAZOL 100 MG TAB PO SCH (09:00)
[2017-01-31] MEDS ORDERED: SODIUM CHLOR 0.9% 1000 ML INJ 500 ML IV ONE (10:00)
--- NOTE | 2017-01-31 10:05 | CATHPROC ---
[employer] HIS Report Study Information Study Number Admission Scheduled Start Study Start [id number] Jan 27 2017 3:16PM 01/31/2017 Jan 31 2017 8:29AM [place] [facility] Cardiac Catheterization Admit Source Facility Department Emergency department [facility] - Collection Team Lead Physician and Clinical Staff Initial John Navarro Hot Top Liner Gisel Castillo,CONSTANCE Recorder Jeana Hawthorne,RT(R) Scrub Delano Swanson RCIS(BS) Procedures Performed Procedure Location (Site) Vessel Name Coronary Angiograms LCA Left Coronary Coronary Angiograms RCA Right Coronary Wire insertion Fem Art (right) Femoral Art Equipment Time Method Consultant Description Size Mfg Part Number Used/Scraped [id number] 08:33 MILLER RIVERA SWAN MARY CATHETER FR 7 Used *[id number] TRANSDUCER, TRUWAVE [id number] 08:33 MILLER RIVERA * Used W/STOCKCOCK *[id number] TRANSDUCER, TRUWAVE [id number] 08:33 MILLER RIVERA * Used W/STOCKCOCK *[id number] *[id number] *[id number] 08:33 MED[employer] IND[employer] PACK, CCL CUSTOM * Used *[id number] 08:33 Pro Player Connect PACER PEN, SKIN DUAL W/ RULER * Used *[id number] 08:33 MERIT MEDICAL WIRE, 3MMJ .035 180CM 180CM Used *[id number] 09:22 [employer] WIRE, EXCHANGE 260CM 3MMJ 260CM Used *[id number] 08:33 NAMIC MANIFOLD, 2 PORT * Used *[id number] 08:33 NAMIC MANIFOLD, 4 PORT * Used *[id number] 08:33 NYCOMED OMNIPAQUE, 350 MG, 150ML 150ML [id number] Used [id number] 08:33 LANDIN MED[employer] BLANKET,WARM AIR CCL * Used *[id number] 08:42 TERUMO MEDICAL SHEATH, FR6 TERUMO (10CM) FR 6 Used *[id number] 08:33 TERUMO MEDICAL SHEATH, FR7 TERUMO (10CM) FR 7 Used *[id number] 09:23 V[employer]IONS PIGTAIL DUAL LUMEN CATHETER FR 6 0030 *[id number] Used Equipment Model, Serial, Lot Number and Expiration Data Description Model Number Serial Number Lot Number Expiration Date WIRE, EXCHANGE 260CM 3MMJ [id number] 12-19-2019 History: Current Medications Medication Dosage/Unit Route Frequency Last Date/Time Taken LIPITOR Beta Lisbeth PLAVIX Toprol PLETAL History: Allergies Allergy Reaction *MDRO Multi-Drug Resistant Organism Sulfa (Sulfonamide Antibiotics) RASH sulfamethoxazole Rash trimethoprim Rash History: Risk Factors Family History of Hypertension Dyslipidemia Previous MS Previous Heart Failure Premature CAD Yes Yes No No Yes Prior Valve Prior PCI Prior CABG Surgery No Yes No Cerebrovascular Peripheral Artery Chronic Lung On Dialysis Diabetes Disease Disease Disease No Yes Yes Yes Yes History: Symptoms/Diagnosis Selection Items Chest pain SOB History: Arrhythmias Selection Items Atrial fibrillation History: Other Disease Selection Items CAD CHF COPD HTN History: Other Current Smoker Packs a Day Years Used Pack Years Yes 1 50 50 Labs Hgb (g/dl) Hct (%) WBC (l/cumm) Platelets (thousands) 11.60-17.00 35.00-51.00 4.00-11.00 150.00-450.00 9.6 29.7 5 211 Glucose (mg/dl) BUN (mg/dl) Creatinine (mg/dl) BUN:Creatinine (1:x) 74.00-106.00 7.00-18.00 0.50-1.30 10.00-20.00 122 42 2.7 15.6 Na (meq/l) K (meq/l) 136.00-145.00 3.50-5.10 139 3.8 INR (PTT:PT) 0.90-1.10 1.1 Troponin I (ng/ml) CPK-MB (ng/ML) 0.02-0.05 0.50-3.60 0.06 Not Drawn Medication Medication Total Dose (Bolus/Oral) Medication Total Dosage/Unit 1% XYLOCAINE 20 mL BENADRYL 25 mg Medications (Bolus/Oral) Medication Time Given Dosage/Unit Administered By Reason 1% XYLOCAINE 01/31/2017 9:08:55 AM 20 mL John Hollis 20 mL 1% XYLOCAINE given in lab by John Hollis in Right Groin via Subcutaneous. BENADRYL 01/31/2017 9:10:01 AM 25 mg Gisel Castillo 25 mg BENADRYL given in lab by Gisel Castillo RN in Right Forearm via Peripheral IV. Ordered by John Luu. Medication (Drip) Medication Time Given Dosage/Unit Concentration/Unit Diluent (ml) Solution DOBUTAMINE 01/31/2017 9:33:44 AM 5 mcg/kg/min 500 mg 250 D5W 5 mcg/kg/min DOBUTAMINE given in lab by Gisel Castillo, CONSTANCE in Right Forearm via Peripheral IV. Pump/ Drip Flow = 11.25 ml/hr using D5W with a concentration of 500 mg in 250 ml. Ordered by John Hollis. IV Solutions 01/31/2017 8:48:21 AM 50 mL (IV) NaCl .9 IV Solutions given in lab by Gisel Castillo RN in Right Forearm via Peripheral IV. Pump/Drip Flow u sing NaCl .9. Initial Case Assessment Cardiovascular HR Rhythm NIBP 51 SR 163/87 Edema Present Skin color Skin None Normal Warm Dry Circulatory - Right Pulses Dorsalis Pedis Femoral 1 2 Scale (0,1,2,3,4,d) Circulatory - Left Pulses Dorsalis Pedis Femoral 1 2 Scale (0,1,2,3,4,d) Neurological State Oriented to time-place- Alert Moves all extremities person Respiration - General Respiration Rate SpO2 (%) (B/min) 12 96 Final Case Assessment Cardiovascular HR Rhythm NIBP 114 SR 171/72 Edema Present Skin color Skin None Normal Warm Dry Circulatory - Right Pulses Dorsalis Pedis Femoral 1 2 Scale (0,1,2,3,4,d) Circulatory - Left Pulses Dorsalis Pedis Femoral 1 2 Scale (0,1,2,3,4,d) Neurological State Oriented to time-place- Alert Moves all extremities person Respiration - General Respiration Rate SpO2 (%) (B/min) 17 96 Chronological Log Time Study Chronological Log 8:46:20 Patient arrived via Bed. 8:47:41 Patient Name, D.O.B, / Armband Verified By R.N. 8:47:43 Consent signed by the physician and the patient and verified by the Collection Team Lead staff. 8:47:47 Pre-op and post- op instructions given; patient acknowledges understanding of instructions. 8:47:49 Verbal Stimulation=2 Physical Stimulation=2 Airway=2 Respiration=2 TOTAL=8. (0=absent, 1=li mited, 2=present) 8:47:59 Presedation assessment performed by Collection Team Lead RN. 8:48:11 Patient has been NPO for More than 6Hrs. 8:48:12 Skin Breakdown- none per pt 8:48:12 Patient Warmer Placed on the Table. 8:48:15 Disposable Defibrillator Pads Placed On Patient. 8:48:18 Umang Prominences Protected 8:48:21 A # 20 IV was noted in the Forearm (right). Grade = 0 8:48:21 IV Solutions given in lab by Gisel Castillo, RN in Right Forearm via Peripheral IV. Pump/D rip Flow using NaCl .9. 8:48:30 History and physical on the chart or being dictated. Assessment: Initial Case, HR=51 BPM, Rhythm=SR, WYEL=495/87 mmhg, Edema=None, Color=Normal, Ski n = Warm, Dry Right Pulses: David Ped=1, Femoral=2 8:48:32 Left Pulses: David Ped=1, Femoral=2 Neurological: State=Alert, Ox3, CHERRY Respiration: Resp=12 B/min, SpO2=96 % 8:58:00 MD arrived. 8:59:47 Reference ECG taken Vitals capture started with the following parameters, Patient=Adult, Interval=5 min, Initial Pre ghylg=986 mmHg, 8:59:51 Deflation Rate=5 mmHg, Cuff placed on Left Arm 9:00:30 HR=94 bpm, SOBM=242/87 mmhg, SpO2=96.0 %, Resp=16 B/min 9:02:00 Bilateral groins prepped with 2% chlorhexidine, and draped after a 3 minute waiting time. 9:05:35 HR=91 bpm, HPDJ=375/79 mmhg, SpO2=96.0 %, Resp=17 B/min 9:06:58 Pressure channel 1 zeroed. Time Out. Correct patient, correct procedure, correct physician, power injector loaded, or not l oaded with contrast with 9:07:48 surgical team present. Time Out Concurred by MD and individual staff in procedure. 9:08:46 Case Start 9:08:55 20 mL 1% XYLOCAINE given in lab by John Hollis in Right Groin via Subcutaneous. 9:10:01 25 mg BENADRYL given in lab by Gisel Castillo, RN in Right Forearm via Peripheral IV. Order ed by Hollis, Ta[place]. 9:10:26 Access site was Right Femoral Artery. 9:10:36 HR=92 bpm, LJLM=886/87 mmhg, SpO2=97.0 %, Resp=16 B/min 9:10:42 A SHEATH, FR6 TERUMO (10CM) FR 6 was advanced into the Fem Art (right) using the Percutaneou s technique. 9:11:48 Access site was Right Femoral Vein. 9:12:10 A SHEATH, FR7 TERUMO (10CM) FR 7 was advanced into the Fem Vein (right) using the Percutaneo us technique. 9:12:23 Pressure channel 2 zeroed. A SWAN MARY CATHETER FR 7 was advanced over a wire. OMNIPAQUE, 350 MG, 150ML 150ML was used for 9:12:46 injections. Recorded Pressure: MPA, HR=89, Condition=Condition 1 9:13:31 (Main Pulmonary Artery) MPA 42/18/31 Recorded Pressure: PCW, HR=81, Condition=Condition 1 9:14:05 (Pulmonary Capillary Wedge) PCW 34/37/25 9:15:39 HR=91 bpm, KNDM=677/77 mmhg, SpO2=95.0 %, Resp=19 B/min Thermo CO: CO=6.8 l/m, HR=91 bpm, Condition=Condition 1. Used in calculation. 9:15:51 Equipment: Description and Size=SWAN MARY CATHETER FR 7, Type=Bath Probe, CC=0.579 Injectant: Temp=19.0 - 22.0 Celsius, Volume=10.0 ml Thermo CO: CO=6.6 l/m, HR=89 bpm, Condition=Condition 1. Used in calculation. 9:17:14 Equipment: Description and Size=SWAN MARY CATHETER FR 7, Type=Bath Probe, CC=0.579 Injectant: Temp=19.0 - 22.0 Celsius, Volume=10.0 ml Recorded Pressure: RV, HR=91, Condition=Condition 1 9:18:09 (Right Ventricle) RV 45//7 Recorded Pressure: RA, HR=88, Condition=Condition 1 9:18:24 (Right Atrium) RA 146 9:18:39 Whitney Mary Catheter Removed A JL 4.0 INFINITI CATHETER FR 6 was advanced over a wire. OMNIPAQUE, 350 MG, 150ML 150ML was use d for 9:19:47 injections. 9:20:34 Catheter was removed A JR 4.0 INFINITI CATHETER FR 6 was advanced over a wire. OMNIPAQUE, 350 MG, 150ML 150ML was use d for 9:20:45 injections. 9:21:23 HR=90 bpm, GEVS=104/66 mmhg, SpO2=95 %, Resp=16 B/min Recorded Pressure: LV, HR=91, Condition=Condition 1 9:21:53 (Left Ventricle) LV 163/14/23 9:23:07 A WIRE, EXCHANGE 260CM 3MMJ 260CM was inserted via Fem Art (right). 9:23:45 Catheter was removed A PIGTAIL DUAL LUMEN CATHETER FR 6 was advanced over a wire. OMNIPAQUE, 350 MG, 150ML 150ML was used for 9:24:21 injections. 9:25:35 FP=055 bpm, JSXU=544/91 mmhg, SpO2=95.0 %, Resp=17 B/min Recorded Pressure: LV, Ao, HR=90, Condition=Condition 1 9:27:19 (Left Ventricle) LV 163/14/23, (Aorta) Ao 155/50/97 9:30:28 HR=89 bpm, PNRF=772/72 mmhg, SpO2=97.0 %, Resp=17 B/min 5 mcg/kg/min DOBUTAMINE given in lab by Gisel Castillo, CONSTANCE in Right Forearm via Peripheral IV. Pump/Drip Flow = 9:33:44 11.25 ml/hr using D5W with a concentration of 500 mg in 250 ml. Ordered by John Hollis. 9:35:33 HR=93 bpm, VHFA=320/73 mmhg, SpO2=96.0 %, Resp=20 B/min 9:36:11 Changed Dobutamine to 10 mcg/kg/min. 9:40:24 Catheter was removed 9:40:32 MA=034 bpm, YLLB=183/77 mmhg, SpO2=97.0 %, Resp=19 B/min 9:40:40 Dobutamine stopped. A JL 4.0 INFINITI CATHETER FR 6 was advanced over a wire. OMNIPAQUE, 350 MG, 150ML 150ML was us ed for 9:41:14 injections. 9:43:21 The LCA was injected and visualized at various angles. OMNIPAQUE, 350 MG, 150ML 150ML used. After removing the current catheter a JR 4.0 INFINITI CATHETER FR 6 was advanced over a WIRE, E XCHANGE 260CM 9:44:09 3MMJ 260CM. 9:45:37 SW=797 bpm, JIHL=801/72 mmhg, SpO2=96.0 %, Resp=18 B/min 9:46:07 The RCA was injected and visualized at various angles. OMNIPAQUE, 350 MG, 150ML 150ML used. 9:47:08 Catheter was removed 9:48:04 An injection in the Fem Art (right) was made through the SHEATH, FR6 TERUMO (10CM) FR 6. 9:49:30 Case End 9:50:41 PZ=037 bpm, UVCX=951/72 mmhg, SpO2=96.0 %, Resp=16 B/min 9:50:51 Sheath(s) left in place, will be removed in Holding Area 9:51:01 Sterile dressing applied to site 9:51:02 No case complications noted. 9:51:04 Cine recording checked. 9:51:08 Bedside Report will be given. 9:51:10 Contrast Scanned 9:51:22 A Left and Right Heart Cath was performed. Assessment: Final Case, XH=627 BPM, Rhythm=SR, SSII=546/72 mmhg, Edema=None, Color=Normal, Skin = Warm, Dry Right Pulses: David Ped=1, Femoral=2 9:51:41 Left Pulses: David Ped=1, Femoral=2 Neurological: State=Alert, Ox3, CHERRY Respiration: Resp=17 B/min, SpO2=96 % 9:55:42 ZAOO=378/76 mmhg 9:56:40 Vitals capture stopped. 10:00:[facility] - Contrast Media Used In Study Contrast Total Opened (mL) Total Used (mL) Total Wasted (mL) Omnipaque 30 30 0 End Study - Maximum Contrast Load Max Contrast Load (mL) 138.9 End Study - Radiation Exposure Fluoro Time (minutes) 8.4 End Study - Patient Disposition Complications Transferred To Interventional Outcome No Telemetry Bed No attempt made
[2017-01-31] MEDS ORDERED: diphenhydrAMINE HCL 50 MG/ML VIAL ONE (10:17)
[2017-01-31] MEDS ORDERED: HEPARIN-NS/PF INJ 500 ML ONE (10:17)
[2017-01-31] MEDS ORDERED: DOBUTamine PREMIX DRIP 250 ML ONE (10:19)
--- NOTE | 2017-01-31 11:30 | MA ---
cc: FRANNIE ORDONEZ M.D. DATE 01/31/2017 REASON FOR PROCEDURE Chest pain and shortness of breath, congestive failure, cardiomyopathy, possible aortic stenosis. PROCEDURE Right and left heart catheterization, angiogram, right femoral artery angiogram and left ventricular pressure measurements. PROCEDURE NOTE After obtaining informed consent, the patient in a fasting state was brought to the laboratory aide. The right groin area was sterilized and draped with sterile drapes. 1% Xylocaine was used to locally anesthetize the area. A 6-Peruvian sheath was used to access the right femoral artery. A 7-Peruvian sheath was used to access the right femoral vein. [place] was used to perform right ventricular pressures and cardiac output. JL-4 was used to intubated the left main and JR4 to intubate the right coronary artery and pigtail to perform pressure measurements across the valve. Manual pressure will be applied and sheath will be taken out and the patient sent back to his room. CORONARY ANGIOGRAM The left main coronary artery is a medium-sized vessel which bifurcates into LAD and circumflex coronary artery. The ostium of the left main shows ventricularization of pressure and about 60-70% stenosis. The left anterior descending coronary artery and its branches have no significant disease. The left circumflex coronary artery is mildly diseased. The right coronary artery is a medium-size vessel, about 50/60% distally. LEFT VENTRICULOGRAM No left ventriculogram was performed. HEART PRESSURES Pulmonary artery pressure of 42/18. Wedge pressure of 25 mean. Right ventricular pressure of 45/1. Right atrial pressure with mean of 10. Mean pressure gradient across the aortic valve was only 15 and that after dobutamine challenge up to 10 mcg/kilo/minute. Cardiac output was 6.7 mean. The patient has a shunt. VALVE AREA calculated to be 2.27 cm2 consistent with no significant stenosis, might be mild stenosis at max. Surgical consult will be obtained to evaluate for possible surgery for the left main disease. MD TERESO Hunt/JENNIFER /10:00 AM /11:11 AM
[2017-01-31] MEDS ORDERED: IOHEXOL 350 MG/ML 50 ML BTL (for Cath Lab) OTHER ONE (13:18)
--- NOTE | 2017-01-31 15:21 | HHI.NPPN ---
Subjective Renal Failure: Chronic, Stage III, Stage IV Interval History He was seen after his cardiac cath. Creatinine slightly worse prior to procedure. He has left main disease. Feels okay now. (Sridevi Moss) Review of Systems Respiratory Lungs: SOB (Sridevi Moss) Objective Data Data Vital Signs Date Time Temp Pulse Resp B/P (MAP) Pulse Ox O2 Delivery O2 Flow Rate FiO2 01/31/17 10:10 94 Room Air 01/31/17 09:33 69 157/74 01/31/17 08:00 97 01/31/17 08:00 Room Air 01/31/17 04:00 99.0 90 20 153/67 (95) 94 01/31/17 00:00 98.0 90 20 155/65 (95) 94 01/30/17 20:00 106 01/30/17 20:00 Room Air 01/30/17 20:00 97.9 108 20 160/84 (109) 94 01/30/17 19:44 95 21 01/30/17 16:00 97.8 63 20 124/78 (93) 95 (Sridevi Moss) -: 01/29/17 1300 01/31/17 0715 Physical Exam General Appearance: Well Developed, No Acute Distress, Comfortable, Malnourished (Sridevi Moss) Throat Throat Exam: Oral Mucosa [place] & Moist (Sridevi Moss) Neck Neck Exam: Neck Supple (Sridevi Moss) Pulmonary Resp Exam: Breath Sounds Equal, No Distress, Decreased Bases (Sridevi Moss) Cardiology CV Exam: Regular, Good Perfusion, Dyspnea on Exertion, Murmur CV Remarks life vest (Sridevi Moss) Gastrointestinal/Abdomen GI Exam: Soft, Non-Tender, Bowel Sounds Present (Sridevi Moss) Musculoskeletal MS Exam: Normal Tone, Good Strength (Sridevi Moss) Integumentary Skin Exam: Clear, Warm, Dry, Intact (Sridevi Moss) Extremeties Extremities Exam: No Edema, Pedal Pulses Palpable (Sridevi Moss) Neurologic Neuro Exam: Alert, Awake, Oriented, Speech Clear, Moving All Extremities (Sridevi Moss) Psychiatric Psych Exam: Appropriate Responses (Sridevi Moss) Assessment/Plan Discussed Condition With: Patient, Spouse Assessment Summary: CHF, Hypertension Problem List: (1) CKD (chronic kidney disease) ICD Codes: N18.9 - Chronic kidney disease, unspecified Plan: His baseline is around 1.7, GFR 30s. Fluctuates between stage 3-4. Suspected underlying nephrosclerosis He is non oliguric s/p cardiac cath today, monitor renal function daily. There is a risk of declining renal function that may require dialysis. We will monitor closely. He is on lasix daily, monitor fluid status Avoid nephrotoxic agents. (2) DM2 (diabetes mellitus, type 2) ICD Codes: E11.9 - Type 2 diabetes mellitus without complications Status: Acute Plan: Insulin as needed, maintain glucose 140-180 mg/dL while hospitalized. (3) Cardiomyopathy ICD Codes: I42.9 - Cardiomyopathy, unspecified Status: Acute Plan: Echo has been ordered He has a life vest in place Cardiology following Permanent Comment: Dr. Hollis - Atherosclerosis of [place] coronary artery. Last Edited By: José Miguel Black on May 29, 2015 16:04 (4) CAD (coronary artery disease) ICD Codes: I25.10 - Atherosclerotic heart disease of [place] coronary artery without angina pectoris Status: Acute Plan: cardiology following, s/p cath he has left main disease, possibly will need surgery consult Permanent Comment: Dr. Hollis - Atherosclerosis of [place] coronary artery. Last Edited By: José Miguel Black on May 29, 2015 16:02 (5) HTN (hypertension) ICD Codes: I10 - Essential (primary) hypertension Status: Acute Plan: continue medications as ordered (6) Anemia ICD Codes: D64.9 - Anemia, unspecified Status: Acute Plan: Hx GIB, Hb has been stable, monitor and transfuse if needed (Sridevi Moss) Plan patient was seen and examined. Cardiac cath is planned. At high risk for contrast nephropathy. (Lamont Ramachandran MD) Sridevi Moss Jan 31, 2017 15:20 Lamont Ramachandran MD Feb 01, 2017 11:37
--- NOTE | 2017-01-31 17:27 | ECHRPT ---
Indication: Heart failure, unspecified CONCLUSIONS The left ventricular systolic function is severely reduced with an estimated ejection fraction in th e range of 20-25%. Wall thickness is measured at the upper limits of normal. The aortic root and proximal ascending aorta are not well visualized. Trace mitral valve regurgitation. BP: 161 / 69 HR: Rhythm: MEASUREMENTS (Male / Female) Normal Values Technical Quality: 2D ECHO LV Diastolic Diameter PLAX 6.9 cm 4.2 - 5.9 / 3.9 - 5.3 cm LV Systolic Diameter PLAX 6.3 cm IVS Diastolic Thickness 1.4 cm 0.6 - 1.0 / 0.6 - 0.9 cm LVPW Diastolic Thickness 1.5 cm 0.6 - 1.0 / 0.6 - 0.9 cm LV Relative Wall Thickness 0.4 RV Internal Dim ED PLAX 2.3 cm M-MODE Aortic Root Diameter MM 3.7 cm LA Systolic Diameter MM 3.9 cm LA Ao Ratio MM 1.1 AV Cusp Separation MM 1.4 cm DOPPLER Mitral E Point Velocity 122.0 cm/s Mitral A Point Velocity 119.0 cm/s Mitral E to A Ratio 1.0 FINDINGS LEFT VENTRICLE The left ventricular systolic function is severely reduced with an estimated ejection fraction in th e range of 20-25%. Wall thickness is measured at the upper limits of normal. RIGHT VENTRICLE Normal right ventricular size and systolic function. LEFT ATRIUM The left atrial size is normal. RIGHT ATRIUM The right atrial size is normal. ATRIAL SEPTUM Normal atrial septal thickness without atrial level shunting by limited color doppler interrogation. AORTA The aortic root and proximal ascending aorta are not well visualized. MITRAL VALVE Structurally normal mitral valve. Trace mitral valve regurgitation. AORTIC VALVE Trileaflet aortic valve. No aortic valve stenosis or regurgitation. TRICUSPID VALVE Structurally normal tricuspid valve. No tricuspid valve stenosis or regurgitation. PULMONARY VALVE No pulmonary valve regurgitation or stenosis. VESSELS The inferior vena cava is normal in size. PERICARDIUM No pericardial effusion. Ashli Rubio MD, FACC (Electronically Signed) Final Date:31 January 2017 17:26
--- NOTE | 2017-01-31 18:36 | RADRPT ---
EXAM DATE/TIME: 01/31/2017 17:05 [facility] COMPARISON: US CAROTID ARTERIES, July 19, 2013, 10:18. INDICATIONS : Pre op cardiac surgery. MEDICAL HISTORY : Cerebrovascular accident. Syncope. Neuropathy. A-flutter with RVR. MS. CHF. CAD. Cardiomyopathy. Anti coagulant therapy. Hypercholesterolemia. Afib. Hypertension. COPD. Sleep apnea. GI bleed. Ulcer. BPH. Urinary retension. Renal failure. Diabetes. Anemia. Skin cancer. Blood transfusion. MRSA SURGICAL HISTORY : Vein stripping. Coronary artery stents. Left AV shunt. GI bleed repair. ENCOUNTER: Initial ACUITY: 1 day PAIN SCORE: 0/10 LOCATION: Bilateral neck PEAK SYSTOLIC VELOCITIES (cm/sec): ICA/CCA RATIO: Right: 0.8 Left: 0.9 ICA: Right: 101.6 Left: 119.4 CCA: Right: 129.5 Left: 126.9 ECA: Right: 141.0 Left: 131.8 VERTEBRAL: Right: 79.8 antegrade Left: 52.9 antegrade Elevated flow velocities and ICA/CCA ratios have been found to correlate with increased degrees of vessel stenosis, calculated as percentage of diameter relative to a normal segment of distal ICA/CCA FINDINGS: There is moderate plaque at the carotid bulb regions bilaterally. On the grayscale images, the plaque appears more prominent on the left. There is elevated peak systolic velocity in the proximal right c ommon carotid artery at 190 cm/s. The velocities throughout the rest of study are within normal limit s. There is normal antegrade flow the vertebral arteries bilaterally. CONCLUSION: At least moderate plaque in the carotid bulb regions bilaterally. There is elevated velocity seen in the proximal right common carotid artery. A more significant proximal stenosis cannot be excluded. It is thought the carotid systems could be better evaluated with a CTA or MRA. Jn Carrillo MD on January 31, 2017 at 18:30 Board Certified Radiologist. This report was verified electronically.
--- NOTE | 2017-01-31 18:37 | RADRPT ---
EXAM DATE/TIME: 01/31/2017 17:25 [facility] COMPARISON: No previous studies available for comparison. INDICATIONS : Pre op cardiac surgery. MEDICAL HISTORY : Cerebrovascular accident. Syncope. Neuropathy. A-flutter with RVR. NE. CHF. CAD. Cardiomyopathy. Anti coagulant therapy. Hypercholesterolemia. Afib. Hypertension. COPD. Sleep apnea. GI bleed. Ulcer. BPH. Urinary retension. Renal failure. Diabetes. Anemia. Skin cancer. Blood transfusion. MRSA SURGICAL HISTORY : Vein stripping. Coronary artery stents. Left AV shunt. GI bleed repair. ENCOUNTER: Initial ACUITY: 1 day PAIN SCORE: 0/10 LOCATION: Bilateral legs. TECHNIQUE: Venous ultrasound of the left and right leg was performed from the inguinal ligament to the proximal calf. Real-time, color Doppler and spectral tracing, compression and augmentation techniques were us ed. FINDINGS: RIGHT LEG: There is normal compressibility of the deep venous system from the inguinal region to the proximal ca lf. No echogenic clot is seen in the lumen of the common femoral, femoral, popliteal, and posterior tibial veins. There is a normal response of the venous system to proximal and distal augmentation an d respiration. The right greater saphenous vein was not visualized. LEFT LEG: There is normal compressibility of the deep venous system from the inguinal region to the proximal ca lf. No echogenic clot is seen in the lumen of the common femoral, femoral, popliteal, and posterior tibial veins. There is a normal response of the venous system to proximal and distal augmentation an d respiration. CONCLUSION: 1. No DVT is seen. 2. The right greater saphenous vein was not visualized. Jn Carrillo MD on January 31, 2017 at 18:34 Board Certified Radiologist. This report was verified electronically.
--- NOTE | 2017-01-31 18:38 | RADRPT ---
EXAM DATE/TIME: 01/31/2017 17:45 [facility] COMPARISON: No previous studies available for comparison. INDICATIONS : Pre op cardiac surgery. MEDICAL HISTORY : Cerebrovascular accident. Syncope. Neuropathy. A-flutter with RVR. NH. CHF. CAD. Cardiomyopathy. Anti coagulant therapy. Hypercholesterolemia. Afib. Hypertension. COPD. Sleep apnea. GI bleed. Ulcer. BPH. Urinary retension. Renal failure. Diabetes. Anemia. Skin cancer. Blood transfusion. MRSA SURGICAL HISTORY : Vein stripping. Coronary artery stents. Left AV shunt. GI bleed repair. ENCOUNTER: Initial ACUITY: 1 day PAIN SCORE: 0/10 LOCATION: Bilateral legs. GREATER SAPHENOUS VEIN THIGH: PROXIMAL: Right Non-visualized Left 6 mm MID: Right Non-visualized Left 2 mm DISTAL: Right Non-visualized Left Non-visualized CALF: PROXIMAL: Right 1 mm Left 1 mm MID: Right 1 mm Left 1 mm DISTAL: Right 1 mm Left 1 mm FINDINGS: The venous system of the lower extremities are patent by color Doppler imaging. Measurements of the leg veins (in mm) are listed above. The right greater saphenous vein in the thigh was not visualized. CONCLUSION: Venous mapping as delineated above. Jn Carrillo MD on January 31, 2017 at 18:36 Board Certified Radiologist. This report was verified electronically.
[2017-01-31] MEDS: ATORVASTATIN 40 MG TAB PO SCH (20:59)
[2017-01-31 21:55] LABS: BACTERIA, URINE MANY /hpf; BLOOD, URINE NEG (NEG); COMMENT (UR) CULTURE INDICATED; CULTURE IF INDICATED CULTURE INDICATED; GLUCOSE,URINE NEG (NEG); KETONE, URINE TRACE mg/dL (NEG); NITRITE,URINE POS (NEG); URINE COLOR YELLOW (YELLW/STRAW)
[2017-02-01] VITALS: BP 124/65; PULSE 68; RESP 18; TEMP 98.2; O2SAT 95
[2017-02-01 04:00] VITALS: BP 142/63; PULSE 95; RESP 18; TEMP 98.3; O2SAT 95
[2017-02-01 08:00] VITALS: BP 157/68; PULSE 83; PULSE 88; RESP 20; TEMP 97.5; O2SAT 97
[2017-02-01] MEDS: INSULIN ASPART SUPPLEMENTAL SCALE SQ SCH ×4 (08:00→21:05)
--- NOTE | 2017-02-01 08:07 | MB ---
cc: GLORIA ZIMMERMAN DATE OF CONSULTATION 01/31/2017 DATE OF 1940 HISTORY A 76-year-old male who presented to the emergency department on the complaining of a 2-day history of chest discomfort, dyspnea on exertion, worsening from walking from room to room. Recently discharged from [facility] back in December where he had a LifeVest placed. His echocardiogram on January 06 showed moderate to severe decreased left ventricular systolic function with EF of 25-30%, left atrium mildly enlarged, the right ventricle mildly dilated, mild aortic insufficiency, moderate to severe mitral regurgitation, mild tricuspid regurgitation, RV systolic pressures of 42. The patient then followed up with Dr. Hollis as an outpatient on the and was to arrange for the heart catheterization for further management. However, during that time he ended up coming into our emergency room with chest pain and shortness of breath. He was also recently in our facility December 05 where he was admitted December 05, 2016 to the for GI bleed, melenotic stools, recent AV malformation was found after endoscopy by Dr. Bruce on November 30. He was given 4 units of packed Rbc's. He also underwent post ablation. His hemoglobin on admission was 5.4. He was also found to have acute on chronic renal failure with a creatinine of 3.27, a lactic acid at that time of 5.5. The patient underwent cardiac cath today which showed left main disease of 60-70%, RCA 50% stenosed. We were consulted for more possible left main disease.. PAST MEDICAL HISTORY Significant for: 1. Coronary artery disease. 2. Severely decreased left ventricular systolic function, EF of 25-30%, moderate to severe mitral regurgitation by echo from January 04. 3. Chronic kidney disease. 4. History of chronic anemia. 5. AV malformation status post ablation November by Dr. Bruce. At that time he required 4 units of packed Rbc's. 6. Hyperlipidemia. 7. Congestive heart failure. 8. Multiple TIAs. 9. COPD. 10. Diabetes mellitus type 2. 11. Benign prostatic hypertrophy with urinary retention. 12. Hypertension. 13. Obstructive sleep apnea. PAST SURGICAL HISTORY Surgery includes: 1. AV shunt left arm that was placed in 2009. He has not received dialysis through that catheter nor has he yet to receive any dialysis per the patient's . 2. He has had multiple PCIs with stent placement. 3. And he has had also a history of peripheral arterial disease with vascular stents in his bilateral lower legs. REVIEW OF SYSTEMS GENERAL: No night sweats, fever, heat or cold intolerance. SKIN: No psoriasis, itching or hives. HEENT: No blurred vision. He does wear full dentures. RESPIRATORY: No cough or shortness of breath. CARDIOVASCULAR: As above in the history of present illness. RESPIRATORY: As above in the history of present illness. GASTROINTESTINAL: No recent melenotic stools. No abdominal discomfort. GENITOURINARY: No burning, frequency, urgency CENTRAL NERVOUS SYSTEM: He has had history of TIAs in the past. He has some mild right lower leg weakness. He does use a walker when ambulating. He has frequent falls per the . PHYSICAL EXAMINATION VITAL SIGNS: On exam blood pressure 150/70, heart rate of 70, the patient is on room air at 94%. GENERAL: The patient is awake, alert, in no acute distress. HEENT: Head is normocephalic, atraumatic. Pupils equal and reactive. Oral mucosa pink, moist. NECK: Supple. No JVD. CARDIOVASCULAR: Heart sounds S1-S2, regular rate and rhythm. He has a grade 2/6 systolic murmur best noted at the left sternal border. LUNGS: Diminished in the bases with few coarse breath sounds. ABDOMEN: Soft, flat, nontender. No masses or organomegaly. EXTREMITIES: Reveal faint palpable bilateral pulses. Both feet are warm. Good capillary refill. LABORATORY DATA Lab work shows hemoglobin 9.6, hematocrit 29, white cell count 5, platelet count of 211. Sodium 139, potassium 3.8, BUN of 42, creatinine 2.72, glucose 122. INR 1.1. IMAGING Chest x-ray shows some interstitial opacities in the lower lobes could represent some pulmonary edema. Further pending is ultrasound the carotids, ultrasound lower extremities, pulmonary function testing, repeat 2-D echocardiogram. After all complete review of his cardiac workup further evaluation for possible coronary artery bypass graft as per Dr. Gloria Zimmerman, however he has multiple comorbidities to include history of TIAs, EF of 25-30%, wearing a LifeVest, COPD, diabetes mellitus type 2, chronic kidney disease, hypertension, obstructive sleep apnea. He also is high fall risk and concern for safety following a sternotomy surgical incision. This was discussed with the and the patient. We will continue to follow once we get his further workup evaluated. DICTATED BY: RICHIE Taylor Agree with above assessment and personally interviewed the patient and his . He is a poor operative candidate due to comorbidities and frailty. Will continue to follow him through his workup. MD VANESSA Austin/SAQIB /3:06 PM /8:11 AM FRANCISCO
--- NOTE | 2017-02-01 08:56 | HHI.PR ---
Subjective Remarks patient awake and alert voiding spontaenously- denies any burning or dysuria Objective Vitals Vital Signs Date Time Temp Pulse Resp B/P (MAP) Pulse Ox O2 Delivery O2 Flow Rate FiO2 02/01/17 04:00 98.3 95 18 142/63 (89) 95 02/01/17 00:00 98.2 68 18 124/65 (84) 95 01/31/17 20:00 98.5 113 18 153/79 (103) 97 01/31/17 20:00 102 01/31/17 19:59 96 21 01/31/17 17:00 99 01/31/17 16:00 97.0 100 18 186/78 (114) 96 01/31/17 15:50 93 21 01/31/17 12:00 97.7 93 18 157/65 (95) 93 01/31/17 10:10 94 Room Air 01/31/17 09:33 69 157/74 I/O 01/31/17 01/31/17 01/31/17 02/01/17 02/01/17 02/01/17 07:00 15:00 23:00 07:00 15:00 23:00 Intake Total 220 ml 0 ml 240 ml Output Total 350 ml 400 ml Balance -130 ml 0 ml -160 ml Intake Oral 220 ml 0 ml 240 ml Output Urine Total 350 ml 400 ml # Voids 0 # Bowel Movements 2 0 0 Result Diagram: 01/29/17 1300 01/31/17 0715 Imaging Last Impressions Lower Extremity Ultrasound 01/31/17 0000 Signed Impressions: Service Date/Time: Tuesday, January 31, 2017 17:45 - CONCLUSION: Venous mapping as delineated above. Jn Carrillo MD Carotid Artery Ultrasound 01/31/17 0000 Signed Impressions: Service Date/Time: Tuesday, January 31, 2017 17:05 - CONCLUSION: At least moderate plaque in the carotid bulb regions bilaterally. There is elevated velocity seen in the proximal right common carotid artery. A more significant proximal stenosis cannot be excluded. It is thought the carotid systems could be better evaluated with a CTA or MRA. Jn Carrillo MD Chest X-Ray 01/27/17 1258 Signed Impressions: Service Date/Time: January 13:01 - CONCLUSION: Lungs are partially obscured secondary to overlying structures. There are mild increased interstitial opacities in the lower lung zones bilaterally which could represent interstitial pulmonary edema in the appropriate clinical setting. Jn Ellison MD Objective Remarks awake and alert, on good sats at room air anicteric lungs- decreased breath sounds, no rales, no edema regular rhythm abdomen soft, nontender extremities - no edema, no calf tenderness rigght groin- post cath site- no hematoma, ++ femoral pulses LUE- + AV fistula Procedures 01/31- cardiac cath A/P Assessment and Plan 76 years osld male Acute CHF exacerbation- CMP- EF 3035% in a patient with known CAD and status post PCI and stent placement, status post [id number] better- CAD- left main disease- S/P cath 01/31 history of long standing hypertension- SBPs in the 150s HR 90s- low 100s continue meds- on Procardia 90 mg XL Increase Toprol to 50 mg XL daily- not given yesterday- ask nurse to give it [id number]% on Lasix 40 mg daily Vascular surgery consulted- for CABG- pre-op work up in progress Chronic kidney disease stage IV HYpokalemia KCL to 20 meq po bid Nephrology ff lasix to 40 mg daily Ff renal functions post cath- BMP today pending Pyuria- patient no symptoms ff final C and S Anemia on chronic disease . H and H stable History of GIB in the past - has AVM- cauterized, history of bleeding ulcers in the past. continue on PPI and Iron supplements Hyperlipidemia to continue Statins DM II continue with ADA diet and sliding scale COPD on Bronchodilator, Mucolytic and incentive spirometry. Sleep Apnea at this time on oxygen through nasal Cannula Previous Tobacco dependence as Severe but he states he stopped one month ago, Heparin SQ bid Vicki Guerrero MD Feb 01, 2017 08:56
[2017-02-01] MEDS: DOCUSATE SODIUM 50 MG/SENNA 8.6 MG TAB PO SCH ×2 (09:00→21:00)
[2017-02-01] MEDS: NIFEdipine 90 MG SUSTAINED RELEASE TAB PO SCH (09:00)
[2017-02-01] MEDS: CILOSTAZOL 100 MG TAB PO SCH (09:01)
[2017-02-01] MEDS: POTASSIUM CHLORIDE 10 MEQ CAP PO SCH ×2 (09:01→21:02)
[2017-02-01] MEDS: CALCITRIOL 0.25 MCG CAP PO SCH (09:01)
[2017-02-01] MEDS: guaiFENesin E.R. 600 MG TAB PO SCH ×2 (09:01→21:03)
[2017-02-01] MEDS: FUROSEMIDE 40 MG/4 ML VIAL IV PUSH SCH (09:01)
[2017-02-01] MEDS: PANTOPRAZOLE SOD 40 MG DELAYED RELEASE TAB PO SCH (09:02)
[2017-02-01] MEDS: TAMSULOSIN HCL 0.4 MG CAP PO SCH ×2 (09:02→21:03)
[2017-02-01] MEDS: METOPROLOL SUCCINATE 25 MG EXTENDED RELEASE TAB PO SCH (09:02)
[2017-02-01] MEDS: SODIUM CHLORIDE 0.9% FLUSH 10 ML FLUSH IV FLUSH SCH ×2 (09:03→21:04)
[2017-02-01] MEDS: HEPARIN SODIUM - SQ 10,000 UNITS/ML VIAL SQ SCH ×2 (09:03→21:04)
--- NOTE | 2017-02-01 09:13 | PD.CAR.PN ---
CVT Progress Note Subjective/Hospital Course: Denies chest pain Objective: Vital Signs Date Time Temp Pulse Resp B/P (MAP) Pulse Ox O2 Delivery O2 Flow Rate FiO2 02/01/17 08:00 97.5 83 20 157/68 (97) 97 02/01/17 04:00 98.3 95 18 142/63 (89) 95 02/01/17 00:00 98.2 68 18 124/65 (84) 95 01/31/17 20:00 98.5 113 18 153/79 (103) 97 01/31/17 20:00 102 01/31/17 19:59 96 21 01/31/17 17:00 99 01/31/17 16:00 97.0 100 18 186/78 (114) 96 01/31/17 15:50 93 21 01/31/17 12:00 97.7 93 18 157/65 (95) 93 01/31/17 10:10 94 Room Air 01/31/17 09:33 69 157/74 Labs: Laboratory Tests Test 02/01/17 07:19 Result Diagram: 01/29/17 1300 01/31/17 0715 Plan: STS Risk is as follow: Risk Model and Variables - STS Adult Cardiac Surgery Database Version 2.81 RISK SCORES About the STS Risk Calculator Procedure: CAB Only Risk of Mortality: 34.297% Morbidity or Mortality: 74.062% Long Length of Stay: 64.706% Short Length of Stay: 2.796% Permanent Stroke: 7.072% Prolonged Ventilation: 59.689% DSW Infection: 3.376% Renal Failure: 47.768% Reoperation: 28.042% Based on these data and his overall functional status, he is not a candidate for CABG Gloria Zimmerman MD Feb 01, 2017 09:13
[2017-02-01 09:29] LABS: BICARBONATE 24.9 MEQ/L (21.0-32.0); POTASSIUM 3.9 MEQ/L (3.5-5.1)
--- NOTE | 2017-02-01 11:25 | HHI.NPPN ---
Subjective Renal Failure: Chronic, Stage III, Stage IV Interval History Renal function is better. Sitting up in a chair. He is not a candidate for CABG. (Sridevi Moss) Review of Systems General Constitutional: Fatigue (Sridevi Moss) Respiratory Lungs: SOB (Sridevi Moss) Cardiovascular Cardiac: Chest Pain (Sridevi Moss) Objective Data Data Vital Signs Date Time Temp Pulse Resp B/P (MAP) Pulse Ox O2 Delivery O2 Flow Rate FiO2 02/01/17 08:00 Room Air 02/01/17 08:00 88 02/01/17 08:00 97.5 83 20 157/68 (97) 97 02/01/17 04:00 98.3 95 18 142/63 (89) 95 02/01/17 00:00 98.2 68 18 124/65 (84) 95 01/31/17 20:00 98.5 113 18 153/79 (103) 97 01/31/17 20:00 102 01/31/17 19:59 96 21 01/31/17 17:00 99 01/31/17 16:00 97.0 100 18 186/78 (114) 96 01/31/17 15:50 93 21 01/31/17 12:00 97.7 93 18 157/65 (95) 93 (Sridevi Moss) -: 01/29/17 1300 02/01/17 0719 Microbiology 01/31/17 Urine Culture, Received Pending Imaging Last Impressions Lower Extremity Ultrasound 01/31/17 0000 Signed Impressions: Service Date/Time: Tuesday, January 31, 2017 17:45 - CONCLUSION: Venous mapping as delineated above. Jn Carrillo MD Carotid Artery Ultrasound 01/31/17 0000 Signed Impressions: Service Date/Time: Tuesday, January 31, 2017 17:05 - CONCLUSION: At least moderate plaque in the carotid bulb regions bilaterally. There is elevated velocity seen in the proximal right common carotid artery. A more significant proximal stenosis cannot be excluded. It is thought the carotid systems could be better evaluated with a CTA or MRA. Jn Carrillo MD Chest X-Ray 01/27/17 1258 Signed Impressions: Service Date/Time: Thursday, January 27, 2017 13:01 - CONCLUSION: Lungs are partially obscured secondary to overlying structures. There are mild increased interstitial opacities in the lower lung zones bilaterally which could represent interstitial pulmonary edema in the appropriate clinical setting. Jn Ellison MD (Sridevi Moss) Physical Exam General Appearance: Well Developed, No Acute Distress, Comfortable, Malnourished (Sridevi Moss B. [employer]ILRO[employer] ST[employer]ESS) Throat Throat Exam: Oral Mucosa [place] & Moist (Sridevi Moss BRobert [employer]ILRO[employer]ESS) Neck Neck Exam: Neck Supple (Sridevi Moss [employer]RO[employer]) Pulmonary Resp Exam: Breath Sounds Equal, No Distress, Decreased Bases (Sridevi Moss B. [employer]RO[employer]ESS) Cardiology CV Exam: Regular, Good Perfusion, Dyspnea on Exertion, Murmur CV Remarks life vest (Sridevi Moss B. [employer]ILRO[employer]ESS) Gastrointestinal/Abdomen GI Exam: Soft, Non-Tender, Bowel Sounds Present (Sridevi Moss BRobert BUCHANANP) Musculoskeletal MS Exam: Normal Tone, Good Strength (Sridevi MossP) Integumentary Skin Exam: Clear, Warm, Dry, Intact (Sridevi Moss. [employer]ILRO[employer]ESS) Extremeties Extremities Exam: No Edema, Pedal Pulses Palpable (Sridevi MossP) Neurologic Neuro Exam: Alert, Awake, Oriented, Speech Clear, Moving All Extremities (Sridevi Moss B. [employer]IL[employer]ESS) Psychiatric Psych Exam: Appropriate Responses (Sridevi Moss) Assessment/Plan Discussed Condition With: Patient, Spouse Assessment Summary: CHF, Hypertension Problem List: (1) CKD (chronic kidney disease) ICD Codes: N18.9 - Chronic kidney disease, unspecified Plan: His baseline is around 1.7, GFR 30s. Fluctuates between stage 3-4. Suspected underlying nephrosclerosis He is non oliguric His renal function is better today, s/p cardiac catheterization yesterday We will monitor renal function closely. He is on lasix daily, monitor fluid status Avoid nephrotoxic agents. (2) DM2 (diabetes mellitus, type 2) ICD Codes: E11.9 - Type 2 diabetes mellitus without complications Status: Acute Plan: Insulin as needed, maintain glucose 140-180 mg/dL while hospitalized. (3) Cardiomyopathy ICD Codes: I42.9 - Cardiomyopathy, unspecified Status: Acute Plan: Echo with EF 20-25%, may need AICD He has a life vest in place Cardiology following Permanent Comment: Dr. Hollis - Atherosclerosis of [place] coronary artery. Last Edited By: José Miguel Black on May 29, 2015 16:04 (4) CAD (coronary artery disease) ICD Codes: I25.10 - Atherosclerotic heart disease of [place] coronary artery without angina pectoris Status: Acute Plan: cardiology following, s/p cath he has left main disease, he is not a candidate for CABG Permanent Comment: Dr. Hollis - Atherosclerosis of [place] coronary artery. Last Edited By: José Miguel Black on May 29, 2015 16:02 (5) HTN (hypertension) ICD Codes: I10 - Essential (primary) hypertension Status: Acute Plan: continue medications as ordered (6) Anemia ICD Codes: D64.9 - Anemia, unspecified Status: Acute Plan: Hx GIB, Hb has been stable, monitor and transfuse if needed (Sridevi Moss) Plan patient was seen and examined. Renal function is stable after cardiac cath. He can be discharged from renal standpoint. (Lamont Ramachandran MD) Sridevi Moss Feb 01, 2017 11:25 Lamont Ramachandran MD Feb 02, 2017 10:32
[2017-02-01 13:19] VITALS: BP 152/70; PULSE 82; RESP 20; TEMP 97.3; O2SAT 96
[2017-02-01 16:00] VITALS: BP 124/57; PULSE 85; RESP 20; TEMP 97.9; O2SAT 97
[2017-02-01 20:00] VITALS: BP 125/75; PULSE 90; RESP 18; TEMP 97.7; O2SAT 95
[2017-02-01] MEDS: ATORVASTATIN 40 MG TAB PO SCH (21:02)
[2017-02-02] VITALS: BP 137/63; PULSE 91; RESP 16; TEMP 97.6; O2SAT 95
[2017-02-02 04:00] VITALS: BP 138/64; PULSE 96; RESP 18; TEMP 97.9; O2SAT 93
[2017-02-02] MEDS: INSULIN ASPART SUPPLEMENTAL SCALE SQ SCH ×2 (08:00→12:00)
[2017-02-02 08:09] VITALS: BP 150/67; PULSE 89; RESP 20; TEMP 97.3; O2SAT 94
[2017-02-02] MEDS: NIFEdipine 90 MG SUSTAINED RELEASE TAB PO SCH (09:00)
[2017-02-02] MEDS: DOCUSATE SODIUM 50 MG/SENNA 8.6 MG TAB PO SCH (09:00)
[2017-02-02] MEDS: SODIUM CHLORIDE 0.9% FLUSH 10 ML FLUSH IV FLUSH SCH (09:00)
[2017-02-02] MEDS: METOPROLOL SUCCINATE 25 MG EXTENDED RELEASE TAB PO SCH (10:25)
[2017-02-02] MEDS: guaiFENesin E.R. 600 MG TAB PO SCH (10:26)
[2017-02-02] MEDS: CILOSTAZOL 100 MG TAB PO SCH (10:26)
[2017-02-02] MEDS: TAMSULOSIN HCL 0.4 MG CAP PO SCH (10:27)
[2017-02-02] MEDS: PANTOPRAZOLE SOD 40 MG DELAYED RELEASE TAB PO SCH (10:27)
[2017-02-02] MEDS: CALCITRIOL 0.25 MCG CAP PO SCH (10:27)
[2017-02-02] MEDS: POTASSIUM CHLORIDE 10 MEQ CAP PO SCH (10:27)
[2017-02-02] MEDS: FUROSEMIDE 40 MG/4 ML VIAL IV PUSH SCH (10:28)
[2017-02-02] MEDS: HEPARIN SODIUM - SQ 10,000 UNITS/ML VIAL SQ SCH (10:28)
[2017-02-02 10:29] LABS: BICARBONATE 24.3 MEQ/L (21.0-32.0); POTASSIUM 4.1 MEQ/L (3.5-5.1)
--- NOTE | 2017-02-02 11:50 | HHI.NPPN ---
Subjective Renal Failure: Chronic, Stage III, Stage IV Interval History Sitting up in a chair. He looks well. (Sridevi Moss) Review of Systems General Constitutional: Fatigue (Sridevi Moss) Respiratory Lungs: SOB (Sridevi Moss) Cardiovascular Cardiac: Chest Pain (Sridevi Moss) Objective Data Data Vital Signs Date Time Temp Pulse Resp B/P (MAP) Pulse Ox O2 Delivery O2 Flow Rate FiO2 02/02/17 08:09 97.3 89 20 150/67 (94) 94 02/02/17 04:00 97.9 96 18 138/64 (88) 93 02/02/17 00:00 97.6 91 16 137/63 (87) 95 02/01/17 20:00 Room Air 02/01/17 20:00 97.7 90 18 125/75 (92) 95 02/01/17 16:00 97.9 85 20 124/57 (79) 97 02/01/17 13:19 97.3 82 20 152/70 (97) 96 (Sridevi Moss) -: 01/29/17 1300 02/02/17 0926 Physical Exam General Appearance: Well Developed, No Acute Distress, Comfortable, Malnourished (Sridevi Moss) Throat Throat Exam: Oral Mucosa [place] & Moist (Sridevi Moss) Neck Neck Exam: Neck Supple (Sridevi Moss) Pulmonary Resp Exam: Breath Sounds Equal, No Distress, Decreased Bases (Sridevi Moss) Cardiology CV Exam: Regular, Good Perfusion, Dyspnea on Exertion, Murmur CV Remarks life vest (Sridevi Moss) Gastrointestinal/Abdomen GI Exam: Soft, Non-Tender, Bowel Sounds Present (Sridevi Moss) Musculoskeletal MS Exam: Normal Tone, Good Strength (Sridevi Moss) Integumentary Skin Exam: Clear, Warm, Dry, Intact (Sridevi Moss) Extremeties Extremities Exam: No Edema, Pedal Pulses Palpable (Sridevi Moss) Neurologic Neuro Exam: Alert, Awake, Oriented, Speech Clear, Moving All Extremities (Sridevi Moss) Psychiatric Psych Exam: Appropriate Responses (Sridevi Moss) Assessment/Plan Discussed Condition With: Patient, Spouse Assessment Summary: CHF, Hypertension Problem List: (1) CKD (chronic kidney disease) ICD Codes: N18.9 - Chronic kidney disease, unspecified Plan: His baseline is around 1.7, GFR 30s. Fluctuates between stage 3-4. Suspected underlying nephrosclerosis He is non oliguric His renal function is slightly worse but overall stable /p cardiac catheterization 01/31 We will monitor renal function closely. He is on lasix daily, monitor fluid status Avoid nephrotoxic agents. He can be discharged from renal standpoint. Can follow up with bedspread folder, Dr. Mcmullen (2) DM2 (diabetes mellitus, type 2) ICD Codes: E11.9 - Type 2 diabetes mellitus without complications Status: Acute Plan: Insulin as needed, maintain glucose 140-180 mg/dL while hospitalized. (3) Cardiomyopathy ICD Codes: I42.9 - Cardiomyopathy, unspecified Status: Acute Plan: Echo with EF 20-25%, may need AICD in the future He has a life vest in place Cardiology following Permanent Comment: Dr. Hollis - Atherosclerosis of [place] coronary artery. Last Edited By: José Miguel Black on May 29, 2015 16:04 (4) CAD (coronary artery disease) ICD Codes: I25.10 - Atherosclerotic heart disease of [place] coronary artery without angina pectoris Status: Acute Plan: cardiology following, s/p cath he has left main disease, he is not a candidate for CABG Permanent Comment: Dr. Hollis - Atherosclerosis of [place] coronary artery. Last Edited By: José Miguel Black on May 29, 2015 16:02 (5) HTN (hypertension) ICD Codes: I10 - Essential (primary) hypertension Status: Acute Plan: continue medications as ordered (6) Anemia ICD Codes: D64.9 - Anemia, unspecified Status: Acute Plan: Hx GIB, Hb has been stable, monitor and transfuse if needed (Sridevi Moss) Plan patient was seen and examined. Agree with above assessment and plan. His renal function appears to be at baseline, he can be discharged from renal standpoint. (Lamont Ramachandran MD) Problem Qualifiers (1) CAD (coronary artery disease): Qualified Codes: I25.10 - Atherosclerotic heart disease of [place] coronary artery without angina pectoris (2) HTN (hypertension): Qualified Codes: I10 - Essential (primary) hypertension Sridevi Moss Feb 02, 2017 11:50 Lamont Ramachandran MD Feb 02, 2017 21:17
--- NOTE | 2017-02-02 11:59 | HHI.PR ---
Subjective Remarks no complaints of any discomfort or shortness of breath voiding Objective Vitals Vital Signs Date Time Temp Pulse Resp B/P (MAP) Pulse Ox O2 Delivery O2 Flow Rate FiO2 02/02/17 08:09 97.3 89 20 150/67 (94) 94 02/02/17 04:00 97.9 96 18 138/64 (88) 93 02/02/17 00:00 97.6 91 16 137/63 (87) 95 02/01/17 20:00 Room Air 02/01/17 20:00 97.7 90 18 125/75 (92) 95 02/01/17 16:00 97.9 85 20 124/57 (79) 97 02/01/17 13:19 97.3 82 20 152/70 (97) 96 I/O 02/01/17 02/01/17 02/01/17 02/02/17 02/02/17 02/02/17 07:00 15:00 23:00 07:00 15:00 23:00 Intake Total 240 ml 480 ml 480 ml Output Total 400 ml Balance -160 ml 480 ml 480 ml Intake Oral 240 ml 480 ml 480 ml Output Urine Total 400 ml # Voids 2 3 3 # Bowel Movements 0 2 1 Result Diagram: 01/29/17 1300 02/02/17 0926 Imaging Last Impressions Lower Extremity Ultrasound 01/31/17 0000 Signed Impressions: Service Date/Time: Tuesday, January 31, 2017 17:45 - CONCLUSION: Venous mapping as delineated above. Jn Carrillo MD Carotid Artery Ultrasound 01/31/17 0000 Signed Impressions: Service Date/Time: Tuesday, January 31, 2017 17:05 - CONCLUSION: At least moderate plaque in the carotid bulb regions bilaterally. There is elevated velocity seen in the proximal right common carotid artery. A more significant proximal stenosis cannot be excluded. It is thought the carotid systems could be better evaluated with a CTA or MRA. Jn Carrillo MD Chest X-Ray 01/27/17 1258 Signed Impressions: Service Date/Time: January 13:01 - CONCLUSION: Lungs are partially obscured secondary to overlying structures. There are mild increased interstitial opacities in the lower lung zones bilaterally which could represent interstitial pulmonary edema in the appropriate clinical setting. Jn Ellison MD Objective Remarks awake and alert, on good sats at room air anicteric lungs- decreased breath sounds, no rales, no edema regular rhythm abdomen soft, nontender extremities - no edema, no calf tenderness rigght groin- post cath site- no hematoma, ++ femoral pulses LUE- + AV fistula Procedures 01/31- cardiac cath A/P Assessment and Plan 76 years osld male Acute CHF exacerbation- CMP- EF 3035% in a patient with known CAD and status post PCI and stent placement, status post [id number] better- CAD- left main disease- S/P cath 01/31 history of long standing hypertension- SBPs in the 150s HR 90s- low 100s continue meds- on Procardia 90 mg XL Increase Toprol to 50 mg XL daily- not given yesterday- ask nurse to give it [id number]% on Lasix 40 mg daily- restart home Torsemide 10 mg on DC Vascular surgery consulted- for CABG- - not a surgical candidate Chronic kidney disease stage IV HYpokalemia- resolved KCL to 20 meq po bid Nephrology ff lasix to 40 mg daily creatinine near baseline- cleared by Nephrology for DC Pyuria- patient no symptoms ff final C and S Anemia on chronic disease . H and H stable History of GIB in the past - has AVM- cauterized, history of bleeding ulcers in the past. continue on PPI and Iron supplements Hyperlipidemia to continue Statins DM II continue with ADA diet and sliding scale COPD on Bronchodilator, Mucolytic and incentive spirometry. Sleep Apnea at this time on oxygen through nasal Cannula Previous Tobacco dependence as Severe but he states he stopped one month ago, Heparin SQ bid DC [facility] today OP ff up with PCP, Neohrology,Cardiology Vicki Guerrero MD Feb 02, 2017 11:59
[2017-02-02] MEDS ORDERED: METO1TAB42 PO (12:04)
--- NOTE | 2017-02-02 12:08 | HHI.DS ---
Discharge Summary Admission Date Jan 27, 2017 at 15:16 Discharge Date: Feb 02, 2017 Admitting Diagnosis CHF exacerbation (1) CAD (coronary artery disease) ICD Code: I25.10 - Atherosclerotic heart disease of [place] coronary artery without angina pectoris Procedures 01/31- cardiac cath Brief History - From Admission This is a pleasant 76 y/o male with PAD, currently using a LifeVest, being evaluated for further cardiac catheterization, he came to ER after two days of chest discomfort, dyspnea on exertion, worse with walking from room to room. He denies any current chest pains, but states it worsens with exertion. He denies any fevers, nausea, vomiting, or other symptoms. Recently discharged from this facility The patient recent GI bleed, he has Hyperlipidemia, CAD, EF 48%, CHF, COPD, DM II, CKD IV, Hypertension and Sleep Apnea, seen in Emergency room and discussed with him and his Mrs. Janay Masters the patient was at [place] visiting his children and developed Shortness of breath and had to get IV diuretics, one week ago he had Live-Vest placed by Doctor Bunny Lopez and is scheduled for Cardiac Catheterization in this facility for 01/31/17, at this time complaint of shortness of breath, no signs of Volume overload at this time or Congestive heart but his Chest x ray is positive also BNP is over 5000, started On Lasix IV 40 mg in ER I will continue dosages every 8 hours and will need to be titrated by educational technology specialist and Hospitalist depend of Hospital course. CBC/BMP: 01/29/17 1300 02/02/17 0926 Significant Findings Laboratory Tests Test 01/31/17 07:15 01/31/17 18:45 02/01/17 07:19 02/02/17 09:26 Blood Urea Nitrogen 42 MG/DL (7-18) 32 MG/DL (7-18) 36 MG/DL (7-18) Creatinine 2.72 MG/DL (0.60-1.30) 2.22 MG/DL (0.60-1.30) 2.52 MG/DL (0.60-1.30) Random Glucose 122 MG/DL (74-106) 114 MG/DL (74-106) Estimat Glomerular Filtration Rate 23 ML/MIN (>89) 29 ML/MIN (>89) 25 ML/MIN (>89) Urine Protein 100 mg/dL (NEG-TRACE) Urine Ketones TRACE mg/dL (NEG) Urine Nitrite POS (NEG) Urine Leukocyte Esterase SMALL (NEG) Urine WBC 17 /hpf (0-5) Urine Bacteria MANY /hpf (NONE) Albumin 3.3 GM/DL (3.4-5.0) Imaging Last Impressions Lower Extremity Ultrasound 01/31/17 0000 Signed Impressions: Service Date/Time: Tuesday, January 31, 2017 17:45 - CONCLUSION: Venous mapping as delineated above. Jn Carrillo MD Carotid Artery Ultrasound 01/31/17 0000 Signed Impressions: Service Date/Time: Tuesday, January 31, 2017 17:05 - CONCLUSION: At least moderate plaque in the carotid bulb regions bilaterally. There is elevated velocity seen in the proximal right common carotid artery. A more significant proximal stenosis cannot be excluded. It is thought the carotid systems could be better evaluated with a CTA or MRA. Jn Carrillo MD Chest X-Ray 01/27/17 1258 Signed Impressions: Service Date/Time: January 13:01 - CONCLUSION: Lungs are partially obscured secondary to overlying structures. There are mild increased interstitial opacities in the lower lung zones bilaterally which could represent interstitial pulmonary edema in the appropriate clinical setting. Jn Ellison MD PE at Discharge awake and alert, on 02 good sats at room air anicteric lungs- decreased breath sounds, no rales, no edema regular rhythm abdomen soft, nontender extremities - no edema, no calf tenderness right groin- post cath site- no hematoma, ++ femoral pulses LUE- + AV fistula Pt update on day of discharge awake and alert, no complains of painnoedema'lungs clear good po Hospital Course 76 years osld male Acute CHF exacerbation- CMP- EF 3035% in a patient with known CAD and status post PCI and stent placement, status post [id number] better- CAD- left main disease- S/P cath 01/31 history of long standing hypertension- SBPs in the 150s HR 90s- low 100s continue meds- on Procardia 90 mg XL Increase Toprol to 50 mg XL daily- not given yesterday- ask nurse to give it [id number]% on Lasix 40 mg daily- restart home Torsemide 10 mg on DC Vascular surgery consulted- for CABG- - not a surgical candidate Chronic kidney disease stage IV HYpokalemia- resolved KCL to 20 meq po bid Nephrology ff lasix to 40 mg daily creatinine near baseline- cleared by Nephrology for DC Pyuria- patient no symptoms ff final C and S Anemia on chronic disease . H and H stable History of GIB in the past - has AVM- cauterized, history of bleeding ulcers in the past. continue on PPI and Iron supplements Hyperlipidemia to continue Statins DM II continue with ADA diet and sliding scale COPD on Bronchodilator, Mucolytic and incentive spirometry. Sleep Apnea at this time on oxygen through nasal Cannula Previous Tobacco dependence as Severe but he states he stopped one month ago, Heparin SQ bid DC [facility] today OP ff up with PCP, Neohrology,Cardiology Pt Condition on Discharge: Stable Discharge Disposition: Disch w/ Home Health Serv Discharge Time: <= 30 minutes Discharge Instructions DIET: Follow Instructions for: Heart Healthy Diet Speech Therapy-Diet Recommends: Regular Activities you can perform: Weight Bearing as Lindsay Activities to Avoid: Prolonged Standing, Strenuous Activity Follow up Referrals: Cardiology - 1 Week with John Hollis MD Nephrology - 1 Week with JAIRO PCP Follow-up - 02/07/17 with CARLOSE NRIQUE New Medications: Metoprolol Succinate ER 24 HR (Metoprolol Succinate ER 24 HR) 25 Mg Tab 50 MG PO DAILY for HTN/CAD for 30 Days, #60 TAB Continued Medications: Atorvastatin (Atorvastatin) 40 Mg Tab 40 MG PO HS for Cholesterol Management, #30 TAB 3 Refills Calcitriol (Calcitriol) 0.25 Mcg Cap 0.25 MCG PO DAILY for Calcium Supplement, #30 CAP 0 Refills Cilostazol (Cilostazol) 100 Mg Tab 100 MG PO DAILY for INTERMITTENT CLAUDICATION, TAB 0 Refills Clopidogrel (Plavix) 75 Mg Tab 75 MG PO DAILY for Blood Clot Prevention, #30 TAB 0 Refills Commode 3-in-1 (Commode 3-in-1) 1 Mis Mis EA .ROUTE DIRECTED, #1 0 Refills Methocarbamol (Methocarbamol) 500 Mg Tab 500 MG PO Q8HR PRN for SPASM, #30 TAB Nifedipine (Nifedipine ER) 90 Mg Tab 90 MG PO DAILY for Blood Pressure Management, #30 TAB 3 Refills Pantoprazole (Protonix) 40 Mg Tab 40 MG PO DAILY for Reflux, #30 TAB 0 Refills Prednisone (Prednisone) 10 Mg Tab 10 MG PO BID for Inflammation, #10 TAB 0 Refills Tamsulosin (Flomax) 0.4 Mg Cap 0.4 MG PO Q12HR for retention for 30 Days, #60 CAP Torsemide (Torsemide) 10 Mg Tab 10 MG PO DAILY for Heart, #30 TAB 0 Refills Tramadol (Tramadol) 50 Mg Tab 50 MG PO Q8H PRN for PAIN, #30 TAB 0 Refills Walker with Front Wheels (Walker with Front Wheels) 1 Mis Mis EA .ROUTE DIRECTED, #1 0 Refills Discontinued Medications: Metoprolol Succinate ER 24 HR (Metoprolol Succinate ER 24 HR) 25 Mg Tab 25 MG PO DAILY for Heart, #30 TAB 0 Refills Vicki Guerrero MD Feb 02, 2017 12:08
[2017-02-02 12:14] VITALS: BP 139/64; PULSE 80; RESP 19; TEMP 97.2; O2SAT 99
--- NOTE | 2017-02-07 10:54 | RSPPFT ---
DATE OF PROCEDURE: 01/31/17 COMMENTS: The forced vital capacity is markedly reduced. The FEV1 and FEF 25-75 are both markedly reduced. The FEV1/FVC ratio is normal. IMPRESSION: This is compatible with severe, large and small airways, obstructive lung disease. There may be a restrictive component that could be diagnosed with a total lung capacity.
== END 2017-02-02 14:43 | disposition home health service (06) | DRG 287 ==
LOC: NEPE 12:38 → NEDA 15:16 → N04B 17:25
PROVIDERS: ADMIT Internal Medicine; ATTEND Internal Medicine
PROC: 4A023N8 Measurement of Cardiac Sampling and Pressure, Bilateral, Percutaneous Approach (ICD-10-PCS; principal; 2017-01-27)
PROC: B2111ZZ Fluoroscopy of Multiple Coronary Arteries using Low Osmolar Contrast (ICD-10-PCS; 2017-01-27)
PROC: B41F1ZZ Fluoroscopy of Right Lower Extremity Arteries using Low Osmolar Contrast (ICD-10-PCS; 2017-01-27)
DX: I13.0 Hypertensive heart and chronic kidney disease with heart failure and stage 1 through stage 4 chronic kidney disease, or unspecified chronic kidney disease (principal); N18.4 Chronic kidney disease, stage 4 (severe); I42.9 Cardiomyopathy, unspecified; E11.22 Type 2 diabetes mellitus with diabetic chronic kidney disease; E11.51 Type 2 diabetes mellitus with diabetic peripheral angiopathy without gangrene; F03.90 Unspecified dementia, unspecified severity, without behavioral disturbance, psychotic disturbance, mood disturbance, and anxiety; N39.0 Urinary tract infection, site not specified; I27.20 Pulmonary hypertension, unspecified; I48.91 Unspecified atrial fibrillation; J44.9 Chronic obstructive pulmonary disease, unspecified; I50.9 Heart failure, unspecified; I25.10 Atherosclerotic heart disease of native coronary artery without angina pectoris; E78.5 Hyperlipidemia, unspecified; N40.0 Benign prostatic hyperplasia without lower urinary tract symptoms; G47.33 Obstructive sleep apnea (adult) (pediatric); I25.2 Old myocardial infarction; D63.8 Anemia in other chronic diseases classified elsewhere; I08.3 Combined rheumatic disorders of mitral, aortic and tricuspid valves; E87.6 Hypokalemia; F17.210 Nicotine dependence, cigarettes, uncomplicated; Z85.828 Personal history of other malignant neoplasm of skin; Z86.73 Personal history of transient ischemic attack (TIA), and cerebral infarction without residual deficits; Z88.2 Allergy status to sulfonamides; Z91.19 Patient's noncompliance with other medical treatment and regimen; Z95.5 Presence of coronary angioplasty implant and graft
CPT/HCPCS: 71010; 76937; 80048; 80053; 80069; 81001; 82550; 82948; 83880; 84100; 84484; 85025; 85027; 85610; 85730; 86403; 86850; 86900; 86901; 87077; 87086; 87186; 93005; 93306; 93460; 93880; 93970; 93998; 94010; 94150; 94640; 94664; C1769; C1893; J1200; J1250; J1644; J1815; J1940; Q9967

== ENCOUNTER 2017-08-30 23:53 | Inpatient (IN) | payer MEDICARE, MEDICAID ==
[~2017-08-30] VITALS: Ht 175.3 cm; Wt 69.2 kg
[~2017-08-30 23:53] MED LIST changes: -UMEC1AER INH; -VENTAER INH
[2017-08-31] VITALS (39 sets, daily range): BP systolic 139–261; BP diastolic 55–126; PULSE 70–142; RESP 14–42; TEMP 97.9–98.5; O2SAT 89–100
[2017-08-31] MEDS ORDERED: INSU1INJ14 SQ (00:23)
[2017-08-31] MEDS ORDERED: HYDR-3799 PO (00:23)
[2017-08-31] MEDS ORDERED: METO25TA3 PO (00:23)
[2017-08-31] MEDS ORDERED: FURO40TA PO (00:23)
[2017-08-31] MEDS ORDERED: ASPI-516 CHEW (00:23)
[2017-08-31] MEDS ORDERED: GABA300C5 PO (00:23)
[2017-08-31] MEDS ORDERED: METO5TAB3 PO (00:23)
[2017-08-31] MEDS ORDERED: SODIUM CHLORIDE 0.9% FLUSH 10 ML FLUSH IV FLUSH PRN ×2 (00:45→04:15)
[2017-08-31 00:57] LABS: BASOPHIL # 0.1 TH/MM3 (0-0.2); EOSINOPHIL % 0.1 % (0.0-4.0); HEMATOCRIT 35.5 % (39.0-51.0); HEMOGLOBIN 11.2 GM/DL (13.0-17.0); LYMPH % 12.2 % (9.0-44.0); LYMPHOCYTE # 0.9 TH/MM3 (1.0-4.8); MEAN CELL VOLUME 87.2 FL (80.0-100.0); MEAN CORPUSCULAR HEMOGLOBIN 27.6 PG (27.0-34.0); MEAN CORPUSCULAR HGB CONC 31.6 % (32.0-36.0); MEAN PLATELET VOLUME 8.6 FL (7.0-11.0); MONO % 4.9 % (0.0-8.0); MONOCYTE # 0.4 TH/MM3 (0-0.9); NEUT % 81.8 % (16.0-70.0); PLATELET COUNT 68 TH/MM3 (150-450); RED BLOOD COUNT 4.07 MIL/MM3 (4.50-5.90); WHITE BLOOD COUNT 7.4 TH/MM3 (4.0-11.0)
--- NOTE | 2017-08-31 01:01 | PD ---
HPI Chief Complaint: General Weakness Time Seen by Provider: 00:18 Travel History International Travel<30 days: No Contact w/Intl Traveler<30days: No Traveled to known affect area: No History of Present Illness HPI Is a 77-year-old man who presents the emergency department brought in by his for weakness and altered mental status. Patient has multiple medical problems including congestive heart disease, diabetes, recently diagnosed lung cancer. He apparently was admitted to [facility], and subsequently transferred to [place] for CHF. He was diagnosed with valve disease. He was deemed not a candidate for treatment surgically due to his poor baseline health. At that time, he also was reportedly diagnosed with lung cancer confirmed via biopsy but again was deemed not a candidate for aggressive treatment because of his poor baseline functional status. He made recommendation at that point the patient be followed up with hospice. Family had been considering this. They state he was discharged on the third had been doing initially okay. Did not feel like they needed home health. Over the past couple days patient's gotten significantly worse. He is unable to walk unassisted, is more confused, has not eaten in 2 days. brought him in tonight after she could not get him to move off the commode where he was sitting with his clothes on. He seems more confused. History Past Medical History Narrative Medical Diabetes CHF/valve disease Hypertension Frequent falls CAD, history of stents PAD, history of peripheral arterial stents as well COPD Chronic kidney disease, with a fistula in the left upper extremity, not on dialysis Tetanus Vaccination: < 5 Years Influenza Vaccination: Yes Social History Alcohol Use: No (DENIES) Tobacco Use: Yes (1/2 PACK PER DAY) Allergies-Medications (Allergen,Severity, Reaction): Coded Allergies: Sulfa (Sulfonamide Antibiotics) (Unverified Allergy, Severe, RASH, 08/30/17 ) sulfamethoxazole (Unverified Allergy, Severe, Rash, 08/30/17) RASH OF FACE AND ORAL MUCUS MEMBRANES trimethoprim (Unverified Allergy, Severe, Rash, 08/30/17) RASH OF FACE AND ORAL MUCUS MEMBRANES Reported Meds & Prescriptions Reported Meds & Active Scripts Active Prednisone 10 Mg Tab 10 Mg PO BID Walker with Front Wheels (Device) 1 Mis Mis Ea .ROUTE DIRECTED Commode 3-in-1 (Device) 1 Mis Mis Ea .ROUTE DIRECTED Torsemide 10 Mg Tab 10 Mg PO DAILY Flomax (Tamsulosin HCl) 0.4 Mg Cap 0.4 Mg PO Q12HR 30 Days Atorvastatin (Atorvastatin Calcium) 40 Mg Tab 40 Mg PO HS Reported Aspirin 81 Mg Chew 81 Mg CHEW DAILY Tresiba Flextouch Pen Inj (Insulin Degludec Inj) 300 unit/3 ML Pen 16 Units SQ DAILY Metolazone 5 Mg Tab 5 Mg PO DAILY Hydralazine HCl 25 Mg Tablet 25 Mg PO TID Furosemide 40 Mg Tab 40 Mg PO BID Gabapentin 300 Mg Cap 300 Mg PO BID Metoprolol Tartrate 25 Mg Tab 25 Mg PO BID [Curel Lotion] 1 Applic TOPICAL DAILY PRN Protonix (Pantoprazole Sodium) 40 Mg Tab 40 Mg PO DAILY Plavix (Clopidogrel Bisulfate) 75 Mg Tab 75 Mg PO DAILY Calcitriol 0.25 Mcg Cap 0.25 Mcg PO DAILY Review of Systems Except as stated in HPI: all other systems reviewed are Neg Physical Exam Narrative GENERAL: Is a 77-year-old man, frail and ill-appearing, no acute distress. SKIN: Focused skin assessment warm/dry. HEAD: Atraumatic. Normocephalic. EYES: Pupils equal and round. No scleral icterus. No injection or drainage. ENT: No nasal bleeding or discharge. Mucous membranes pink and moist. NECK: Trachea midline. No JVD. CARDIOVASCULAR: Regular rate and rhythm. No murmur appreciated. RESPIRATORY: No accessory muscle use. Clear to auscultation. Breath sounds equal bilaterally. GASTROINTESTINAL: Abdomen soft, non-tender, nondistended. Hepatic and splenic margins not palpable. MUSCULOSKELETAL: No obvious deformities. Decreased muscle bulk. No clubbing. No cyanosis. No edema. NEUROLOGICAL: Decreased alertness. Patient is able to mumble answer some questions, but does not seem fully aware of no obvious focal deficits. Data Data Last Documented VS Vital Signs Date Time Temp Pulse Resp B/P (MAP) Pulse Ox O2 Delivery O2 Flow Rate FiO2 08/31/17 04:09 104 26 174/79 (110) 97 BiPAP 08/31/17 04:04 40 08/31/17 03:32 40.00 08/31/17 00:00 97.9 Orders Orders Complete Blood Count With Diff (08/31/17 00:40) Comprehensive Metabolic Panel (08/31/17 00:40) Troponin I (08/31/17 00:40) Urinalysis - C+S If Indicated (08/31/17 00:40) Chest, Single Ap (08/31/17 00:40) Ecg Monitoring (08/31/17 00:40) Iv Access Insert/Monitor (08/31/17 00:40) Oximetry (08/31/17 00:40) Sodium Chloride 0.9% Flush (Ns Flush) (08/31/17 00:45) Cath For Specimen (08/31/17 00:48) Code Status (08/31/17 01:01) Hydralazine (Apresoline) (08/31/17 06:00) Metoprolol Tartrate (Lopressor) (08/31/17 09:00) Furosemide (Lasix) (08/31/17 09:00) Metolazone (Zaroxolyn) (08/31/17 09:00) Metoprolol Tartrate (Lopressor) (08/31/17 03:15) Hydralazine (Apresoline) (08/31/17 03:15) Nitroglycerin-D5w 50 Mg/250 Ml (Nitrogly (08/31/17 03:22) Furosemide Inj (Lasix Inj) (08/31/17 03:30) Nitroglycerin-D5w 50 Mg/250 Ml (Nitrogly (08/31/17 03:45) Resp Bipap / Cpap Non Invas Vt (08/31/17 03:41) Consult Hospitalist (08/31/17 ) Resp Bipap / Cpap Non Invas Vt (08/31/17 ) Admit To Inpatient (08/31/17 ) Vital Signs (Adult) Q4H (08/31/17 04:02) Activity Oob With Assistance (08/31/17 04:02) Diet Regular Basic (08/31/17 Breakfast) Sodium Chloride 0.9% Flush (Ns Flush) (08/31/17 04:15) Sodium Chloride 0.9% Flush (Ns Flush) (08/31/17 09:00) Acetaminophen (Tylenol) (08/31/17 04:15) Naloxone Inj (Narcan Inj) (08/31/17 04:15) Docusate Sodium-Senna (Jodie-Colace) (08/31/17 09:00) Magnesium Hydroxide Liq (Milk Of Magnesi (08/31/17 04:15) Sennosides (Senokot) (08/31/17 04:15) Bisacodyl Supp (Dulcolax Supp) (08/31/17 04:15) Lactulose Liq (Lactulose Liq) (08/31/17 04:15) Inpatient Certification (08/31/17 ) Atorvastatin (Lipitor) (08/31/17 21:00) Clopidogrel (Plavix) (08/31/17 09:00) Furosemide (Lasix) (08/31/17 09:00) Tamsulosin (Flomax) (08/31/17 09:00) Torsemide (Demadex) (08/31/17 09:00) Bedside Glucose OLIVIA.CSUGAR (08/31/17 04:08) Blood Glucose Goal (Criteria) (08/31/17 04:08) Hypoglycemia 70 Mg/Dl Or < (08/31/17 04:08) Notify Dr: Other (08/31/17 04:08) Dextrose 50% In Rubi (Vial) Inj (D50w (Vi (08/31/17 04:15) Glucagon Inj (Glucagon Inj) (08/31/17 04:15) Insulin Aspart Supplemtl Scale (Novolog (08/31/17 08:00) Admit Order (Ed Use Only) (08/31/17 ) Ondansetron Odt (Zofran Odt) (08/31/17 04:15) Labs Laboratory Tests Test 08/31/17 00:45 08/31/17 01:00 White Blood Count 7.4 TH/MM3 Red Blood Count 4.07 MIL/MM3 Hemoglobin 11.2 GM/DL Hematocrit 35.5 % Mean Corpuscular Volume 87.2 FL Mean Corpuscular Hemoglobin 27.6 PG Mean Corpuscular Hemoglobin Concent 31.6 % Red Cell Distribution Width 24.0 % Platelet Count 68 TH/MM3 Mean Platelet Volume 8.6 FL Neutrophils (%) (Auto) 81.8 % Lymphocytes (%) (Auto) 12.2 % Monocytes (%) (Auto) 4.9 % Eosinophils (%) (Auto) 0.1 % Basophils (%) (Auto) 1.0 % Neutrophils # (Auto) 6.0 TH/MM3 Lymphocytes # (Auto) 0.9 TH/MM3 Monocytes # (Auto) 0.4 TH/MM3 Eosinophils # (Auto) 0.0 TH/MM3 Basophils # (Auto) 0.1 TH/MM3 CBC Comment AUTO DIFF Differential Comment AUTO DIFF CONFIRMED Platelet Estimate LOW Platelet Morphology Comment NORMAL Blood Urea Nitrogen 46 MG/DL Creatinine 2.53 MG/DL Random Glucose 176 MG/DL Total Protein 7.7 GM/DL Albumin 4.0 GM/DL Calcium Level 9.5 MG/DL Alkaline Phosphatase 81 U/L Aspartate Amino Transf (AST/SGOT) 18 U/L Alanine Aminotransferase (ALT/SGPT) 26 U/L Total Bilirubin 1.4 MG/DL Sodium Level 146 MEQ/L Potassium Level 4.4 MEQ/L Chloride Level 111 MEQ/L Carbon Dioxide Level 23.7 MEQ/L Anion Gap 11 MEQ/L Estimat Glomerular Filtration Rate 25 ML/MIN Troponin I 0.25 NG/ML Urine Color YELLOW Urine Turbidity HAZY Urine pH 6.0 Urine Specific [place] 1.022 Urine Protein 300 mg/dL Urine Glucose (UA) NEG mg/dL Urine Ketones TRACE mg/dL Urine Occult Blood SMALL Urine Nitrite NEG Urine Bilirubin NEG Urine Urobilinogen LESS THAN 2.0 MG/DL Urine Leukocyte Esterase NEG Urine RBC 4 /hpf Urine WBC 4 /hpf Urine Squamous Epithelial Cells 2 /hpf Urine Amorphous Sediment RARE Microscopic Urinalysis Comment CATH-CULT NOT IND MDM Medical Decision Making Medical Screen Exam Complete: Yes Emergency Medical Condition: Yes Interpretation(s) LABS: CBC is remarkable for mild anemia. CMP elevated BUN and creatinine. Troponin 0 0.25 UA is unremarkable Chest x-ray: Pulmonary vascular congestion. Differential Diagnosis Infection, anemia, SD, worsening severe underlying medical disease, malignancy, other Narrative Course Medical decision making 77-year-old man with multiple severe underlying disease that seems untreatable because of his comorbidities and functional status including severe valve disease, and lung cancer. Patient seems like a very appropriate candidate for hospice. I spoke with the and with the patient. The goal seem aligned to this but they have been slowly coming around to 8 over the past couple weeks since he has been home. Patient has had a fairly acute change in condition. A look for any sort of reversible causes and then reassess for next steps. did acknowledge that they had spoken about some end-of-life issues and if patient were to worsen to the point that his heart were to stop wall the emergency department or hospital he and she would want us to allow him to pass naturally at that point. Patient will be DO NOT RESUSCITATE. FINAL: Discussed with the patient's and him, they would like to pursue hospice. While we are arranging this patient's blood pressure began to creep up. I ordered his home blood pressure medicines which she had not gotten. Patient shortly thereafter decompensated into hypertensive pulmonary edema. Blood pressure is markedly elevated in the 250s. Patient was given 400 mcg IV nitroglycerin push and placed on nitro drip and BiPAP. Was also given a dose of IV diuretic. Hospice nurses at the bedside at the time. Plan will be to admit the patient to the hospital, stabilize his symptoms and the heart failure , and likely transition to home hospice. Diagnosis Primary Impression: CHF exacerbation Admitting Information Admitting Physician Requests: Alejandro Mullins MD Aug 31, 2017 01:01
--- NOTE | 2017-08-31 01:06 | RADRPT ---
EXAM DATE: 08/31/2017 12:57 AM EDT AGE/SEX: 77 years / Male INDICATIONS: Chest pain, cough. CLINICAL DATA: This is the patient's initial encounter. Patient reports that signs and symptoms have been present for 1 day and indicates a pain score of 5/10. MEDICAL/SURGICAL HISTORY: Cardiovascular disease. None. COMPARISON: [facility], CHEST SINGLE AP, 01/27/2017. . FINDINGS: Single AP view of the chest. Mild central pulmonary vasculature prominence. Cardiac silhouette is upp er limits of normal. No evidence of pleural effusion or pneumothorax. CONCLUSION: Pulmonary vascular congestion. Electronically signed by: Edin Daniels MD 08/31/2017 1:04 AM EDT
[2017-08-31 01:18] LABS: AMORPHOUS SEDIMENT, URINE RARE; BILIRUBIN, URINE NEG (NEG); BLOOD, URINE SMALL (NEG); GLUCOSE,URINE NEG (NEG); KETONE, URINE TRACE mg/dL (NEG); NITRITE,URINE NEG (NEG); SQUAMOUS EPITHELIAL CELL URINE 2 /hpf (0-5); URINE COLOR YELLOW (YELLW/STRAW); URINE LEUKOCYTE ESTERASE NEG (NEG)
[2017-08-31 01:19] LABS: ALT (GPT) 26 U/L (12-78); AST (GOT) 18 U/L (15-37); BICARBONATE 23.7 MEQ/L (21.0-32.0); BLOOD UREA NITROGEN 46 MG/DL (7-18); CALCIUM 9.5 MG/DL (8.5-10.1); CHLORIDE 111 MEQ/L (98-107); CREATININE 2.53 MG/DL (0.60-1.30); GLOMERULAR FILTRATION RATE 25 ML/MIN (>89); GLUCOSE,RANDOM 176 MG/DL (74-106); SODIUM (NA) 146 MEQ/L (136-145)
[2017-08-31 01:23] LABS: ALKALINE PHOSPHATASE 81 U/L (45-117); TOTAL BILIRUBIN ADULT 1.4 MG/DL (0.2-1.0); TOTAL PROTEIN 7.7 GM/DL (6.4-8.2); TROPONIN I 0.25 NG/ML (0.02-0.05)
[2017-08-31] MEDS ORDERED: METOPROLOL TARTRATE 25 MG TAB PO ONE (03:15)
[2017-08-31] MEDS ORDERED: hydrALAZINE HCL 25 MG TAB PO ONE (03:15)
[2017-08-31] MEDS ORDERED: NITROGLYCERIN-D5W 50 MG/250 ML 250 ML ONE (03:22)
[2017-08-31] MEDS ORDERED: FUROSEMIDE 100 MG/10 ML VIAL IV PUSH ONE (03:30)
[2017-08-31] MEDS: NITROGLYCERIN-D5W 50 MG/250 ML 250 ML IV PRN ×5 (03:38→20:47)
[2017-08-31] MEDS ORDERED: MAGNESIUM HYDROXIDE SUSP 30 ML CUP PO PRN (04:15)
[2017-08-31] MEDS ORDERED: BISACODYL 10 MG SUPP RECTAL PRN (04:15)
[2017-08-31] MEDS ORDERED: GLUCAGON 1 MG/ML VIAL OTHER PRN (04:15)
[2017-08-31] MEDS ORDERED: DEXTROSE 50% IN WATER 50 ML VIAL(D50) IV PUSH PRN (04:15)
[2017-08-31] MEDS ORDERED: SENNOSIDES 8.6 MG TAB PO PRN (04:15)
[2017-08-31] MEDS ORDERED: ACETAMINOPHEN 325 MG TAB PO PRN (04:15)
[2017-08-31] MEDS ORDERED: NALOXONE HCL 0.4 MG/ML AMP IV PUSH PRN (04:15)
[2017-08-31] MEDS ORDERED: ONDANSETRON ODT 4 MG TAB PO PRN (04:15)
[2017-08-31] MEDS ORDERED: LACTULOSE SYRUP 20 GM/30 ML CUP PO PRN (04:15)
[2017-08-31] MEDS: hydrALAZINE HCL 25 MG TAB PO SCH ×3 (05:28→21:00)
[2017-08-31] MEDS: INSULIN ASPART SUPPLEMENTAL SCALE SQ SCH ×4 (08:50→21:00)
[2017-08-31] MEDS: SODIUM CHLORIDE 0.9% FLUSH 10 ML FLUSH IV FLUSH SCH ×2 (08:51→20:47)
[2017-08-31] MEDS: DOCUSATE SODIUM 50 MG/SENNA 8.6 MG TAB PO SCH ×2 (08:52→20:59)
[2017-08-31] MEDS: FUROSEMIDE 40 MG TAB PO SCH ×2 (08:52→20:59)
[2017-08-31] MEDS: CLOPIDOGREL 75 MG TAB PO SCH (08:52)
[2017-08-31] MEDS: METOPROLOL TARTRATE 25 MG TAB PO SCH ×2 (08:52→20:59)
[2017-08-31] MEDS: TAMSULOSIN HCL 0.4 MG CAP PO SCH ×2 (08:53→21:00)
[2017-08-31] MEDS: METOLAZONE 5 MG TAB PO SCH (08:53)
[2017-08-31] MEDS ORDERED: FUROSEMIDE 40 MG TAB PO SCH (09:00)
[2017-08-31] MEDS: TORSEMIDE 5 MG TAB PO SCH (09:02)
--- NOTE | 2017-08-31 14:29 | HHI.HP ---
[facility] Allan Reeder MD Admission Diagnosis Flash pulmonary edema Diagnoses: Travel History International Travel<30 Days: No Contact w/Intl Traveler <30 Da: No Traveled to Known Affected Are: No History of Present Illness Mr. Masters is a 77-year-old male. He is admitted secondary to flash pulmonary edema. At baseline his risk factors include congestive heart failure, chronic kidney disease stage IV, hypertension with hypertensive urgency/emergency at time of onset her blood pressures are reported by his to have been 250 mmHg systolic, and recently diagnosed lung cancer. He has some confusion at baseline but his mental status has declined in the setting of this acute flash pulmonary edema. Patient was treated in the ER and overnight has had improvement. His mental status is not yet back to baseline. His breathing is improved. His chronic medical conditions prohibit him from having any chemotherapy or radiation therapy for his lung cancer. Hospice is consulted and will be evaluating this patient for candidacy for hospice. Other findings are a low platelet count, and elevated troponin, and acute kidney injury on top of his baseline chronic kidney disease. Most of the history is obtained from his is patient is confused and cannot participate in history. Review of Systems ROS Limitations: Altered Mental Status Respiratory: DENIES: Shortness of breath Cardiovascular: DENIES: Chest pain Except as stated in HPI: all other systems reviewed are Neg Past Family Social History Past Medical History Anemia Atrial Fibrillation Skin Cancer CAD status post PCI Hyperlipidemia CHF Multiple TIAs COPD DM II GI bleed history BPH with Urinary Retention Hypertension CKD IV AURELIA Past Surgical History AV Shunt left arm PCI with stents placement Vascular surgery on bilateral legs. Reported Medications Reported Meds & Active Scripts Active Prednisone 10 Mg Tab 10 Mg PO BID Walker with Front Wheels (Device) 1 Mis Mis Ea .ROUTE DIRECTED Commode 3-in-1 (Device) 1 Mis Mis Ea .ROUTE DIRECTED Torsemide 10 Mg Tab 10 Mg PO DAILY Flomax (Tamsulosin HCl) 0.4 Mg Cap 0.4 Mg PO Q12HR 30 Days Atorvastatin (Atorvastatin Calcium) 40 Mg Tab 40 Mg PO HS Reported Aspirin 81 Mg Chew 81 Mg CHEW DAILY Tresiba Flextouch Pen Inj (Insulin Degludec Inj) 300 unit/3 ML Pen 16 Units SQ DAILY Metolazone 5 Mg Tab 5 Mg PO DAILY Hydralazine HCl 25 Mg Tablet 25 Mg PO TID Furosemide 40 Mg Tab 40 Mg PO BID Gabapentin 300 Mg Cap 300 Mg PO BID Metoprolol Tartrate 25 Mg Tab 25 Mg PO BID [Curel Lotion] 1 Applic TOPICAL DAILY PRN Protonix (Pantoprazole Sodium) 40 Mg Tab 40 Mg PO DAILY Plavix (Clopidogrel Bisulfate) 75 Mg Tab 75 Mg PO DAILY Calcitriol 0.25 Mcg Cap 0.25 Mcg PO DAILY Allergies: Coded Allergies: Sulfa (Sulfonamide Antibiotics) (Unverified Allergy, Severe, RASH, 08/30/17 ) sulfamethoxazole (Unverified Allergy, Severe, Rash, 08/30/17) RASH OF FACE AND ORAL MUCUS MEMBRANES trimethoprim (Unverified Allergy, Severe, Rash, 08/30/17) RASH OF FACE AND ORAL MUCUS MEMBRANES Active Ordered Medications Administered Medications Medications (Trade) Dose Ordered Sig/Surendra Route PRN Reason Start Time Stop Time Status Last Admin Dose Admin Hydralazine HCl (Apresoline) 25 mg Q8HR PO 08/31/17 06:00 08/31/17 13:28 Metoprolol Tartrate (Lopressor) 25 mg Q12HR PO 08/31/17 09:00 08/31/17 08:52 Metolazone (Zaroxolyn) 5 mg DAILY PO 08/31/17 09:00 08/31/17 08:53 Nitroglycerin/ Dextrose 250 ml @ 30 mls/hr TITRATE PRN IV Hypertension 08/31/17 03:45 08/31/17 12:40 Senna/Docusate Sodium (Jodie-Colace) 1 tab BID PO 08/31/17 09:00 08/31/17 08:52 Clopidogrel Bisulfate (Plavix) 75 mg DAILY PO 08/31/17 09:00 08/31/17 08:52 Furosemide (Lasix) 40 mg BID PO 08/31/17 09:00 08/31/17 08:52 Tamsulosin HCl (Flomax) 0.4 mg Q12HR PO 08/31/17 09:00 08/31/17 08:53 Torsemide (Demadex) 10 mg DAILY PO 08/31/17 09:00 08/31/17 09:02 Insulin Aspart (NovoLOG SUPPLEMENTAL SCALE) 1 ACHS SLIDING SCALE SQ 08/31/17 08:00 08/31/17 13:27 Family History None reported Social History Smoking 1/2 PPD, not recently No illicit drug abuse No alcohol abuse Physical Exam Vital Signs Vital Signs Date Time Temp Pulse Resp B/P (MAP) Pulse Ox O2 Delivery O2 Flow Rate FiO2 08/31/17 13:28 142/62 (88) 08/31/17 13:04 80 08/31/17 13:00 82 134/64 08/31/17 12:40 79 146/69 08/31/17 11:00 98.3 82 18 145/65 (91) 99 08/31/17 11:00 99 Nasal Cannula 2.00 08/31/17 11:00 79 08/31/17 10:00 80 08/31/17 09:23 84 08/31/17 09:19 85 161/74 08/31/17 09:09 82 157/75 08/31/17 08:15 100 Nasal Cannula 4.00 08/31/17 08:14 98.5 82 18 149/66 (93) 99 08/31/17 05:25 98.0 82 20 169/74 (105) 99 BiPAP 08/31/17 04:45 92 20 161/74 (103) 99 BiPAP 08/31/17 04:35 93 21 158/70 (99) 98 BiPAP 40 08/31/17 04:20 96 22 167/79 (108) 99 BiPAP 08/31/17 04:15 100 24 164/77 (106) 98 BiPAP 40 08/31/17 04:09 104 26 174/79 (110) 97 BiPAP 08/31/17 04:04 104 25 180/81 (114) 98 BiPAP 40 08/31/17 04:00 106 26 186/82 (116) 98 BiPAP 40 08/31/17 03:56 109 21 191/86 (121) 98 BiPAP 40 08/31/17 03:51 110 26 199/80 (119) 98 BiPAP 40 08/31/17 03:48 97 40 08/31/17 03:44 114 27 212/95 (134) 97 BiPAP 40 08/31/17 03:40 119 22 221/98 (139) 100 BiPAP 40 08/31/17 03:38 122 238/108 08/31/17 03:35 124 30 238/108 (151) 99 BiPAP 40 08/31/17 03:32 130 33 229/119 (155) 99 BiPAP 40.00 08/31/17 03:27 139 40 100 Non-Rebreather 15.00 08/31/17 03:26 142 42 261/126 (171) 89 Nasal Cannula 3.00 08/31/17 00:16 99 24 194/86 (122) 95 Room Air 08/31/17 00:00 97.9 105 14 187/81 (116) 98 Physical Exam GENERAL: NAD, A&Ox0 HEAD: Normocephalic. NECK: Supple, trachea midline. No lymphadenopathy. EYES: No scleral icterus. No injection or drainage. CARDIOVASCULAR: Regular rate and rhythm without murmurs, gallops, or rubs. RESPIRATORY: Breath sounds equal bilaterally. No accessory muscle use. GASTROINTESTINAL: Abdomen soft, non-tender, nondistended. MUSCULOSKELETAL: No cyanosis, or edema. SKIN: Warm and dry. NEURO: No focal neurological deficitis. Laboratory Laboratory Tests Test 08/31/17 00:45 08/31/17 01:00 White Blood Count 7.4 Red Blood Count 4.07 Hemoglobin 11.2 Hematocrit 35.5 Mean Corpuscular Volume 87.2 Mean Corpuscular Hemoglobin 27.6 Mean Corpuscular Hemoglobin Concent 31.6 Red Cell Distribution Width 24.0 Platelet Count 68 Mean Platelet Volume 8.6 Neutrophils (%) (Auto) 81.8 Lymphocytes (%) (Auto) 12.2 Monocytes (%) (Auto) 4.9 Eosinophils (%) (Auto) 0.1 Basophils (%) (Auto) 1.0 Neutrophils # (Auto) 6.0 Lymphocytes # (Auto) 0.9 Monocytes # (Auto) 0.4 Eosinophils # (Auto) 0.0 Basophils # (Auto) 0.1 CBC Comment AUTO DIFF Differential Comment AUTO DIFF CONFIRMED Platelet Estimate LOW Platelet Morphology Comment NORMAL Blood Urea Nitrogen 46 Creatinine 2.53 Random Glucose 176 Total Protein 7.7 Albumin 4.0 Calcium Level 9.5 Alkaline Phosphatase 81 Aspartate Amino Transf (AST/SGOT) 18 Alanine Aminotransferase (ALT/SGPT) 26 Total Bilirubin 1.4 Sodium Level 146 Potassium Level 4.4 Chloride Level 111 Carbon Dioxide Level 23.7 Anion Gap 11 Estimat Glomerular Filtration Rate 25 Troponin I 0.25 Urine Color YELLOW Urine Turbidity HAZY Urine pH 6.0 Urine Specific [place] 1.022 Urine Protein 300 Urine Glucose (UA) NEG Urine Ketones TRACE Urine Occult Blood SMALL Urine Nitrite NEG Urine Bilirubin NEG Urine Urobilinogen LESS THAN 2.0 Urine Leukocyte Esterase NEG Urine RBC 4 Urine WBC 4 Urine Squamous Epithelial Cells 2 Urine Amorphous Sediment RARE Microscopic Urinalysis Comment CATH-CULT NOT IND Result Diagram: 08/31/174408/31/1744 Imaging Last Impressions Chest X-Ray 08/31/1739 Signed Impressions: CONCLUSION: Pulmonary vascular congestion. Caprini VTE Risk Assessment Caprini VTE Risk Assessment: Mod/High Risk (score >= 2) Caprini Risk Assessment Model Point Value = 1 Point Value = 2 Point Value = 3 Point Value = 5 Age 41-60 Minor surgery BMI > 25 kg/m2 Swollen legs Varicose veins or History of unexplained or recurrent spontaneous Oral contraceptives or hormone replacement Sepsis (< 1 month) Serious lung disease, including pneumonia (< 1 month) Abnormal pulmonary function Acute myocardial infarction Congestive heart failure (< 1 month) History of inflammatory bowel disease Medical patient at bed rest Age 61-74 Arthroscopic surgery Major open surgery (> 45 min) Laparoscopic surgery (> 45 min) Malignancy Confined to bed (> 72 hours) Immobilizing plaster cast Central venous access Age >= 75 History of VTE Family history of VTE Factor V Leiden Prothrombin [id number] Lupus anticoagulant Anticardiolipin antibodies Elevated serum homocysteine Heparin-induced thrombocytopenia Other congenital or acquired thrombophilia Stroke (< 1 month) Elective arthroplasty Hip, pelvis, or leg fracture Acute spinal cord injury (< 1 month) Prophylaxis Regimen Total Risk Factor Score Risk Level Prophylaxis Regimen 0-1 Low Early ambulation 2 Moderate Order ONE of the following: *Sequential Compression Device (SCD) *Heparin 5000 units SQ BID 3-4 Higher Order ONE of the following medications: *Heparin 5000 units SQ TID *Enoxaparin/Lovenox 40 mg SQ daily (WT < 150 kg, CrCl > 30 mL/min) *Enoxaparin/Lovenox 30 mg SQ daily (WT < 150 kg, CrCl > 10-29 mL/min) *Enoxaparin/Lovenox 30 mg SQ BID (WT < 150 kg, CrCl > 30 mL/min) AND/OR *Sequential Compression Device (SCD) 5 or more Highest Order ONE of the following medications: *Heparin 5000 units SQ TID (Preferred with Epidurals) *Enoxaparin/Lovenox 40 mg SQ daily (WT < 150 kg, CrCl > 30 mL/min) *Enoxaparin/Lovenox 30 mg SQ daily (WT < 150 kg, CrCl > 10-29 mL/min) *Enoxaparin/Lovenox 30 mg SQ BID (WT < 150 kg, CrCl > 30 mL/min) AND *Sequential Compression Device (SCD) Assessment and Plan Problem List: (1) Flash pulmonary edema ICD Code: J81.0 - Acute pulmonary edema (2) CKD (chronic kidney disease) stage 4, GFR 15-29 ml/min ICD Code: N18.4 - Chronic kidney disease, stage 4 (severe) Status: Acute (3) HTN (hypertension) ICD Code: I10 - Essential (primary) hypertension Status: Acute Assessment and Plan 77-year-old male admitted for flash pulmonary edema Flash Pulmonary Edema HTN Urgency on HTN Improved Continue NTG Drip till baseline BP meds re-established Follow for any recurrence Resume baseline BP treatments Follow for BP control Weaned off Bipap LOS on CKD IV Monitor renal function Follow for trend back towards baseline Anemia GI Bleed Hx Follow CBC Avoid blood thinners Atrial Fibrillation Skin Cancer CAD status post PCI Hyperlipidemia CHF Multiple TIAs COPD AURELIA No change to baseline treatments Follow these conditions clinically for now BPH with Urinary Retention Catheter in place for now Lung Cancer Not a candidate for treatment Hospice consult DVT prophylaxis SCDs Physician Certification 2 Midnight Certification Type: Admission for Inpatient Services Order for Inpatient Services The services are ordered in accordance with Medicare regulations or non- Medicare payer requirements, as applicable. In the case of services not specified as inpatient-only, they are appropriately provided as inpatient services in accordance with the 2-midnight benchmark. Estimated LOS (days): 2 days is the estimated time the patient will need to remain in the hospital, assuming treatment plan goals are met and no additional complications. Post-Hospital Plan: Home Kev Gray MD Aug 31, 2017 14:29
[2017-08-31] MEDS ORDERED: hydrALAZINE HCL 25 MG TAB PO SCH (18:00)
[2017-08-31] MEDS: GABAPENTIN 300 MG CAP PO SCH (20:59)
[2017-08-31] MEDS ORDERED: METOPROLOL TARTRATE 25 MG TAB PO SCH (21:00)
[2017-08-31] MEDS: ATORVASTATIN 40 MG TAB PO SCH (21:03)
[2017-09-01] VITALS (30 sets, daily range): BP systolic 133–155; BP diastolic 54–77; PULSE 67–104; RESP 15–18; TEMP 97.6–98.9; O2SAT 83–98
[2017-09-01] MEDS: NITROGLYCERIN-D5W 50 MG/250 ML 250 ML IV PRN (02:09)
[2017-09-01] MEDS: hydrALAZINE HCL 25 MG TAB PO SCH ×3 (06:29→22:25)
[2017-09-01 07:09] LABS: BASOPHIL % 0.5 % (0.0-2.0); EOSINOPHIL # 0.1 TH/MM3 (0-0.4); EOSINOPHIL % 1.4 % (0.0-4.0); HEMATOCRIT 31.4 % (39.0-51.0); LYMPH % 27.3 % (9.0-44.0); LYMPHOCYTE # 1.7 TH/MM3 (1.0-4.8); MEAN CELL VOLUME 86.3 FL (80.0-100.0); MEAN CORPUSCULAR HEMOGLOBIN 27.6 PG (27.0-34.0); MEAN CORPUSCULAR HGB CONC 31.9 % (32.0-36.0); MEAN PLATELET VOLUME 9.2 FL (7.0-11.0); MONO % 7.7 % (0.0-8.0); MONOCYTE # 0.5 TH/MM3 (0-0.9); NEUT % 63.1 % (16.0-70.0); PLATELET COUNT 63 TH/MM3 (150-450); RED BLOOD COUNT 3.64 MIL/MM3 (4.50-5.90); RED CELL DISTRIBUTION WIDTH 23.7 % (11.6-17.2); WHITE BLOOD COUNT 6.4 TH/MM3 (4.0-11.0)
[2017-09-01 07:16] LABS: ALBUMIN 3.4 GM/DL (3.4-5.0); AST (GOT) 18 U/L (15-37); BICARBONATE 26.4 MEQ/L (21.0-32.0); BLOOD UREA NITROGEN 59 MG/DL (7-18); CALCIUM 9.3 MG/DL (8.5-10.1); CHLORIDE 102 MEQ/L (98-107); CREATININE 2.68 MG/DL (0.60-1.30); GLOMERULAR FILTRATION RATE 23 ML/MIN (>89); GLUCOSE,RANDOM 110 MG/DL (74-106); SODIUM (NA) 143 MEQ/L (136-145)
[2017-09-01 07:27] LABS: ALKALINE PHOSPHATASE 65 U/L (45-117); ALT (GPT) 20 U/L (12-78); TOTAL BILIRUBIN ADULT 1.2 MG/DL (0.2-1.0); TOTAL PROTEIN 7.1 GM/DL (6.4-8.2)
[2017-09-01 07:30] LABS: TROPONIN I 0.51 NG/ML (0.02-0.05)
[2017-09-01] MEDS ORDERED: POTASSIUM CHLORIDE 20 MEQ PWD PACKET PO ONE (08:45)
[2017-09-01 08:46] LABS: OVALOCYTES 2+ (NORMAL)
[2017-09-01] MEDS: DOCUSATE SODIUM 50 MG/SENNA 8.6 MG TAB PO SCH ×2 (08:49→22:25)
[2017-09-01] MEDS: METOLAZONE 5 MG TAB PO SCH (08:50)
[2017-09-01] MEDS: GABAPENTIN 300 MG CAP PO SCH ×2 (08:50→22:24)
[2017-09-01] MEDS: METOPROLOL TARTRATE 25 MG TAB PO SCH ×2 (08:50→22:25)
[2017-09-01] MEDS: TAMSULOSIN HCL 0.4 MG CAP PO SCH ×2 (08:50→22:25)
[2017-09-01] MEDS: ASPIRIN 81 MG CHEW TAB CHEW SCH (08:51)
[2017-09-01] MEDS: FUROSEMIDE 40 MG TAB PO SCH ×2 (08:51→22:25)
[2017-09-01] MEDS: CLOPIDOGREL 75 MG TAB PO SCH (08:51)
[2017-09-01] MEDS: TORSEMIDE 5 MG TAB PO SCH (08:52)
[2017-09-01] MEDS: INSULIN ASPART SUPPLEMENTAL SCALE SQ SCH ×4 (08:57→21:00)
[2017-09-01] MEDS: SODIUM CHLORIDE 0.9% FLUSH 10 ML FLUSH IV FLUSH SCH ×2 (08:58→22:26)
--- NOTE | 2017-09-01 15:02 | HHI.PR ---
Subjective Remarks Patient is more oriented today. No complaints. No chest pain. No further dyspnea. He does have a decline in platelets today. Acute kidney injury appears slightly worsened. Troponin has elevated compared to previous day. Objective Vital Signs Date Time Temp Pulse Resp B/P (MAP) Pulse Ox O2 Delivery O2 Flow Rate FiO2 09/01/17 14:00 83 09/01/17 13:00 88 09/01/17 12:00 84 09/01/17 11:53 99 Room Air 09/01/17 11:30 97.6 81 16 145/63 (90) 92 09/01/17 11:00 82 09/01/17 10:00 74 09/01/17 09:00 84 09/01/17 08:07 96 21 09/01/17 08:00 84 09/01/17 07:59 80 09/01/17 07:59 82 09/01/17 07:58 82 09/01/17 07:42 97.8 83 16 146/62 (90) 83 09/01/17 07:42 96 Room Air 09/01/17 07:00 80 09/01/17 04:23 97.7 80 18 133/54 (80) 93 09/01/17 04:20 82 133/54 09/01/17 04:00 80 09/01/17 04:00 78 09/01/17 04:00 Room Air 21 09/01/17 03:00 74 09/01/17 02:09 70 124/51 09/01/17 02:00 72 09/01/17 01:00 72 09/01/17 00:00 Room Air 21 09/01/17 00:00 67 09/01/17 00:00 74 08/31/17 23:00 70 08/31/17 22:00 74 08/31/17 21:15 Room Air 21 08/31/17 21:15 90 08/31/17 21:00 84 08/31/17 20:47 84 149/66 08/31/17 20:00 84 08/31/17 19:00 88 08/31/17 18:00 86 08/31/17 17:24 98 Nasal Cannula 4.00 08/31/17 17:00 86 08/31/17 16:35 85 151/66 08/31/17 16:02 87 08/31/17 15:03 98.2 84 18 139/55 (83) 98 08/31/17 15:03 98 Nasal Cannula 1.00 I/O 08/31/17 08/31/17 08/31/17 09/01/17 09/01/17 09/01/17 07:00 15:00 23:00 07:00 15:00 23:00 Intake Total 500 ml 1080 ml 740 ml Output Total 250 ml 1400 ml 1200 ml Balance -250 ml 500 ml -320 ml -460 ml Intake Oral 840 ml 240 ml IV Total 500 ml 240 ml 500 ml Output Urine Total 250 ml 1400 ml 1200 ml # Voids 1 Result Diagram: 09/01/17 0458 09/01/17 0458 Objective Remarks GENERAL: NAD, A&Ox3 HEAD: Normocephalic. NECK: Supple, trachea midline. No lymphadenopathy. EYES: No scleral icterus. No injection or drainage. CARDIOVASCULAR: Regular rate and rhythm without murmurs, gallops, or rubs. RESPIRATORY: Breath sounds equal bilaterally. No accessory muscle use. GASTROINTESTINAL: Abdomen soft, non-tender, nondistended. MUSCULOSKELETAL: No cyanosis, or edema. SKIN: Warm and dry. NEURO: No focal neurological deficitis. A/P Problem List: (1) Carotid artery aneurysm ICD Code: I72.0 - Aneurysm of carotid artery Status: Acute Permanent Comment: Dr. Hollis - Atherosclerosis of [place] coronary artery. Last Edited By: José Miguel Black on May 29, 2015 16:03 (2) Refused pneumococcal vaccination ICD Code: Z78.9 - Other specified health status Status: Acute (3) Frequent falls ICD Code: R29.6 - Repeated falls Status: Acute (4) DM2 (diabetes mellitus, type 2) ICD Code: E11.9 - Type 2 diabetes mellitus without complications Status: Acute Assessment and Plan 77-year-old male admitted for flash pulmonary edema Flash Pulmonary Edema Resolved HTN Urgency on HTN Result Nitroglycerin drip discontinued Follow blood pressures Continue baseline blood pressure treatments As needed clonidine plan to be added to the treatments at discharge LOS on CKD IV Slightly worsened today monitor renal function Follow for trend back towards baseline Anemia GI Bleed Hx Follow CBC Avoid blood thinners Thrombocytopenia Slightly worsened today Follow platelet counts Troponin elevation Monitor troponin levels Atrial Fibrillation Skin Cancer CAD status post PCI Hyperlipidemia CHF Multiple TIAs COPD AURELIA No change to baseline treatments Follow these conditions clinically for now BPH with Urinary Retention Catheter in place for now Lung Cancer Not a candidate for treatment Hospice consult DVT prophylaxis Kev Em MD Sep 01, 2017 15:02
[2017-09-01] MEDS: ATORVASTATIN 40 MG TAB PO SCH (22:24)
[2017-09-02] VITALS (19 sets, daily range): BP systolic 124–147; BP diastolic 58–67; PULSE 71–88; RESP 12–20; TEMP 97.6–98; O2SAT 90–97
[2017-09-02] MEDS: hydrALAZINE HCL 25 MG TAB PO SCH ×3 (06:57→21:47)
[2017-09-02 07:17] LABS: ALBUMIN 3.6 GM/DL (3.4-5.0); ALKALINE PHOSPHATASE 77 U/L (45-117); ALT (GPT) 23 U/L (12-78); AST (GOT) 20 U/L (15-37); BICARBONATE 27.8 MEQ/L (21.0-32.0); BLOOD UREA NITROGEN 65 MG/DL (7-18); CALCIUM 9.3 MG/DL (8.5-10.1); CHLORIDE 101 MEQ/L (98-107); CREATININE 2.93 MG/DL (0.60-1.30); GLOMERULAR FILTRATION RATE 21 ML/MIN (>89); GLUCOSE,RANDOM 121 MG/DL (74-106); SODIUM (NA) 139 MEQ/L (136-145); TOTAL PROTEIN 7.7 GM/DL (6.4-8.2)
[2017-09-02 07:45] LABS: AUTOMATED NEUTROPHIL # 6.5 TH/MM3 (1.8-7.7); BASOPHIL # 0.1 TH/MM3 (0-0.2); BASOPHIL % 0.6 % (0.0-2.0); EOSINOPHIL # 0.2 TH/MM3 (0-0.4); EOSINOPHIL % 1.7 % (0.0-4.0); HEMOGLOBIN 11.4 GM/DL (13.0-17.0); LYMPH % 18.4 % (9.0-44.0); LYMPHOCYTE # 1.7 TH/MM3 (1.0-4.8); MEAN CELL VOLUME 86.1 FL (80.0-100.0); MEAN CORPUSCULAR HEMOGLOBIN 27.3 PG (27.0-34.0); MEAN CORPUSCULAR HGB CONC 31.7 % (32.0-36.0); MEAN PLATELET VOLUME 9.6 FL (7.0-11.0); MONO % 7.6 % (0.0-8.0); MONOCYTE # 0.7 TH/MM3 (0-0.9); NEUT % 71.7 % (16.0-70.0); PLATELET COUNT 74 TH/MM3 (150-450); RED BLOOD COUNT 4.19 MIL/MM3 (4.50-5.90); RED CELL DISTRIBUTION WIDTH 23.6 % (11.6-17.2); WHITE BLOOD COUNT 9.1 TH/MM3 (4.0-11.0)
[2017-09-02] MEDS: INSULIN ASPART SUPPLEMENTAL SCALE SQ SCH ×4 (08:00→21:48)
[2017-09-02] MEDS: DOCUSATE SODIUM 50 MG/SENNA 8.6 MG TAB PO SCH ×2 (09:45→21:46)
[2017-09-02] MEDS: GABAPENTIN 300 MG CAP PO SCH ×2 (09:46→21:47)
[2017-09-02] MEDS: CLOPIDOGREL 75 MG TAB PO SCH (09:46)
[2017-09-02] MEDS: ASPIRIN 81 MG CHEW TAB CHEW SCH (09:46)
[2017-09-02 09:49] LABS: OVALOCYTES 1+ (NORMAL)
[2017-09-02] MEDS: METOPROLOL TARTRATE 25 MG TAB PO SCH ×3 (09:49→21:46)
[2017-09-02] MEDS: TORSEMIDE 5 MG TAB PO SCH (09:50)
[2017-09-02] MEDS: TAMSULOSIN HCL 0.4 MG CAP PO SCH ×2 (09:50→21:47)
[2017-09-02] MEDS: METOLAZONE 5 MG TAB PO SCH (09:50)
[2017-09-02] MEDS: SODIUM CHLORIDE 0.9% FLUSH 10 ML FLUSH IV FLUSH SCH ×2 (09:51→21:47)
[2017-09-02] MEDS: FUROSEMIDE 40 MG TAB PO SCH ×2 (09:52→21:46)
--- NOTE | 2017-09-02 12:14 | HHI.PR ---
Subjective Remarks Platelets are improving today. Troponin is also showing signs of a downward trend today. His renal function (creatinine) has worsened again. Etiology for renal compromise is likely related to his hypertensive urgency/crisis. I am expecting this should improve through time but if it does not nephrology will be consulted. Today he complains of pain in the right leg. The pain is mostly joint related and he has a history of gout some gout is likely etiology, DVT will be ruled out. Objective Vital Signs Date Time Temp Pulse Resp B/P (MAP) Pulse Ox O2 Delivery O2 Flow Rate FiO2 09/02/17 10:00 82 09/02/17 09:00 88 09/02/17 08:00 97.6 85 12 136/60 (85) 93 09/02/17 08:00 Room Air 09/02/17 08:00 98.0 86 20 136/60 (85) 94 09/02/17 08:00 84 09/02/17 07:00 76 09/02/17 06:00 74 09/02/17 05:00 80 09/02/17 04:00 Room Air 1.00 21 09/02/17 04:00 81 18 147/67 (93) 90 09/02/17 04:00 80 09/02/17 03:00 82 09/02/17 02:24 71 09/02/17 02:00 80 09/02/17 01:00 81 09/02/17 00:00 80 16 140/65 (90) 97 09/02/17 00:00 85 09/02/17 00:00 Room Air 21 09/02/17 00:00 84 09/01/17 23:40 16 09/01/17 23:00 98 09/01/17 21:21 98 09/01/17 21:00 104 09/01/17 20:00 100 09/01/17 19:37 95 09/01/17 19:27 96 18 139/77 (97) 97 09/01/17 19:22 Room Air 21 09/01/17 18:27 92 09/01/17 17:12 89 09/01/17 16:11 95 Room Air 09/01/17 16:00 92 09/01/17 15:35 98.9 95 15 155/69 (97) 95 09/01/17 15:00 96 09/01/17 14:00 83 09/01/17 13:00 88 I/O 09/01/17 09/01/17 09/01/17 09/02/17 09/02/17 09/02/17 07:00 15:00 23:00 07:00 15:00 23:00 Intake Total 740 ml 720 ml 720 ml Output Total 1200 ml 1027 ml 1150 ml Balance -460 ml -307 ml -430 ml Intake Oral 240 ml 720 ml 720 ml IV Total 500 ml Output Urine Total 1200 ml 1025 ml 1150 ml Stool Total 2 ml Result Diagram: 09/02/17 0504 09/02/17 0504 Objective Remarks GENERAL: NAD, A&Ox3 HEAD: Normocephalic. NECK: Supple, trachea midline. No lymphadenopathy. EYES: No scleral icterus. No injection or drainage. CARDIOVASCULAR: Regular rate and rhythm without murmurs, gallops, or rubs. RESPIRATORY: Breath sounds equal bilaterally. No accessory muscle use. GASTROINTESTINAL: Abdomen soft, non-tender, nondistended. MUSCULOSKELETAL: No cyanosis, or edema. SKIN: Warm and dry. NEURO: No focal neurological deficitis. A/P Problem List: (1) Carotid artery aneurysm ICD Code: I72.0 - Aneurysm of carotid artery Status: Acute Permanent Comment: Dr. Hollis - Atherosclerosis of [place] coronary artery. Last Edited By: José Miguel Black on May 29, 2015 16:03 (2) Refused pneumococcal vaccination ICD Code: Z78.9 - Other specified health status Status: Acute (3) Frequent falls ICD Code: R29.6 - Repeated falls Status: Acute (4) DM2 (diabetes mellitus, type 2) ICD Code: E11.9 - Type 2 diabetes mellitus without complications Status: Acute Assessment and Plan 77-year-old male admitted for flash pulmonary edema Right knee joint pain Gout versus DVT Right lower extremity ultrasound ordered Prednisone started Flash Pulmonary Edema Resolved HTN Urgency on HTN Resolved Follow blood pressures Continue baseline blood pressure treatments Consider as needed clonidine plan to be added to the treatments at discharge LOS on CKD IV Worsened again today monitor renal function Follow for trend back towards baseline Consider nephrology consult if this does not improve Some improvement made be present with addition of steroids today Anemia GI Bleed Hx Follow CBC Avoid blood thinners Thrombocytopenia Improving today Follow platelet counts Troponin elevation Improved today Etiology was likely HTN Urgency/Crisis coupled with flash pulmonary edema and degree of CKD No need to monitor further Atrial Fibrillation Skin Cancer CAD status post PCI Hyperlipidemia CHF Multiple TIAs COPD AURELIA No change to baseline treatments Follow these conditions clinically for now BPH with Urinary Retention Catheter in place for now Lung Cancer Not a candidate for treatment Hospice consulted DVT prophylaxis FEDERICOs, Kev Saravia MD Sep 02, 2017 12:14
[2017-09-02] MEDS ORDERED: traMADol HCL 50 MG TAB PO PRN (12:15)
[2017-09-02] MEDS ORDERED: predniSONE 50 MG TAB PO ONE (12:15)
[2017-09-02] MEDS: ENOXAPARIN SODIUM 30 MG/0.3 ML SYRINGE SQ SCH (13:13)
--- NOTE | 2017-09-02 15:52 | RADRPT ---
EXAM DATE: 09/02/2017 3:47 PM EDT AGE/SEX: 77 years / Male INDICATIONS: Right leg pain. CLINICAL DATA: This is the patient's initial encounter. Patient reports that signs and symptoms have been present for 1 day and indicates a pain score of 1/10. MEDICAL/SURGICAL HISTORY: Transient ischemic attack. Hypercholesterolemia. Chronic obstructiv e pulmonary disease. Diabetic neuropathy. Cardiomyopathy. Coronary artery disease. Anticoagulant the rapy. Atrial flutter with RVR. Hypertension. Congestive heart failure. Sleep apnea. Stage 4 renal di sease. BPH. MRSA. . Cardiac catheterization with stent. Arteriovenous shunt. Circumcision. COMPARISON: No prior exams available for comparison. TECHNIQUE: Venous ultrasound of both lower extremities was performed from the inguinal ligament to t he proximal calf. Real-time, color Doppler and spectral tracing, compression and augmentation techni ques were used. FINDINGS: There is good visualization of the deep venous system. Patient is a compressible with deve lopmental flow. The greater saphenous vein is not visualized. CONCLUSION: 1. Negative for deep venous thrombosis. Electronically signed by: Mekhi Sarabia MD 09/02/2017 3:50 PM EDT
[2017-09-02] MEDS: ATORVASTATIN 40 MG TAB PO SCH (21:46)
[2017-09-02] MEDS: predniSONE 20 MG TAB PO SCH (21:47)
[2017-09-03] VITALS: BP 143/65; PULSE 74; RESP 17; TEMP 97.8; O2SAT 95
[2017-09-03 04:00] VITALS: BP 146/66; PULSE 78; RESP 16; TEMP 97.6; O2SAT 95
[2017-09-03] MEDS: hydrALAZINE HCL 25 MG TAB PO SCH ×3 (04:42→21:58)
[2017-09-03] MEDS: TAMSULOSIN HCL 0.4 MG CAP PO SCH ×2 (08:00→21:57)
[2017-09-03] MEDS: TORSEMIDE 5 MG TAB PO SCH (08:01)
[2017-09-03] MEDS: METOLAZONE 5 MG TAB PO SCH (08:01)
[2017-09-03] MEDS: ASPIRIN 81 MG CHEW TAB CHEW SCH (08:01)
[2017-09-03] MEDS: CLOPIDOGREL 75 MG TAB PO SCH (08:01)
[2017-09-03] MEDS: DOCUSATE SODIUM 50 MG/SENNA 8.6 MG TAB PO SCH ×2 (08:01→21:57)
[2017-09-03] MEDS: GABAPENTIN 300 MG CAP PO SCH ×2 (08:02→21:58)
[2017-09-03] MEDS: METOPROLOL TARTRATE 25 MG TAB PO SCH ×2 (08:02→22:00)
[2017-09-03] MEDS: predniSONE 20 MG TAB PO SCH ×2 (08:02→21:58)
[2017-09-03] MEDS: FUROSEMIDE 40 MG TAB PO SCH ×2 (08:02→21:58)
[2017-09-03] MEDS: SODIUM CHLORIDE 0.9% FLUSH 10 ML FLUSH IV FLUSH SCH ×2 (08:02→21:57)
[2017-09-03 08:11] LABS: AUTOMATED NEUTROPHIL # 7.7 TH/MM3 (1.8-7.7); BASOPHIL % 0.1 % (0.0-2.0); HEMOGLOBIN 10.7 GM/DL (13.0-17.0); LYMPH % 8.7 % (9.0-44.0); LYMPHOCYTE # 0.8 TH/MM3 (1.0-4.8); MEAN CELL VOLUME 84.9 FL (80.0-100.0); MEAN CORPUSCULAR HEMOGLOBIN 27.4 PG (27.0-34.0); MEAN CORPUSCULAR HGB CONC 32.3 % (32.0-36.0); MEAN PLATELET VOLUME 9.5 FL (7.0-11.0); MONO % 1.7 % (0.0-8.0); MONOCYTE # 0.1 TH/MM3 (0-0.9); NEUT % 89.5 % (16.0-70.0); PLATELET COUNT 65 TH/MM3 (150-450); RED BLOOD COUNT 3.89 MIL/MM3 (4.50-5.90); RED CELL DISTRIBUTION WIDTH 22.6 % (11.6-17.2); WHITE BLOOD COUNT 8.6 TH/MM3 (4.0-11.0)
[2017-09-03 08:29] VITALS: BP 134/62; PULSE 74; RESP 18; TEMP 97.4; O2SAT 95
[2017-09-03 08:57] LABS: ALBUMIN 3.3 GM/DL (3.4-5.0); ALKALINE PHOSPHATASE 80 U/L (45-117); ALT (GPT) 24 U/L (12-78); AST (GOT) 12 U/L (15-37); BICARBONATE 26.6 MEQ/L (21.0-32.0); BLOOD UREA NITROGEN 74 MG/DL (7-18); CALCIUM 8.7 MG/DL (8.5-10.1); CHLORIDE 91 MEQ/L (98-107); CREATININE 2.95 MG/DL (0.60-1.30); GLOMERULAR FILTRATION RATE 21 ML/MIN (>89); GLUCOSE,RANDOM 218 MG/DL (74-106); SODIUM (NA) 132 MEQ/L (136-145); TOTAL BILIRUBIN ADULT 1.1 MG/DL (0.2-1.0); TOTAL PROTEIN 7.4 GM/DL (6.4-8.2)
[2017-09-03] MEDS: INSULIN ASPART SUPPLEMENTAL SCALE SQ SCH ×4 (08:59→21:59)
[2017-09-03 12:05] VITALS: BP 137/61; PULSE 73; RESP 18; TEMP 97.3; O2SAT 94
[2017-09-03] MEDS: ENOXAPARIN SODIUM 30 MG/0.3 ML SYRINGE SQ SCH (12:21)
--- NOTE | 2017-09-03 14:19 | HHI.PR ---
Subjective Remarks Follow-up flash pulmonary edema September 03, 2017-patient seen and examined, denies any significant shortness of breath only reports some mild right knee pain. Discussed with patient and his regarding hospice. Objective Vitals Vital Signs Date Time Temp Pulse Resp B/P (MAP) Pulse Ox O2 Delivery O2 Flow Rate FiO2 09/03/17 12:05 97.3 73 18 137/61 (86) 94 09/03/17 08:29 97.4 74 18 134/62 (86) 95 09/03/17 08:20 Room Air 09/03/17 04:00 97.6 78 16 146/66 (92) 95 09/03/17 00:00 97.8 74 17 143/65 (91) 95 09/02/17 20:00 97.6 77 16 124/58 (80) 92 09/02/17 19:25 Room Air 1.00 21 09/02/17 19:00 84 09/02/17 15:00 78 I/O 09/02/17 09/02/17 09/02/17 09/03/17 09/03/17 09/03/17 06:59 14:59 22:59 06:59 14:59 22:59 Intake Total 720 ml Output Total 1150 ml 400 ml Balance -430 ml -400 ml Intake Oral 720 ml Output Urine Total 1150 ml 400 ml Result Diagram: 09/03/17 0700 09/03/17 0700 Imaging Last Impressions Lower Extremity Ultrasound 09/02/17 0000 Signed Impressions: CONCLUSION: 1. Negative for deep venous thrombosis. Chest X-Ray 08/31/17 0040 Signed Impressions: CONCLUSION: Pulmonary vascular congestion. Objective Remarks GENERAL: NAD SKIN: Warm and dry. HEAD: Normocephalic. EYES: No scleral icterus. No injection or drainage. NECK: Supple, trachea midline. No JVD or lymphadenopathy. CARDIOVASCULAR: Regular rate and rhythm without murmurs, gallops, or rubs. RESPIRATORY: Breath sounds equal bilaterally. No accessory muscle use. GASTROINTESTINAL: Abdomen soft, non-tender, nondistended. MUSCULOSKELETAL: No cyanosis, or edema. Mild right knee swelling BACK: Nontender without obvious deformity. No CVA tenderness. Procedures None A/P Problem List: (1) Flash pulmonary edema ICD Code: J81.0 - Acute pulmonary edema (2) CKD (chronic kidney disease) stage 4, GFR 15-29 ml/min ICD Code: N18.4 - Chronic kidney disease, stage 4 (severe) Status: Acute (3) HTN (hypertension) ICD Code: I10 - Essential (primary) hypertension Status: Acute Assessment and Plan 77-year-old man with Right knee joint pain Right lower extremity ultrasound negative for DVT Check uric acid Continue prednisone Flash Pulmonary Edema Resolved HTN Urgency on HTN Resolved Continue baseline blood pressure treatments with Lopressor 25 mg twice daily, hydralazine 25 mg 3 times daily, Consider as needed clonidine plan to be added to the treatments at discharge LOS on CKD IV Continue to monitor BUN and creatinine Anemia GI Bleed Hx H&H stable Thrombocytopenia continue to monitor platelet Troponin elevation Improved today Etiology was likely HTN Urgency/Crisis coupled with flash pulmonary edema and degree of CKD No need to monitor further Atrial Fibrillation Skin Cancer CAD status post PCI Hyperlipidemia CHF Multiple TIAs COPD AURELIA No change to baseline treatments including Lasix 40 mg twice daily, torsemide 10 mg daily Continue Plavix, aspirin, Lipitor BPH with Urinary Retention Catheter in place for now Lung Cancer Not a candidate for treatment Hospice consulted DVT prophylaxis SCDs, lovenox Gas with both patient and his regarding discharge to hospice Hernando Lofton MD Sep 03, 2017 14:19
[2017-09-03 16:33] VITALS: BP 150/67; PULSE 77; RESP 18; TEMP 97.6; O2SAT 94
[2017-09-03 20:00] VITALS: BP 160/65; PULSE 76; RESP 16; TEMP 97.5; O2SAT 94
[2017-09-03] MEDS: ATORVASTATIN 40 MG TAB PO SCH (21:58)
[2017-09-04] VITALS: BP 126/73; PULSE 77; RESP 16; TEMP 97.8; O2SAT 97
[2017-09-04 04:00] VITALS: BP 130/80; PULSE 76; RESP 16; TEMP 97.6; O2SAT 96
[2017-09-04] MEDS: hydrALAZINE HCL 25 MG TAB PO SCH (05:44)
[2017-09-04] MEDS: INSULIN ASPART SUPPLEMENTAL SCALE SQ SCH ×2 (08:00→13:22)
[2017-09-04 08:27] VITALS: BP 170/72; PULSE 93; RESP 18; TEMP 99.1; O2SAT 92
[2017-09-04] MEDS: CLOPIDOGREL 75 MG TAB PO SCH (09:00)
[2017-09-04] MEDS: ASPIRIN 81 MG CHEW TAB CHEW SCH (09:00)
[2017-09-04] MEDS: METOPROLOL TARTRATE 25 MG TAB PO SCH (09:00)
[2017-09-04] MEDS: FUROSEMIDE 40 MG TAB PO SCH (09:00)
[2017-09-04] MEDS: SODIUM CHLORIDE 0.9% FLUSH 10 ML FLUSH IV FLUSH SCH (09:00)
[2017-09-04] MEDS: predniSONE 20 MG TAB PO SCH (09:00)
[2017-09-04] MEDS: GABAPENTIN 300 MG CAP PO SCH (09:00)
[2017-09-04] MEDS: TAMSULOSIN HCL 0.4 MG CAP PO SCH (09:00)
[2017-09-04] MEDS: DOCUSATE SODIUM 50 MG/SENNA 8.6 MG TAB PO SCH (09:00)
[2017-09-04] MEDS: TORSEMIDE 5 MG TAB PO SCH (09:00)
[2017-09-04] MEDS: METOLAZONE 5 MG TAB PO SCH (09:00)
--- NOTE | 2017-09-04 10:08 | HHI.PR ---
Subjective Remarks Follow-up flash pulmonary edema September 03, 2017-patient seen and examined, denies any significant shortness of breath only reports some mild right knee pain. Discussed with patient and his regarding hospice. September 04, 2017-patient seen and examined, patient is lethargic however responding to sternal rub. Vital stable Objective Vitals Vital Signs Date Time Temp Pulse Resp B/P (MAP) Pulse Ox O2 Delivery O2 Flow Rate FiO2 09/04/17 08:27 99.1 93 18 170/72 (104) 92 09/04/17 04:00 97.6 76 16 130/80 (97) 96 09/04/17 00:00 97.8 77 16 126/73 (90) 97 09/03/17 20:00 97.5 76 16 160/65 (96) 94 09/03/17 16:33 97.6 77 18 150/67 (94) 94 09/03/17 12:05 97.3 73 18 137/61 (86) 94 I/O 09/03/17 09/03/17 09/03/17 09/04/17 09/04/17 09/04/17 07:00 15:00 23:00 07:00 15:00 23:00 Output Total 400 ml 1850 ml Balance -400 ml -1850 ml Output Urine Total 400 ml 1850 ml # Voids 2 # Bowel Movements 1 Result Diagram: 09/03/17 0700 09/03/17 0700 Imaging Last Impressions Lower Extremity Ultrasound 09/02/17 0000 Signed Impressions: CONCLUSION: 1. Negative for deep venous thrombosis. Chest X-Ray 08/31/17 0040 Signed Impressions: CONCLUSION: Pulmonary vascular congestion. Objective Remarks GENERAL: lethargic SKIN: Warm and dry. HEAD: Normocephalic. EYES: No scleral icterus. No injection or drainage. NECK: Supple, trachea midline. No JVD or lymphadenopathy. CARDIOVASCULAR: Regular rate and rhythm without murmurs, gallops, or rubs. RESPIRATORY: Breath sounds equal bilaterally. No accessory muscle use. GASTROINTESTINAL: Abdomen soft, non-tender, nondistended. MUSCULOSKELETAL: No cyanosis, or edema. Mild right knee swelling BACK: Nontender without obvious deformity. No CVA tenderness. Procedures None A/P Problem List: (1) Flash pulmonary edema ICD Code: J81.0 - Acute pulmonary edema (2) CKD (chronic kidney disease) stage 4, GFR 15-29 ml/min ICD Code: N18.4 - Chronic kidney disease, stage 4 (severe) Status: Acute (3) HTN (hypertension) ICD Code: I10 - Essential (primary) hypertension Status: Acute Assessment and Plan 77-year-old man with Right knee joint pain Right lower extremity ultrasound negative for DVT Continue prednisone Flash Pulmonary Edema Resolved HTN Urgency on HTN Resolved Continue baseline blood pressure treatments with Lopressor 25 mg twice daily, hydralazine 25 mg 3 times daily, LOS on CKD IV Continue to monitor BUN and creatinine Anemia GI Bleed Hx H&H stable Thrombocytopenia continue to monitor platelet Troponin elevation Improved today Etiology was likely HTN Urgency/Crisis coupled with flash pulmonary edema and degree of CKD No need to monitor further Atrial Fibrillation Skin Cancer CAD status post PCI Hyperlipidemia CHF Multiple TIAs COPD AURELIA No change to baseline treatments including Lasix 40 mg twice daily, torsemide 10 mg daily Continue Plavix, aspirin, Lipitor BPH with Urinary Retention resolved Lung Cancer Not a candidate for treatment Hospice consulted DVT prophylaxis SCDs, lovenox Hospice has been consulted, and plan for discharge today September 04, 2017 as patient currently with a poor prognosis Hernando Lofton MD Sep 04, 2017 10:08
[2017-09-04] MEDS ORDERED: PRED20 PO (10:10)
--- NOTE | 2017-09-04 10:12 | HHI.DS ---
Discharge Summary Admission Date Aug 31, 2017 at 04:07 Discharge Date: Sep 04, 2017 Admitting Diagnosis Flash pulmonary edema (1) Flash pulmonary edema ICD Code: J81.0 - Acute pulmonary edema (2) CKD (chronic kidney disease) stage 4, GFR 15-29 ml/min ICD Code: N18.4 - Chronic kidney disease, stage 4 (severe) Status: Acute (3) HTN (hypertension) ICD Code: I10 - Essential (primary) hypertension Status: Acute Procedures None Brief History - From Admission Mr. Masters is a 77-year-old male. He is admitted secondary to flash pulmonary edema. At baseline his risk factors include congestive heart failure, chronic kidney disease stage IV, hypertension with hypertensive urgency/emergency at time of onset her blood pressures are reported by his to have been 250 mmHg systolic, and recently diagnosed lung cancer. He has some confusion at baseline but his mental status has declined in the setting of this acute flash pulmonary edema. Patient was treated in the ER and overnight has had improvement. His mental status is not yet back to baseline. His breathing is improved. His chronic medical conditions prohibit him from having any chemotherapy or radiation therapy for his lung cancer. Hospice is consulted and will be evaluating this patient for candidacy for hospice. Other findings are a low platelet count, and elevated troponin, and acute kidney injury on top of his baseline chronic kidney disease. Most of the history is obtained from his is patient is confused and cannot participate in history. CBC/BMP: 09/03/17 0700 09/03/17 0700 Significant Findings Laboratory Tests Test 09/02/17 05:04 09/03/17 07:00 Red Blood Count 4.19 MIL/MM3 (4.50-5.90) 3.89 MIL/MM3 (4.50-5.90) Hemoglobin 11.4 GM/DL (13.0-17.0) 10.7 GM/DL (13.0-17.0) Hematocrit 36.0 % (39.0-51.0) 33.0 % (39.0-51.0) Mean Corpuscular Hemoglobin Concent 31.7 % (32.0-36.0) Red Cell Distribution Width 23.6 % (11.6-17.2) 22.6 % (11.6-17.2) Platelet Count 74 TH/MM3 (150-450) 65 TH/MM3 (150-450) Neutrophils (%) (Auto) 71.7 % (16.0-70.0) 89.5 % (16.0-70.0) Platelet Estimate LOW (NORMAL) LOW (NORMAL) Ovalocytes 1+ (NORMAL) Blood Urea Nitrogen 65 MG/DL (7-18) 74 MG/DL (7-18) Creatinine 2.93 MG/DL (0.60-1.30) 2.95 MG/DL (0.60-1.30) Random Glucose 121 MG/DL (74-106) 218 MG/DL (74-106) Estimat Glomerular Filtration Rate 21 ML/MIN (>89) 21 ML/MIN (>89) Troponin I 0.30 NG/ML (0.02-0.05) Lymphocytes (%) (Auto) 8.7 % (9.0-44.0) Lymphocytes # (Auto) 0.8 TH/MM3 (1.0-4.8) Albumin 3.3 GM/DL (3.4-5.0) Aspartate Amino Transf (AST/SGOT) 12 U/L (15-37) Total Bilirubin 1.1 MG/DL (0.2-1.0) Sodium Level 132 MEQ/L (136-145) Potassium Level 3.4 MEQ/L (3.5-5.1) Chloride Level 91 MEQ/L (98-107) Imaging Last Impressions Lower Extremity Ultrasound 09/02/17 0000 Signed Impressions: CONCLUSION: 1. Negative for deep venous thrombosis. Chest X-Ray 08/31/17 0040 Signed Impressions: CONCLUSION: Pulmonary vascular congestion. PE at Discharge GENERAL: lethargic SKIN: Warm and dry. HEAD: Normocephalic. EYES: No scleral icterus. No injection or drainage. NECK: Supple, trachea midline. No JVD or lymphadenopathy. CARDIOVASCULAR: Regular rate and rhythm without murmurs, gallops, or rubs. RESPIRATORY: Breath sounds equal bilaterally. No accessory muscle use. GASTROINTESTINAL: Abdomen soft, non-tender, nondistended. MUSCULOSKELETAL: No cyanosis, or edema. Mild right knee swelling BACK: Nontender without obvious deformity. No CVA tenderness. Hospital Course Prior to discharge to hospice, patient was treated for: Right knee joint pain Right lower extremity ultrasound negative for DVT Continue prednisone Flash Pulmonary Edema Resolved HTN Urgency on HTN Resolved Continue baseline blood pressure treatments with Lopressor 25 mg twice daily, hydralazine 25 mg 3 times daily, LOS on CKD IV Continue to monitor BUN and creatinine Anemia GI Bleed Hx H&H stable Thrombocytopenia continue to monitor platelet Troponin elevation Improved today Etiology was likely HTN Urgency/Crisis coupled with flash pulmonary edema and degree of CKD No need to monitor further Atrial Fibrillation Skin Cancer CAD status post PCI Hyperlipidemia CHF Multiple TIAs COPD AURELIA No change to baseline treatments including Lasix 40 mg twice daily, torsemide 10 mg daily Continue Plavix, aspirin, Lipitor BPH with Urinary Retention resolved Lung Cancer Not a candidate for treatment Hospice consulted DVT prophylaxis SCDs, lovenox Pt Condition on Discharge: Guarded Discharge Disposition: Hospice/ Home Discharge Time: > 30 minutes Discharge Instructions DIET: Follow Instructions for: Heart Healthy Diet Activities you can perform: Regular-No Restrictions Follow up Referrals: PCP Follow-up - 2-3 Days New Medications: Prednisone (Prednisone) 20 Mg Tab 20 MG PO BID for Infection, #20 TAB Continued Medications: Aspirin (Aspirin) 81 Mg Chew 81 MG CHEW DAILY, TAB 0 Refills Atorvastatin (Atorvastatin) 40 Mg Tab 40 MG PO HS for Cholesterol Management, #30 TAB 3 Refills Calcitriol (Calcitriol) 0.25 Mcg Cap 0.25 MCG PO DAILY for Calcium Supplement, #30 CAP 0 Refills Clopidogrel (Plavix) 75 Mg Tab 75 MG PO DAILY for Blood Clot Prevention, #30 TAB 0 Refills Furosemide (Furosemide) 40 Mg Tab 40 MG PO BID, #60 TAB 0 Refills Gabapentin (Gabapentin) 300 Mg Cap 300 MG PO BID, #60 CAP 0 Refills Hydralazine HCl (Hydralazine HCl) 25 Mg Tablet 25 MG PO TID for Blood Pressure Management, #90 TAB 0 Refills Insulin Degludec Inj (Tresiba Flextouch Pen Inj) 300 unit/3 ML Pen 16 UNITS SQ DAILY for Blood Sugar Management, #15 ML 0 Refills Metolazone (Metolazone) 5 Mg Tab 5 MG PO DAILY, #30 TAB 0 Refills Metoprolol Tartrate (Metoprolol Tartrate) 25 Mg Tab 25 MG PO BID, #60 TAB 0 Refills Pantoprazole (Protonix) 40 Mg Tab 40 MG PO DAILY for Reflux, #30 TAB 0 Refills Tamsulosin (Flomax) 0.4 Mg Cap 0.4 MG PO Q12HR for retention for 30 Days, #60 CAP Torsemide (Torsemide) 10 Mg Tab 10 MG PO DAILY for Heart, #30 TAB 0 Refills [Curel Lotion] () 1 APPLIC TOPICAL DAILY PRN for ITCHING Discontinued Medications: Prednisone (Prednisone) 10 Mg Tab 10 MG PO BID for Inflammation, #10 TAB 0 Refills Hernando Lofton MD Sep 04, 2017 10:12
[2017-09-04 12:00] VITALS: BP 139/63; PULSE 87; RESP 18; TEMP 97.5; O2SAT 93
== END 2017-09-04 14:53 | disposition home or self-care (01) | DRG 291 ==
LOC: NEPC 23:53 → NEDA 08-31 04:07 → HCIS 08-31 07:28 → N05A 09-02 17:08
PROVIDERS: ADMIT Hospitalist; ATTEND Hospitalist
DX: I13.0 Hypertensive heart and chronic kidney disease with heart failure and stage 1 through stage 4 chronic kidney disease, or unspecified chronic kidney disease (principal); J81.0 Acute pulmonary edema; N18.4 Chronic kidney disease, stage 4 (severe); D69.6 Thrombocytopenia, unspecified; E11.22 Type 2 diabetes mellitus with diabetic chronic kidney disease; I72.0 Aneurysm of carotid artery; N17.9 Acute kidney failure, unspecified; C34.90 Malignant neoplasm of unspecified part of unspecified bronchus or lung; I16.0 Hypertensive urgency; I50.9 Heart failure, unspecified; J44.9 Chronic obstructive pulmonary disease, unspecified; D64.9 Anemia, unspecified; I48.91 Unspecified atrial fibrillation; R29.6 Repeated falls; G47.33 Obstructive sleep apnea (adult) (pediatric); E78.5 Hyperlipidemia, unspecified; I25.10 Atherosclerotic heart disease of native coronary artery without angina pectoris; M25.561 Pain in right knee; N40.1 Benign prostatic hyperplasia with lower urinary tract symptoms; R33.8 Other retention of urine; Z95.5 Presence of coronary angioplasty implant and graft; Z86.73 Personal history of transient ischemic attack (TIA), and cerebral infarction without residual deficits; Z85.828 Personal history of other malignant neoplasm of skin; Z88.2 Allergy status to sulfonamides; Z88.8 Allergy status to other drugs, medicaments and biological substances; Z79.82 Long term (current) use of aspirin; Z79.52 Long term (current) use of systemic steroids; Z79.899 Other long term (current) drug therapy; Z28.21 Immunization not carried out because of patient refusal
CPT/HCPCS: 71045; 80053; 81001; 82948; 84484; 85025; 87641; 93971; 94002; 96374; J1650; J1815; J1940; J7512; P9612